=== PATIENT | female | born 1980 | race Caucasian/White ===

== ENCOUNTER → 2017-07-16 | Outpatient (CLI) | payer OTHER ==
[~2017-07-16] MED LIST: AC500T; ACHD5005 PO; ALPR1T PO; AZIT-21 PO; BC PILL PO; CETI10TA17 PO; CLNZ.5T; CLON0.5T60 PO; CYCL10TA9 PO; CYCL5TAB PO; DEPO-PROVERA; DESV100T PO; DULO30CA PO; FENO43CA3 PO; FENO67CA PO; FISH OIL 1,2001 EAC1 PO; FLUO20CA25 PO; FRS325T PO; FRSM20T PO; GUAI1TBM7 PO; HYDR1TAB PO; IBP800T PO; IBUP800T26 PO; KETO-22 PO; LMT25T PO; METH4TAB PO; MOD; ONDAN4ODT PO; ORPH100T PO; OXYC-12 PO; OXYC10TA63 PO; OXYC15TA73 PO; OXYC15TA79 PO; OXYC1TAB17 PO; PARO-49 PO; PNT40TEC PO; PRD20T PO; QTP200T; RPN.25T PO; RSP1T PO; SILV25CR TP; SIMV40TA4 PO; SULF1TAB38; SULF1TAB38 PO; TOPI50TA2 PO; TOPI50TA20; TPR25T PO; TRAM-21 PO; TRAM50TA2 PO; TRAZ150T42 PO; TRM50T PO; VARE1TAB17 PO; ZLP10T PO; ZOLP5TAB7 PO; [UNRECOGNIZED DRUG - OTHER]
--- NOTE | 2017-07-16 18:17 | Diagnostic Imaging Report ---
INDICATION: Digital mammogram bilateral diagnostic with 3-D tomosynthesis. This study was compared to the prior exam of 09/14/12. At this time, the patient does complain of pain and nipple discharge on the right. The current study was also evaluated with a Computer Aided Detection (CAD) system. FINDINGS: In the interval since the prior exam, the patient has undergone a surgical procedure and there are now surgical clips in the retroareolar region of the right breast. There is no other abnormality identified in this area to account for the patient's pain or nipple discharge, however. I would recommend that ultrasound of the right breast be performed for further study. There are scattered fibroglandular densities in both breasts which could obscure a lesion. Overall, there does not appear to have been any significant change when compared to the prior study. There is no primary or secondary sign of malignancy noted. IMPRESSION: There is no evidence for malignancy. There is no abnormality to account for the patient's nipple discharge on the right either. Ultrasound would be recommended for further evaluation. ACR BI-RADS Category 0: Incomplete. (Needs additional imaging evaluation). Result letter will be mailed to the patient. Note: At least 10% of breast cancer is not imaged by mammography. Dictated by: Dictated on workstation # [id number]
--- NOTE | 2017-07-16 19:20 | Diagnostic Imaging Report ---
Ultrasound of the right breast. INDICATION: Breast pain, nipple discharge. FINDINGS: The diagnostic mammogram performed prior to this study failed to show any sign of malignancy or an acute abnormality to account for the patient's nipple discharge on the right. On this exam, there is no discrete solid or cystic mass in the retroareolar region. This area is somewhat difficult to assess due to shadowing related to the surgical clips. The ducts do not seem to be abnormally dilated either. IMPRESSION: 1. There is no evidence of malignancy and there is no abnormality to account for the patient's nipple discharge/pain. 2. If clinical concern regarding inflammatory/infectious process exists, then antibiotic therapy would be recommended. 3. If further imaging is desired, then a ductogram should be considered. The presence of the surgical clips may preclude further evaluation by MRI. ACR BI-RADS Category 1: Negative. Dictated by: Dictated on workstation # [id number]
== END ==
LOC: RAD 13:01
PROVIDERS: ATTEND Internal Medicine Gastroenterology
DX: N64.52 Nipple discharge (principal)
CPT/HCPCS: 77066

== ENCOUNTER 2018-08-21 21:49 | Emergency (ER) | payer SELFPAY ==
[~2018-08-21] VITALS: Ht 170.2 cm; Wt 124.7 kg
--- OUTSIDE RECORDS SUMMARY | 2018-08-21 21:55 | XMS REPORT ---
Author Author [facility] [employer]coll[employer] [facility] Medical Staff Organization [facility] [employer] [facility] Address [address], [place] [id number] Phone [phone] Care Team Providers Care Career Technical Education Instructor Name Role Phone CAM WILLIS MD PP [phone] Summary purpose TRANSITION OF CARE AUTO GENERATION Chief Complaint and Reason for Visit Admit Diagnosis 1 LUMBOSACRAL NEURITIS NOS Problem list No authorized problems tracked for continuity of care are available for this vis it. Encounters No authorized problems tracked for encounter diagnoses are available for this vi sit. Medications No home medications recorded for this patient visit Allergies, adverse reactions, alerts Allergen Category Ingredient Status Reaction Severity Onset Codeine Drug Allergy Codeine Confirmed or Verified Immunizations No immunizations recorded for this patient visit Relevant diagnostic tests and/or laboratory data RESULTS Radiology Results [id number]:00:00 MRI L-SPINE W/O CONT PACs Image DATE OF EXAM: May 29 2014 MRI 0085-MRI L SPINE WO CONTRAST : RADIOLOGY REPORT DATE OF SERVICE: 05/29/14 HISTORY: Low back pain with bilateral radiculopathy MAGNETIC RESONANCE IMAGING LUMBAR SPINE 1045 HOURS Comparison is made with the prior study of 11/27/2011. Imaging of the lumbar spine was performed in the sagittal and axial planes. No contrast was administered. The lumbar vertebrae are normal in height and alignment and show normal uniform marrow signal. The upper sacrum is normal. The distal thoracic spinal cord and conus medullaris are normal. The conus terminates at the L1-L2 level. There is no bony canal stenosis. The paraspinous soft tissues are normal. The disc spaces are normal at the T12-L1, L1-L2, L2-L3, L3-L4, and L4-L5 levels. The bony canal is widely patent at these levels. The facets and foramina and the nerve roots are also normal at these levels. At L5-S1, there is a moderate to large central disc herniation. This is substantially larger than seen on the prior study. There is effacement of the ventral aspect of the subarachnoid space. Definite nerve root effacement is not seen. The facets are normal. There is no spondylolysis or spondylolisthesis. IMPRESSION: Moderate to large central disc herniation at L5-S1. Otherwise normal magnetic resonance imaging lumbar spine. MD KESHAWN Lindo/wv05/29/2014 11:58:00 / 05/29/2014 12:00:58 cc:Dr. Cam Willis This document has been electronically Signed by: On: DATE OF EXAM: May 29 2014 MRI 0085-MRI L SPINE WO CONTRAST : RADIOLOGY REPORT DATE OF SERVICE: 05/29/14 HISTORY: Low back pain with bilateral radiculopathy MAGNETIC RESONANCE IMAGING LUMBAR SPINE 1045 HOURS Comparison is made with the prior study of 11/27/2011. Imaging of the lumbar spine was performed in the sagittal and axial planes. No contrast was administered. The lumbar vertebrae are normal in height and alignment and show normal uniform marrow signal. The upper sacrum is normal. The distal thoracic spinal cord and conus medullaris are normal. The conus terminates at the L1-L2 level. There is no bony canal stenosis. The paraspinous soft tissues are normal. The disc spaces are normal at the T12-L1, L1-L2, L2-L3, L3-L4, and L4-L5 levels. The bony canal is widely patent at these levels. The facets and foramina and the nerve roots are also normal at these levels. At L5-S1, there is a moderate to large central disc herniation. This is substantially larger than seen on the prior study. There is effacement of the ventral aspect of the subarachnoid space. Definite nerve root effacement is not seen. The facets are normal. There is no spondylolysis or spondylolisthesis. IMPRESSION: Moderate to large central disc herniation at L5-S1. Otherwise normal magnetic resonance imaging lumbar spine. MD KESHAWN Lindo/snehal05/29/2014 11:58:00 / 05/29/2014 12:00:58 cc:Dr. Cam Willis This document has been electronically Signed by: LYNDSEY CISSE On: May 29 2014 12:00P Result Amended on 2014-05-29 at 12:00:54. Previous status was ME. History of procedures Procedure Code Code Type Description Date Performed Performing Physician [id number] CPT-4 MRI LUMBAR SPINE W/O DYE 05-29-2014 CAM WILLIS Functional status No functional or cognitive status observations are available for this visit. Vital signs No authorized vital signs are available for this visit. Social history No Social History or smoking status observations were recorded for this visit. ( Unknown if ever smoked.) Treatment Plan No treatment plan text is available for this visit. Hospital discharge instructions No discharge instruction text is available for this visit.
--- OUTSIDE RECORDS SUMMARY | 2018-08-21 21:55 | XMS REPORT ---
Author Author Migration, Doctor Organization [facility] Address Unknown Phone Unavailable Care Team Providers Care [employer] Name Role Phone Migration, Doctor Unavailable Unavailable PROBLEMS Type Condition ICD9-CM Code ESV89-GK Code Onset Dates Condition Status SNOMED Code Problem Encounter for change or removal of surgical wound dressing V58.31 Active 71041876 Problem Lumbago 724.2 Active 987989290 Problem General counseling for prescription of oral contraceptives V25.01 Active 048815015652065 Problem Unspecified dental caries 521.00 Active 19501113 Problem Other disorder of menstruation and other abnormal bleeding from female genital tract 626.8 Active 242241419 Problem Other dysfunctions of sleep stages or arousal from sleep 307.47 Active 606052826 Problem Allergic rhinitis, cause unspecified 477.9 Active 35658036 Problem Combinations of drug dependence excluding opioid type drug, 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 Active 237618801 Problem Anxiety state, unspecified 300.00 Active 961544001 Problem Unspecified psychosis 298.9 Active 36512482 Problem H/O hyperlipidemia Z86.39 Active 020238983 Problem Nondependent amphetamine or related acting sympathomimetic abuse, 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 39331998530373 Problem Low back pain M54.5 Active 699030018 Problem Other, mixed, or unspecified nondependent drug abuse, unspecified 305.90 Active 945221158 Problem Unspecified episodic mood disorder 296.90 Active 968021795 Problem Other and unspecified bipolar disorders 296.89 Active 04657850 Problem Benign neoplasm of uterus, 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 87775415 Problem Mood disorder F39 Active 38797363 ALLERGIES No Information ENCOUNTERS Encounter Location Date Diagnosis [facility] [address] [facility] [id number], [place] [address] Mar, BMI 40.0-44.9, adult Z68.41 and Acute nasopharyngitis J00 [facility] [address] [facility] [id number], [place] [address] Oct, Mood disorder F39 [facility] [address] [id number], [place] [address] Oct, Mood disorder F39 [facility] [address], [place] [address] Sep, Mood disorder F39 [facility] [address] [id number] [id number] Sep, Dental examination Z01.20 and Dental caries K02.9 [facility] [address], [place] [address] Sep, Mood disorder F39 [facility] [address] [place] [address] Sep, [facility] [address] [place] [address] Sep, Mood disorder F39 ; Other constipation K59.09 ; Dyspepsia R10.13 and Low back pain M54.5 [facility] [address], [place] [address] Sep, [facility] [address] [place] [address] Sep, Mood disorder F39 [facility] [address] [id number], [place] [address] July, H/O hyperlipidemia Z86.39 and H/O intravenous drug use in remission Z87.898 [facility] [address] [id number], [place] [address] July, H/O hyperlipidemia Z86.39 and H/O intravenous drug use in remission Z87.898 [facility] [address] [id number], [place] [address] July, Breast discharge N64.52 [facility] [id number], [place] [address] July, Breast discharge N64.52 [facility] [address] [place] [address] Jun, Blood in stool K92.1 ; Breast discharge N64.52 and Rash R21 [facility] [id number] [place] [address] May, Mood disorder F39 [facility] [id number] [place] [address] May, Other constipation K59.09 [facility] [id number] [place] [address] Apr, Mood disorder F39 and Rash R21 [facility] [id number] [place] [address] Apr, Mood disorder F39 and Rash R21 [facility] [id number] [place] [address] Apr, Mood disorder F39 [facility] [id number] [place] [address] Apr, [facility] [id number] [place] [address] Jun, [facility] [id number] [place] [address] Jun, [facility] [id number] [place] [address] Jun, [facility] [id number] [place] [address] May, [facility] [id number] [place] [address] Jan, Cellulitis of right index finger L03.011 ; Ingrown right big toenail L60.0 ; Local infection of the skin and subcutaneous tissue, unspecified L08.9 and Abrasion of right index finger, initial encounter [address], [place] [address] Apr, [facility] [id number] [place] [address] Apr, [facility] [id number] [place] [address] Apr, [facility] [id number] [place] [address] Apr, Anxiety disorder, unspecified F41.9 and Major depression F32.9 [facility] [id number] [place] [address] Mar, [facility] [id number] [place] [address] Nov, [facility] [id number] [place] [address] Nov, Anxiety disorder, unspecified 300.00 [facility] [id number] [place] [address] 15 Nov, 2014 Routine adult health maintenance V70.0 ; Foot pain, right 729.5 ; Otitis media of right ear 382.9 and Numbness and tingling in left hand 782.0 [facility] [address], [place] [address] 14 Nov, 2014 Routine adult health maintenance V70.0 ; Foot pain, right 729.5 ; Otitis media of right ear 382.9 and Numbness and tingling in left hand 782.0 [facility] [address] [place] [address] 09 Aug, 2014 Pain in hand 729.5 ; Bilateral finger numbness 782.0 and Irregular heart rate 427.9 [facility] [address] [place] [address] Jun, [facility] [id number] [place] [address] Jun, [facility] [address] [id number] [place] [address] Apr, [facility] [address] [id number] [place] [address] Apr, 2014 [facility] [address] [id number] [place] [address] Apr, [facility] [address] [id number] [place] [address] Apr, [facility] [address] [id number] [place] [address] Sep, [facility] [address] [id number] [place] [address] May, [facility] [address] [facility] [id number] [place] [address] May, [facility] [address] [id number] [place] [address] May, [facility] [address] [facility] [id number] [place] [address] May, [facility] [address] [facility] [id number] [place] [address] May, [facility] [address] [id number] [place] [address] Apr, [facility] [address] [id number] [place] [address] Mar, [facility] [address] [id number] [place] [address] Feb, [facility] [place] [facility] [address] [id number] [place] [address] Feb, [facility] [address] [facility] [id number] [place] [address] Feb, [facility] [place] [facility] [address] [id number] [place] [address] Feb, [facility] [place] [facility] [address] [id number] [place] [address] Jan, [facility] [place] [facility] [address] [id number] [place] [address] Jan, [facility] [place] [facility] [address] [id number] [place] [address] Jan, [facility] [place] [facility] [address] [id number] [place] [address] Dec, [facility] [place] [facility] [address] [id number] [place] [address] Dec, [facility] [place] [facility] [address] [id number] [place] [address] Dec, [facility] [place] [facility] [address] [id number] [place] [address] Dec, [facility] [place] [facility] [address] [id number] [place] [address] Nov, [facility] [place] [facility] [address] [id number] [place] [address] Nov, [facility] [place] [facility] [address] [facility] [id number] [place] [address] Nov, [facility] [place] [facility] [address] [id number] [place] [address] Oct, [facility] [place] [facility] [address] [id number] [place] [address] Oct, [facility] [place] [facility] [address] [facility] [id number] [place] [address] Oct, [facility] [place] [facility] [address] [facility] [id number], [place] [address] Sep, [facility] [address] [facility] [id number] [id number] Sep, [facility] [address] [id number] [place] [address] Sep, [facility] [place] [facility] [address] [id number] [place] [address] Aug, [facility] [place] [facility] [address] [id number] [place] [address] July, [facility] [place] [facility] [address] [id number] [place] [address] July, [facility] [address] [id number] [place] [address] July, [facility] [place] [facility] [address] [id number] [place] [address] July, [facility] [place] [facility] [address] [id number] [place] [address] July, [facility] [place] [facility] [address] [id number] [place] [address] July, [facility] [place] [facility] [address] [id number] [place] [address] July, [facility] [place] [facility] [address] [id number] [place] [address] Jun, [facility] [place] [facility] [address] [id number] [place] [address] Jun, [facility] [place] [facility] [address] [id number], [place] [address] Jun, [facility] [place] [facility] [address] [id number] [place] [address] Jun, [facility] [place] [facility] [address] [id number] [place] [address] Jun, [facility] [place] [facility] [address] [id number] [place] [address] May, [facility] [place] [facility] [address] [id number], [place] [address] May, [facility] [address], [place] [address] May, [facility] [address], [place] [address] May, [facility] [address], [place] [address] Apr, [facility] [address], [place] [address] Apr, [facility] [address], [place] [address] Apr, [facility] [address], [place] [address] Feb, [facility] [address], [place] [address] Feb, [facility] [address], [place] [address] Dec, [facility] [address], [place] [address] Feb, [facility] [address], [place] [address] Feb, [facility] [address], [place] [address] Jan, [facility] [id number], [place] [address] July, [facility] [address], [place] [address] Jun, [facility] [id number], [place] [address] 10 Aug, 2008 IMMUNIZATIONS No Known Immunizations SOCIAL HISTORY Never Assessed REASON FOR VISIT EMR[place] [place] CARE VITAL SIGNS MEDICATIONS No Known Medications RESULTS No Results PROCEDURES No Known procedures INSTRUCTIONS MEDICATIONS ADMINISTERED No Known Medications MEDICAL (GENERAL) HISTORY Type Description Date Medical History Depression Medical History HPV-genital watrs Medical History MRSA Medical History anxiety Medical History drug abuse-last used 2010 Medical History bipolar disorder Medical History PTSD Medical History insomnia Medical History back problems, bulging discs Surgical History Hysterectomy 2011 Surgical History Tubal Ligation 2006 Surgical History Appendectomy 1994 Surgical History section x 2 2004, 2006 Hospitalization History childbirth
--- OUTSIDE RECORDS SUMMARY | 2018-08-21 21:55 | XMS REPORT ---
Author Author Migration, Doctor Organization [facility] Address Unknown Phone Unavailable Care Team Providers Care Pasteurizer Name Role Phone Migration, Doctor Unavailable Unavailable PROBLEMS Type Condition ICD9-CM Code [id number] Code Onset Dates Condition Status SNOMED Code Problem Encounter for change or removal of surgical wound dressing V58.31 Active 44310571 Problem Lumbago 724.2 Active 911617540 Problem General counseling for prescription of oral contraceptives V25.01 Active 088176495127333 Problem Unspecified dental caries 521.00 Active 15315259 Problem Other disorder of menstruation and other abnormal bleeding from female genital tract 626.8 Active 311526991 Problem Other dysfunctions of sleep stages or arousal from sleep 307.47 Active 579042156 Problem Allergic rhinitis, cause unspecified 477.9 Active 56754531 Problem Combinations of drug dependence excluding opioid type drug, 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 Active 870536581 Problem Anxiety state, unspecified 300.00 Active 972686875 Problem Unspecified psychosis 298.9 Active 66149640 Problem H/O hyperlipidemia Z86.39 Active 267320330 Problem Nondependent amphetamine or related acting sympathomimetic abuse, 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 41381080762148 Problem Low back pain M54.5 Active 661195994 Problem Other, mixed, or unspecified nondependent drug abuse, unspecified 305.90 Active 840374713 Problem Unspecified episodic mood disorder 296.90 Active 243821265 Problem Other and unspecified bipolar disorders 296.89 Active 66628297 Problem Benign neoplasm of uterus, 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 68774066 Problem Mood disorder F39 Active 13023948 ALLERGIES No Information ENCOUNTERS Encounter Location Date Diagnosis [facility] [place] [address] [id number] [address] July, [facility] [address] [id number], [place] [address] Mar, BMI 40.0-44.9, adult Z68.41 and Acute nasopharyngitis J00 [facility] [place] [address] [address] Oct, Mood disorder F39 [facility] [place] [id number] [place] [address] Oct, Mood disorder F39 [facility] [place] [id number] [place] [address] Sep, Mood disorder F39 [facility] [address] [place] [id number] Sep, Dental examination Z01.20 and Dental caries K02.9 [facility] [place] [address] [address] Sep, Mood disorder F39 [facility] [place] [id number] [place] [address] Sep, [facility] [place] [id number] [place] [address] Sep, Mood disorder F39 ; Other constipation K59.09 ; Dyspepsia R10.13 and Low back pain M54.5 [facility] [place] [id number] [place] [address] Sep, [facility] [place] [id number] [place] [address] Sep, Mood disorder F39 [facility] [place] [id number] [place] [address] July, H/O hyperlipidemia Z86.39 and H/O intravenous drug use in remission Z87.898 [facility] [place] [id number] [place] [address] July, H/O hyperlipidemia Z86.39 and H/O intravenous drug use in remission Z87.898 [facility] [place] [id number] [place] [address] July, Breast discharge N64.52 [facility] [id number] [address] July, Breast discharge N64.52 [facility] [place] [id number] [place] [address] Jun, Blood in stool K92.1 ; Breast discharge N64.52 and Rash R21 [facility] [place] [id number] [place] [address] May, Mood disorder F39 [facility] [place] [address] [place] [address] May, Other constipation K59.09 [facility] [place] [id number] [place] [address] Apr, Mood disorder F39 and Rash R21 [facility] [place] [address] [place] [address] Apr, Mood disorder F39 and Rash R21 [facility] [place] [id number] [place] [address] Apr, Mood disorder F39 [facility] [place] [id number] [place] [address] Apr, [facility] [place] [id number] [place] [address] Jun, [facility] [place] [address] [place] [address] Jun, [facility] [place] [address] [place] [address] Jun, [facility] [place] [address] [place] [address] May, [facility] [address] [address] Jan, Cellulitis of right index finger L03.011 ; Ingrown right big toenail L60.0 ; Local infection of the skin and subcutaneous tissue, unspecified L08.9 and Abrasion of right index finger, initial encounter S60.410A [place] [id number] [place] [address] Apr, [facility] [place] [id number] [place] [address] Apr, [facility] [place] [address] [address] Apr, [place] [id number] [place] [address] Apr, Anxiety disorder, unspecified F41.9 and Major depression F32.9 [place] [id number] [place] [address] Mar, [address] [id number] [place] [address] Nov, [address] [id number] [place] [address] Nov, Anxiety disorder, unspecified 300.00 [place] [id number] [place] [address] 15 Nov, 2014 Routine adult health maintenance V70.0 ; Foot pain, right 729.5 ; Otitis media of right ear 382.9 and Numbness and tingling in left hand 782.0 [place] [address] [place] [address] 14 Nov, 2014 Routine adult health maintenance V70.0 ; Foot pain, right 729.5 ; Otitis media of right ear 382.9 and Numbness and tingling in left hand 782.0 [place] [id number] [place] [address] 09 Aug, 2014 Pain in hand 729.5 ; Bilateral finger numbness 782.0 and Irregular heart rate 427.9 [place] [id number] [place] [address] 14 Jun, 2014 [facility] [address] [id number] [place] [address] Jun, [facility] [address] [id number] [place] [address] Apr, [facility] [address] [id number] [place] [address] Apr, [facility] [address] [id number] [place] [address] Apr, [facility] [address] [id number] [place] [address] Apr, [facility] [address] [id number] [place] [address] Sep, [facility] [address] [id number] [place] [address] May, [facility] [address] [id number] [place] [address] May, [facility] [address] [id number] [place] [address] May, [facility] [address] [id number] [place] [address] May, [facility] [address] [id number] [place] [address] May, [facility] [place] [facility] [address] [id number] [place] [address] Apr, [facility] [place] [facility] [address] [id number] [place] [address] Mar, [facility] [place] [facility] [address] [id number] [place] [address] Feb, [facility] [place] [facility] [address] [id number] [place] [address] Feb, [facility] [place] [facility] [address] [id number] [place] [address] 14 Feb, 2012 [facility] [place] [facility] [address] [id number] [place] [address] 14 Feb, 2012 [facility] [place] [facility] [address] [id number] [place] [address] Jan, [facility] [place] [facility] [address] [id number] [place] [address] Jan, [facility] [place] [facility] [address] [id number] [place] [address] Jan, [facility] [place] [facility] [address] [id number] [place] [address] Dec, [facility] [place] [facility] [address] [id number] [place] [address] Dec, [facility] [place] [facility] [address] [id number] [place] [address] Dec, [facility] [place] [facility] [address] [id number] [place] [address] Dec, [facility] [place] [facility] [address] [id number] [place] [address] Nov, [facility] [place] [facility] [address] [id number] [place] [address] 26 Nov, 2011 [facility] [place] [facility] [address] [id number] [place] [address] 05 Nov, 2011 [facility] [place] [facility] [address] [id number] [place] [address] Oct, [facility] [place] [facility] [address] [id number] [place] [address] Oct, [facility] [place] [facility] [address] [id number] [place] [address] Oct, [facility] [place] [facility] [address] [id number] [place] [address] Sep, [facility] [address] [id number] [id number] Sep, [facility] [address] [id number] [place] [address] Sep, [facility] [address] [id number] [place] [address] Aug, [facility] [place] [facility] [address] [id number] [place] [address] July, [facility] [place] [facility] [address] [id number] [place] [address] July, [facility] [place] [facility] [address] [id number] [place] [address] July, [facility] [place] [facility] [address] [id number] [place] [address] July, [facility] [address] [id number] [place] [address] July, [facility] [place] [facility] [address] [id number] [place] [address] July, [facility] [address] [id number], [place] [address] July, [facility] [place] [facility] [address] [id number], [place] [address] Jun, [facility] [place] [facility] [address] [id number], [place] [address] Jun, [facility] [place] [facility] [address] [id number] [place] [address] Jun, [facility] [place] [facility] [address] [id number] [place] [address] Jun, [facility] [place] [facility] [address] [id number], [place] [address] Jun, [facility] [place] [facility] [address] [id number], [place] [address] May, [facility] [address] [id number] [place] [address] May, [facility] [address] [id number] [place] [address] May, [facility] [address] [id number] [place] [address] May, [facility] [address] [id number] [place] [address] 29 Apr, 2011 [facility] [address] [id number] [place] [address] Apr, [facility] [address] [id number] [place] [address] Apr, [facility] [address] [place] [address] Feb, [facility] [address] [id number] [place] [address] Feb, [facility] [id number] [place] [address] Dec, [facility] [id number] [place] [address] Feb, [facility] [place] [id number] [place] [address] Feb, [facility] [place] [address] [id number], [place] [address] Jan, [facility] [address] [id number], [place] [address] July, [facility] [address] [id number], [place] [address] 10 Jun, 2009 [facility] [place] [address] [address] 10 Aug, 2008 IMMUNIZATIONS No Known Immunizations SOCIAL HISTORY Never Assessed REASON FOR VISIT [place] [place]AN OF CARE VITAL SIGNS MEDICATIONS Unknown Medications RESULTS No Results PROCEDURES No Known procedures INSTRUCTIONS MEDICATIONS ADMINISTERED No Known Medications MEDICAL (GENERAL) HISTORY Type Description Date Medical History Depression Medical History HPV-genital watrs Medical History MRSA Medical History anxiety Medical History drug abuse-last used 2010 Medical History bipolar disorder Medical History PTSD Medical History insomnia Medical History back problems, bulging discs Surgical History Hysterectomy 2011 Surgical History Tubal Ligation 2005 Surgical History Appendectomy 1994 Surgical History section x 2 2003, 2005 Hospitalization History childbirth
--- OUTSIDE RECORDS SUMMARY | 2018-08-21 21:56 | XMS REPORT ---
Author Author Migration, Doctor Organization [facility] Address Unknown Phone Unavailable Care Team Providers Care Yoke Presser Name Role Phone Migration, Doctor Unavailable Unavailable PROBLEMS Type Condition ICD9-CM Code BWM85-IT Code Onset Dates Condition Status SNOMED Code Problem Encounter for change or removal of surgical wound dressing V58.31 Active 08954568 Problem Lumbago 724.2 Active 790676259 Problem General counseling for prescription of oral contraceptives V25.01 Active [id number] Problem Unspecified dental caries 521.00 Active 25499036 Problem Other disorder of menstruation and other abnormal bleeding from female genital tract 626.8 Active 188070207 Problem Other dysfunctions of sleep stages or arousal from sleep 307.47 Active 473179396 Problem Allergic rhinitis, cause unspecified 477.9 Active 93401141 Problem Combinations of drug dependence excluding opioid type drug, 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 Active 410203992 Problem Anxiety state, unspecified 300.00 Active 822268126 Problem Unspecified psychosis 298.9 Active 58174331 Problem H/O hyperlipidemia Z86.39 Active 723699397 Problem Nondependent amphetamine or related acting sympathomimetic abuse, 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 [id number], [place] [address] Mar, BMI 40.0-44.9, adult Z68.41 and Acute nasopharyngitis J00 [facility] [address] [facility] [id number], [place] [address] Oct, Mood disorder F39 [facility] [address] [id number], [place] [address] Oct, Mood disorder F39 [facility] [address], [place] [address] Sep, Mood disorder F39 [facility] [address] [id number] [id number] Sep, Dental examination Z01.20 and Dental caries K02.9 [facility] [address], [place] [address] Sep, Mood disorder F39 [facility] [id number] [place] [address] Sep, [facility] [id number] [place] [address] Sep, Mood disorder F39 ; Other constipation K59.09 ; Dyspepsia R10.13 and Low back pain M54.5 [facility] [address], [place] [address] Sep, [facility] [id number] [place] [address] Sep, Mood disorder F39 [facility] [address] [id number], [place] [address] July, H/O hyperlipidemia Z86.39 and H/O intravenous drug use in remission Z87.898 [facility] [address] [id number], [place] [address] July, H/O hyperlipidemia Z86.39 and H/O intravenous drug use in remission Z87.898 [facility] [address] [id number], [place] [address] July, Breast discharge N64.52 [facility] [id number], [place] [address] July, Breast discharge N64.52 [facility] [id number] [place] [address] Jun, Blood in stool K92.1 ; Breast discharge N64.52 and Rash R21 [facility] [id number] [place] [address] May, Mood disorder F39 [facility] [id number] [place] [address] May, Other constipation K59.09 [facility] [id number] [place] [address] Apr, Mood disorder F39 and Rash R21 [facility] [id number] [place] [address] Apr, Mood disorder F39 and Rash R21 [facility] [id number] [place] [address] Apr, Mood disorder F39 [facility] [id number] [place] [address] Apr, [facility] [id number] [place] [address] Jun, [facility] [id number] [place] [address] Jun, [facility] [id number] [place] [address] Jun, [facility] [id number] [place] [address] May, [facility] [id number] [place] [address] Jan, Cellulitis of right index finger L03.011 ; Ingrown right big toenail L60.0 ; Local infection of the skin and subcutaneous tissue, unspecified L08.9 and Abrasion of right index finger, initial encounter [address], [place] [address] Apr, [facility] [id number] [place] [address] Apr, [facility] [id number] [place] [address] Apr, [facility] [id number] [place] [address] Apr, Anxiety disorder, unspecified F41.9 and Major depression F32.9 [facility] [id number] [place] [address] Mar, [facility] [id number] [place] [address] Nov, [facility] [id number] [place] [address] Nov, Anxiety disorder, unspecified 300.00 [facility] [id number] [place] [address] 15 Nov, 2014 Routine adult health maintenance V70.0 ; Foot pain, right 729.5 ; Otitis media of right ear 382.9 and Numbness and tingling in left hand 782.0 [facility] [address], [place] [address] 14 Nov, 2014 Routine adult health maintenance V70.0 ; Foot pain, right 729.5 ; Otitis media of right ear 382.9 and Numbness and tingling in left hand 782.0 [facility] [id number] [place] [address] 09 Aug, 2014 Pain in hand 729.5 ; Bilateral finger numbness 782.0 and Irregular heart rate 427.9 [facility] [id number] [place] [address] Jun, [facility] [id number] [place] [address] Jun, [facility] [address] [id number] [place] [address] Apr, [facility] [address] [id number] [place] [address] Apr, 2014 [facility] [address] [id number] [place] [address] Apr, [facility] [address] [id number] [place] [address] Apr, [facility] [address] [id number] [place] [address] Sep, [facility] [address] [id number] [place] [address] May, [facility] [address] [facility] [id number] [place] [address] May, [facility] [address] [id number] [place] [address] May, [facility] [address] [facility] [id number] [place] [address] May, [facility] [address] [facility] [id number] [place] [address] May, [facility] [address] [id number] [place] [address] Apr, [facility] [address] [id number] [place] [address] Mar, [facility] [address] [id number] [place] [address] Feb, [facility] [place] [facility] [address] [id number] [place] [address] Feb, [facility] [address] [facility] [id number] [place] [address] Feb, [facility] [place] [facility] [address] [id number] [place] [address] Feb, [facility] [place] [facility] [address] [id number] [place] [address] Jan, [facility] [place] [facility] [address] [id number] [place] [address] Jan, [facility] [place] [facility] [address] [id number] [place] [address] Jan, [facility] [place] [facility] [address] [id number] [place] [address] Dec, [facility] [place] [facility] [address] [id number] [place] [address] Dec, [facility] [place] [facility] [address] [id number] [place] [address] Dec, [facility] [place] [facility] [address] [id number] [place] [address] Dec, [facility] [place] [facility] [address] [id number] [place] [address] Nov, [facility] [place] [facility] [address] [id number] [place] [address] Nov, [facility] [place] [facility] [address] [facility] [id number] [place] [address] Nov, [facility] [place] [facility] [address] [id number] [place] [address] Oct, [facility] [place] [facility] [address] [id number] [place] [address] Oct, [facility] [place] [facility] [address] [facility] [id number] [place] [address] Oct, [facility] [place] [facility] [address] [facility] [id number], [place] [address] Sep, [facility] [address] [facility] [id number] [id number] Sep, [facility] [address] [id number] [place] [address] Sep, [facility] [place] [facility] [address] [id number] [place] [address] Aug, [facility] [place] [facility] [address] [id number] [place] [address] July, [facility] [place] [facility] [address] [id number] [place] [address] July, [facility] [address] [id number] [place] [address] July, [facility] [place] [facility] [address] [id number] [place] [address] July, [facility] [place] [facility] [address] [id number] [place] [address] July, [facility] [place] [facility] [address] [id number] [place] [address] July, [facility] [place] [facility] [address] [id number] [place] [address] July, [facility] [place] [facility] [address] [id number] [place] [address] Jun, [facility] [place] [facility] [address] [id number] [place] [address] Jun, [facility] [place] [facility] [address] [id number], [place] [address] Jun, [facility] [place] [facility] [address] [id number] [place] [address] Jun, [facility] [place] [facility] [address] [id number] [place] [address] Jun, [facility] [place] [facility] [address] [id number] [place] [address] May, [facility] [place] [facility] [address] [id number], [place] [address] May, [facility] [id number], [place] [address] May, [facility] [address], [place] [address] May, [facility] [id number], [place] [address] Apr, [facility] [address], [place] [address] Apr, [facility] [address], [place] [address] Apr, [facility] [address], [place] [address] Feb, [facility] [address], [place] [address] Feb, [facility] [address], [place] [address] Dec, [facility] [address], [place] [address] Feb, [facility] [id number], [place] [address] Feb, [facility] [id number], [place] [address] Jan, [facility] [id number], [place] [address] July, [facility] [address], [place] [address] Jun, [facility] [id number], [place] [address] 10 Aug, 2008 IMMUNIZATIONS No Known Immunizations SOCIAL HISTORY Never Assessed REASON FOR VISIT EMR-[facility] PLAN OF CARE VITAL SIGNS MEDICATIONS Medication Instructions Dosage Frequency Start Date End Date Duration Status Bactrim DS 800-160 mg 1 tablet by Oral route 2 times per day for 10 day(s) Sep, Active Oxycodone-Acetaminophen 10-325 mg 1 Tablet by Oral route 2 times per day Apr, Active Topamax 25 mg 1 tablet by Oral route 2 times per day Jun, Active PredniSONE 10 mg 1 Tablet 2 times per day for 5 days Take at 8 am and noon. Apr, Active Flexeril 10 mg 1 tablet by Oral route 3 times per day PRN muscle spasm Apr, Active Lamictal 25 mg 1 tablet by Oral route 1 time per day May, Active Ibuprofen 800 mg take 1 tablet by Oral route 3 times per day with food take with food. Apr, Active Simvastatin 20 mg 1 Tablet by Oral route 1 time per day Apr, Active RESULTS No Results PROCEDURES No Known procedures [...] History Tubal Ligation 2005 Surgical History Appendectomy 1993 Surgical History section x 2 2003, 2005 Hospitalization History childbirth
--- OUTSIDE RECORDS SUMMARY | 2018-08-21 21:56 | XMS REPORT ---
Author Author Migration, Doctor Organization [facility] [facility] Address Unknown Phone Unavailable Care Team Providers Care Wood Milling Machine Operator Name Role Phone Migration, Doctor Unavailable Unavailable PROBLEMS Type Condition ICD9-CM Code KRC10-GX Code Onset Dates Condition Status SNOMED Code Problem Encounter for change or removal of surgical wound dressing V58.31 Active 48036961 Problem Lumbago 724.2 Active 843894718 Problem General counseling for prescription of oral contraceptives V25.01 Active [id number] Problem Unspecified dental caries 521.00 Active 18242040 Problem Other disorder of menstruation and other abnormal bleeding from female genital tract 626.8 Active 716770267 Problem Other dysfunctions of sleep stages or arousal from sleep 307.47 Active 738616592 Problem Allergic rhinitis, cause unspecified 477.9 Active 53622955 Problem Combinations of drug dependence excluding opioid type drug, 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 Active 090756735 Problem Anxiety state, unspecified 300.00 Active 189059084 Problem Unspecified psychosis 298.9 Active 25355522 Problem H/O hyperlipidemia Z86.39 Active 318986603 Problem Nondependent amphetamine or related acting sympathomimetic abuse, 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 18165739903782 Problem Low back pain M54.5 Active 312731684 Problem Other, mixed, or unspecified nondependent drug abuse, unspecified 305.90 Active 626874804 Problem Unspecified episodic mood disorder 296.90 Active 950248657 Problem Other and unspecified bipolar disorders 296.89 Active 01391264 Problem Benign neoplasm of uterus, 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 92434894 Problem Mood disorder F39 Active 35684870 ALLERGIES No Information ENCOUNTERS Encounter Location Date Diagnosis [facility] [address] [facility] [id number] [address] Mar, BMI 40.0-44.9, adult Z68.41 and Acute nasopharyngitis J00 [facility] [place] [address] [facility] [id number] [address] Oct, Mood disorder F39 [facility] [place] [id number] [address] Oct, Mood disorder F39 [facility] [place] [address] [address] Sep, Mood disorder F39 [facility] [facility] [id number] [id number] Sep, Dental examination Z01.20 and Dental caries K02.9 [facility] [place] [address] [address] Sep, Mood disorder F39 [facility] [place] [id number] [place] [address] Sep, [facility] [place] [id number] [place] [address] Sep, Mood disorder F39 ; Other constipation K59.09 ; Dyspepsia R10.13 and Low back pain M54.5 [facility] [place] [address] [address] Sep, [facility] [place] [id number] [place] [address] Sep, Mood disorder F39 [facility] [place] [id number] [address] July, H/O hyperlipidemia Z86.39 and H/O intravenous drug use in remission Z87.898 [facility] [place] [id number] [address] July, H/O hyperlipidemia Z86.39 and H/O intravenous drug use in remission Z87.898 [facility] [place] [id number] [address] July, Breast discharge N64.52 [facility] [id number] [address] July, Breast discharge N64.52 [facility] [place] [id number] [place] [address] Jun, Blood in stool K92.1 ; Breast discharge N64.52 and Rash R21 [facility] [place] [id number] [place] [address] May, Mood disorder F39 [facility] [place] [id number] [place] [address] May, Other constipation K59.09 [facility] [place] [id number] [place] [address] Apr, Mood disorder F39 and Rash R21 [facility] [place] [id number] [place] [address] Apr, Mood disorder F39 and Rash R21 [facility] [place] [id number] [place] [address] Apr, Mood disorder F39 [facility] [place] [id number] [place] [address] Apr, [facility] [place] [id number] [place] [address] Jun, [facility] [place] [id number] [place] [address] Jun, [facility] [place] [id number] [place] [address] Jun, [facility] [place] [id number] [place] [address] May, [facility] [id number] [place] [address] Jan, Cellulitis of right index finger L03.011 ; Ingrown right big toenail L60.0 ; Local infection of the skin and subcutaneous tissue, unspecified L08.9 and Abrasion of right index finger, initial encounter [address] [address] Apr, [facility] [place] [id number] [place] [address] Apr, [facility] [place] [id number] [place] [address] Apr, [facility] [place] [id number] [place] [address] Apr, Anxiety disorder, unspecified F41.9 and Major depression F32.9 [facility] [place] [id number] [place] [address] Mar, [facility] [place] [id number] [place] [address] Nov, [facility] [place] [id number] [place] [address] Nov, Anxiety disorder, unspecified 300.00 [facility] [place] [id number] [place] [address] 15 Nov, 2014 Routine adult health maintenance V70.0 ; Foot pain, right 729.5 ; Otitis media of right ear 382.9 and Numbness and tingling in left hand 782.0 [facility] [place] [address] [address] 14 Nov, 2014 Routine adult health maintenance V70.0 ; Foot pain, right 729.5 ; Otitis media of right ear 382.9 and Numbness and tingling in left hand 782.0 [facility] [place] [id number] [place] [address] 09 Aug, 2014 Pain in hand 729.5 ; Bilateral finger numbness 782.0 and Irregular heart rate 427.9 [facility] [place] [id number] [place] [address] Jun, [facility] [place] [id number] [place] [address] Jun, [facility] [address] [id number] [place] [address] Apr, [facility] [address] [id number] [place] [address] Apr, 2014 [facility] [address] [id number] [place] [address] Apr, [facility] [address] [id number] [place] [address] Apr, [facility] [address] [id number] [place] [address] Sep, [facility] [address] [id number] [place] [address] May, [facility] [address] [facility] [id number] [place] [address] May, [facility] [address] [id number] [place] [address] May, [facility] [address] [facility] [id number] [place] [address] May, [facility] [address] [facility] [id number] [place] [address] May, [facility] [address] [id number] [place] [address] Apr, [facility] [address] [id number] [place] [address] Mar, [facility] [address] [id number] [place] [address] Feb, [facility] [place] [facility] [address] [id number] [place] [address] Feb, [facility] [address] [facility] [id number] [place] [address] Feb, [facility] [place] [facility] [address] [id number] [place] [address] Feb, [facility] [place] [facility] [address] [id number] [place] [address] Jan, [facility] [place] [facility] [address] [id number] [place] [address] Jan, [facility] [place] [facility] [address] [id number] [place] [address] Jan, [facility] [place] [facility] [address] [id number] [place] [address] Dec, [facility] [place] [facility] [address] [id number] [place] [address] Dec, [facility] [place] [facility] [address] [id number] [place] [address] Dec, [facility] [place] [facility] [address] [id number] [place] [address] Dec, [facility] [place] [facility] [address] [id number] [place] [address] Nov, [facility] [place] [facility] [address] [id number] [place] [address] Nov, [facility] [place] [facility] [address] [facility] [id number] [place] [address] Nov, [facility] [place] [facility] [address] [id number] [place] [address] Oct, [facility] [place] [facility] [address] [id number] [place] [address] Oct, [facility] [place] [facility] [address] [facility] [id number] [place] [address] Oct, [facility] [place] [facility] [address] [facility] [id number] [address] Sep, [facility] [place] [address] [facility] [id number] [id number] Sep, [facility] [address] [id number] [place] [address] Sep, [facility] [place] [facility] [address] [id number] [place] [address] Aug, [facility] [place] [facility] [address] [id number] [place] [address] July, [facility] [place] [facility] [address] [id number] [place] [address] July, [facility] [address] [id number] [place] [address] July, [facility] [place] [facility] [address] [id number] [place] [address] July, [facility] [place] [facility] [address] [id number] [place] [address] July, [facility] [place] [facility] [address] [id number] [place] [address] July, [facility] [place] [facility] [address] [id number] [place] [address] July, [facility] [place] [facility] [address] [id number] [place] [address] Jun, [facility] [place] [facility] [address] [id number] [place] [address] Jun, [facility] [place] [facility] [address] [id number] [address] Jun, [facility] [place] [facility] [address] [id number] [place] [address] Jun, [facility] [place] [facility] [address] [id number] [place] [address] Jun, [facility] [place] [facility] [address] [id number] [place] [address] May, [facility] [place] [facility] [address] [id number] [address] May, [facility] [place] [address] [address] May, [facility] [place] [address] [address] May, [facility] [place] [address] [address] Apr, [facility] [place] [address] [address] Apr, [facility] [place] [address] [address] Apr, [facility] [place] [address] [address] Feb, [facility] [place] [address] [address] Feb, [facility] [place] [address] [address] Dec, [facility] [place] [address] [address] Feb, [facility] [place] [address] [address] Feb, [facility] [place] [address] [address] Jan, [facility] [place] [id number] [address] July, [facility] [place] [address] [address] Jun, [facility] [place] [id number] [address] 10 Aug, 2008 IMMUNIZATIONS No Known Immunizations SOCIAL HISTORY Never Assessed REASON FOR VISIT EMR[place] PLAN OF CARE VITAL SIGNS MEDICATIONS No [...]
--- OUTSIDE RECORDS SUMMARY | 2018-08-21 21:56 | XMS REPORT ---
Author Author Migration, Doctor Organization [facility] Address Unknown Phone Unavailable Care Team Providers Care Quill Machine Operator Name Role Phone Migration, Doctor Unavailable Unavailable PROBLEMS Type Condition ICD9-CM Code XGC66-AF Code Onset Dates Condition Status SNOMED Code Problem Encounter for change or removal of surgical wound dressing V58.31 Active 03055015 Problem Lumbago 724.2 Active 527865810 Problem General counseling for prescription of oral contraceptives V25.01 Active 981949000928798 Problem Unspecified dental caries 521.00 Active 99557601 Problem Other disorder of menstruation and other abnormal bleeding from female genital tract 626.8 Active 031240832 Problem Other dysfunctions of sleep stages or arousal from sleep 307.47 Active 003238576 Problem Allergic rhinitis, cause unspecified 477.9 Active 18755699 Problem Combinations of drug dependence excluding opioid type drug, 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 Active 951687591 Problem Anxiety state, unspecified 300.00 Active 634687433 Problem Unspecified psychosis 298.9 Active 88003442 Problem H/O hyperlipidemia Z86.39 Active 134885283 Problem Nondependent amphetamine or related acting sympathomimetic abuse, 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 04168942639308 Problem Low back pain M54.5 Active 925178061 Problem Other, mixed, or unspecified nondependent drug abuse, unspecified 305.90 Active 480465323 Problem Unspecified episodic mood disorder 296.90 Active 060582179 Problem Other and unspecified bipolar disorders 296.89 Active 25030805 Problem Benign neoplasm of uterus, 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 41578384 Problem Mood disorder F39 Active 84941232 ALLERGIES No Information ENCOUNTERS Encounter Location Date Diagnosis [facility] [address] [facility] [id number], [place] [address] Mar, BMI 40.0-44.9, adult Z68.41 and Acute nasopharyngitis J00 [facility] [place] [address] [facility] [id number], [place] [address] Oct, Mood disorder F39 [facility] [place] [address] [id number], [place] [address] Oct, Mood disorder F39 [facility] [place] [address], [place] [address] Sep, Mood disorder F39 [facility] [address] [id number] [id number] Sep, Dental examination Z01.20 and Dental caries K02.9 [facility] [place] [address], [place] [address] Sep, Mood disorder F39 [facility] [place] [address] [place] [address] Sep, [facility] [place] [address] [place] [address] Sep, Mood disorder F39 ; Other constipation K59.09 ; Dyspepsia R10.13 and Low back pain M54.5 [facility], [place] [address], [place] [address] Sep, [facility] [place] [address] [place] [address] Sep, Mood disorder F39 [facility] [place] [address] [id number], [place] [address] July, H/O hyperlipidemia Z86.39 and H/O intravenous drug use in remission Z87.898 [facility] [place] [address] [id number], [place] [address] July, H/O hyperlipidemia Z86.39 and H/O intravenous drug use in remission Z87.898 [facility] [place] [address] [id number], [place] [address] July, Breast discharge N64.52 [facility] [id number] [address] July, Breast discharge N64.52 [facility], [place] [address] [place] [address] Jun, Blood in stool K92.1 ; Breast discharge N64.52 and Rash R21 [facility] [place] [id number] [place] [address] May, Mood disorder F39 [facility] [place] [id number] [place] [address] May, Other constipation K59.09 [facility], [place] [id number] [place] [address] Apr, Mood disorder F39 and Rash R21 [facility] [place] [id number] [place] [address] Apr, Mood disorder F39 and Rash R21 [facility] [place] [id number] [place] [address] Apr, Mood disorder F39 [facility] [place] [id number] [place] [address] Apr, [facility] [place] [id number] [place] [address] Jun, [facility] [place] [id number] [place] [address] Jun, [facility] [place] [id number] [place] [address] Jun, [facility] [place] [id number] [place] [address] May, [facility] [id number] [place] [address] Jan, Cellulitis of right index finger L03.011 ; Ingrown right big toenail L60.0 ; Local infection of the skin and subcutaneous tissue, unspecified L08.9 and Abrasion of right index finger, initial encounter [address], [place] [address] Apr, [facility], [place] [id number] [place] [address] Apr, [facility] [place] [id number] [place] [address] Apr, [facility] [place] [id number] [place] [address] Apr, Anxiety disorder, unspecified F41.9 and Major depression F32.9 [facility] [place] [id number] [place] [address] Mar, [facility] [place] [id number] [place] [address] Nov, [facility] [place] [id number] [place] [address] Nov, Anxiety disorder, unspecified 300.00 [facility] [place] [id number] [place] [address] 15 Nov, 2014 Routine adult health maintenance V70.0 ; Foot pain, right 729.5 ; Otitis media of right ear 382.9 and Numbness and tingling in left hand 782.0 [facility], [place] [address], [place] [address] 14 Nov, 2014 Routine adult health maintenance V70.0 ; Foot pain, right 729.5 ; Otitis media of right ear 382.9 and Numbness and tingling in left hand 782.0 [facility] [place] [address] [place] [address] 09 Aug, 2014 Pain in hand 729.5 ; Bilateral finger numbness 782.0 and Irregular heart rate 427.9 [facility] [place] [address] [place] [address] Jun, [facility] [place] [id number] [place] [address] Jun, [facility] [address] [id number] [place] [address] Apr, [facility] [address] [id number] [place] [address] Apr, 2014 [facility] [address] [id number] [place] [address] Apr, [facility] [address] [id number] [place] [address] Apr, [facility] [address] [id number] [place] [address] Sep, [facility] [address] [id number] [place] [address] May, [facility] [address] [facility] [id number] [place] [address] May, [facility] [address] [id number] [place] [address] May, [facility] [address] [facility] [id number] [place] [address] May, [facility] [address] [facility] [id number] [place] [address] May, [facility] [address] [id number] [place] [address] Apr, [facility] [address] [id number] [place] [address] Mar, [facility] [address] [id number] [place] [address] Feb, [facility] [place] [facility] [address] [id number] [place] [address] Feb, [facility] [address] [facility] [id number] [place] [address] Feb, [facility] [place] [facility] [address] [id number] [place] [address] Feb, [facility] [place] [facility] [address] [id number] [place] [address] Jan, [facility] [place] [facility] [address] [id number] [place] [address] Jan, [facility] [place] [facility] [address] [id number] [place] [address] Jan, [facility] [place] [facility] [address] [id number] [place] [address] Dec, [facility] [place] [facility] [address] [id number] [place] [address] Dec, [facility] [place] [facility] [address] [id number] [place] [address] Dec, [facility] [place] [facility] [address] [id number] [place] [address] Dec, [facility] [place] [facility] [address] [id number] [place] [address] Nov, [facility] [place] [facility] [address] [id number] [place] [address] Nov, [facility] [place] [facility] [address] [facility] [id number] [place] [address] Nov, [facility] [place] [facility] [address] [id number] [place] [address] Oct, [facility] [place] [facility] [address] [id number] [place] [address] Oct, [facility] [place] [facility] [address] [facility] [id number] [place] [address] Oct, [facility] [place] [facility] [address] [facility] [id number], [place] [address] Sep, [facility] [address] [facility] [id number] [id number] Sep, [facility] [address] [id number] [place] [address] Sep, [facility] [place] [facility] [address] [id number] [place] [address] Aug, [facility] [place] [facility] [address] [id number] [place] [address] July, [facility] [place] [facility] [address] [id number] [place] [address] July, [facility] [address] [id number] [place] [address] July, [facility] [place] [facility] [address] [id number] [place] [address] July, [facility] [place] [facility] [address] [id number] [place] [address] July, [facility] [place] [facility] [address] [id number] [place] [address] July, [facility] [place] [facility] [address] [id number] [place] [address] July, [facility] [place] [facility] [address] [id number] [place] [address] Jun, [facility] [place] [facility] [address] [id number] [place] [address] Jun, [facility] [place] [facility] [address] [id number], [place] [address] Jun, [facility] [place] [facility] [address] [id number] [place] [address] Jun, [facility] [place] [facility] [address] [id number] [place] [address] Jun, [facility] [place] [facility] [address] [id number] [place] [address] May, [facility] [place] [facility] [address] [id number], [place] [address] May, [facility] [place] [address], [place] [address] May, [facility] [place] [address], [place] [address] May, [facility] [place] [address], [place] [address] Apr, [facility] [place] [address], [place] [address] Apr, [facility] [place] [address], [place] [address] Apr, [facility] [place] [address], [place] [address] Feb, [facility] [place] [address], [place] [address] Feb, [facility] [place] [address], [place] [address] Dec, [facility] [place] [address], [place] [address] Feb, [facility] [place] [address], [place] [address] Feb, [facility] [place] [address], [place] [address] Jan, [facility] [place] [address] [id number], [place] [address] July, [facility] [place] [address], [place] [address] Jun, [facility] [place] [address] [id number], [place] [address] 10 Aug, 2008 IMMUNIZATIONS No Known Immunizations SOCIAL HISTORY Never Assessed REASON FOR VISIT EMR-[facility] PLAN OF CARE VITAL SIGNS MEDICATIONS [...]
--- OUTSIDE RECORDS SUMMARY | 2018-08-21 21:57 | XMS REPORT ---
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 Active 611785506 Problem Unspecified psychosis 298.9 Active 22138493 Problem Anxiety state, unspecified 300.00 Active 994292805 Problem Low back pain M54.5 Active 247919578 Problem H/O hyperlipidemia Z86.39 Active 520148376 Problem Other and unspecified bipolar disorders 296.89 Active 18411650 Problem Unspecified episodic mood disorder 296.90 Active 979410102 Problem Mood disorder F39 Active 79803433 Problem Benign neoplasm of uterus, 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 75861723 Problem General counseling for prescription of oral contraceptives V25.01 Active 998905976502368 Problem Lumbago 724.2 Active 811817465 Problem Encounter for change or removal of surgical wound dressing V58.31 Active 67123185 Problem Allergic rhinitis, cause unspecified 477.9 Active 26828950 Problem Other dysfunctions of sleep stages or arousal from sleep 307.47 Active 785357148 Problem Other disorder of menstruation and other abnormal bleeding from female genital tract 626.8 Active 644138992 Problem Other, mixed, or unspecified nondependent drug abuse, unspecified 305.90 Active 876116409 Problem Unspecified dental caries 521.00 Active 44026602 Problem Nondependent amphetamine or related acting sympathomimetic abuse, 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 ALLERGIES No Information ENCOUNTERS Encounter Location Date Diagnosis [facility] [address] [facility] [id number] [address] Oct, Mood disorder F39 [facility] [address] [facility] [id number], [place] [address] Oct, Mood disorder F39 [facility] [id number] [address] Sep, Mood disorder F39 [facility] [id number] [id number] Sep, Dental examination Z01.20 and Dental caries K02.9 [facility] [address] [address] Sep, Mood disorder F39 [facility] [address] [address] Sep, [facility] [id number] [place] [address] Sep, Mood disorder F39 ; Other constipation K59.09 ; Dyspepsia R10.13 and Low back pain M54.5 [facility] [address] [address] Sep, [facility] [address] [address] Sep, Mood disorder F39 [facility] [id number] [place] [address] July, H/O hyperlipidemia Z86.39 and H/O intravenous drug use in remission Z87.898 [facility] [id number] [address] July, H/O hyperlipidemia Z86.39 and H/O intravenous drug use in remission Z87.898 [facility] [id number] [address] July, Breast discharge N64.52 [facility] [id number] [address] July, Breast discharge N64.52 [facility] [address] [id number] [address] Jun, Blood in stool K92.1 ; Breast discharge N64.52 and Rash R21 [facility] [id number] [place] [address] May, Mood disorder F39 [facility] [id number] [place] [address] May, Other constipation K59.09 [facility] [address] [address] Apr, Mood disorder F39 and Rash R21 [facility] [id number] [place] [address] Apr, Mood disorder F39 and Rash R21 [facility] [id number] [place] [address] Apr, Mood disorder F39 [facility] [id number] [place] [address] Apr, [facility] [id number] [place] [address] Jun, [facility] [id number] [place] [address] Jun, [facility] [id number] [place] [address] Jun, [facility] [id number] [place] [address] May, [facility] [address] [place] [address] Jan, Cellulitis of right index finger L03.011 ; Ingrown right big toenail L60.0 ; Local infection of the skin and subcutaneous tissue, unspecified L08.9 and Abrasion of right index finger, initial encounter S60.410A [facility] [id number] [place] [address] Apr, [facility] [address] [place] [address] Apr, [facility] [id number] [place] [address] Apr, [facility] [id number] [place] [address] Apr, Anxiety disorder, unspecified F41.9 and Major depression F32.9 [facility] [id number] [place] [address] Mar, [facility] [id number] [place] [address] Nov, [facility] [id number] [place] [address] Nov, Anxiety disorder, unspecified 300.00 [facility] [id number] [place] [address] 15 Nov, 2014 Routine adult health maintenance V70.0 ; Foot pain, right 729.5 ; Otitis media of right ear 382.9 and Numbness and tingling in left hand 782.0 [facility] [id number] [place] [address] Nov, Routine adult health maintenance V70.0 ; Foot pain, right 729.5 ; Otitis media of right ear 382.9 and Numbness and tingling in left hand 782.0 [facility] [id number] [place] [address] Aug, Pain in hand 729.5 ; Bilateral finger numbness 782.0 and Irregular heart rate 427.9 [facility] [address] [place] [address] Jun, [facility] [id number] [place] [address] Jun, [facility] [id number] [place] [address] Apr, [facility] [place] [facility] [address] [id number] [place] [address] Apr, 2014 [facility] [place] [facility] [address] [id number] [place] [address] Apr, [facility] [place] [facility] [address] [id number] [place] [address] Apr, [facility] [place] [facility] [address] [id number] [place] [address] Sep, [facility] [place] [facility] [address] [id number] [place] [address] May, [facility] [place] [facility] [address] [id number] [place] [address] May, [facility] [place] [facility] [address] [id number] [place] [address] May, [facility] [place] [facility] [address] [id number] [place] [address] May, [facility] [place] [facility] [address] [id number] [place] [address] May, [facility] [place] [facility] [address] [id number] [place] [address] Apr, [facility] [place] [facility] [address] [id number] [place] [address] Mar, [facility] [place] [facility] [address] [id number] [place] [address] Feb, [facility] [place] [facility] [address] [id number] [place] [address] Feb, [facility] [place] [facility] [address] [id number] [place] [address] Feb, [facility] [place] [facility] [address] [id number] [place] [address] Feb, [facility] [place] [facility] [address] [id number] [place] [address] Jan, [facility] [address] [id number] [place] [address] Jan, [facility] [place] [facility] [address] [id number] [place] [address] Jan, [facility] [address] [id number] [place] [address] Dec, [facility] [place] [facility] [address] [id number] [place] [address] Dec, [facility] [address] [id number] [place] [address] Dec, [facility] [place] [facility] [address] [id number] [place] [address] Dec, [facility] [address] [id number] [place] [address] Nov, [facility] [address] [id number] [place] [address] Nov, [facility] [address] [id number] [place] [address] Nov, [facility] [address] [id number] [place] [address] Oct, [facility] [place] [facility] [address] [id number], [place] [address] Oct, [facility] [address] [id number], [place] [address] Oct, [facility] [address] [id number] [address] Sep, [facility] [address] [id number] [id number] Sep, [facility] [place] [facility] [address] [id number] [place] [address] Sep, [facility] [place] [facility] [address] [id number] [place] [address] Aug, [facility] [address] [id number] [place] [address] July, [facility] [address] [id number] [place] [address] July, [facility] [address] [id number] [place] [address] July, [facility] [address] [id number] [place] [address] July, [facility] [address] [id number] [place] [address] July, [facility] [address] [id number] [place] [address] July, [facility] [address] [id number] [place] [address] July, [facility] [address] [id number] [place] [address] Jun, [facility] [address] [id number] [place] [address] Jun, [facility] [address] [id number] [place] [address] Jun, [facility] [address] [id number] [place] [address] Jun, [facility] [address] [id number] [place] [address] Jun, [facility] [address] [id number] [place] [address] May, [facility] [address] [id number] [place] [address] May, [facility] [address] [id number] [place] [address] May, [facility] [id number] [address] May, [facility] [address] [address] Apr, [facility] [address] [address] Apr, [facility] [address] [address] Apr, [facility] [address] [address] Feb, [facility] [address] [address] Feb, [facility] [address] [address] Dec, [facility] [address] [address] Feb, [facility] [address] [address] Feb, [facility] [address] [address] Jan, [facility] [address] [address] July, [facility] [id number] [address] Jun, [facility] [id number] [address] Aug, IMMUNIZATIONS No Known Immunizations SOCIAL HISTORY Never Assessed REASON FOR VISIT intermediate rx PLAN OF CARE VITAL SIGNS MEDICATIONS Medication Instructions Dosage Frequency Start Date End Date Duration Status Seroquel 200 MG Orally twice a day 1 tablet 12h Sep, 30 day(s) Active RESULTS No Results PROCEDURES No Known [...] 1994 Surgical History section x 2 2003, 2006
--- OUTSIDE RECORDS SUMMARY | 2018-08-21 21:57 | XMS REPORT ---
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 Active 748212424 Problem Unspecified psychosis 298.9 Active 86430427 Problem Anxiety state, unspecified 300.00 Active 353730305 Problem Low back pain M54.5 Active 671416864 Problem H/O hyperlipidemia Z86.39 Active 477884470 Problem Other and unspecified bipolar disorders 296.89 Active 34292104 Problem Unspecified episodic mood disorder 296.90 Active 456015493 Problem Mood disorder F39 Active 64244077 Problem Benign neoplasm of uterus, 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 63804731 Problem General counseling for prescription of oral contraceptives V25.01 Active 484704713895437 Problem Lumbago 724.2 Active 199217222 Problem Encounter for change or removal of surgical wound dressing V58.31 Active 28597201 Problem Allergic rhinitis, cause unspecified 477.9 Active 55166875 Problem Other dysfunctions of sleep stages or arousal from sleep 307.47 Active 955968998 Problem Other disorder of menstruation and other abnormal bleeding from female genital tract 626.8 Active 097507979 Problem Other, mixed, or unspecified nondependent drug abuse, unspecified 305.90 Active 422081082 Problem Unspecified dental caries 521.00 Active 13691058 Problem Nondependent amphetamine or related acting sympathomimetic abuse, 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 ALLERGIES Substance Reaction Event Type Date Status Codeine-Guaifenesin anaphylaxis Drug Allergy Oct, Active ENCOUNTERS Encounter Location Date Diagnosis [facility], [place] [address] [facility] [id number] [place] [address] Oct, Mood disorder F39 [facility] [place] [address] [address] Oct, Mood disorder F39 [facility] [place] [address] [place] [address] Sep, Mood disorder F39 [facility] [address] [id number] Sep, Dental examination Z01.20 and Dental caries K02.9 [facility] [place] [id number] [place] [address] Sep, Mood disorder F39 [facility] [place] [id number] [place] [address] Sep, [facility] [place] [id number] [place] [address] Sep, Mood disorder F39 ; Other constipation K59.09 ; Dyspepsia R10.13 and Low back pain M54.5 [facility] [place] [address] [place] [address] Sep, [facility] [place] [address] [place] [address] Sep, Mood disorder F39 [facility] [place] [id number] [place] [address] July, H/O hyperlipidemia Z86.39 and H/O intravenous drug use in remission Z87.898 [facility] [place] [address] [place] [address] July, H/O hyperlipidemia Z86.39 and H/O intravenous drug use in remission Z87.898 [facility] [place] [address] [place] [address] July, Breast discharge N64.52 [facility] [id number] [address] July, Breast discharge N64.52 [facility] [place] [address] [place] [address] Jun, Blood in stool K92.1 ; Breast discharge N64.52 and Rash R21 [facility] [place] [id number] [place] [address] May, Mood disorder F39 [facility] [place] [id number] [place] [address] May, Other constipation K59.09 [facility] [place] [id number] [place] [address] Apr, Mood disorder F39 and Rash R21 [facility] [place] [id number] [place] [address] Apr, Mood disorder F39 and Rash R21 [facility] [place] [id number] [place] [address] Apr, Mood disorder F39 [facility] [place] [id number] [place] [address] Apr, [facility] [place] [id number] [place] [address] Jun, [facility] [place] [id number] [place] [address] Jun, [facility] [place] [id number] [place] [address] Jun, [facility] [place] [id number] [place] [address] May, [facility] [address] [place] [address] Jan, Cellulitis of right index finger L03.011 ; Ingrown right big toenail L60.0 ; Local infection of the skin and subcutaneous tissue, unspecified L08.9 and Abrasion of right index finger, initial encounter S60.410A [facility] [place] [id number] [place] [address] Apr, [facility] [place] [address] [address] Apr, [facility] [place] [id number] [place] [address] Apr, [facility] [place] [id number] [place] [address] Apr, Anxiety disorder, unspecified F41.9 and Major depression F32.9 [facility] [place] [id number] [place] [address] Mar, [facility] [place] [id number] [place] [address] Nov, [facility] [place] [id number] [place] [address] Nov, Anxiety disorder, unspecified 300.00 [facility] [place] [id number] [place] [address] 15 Nov, 2014 Routine adult health maintenance V70.0 ; Foot pain, right 729.5 ; Otitis media of right ear 382.9 and Numbness and tingling in left hand 782.0 [facility] [place] [address] [place] [address] 14 Nov, 2014 Routine adult health maintenance V70.0 ; Foot pain, right 729.5 ; Otitis media of right ear 382.9 and Numbness and tingling in left hand 782.0 [facility] [place] [address] [place] [address] Aug, Pain in hand 729.5 ; Bilateral finger numbness 782.0 and Irregular heart rate 427.9 [facility] [place] [address] [place] [address] Jun, [facility] [place] [id number] [place] [address] Jun, [facility] [place] [id number] [place] [address] Apr, 2014 [facility] [address] [id number] [place] [address] Apr, 2014 [facility] [address] [id number] [place] [address] Apr, 2014 [facility] [address] [id number] [place] [address] Apr, 2014 [facility] [address] [id number] [place] [address] 05 Sep, 2012 [facility] [address] [id number] [place] [address] 29 May, 2012 [facility] [address] [id number] [place] [address] May, [facility] [address] [id number] [place] [address] 14 May, 2012 [facility] [address] [id number] [place] [address] 05 May, 2012 [facility] [address] [id number] [place] [address] May, [facility] [address] [id number] [place] [address] Apr, [facility] [address] [id number] [place] [address] Mar, [facility] [address] [id number] [place] [address] Feb, [facility] [place] [facility] [address] [id number] [place] [address] Feb, [facility] [address] [id number] [place] [address] Feb, [facility] [address] [id number] [place] [address] Feb, [facility] [place] [facility] [address] [id number] [place] [address] Jan, [facility] [place] [facility] [address] [id number] [place] [address] Jan, [facility] [place] [facility] [address] [id number] [place] [address] Jan, [facility] [place] [facility] [address] [id number] [place] [address] Dec, [facility] [place] [facility] [address] [id number] [place] [address] Dec, [facility] [place] [facility] [address] [id number] [place] [address] Dec, [facility] [place] [facility] [address] [id number] [place] [address] Dec, [facility] [place] [facility] [address] [id number] [place] [address] Nov, [facility] [place] [facility] [address] [id number] [place] [address] Nov, [facility] [place] [facility] [address] [id number] [address] Nov, [facility] [place] [facility] [address] [id number] [place] [address] Oct, [facility] [place] [facility] [address] [id number] [address] Oct, [facility] [place] [facility] [address] [id number] [place] [address] Oct, [facility] [place] [facility] [address] [id number] [address] Sep, [facility] [address] [id number] [id number] Sep, [facility] [place] [facility] [address] [id number] [address] Sep, [facility] [address] [id number] [place] [address] Aug, [facility] [place] [facility] [address] [id number] [place] [address] July, [facility] [place] [facility] [address] [id number] [place] [address] July, [facility] [place] [facility] [address] [id number] [place] [address] July, [facility] [address] [id number] [place] [address] July, [facility] [address] [id number] [place] [address] July, [facility] [address] [id number] [place] [address] July, [facility] [place] [facility] [address] [id number] [place] [address] July, [facility] [address] [id number] [place] [address] Jun, [facility] [place] [facility] [address] [id number] [place] [address] Jun, [facility] [place] [facility] [address] [id number] [place] [address] Jun, [facility] [place] [facility] [address] [id number] [place] [address] Jun, [facility] [place] [facility] [address] [id number] [place] [address] Jun, [facility] [place] [facility] [address] [id number] [place] [address] May, [facility] [place] [facility] [address] [id number] [place] [address] May, [facility] [place] [facility] [address] [address] May, [facility] [place] [address] [facility] [id number] [place] [address] May, [facility] [place] [address] [address] Apr, [facility] [place] [address] [address] Apr, [facility] [place] [address] [facility] [id number] [place] [address] Apr, [facility] [place] [address] [address] Feb, [facility] [place] [address] [address] Feb, [facility] [place] [address] [address] Dec, [facility] [place] [address] [address] Feb, [facility] [place] [address] [address] Feb, [facility] [place] [id number] [address] Jan, [facility] [place] [id number] [address] July, [facility] [place] [id number] [address] Jun, [facility] [place] [id number] [address] Aug, IMMUNIZATIONS No Known Immunizations SOCIAL HISTORY Never Assessed REASON FOR VISIT [facility] rx PLAN OF CARE VITAL SIGNS MEDICATIONS Medication Instructions Dosage Frequency Start Date End Date Duration Status Seroquel 100 MG Orally twice a day 1 tablet 12Sep, 30 day(s) Active RESULTS No Results PROCEDURES [...]
--- OUTSIDE RECORDS SUMMARY | 2018-08-21 21:57 | XMS REPORT ---
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 Active 292552477 Problem Unspecified psychosis 298.9 Active 53808225 Problem Anxiety state, unspecified 300.00 Active 486531572 Problem Low back pain M54.5 Active 935595376 Problem H/O hyperlipidemia Z86.39 Active 267668216 Problem Other and unspecified bipolar disorders 296.89 Active 32739712 Problem Unspecified episodic mood disorder 296.90 Active 897226411 Problem Mood disorder F39 Active 77781417 Problem Benign neoplasm of uterus, 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 38540316 Problem General counseling for prescription of oral contraceptives V25.01 Active 487127354878793 Problem Lumbago 724.2 Active 789900747 Problem Encounter for change or removal of surgical wound dressing V58.31 Active 79670310 Problem Allergic rhinitis, cause unspecified 477.9 Active 54313904 Problem Other dysfunctions of sleep stages or arousal from sleep 307.47 Active 564578337 Problem Other disorder of menstruation and other abnormal bleeding from female genital tract 626.8 Active 586278480 Problem Other, mixed, or unspecified nondependent drug abuse, unspecified 305.90 Active 295699982 Problem Unspecified dental caries 521.00 Active 90396820 Problem Nondependent amphetamine or related acting sympathomimetic abuse, 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 ALLERGIES Substance Reaction Event Type Date Status Codeine-Guaifenesin anaphylaxis Drug Allergy Sep, Active ENCOUNTERS Encounter Location Date Diagnosis [facility] [address] [facility] [id number] [address] Oct, Mood disorder F39 [facility] [address] [facility] [id number], [place] [address] Oct, Mood disorder F39 [facility] [address] [id number] [address] Sep, Mood disorder F39 [facility] [address] [id number] [id number] Sep, Dental examination Z01.20 and Dental caries K02.9 [facility] [id number] [place] [address] Sep, Mood disorder F39 [facility] [id number] [place] [address] Sep, [facility] [id number] [place] [address] Sep, Mood disorder F39 ; Other constipation K59.09 ; Dyspepsia R10.13 and Low back pain M54.5 [facility] [address], [place] [address] Sep, [facility] [id number] [place] [address] Sep, Mood disorder F39 [facility] [id number] [place] [address] July, H/O hyperlipidemia Z86.39 and H/O intravenous drug use in remission Z87.898 [facility] [address] [id number], [place] [address] July, H/O hyperlipidemia Z86.39 and H/O intravenous drug use in remission Z87.898 [facility] [address] [id number], [place] [address] July, Breast discharge N64.52 [facility] [address] [id number] [address] July, Breast discharge N64.52 [facility] [address] [id number], [place] [address] Jun, Blood in stool K92.1 ; Breast discharge N64.52 and Rash R21 [facility] [id number] [place] [address] May, Mood disorder F39 [facility] [id number] [place] [address] May, Other constipation K59.09 [facility] [address] [address] Apr, Mood disorder F39 and Rash R21 [facility] [id number] [place] [address] Apr, Mood disorder F39 and Rash R21 [facility] [id number] [place] [address] Apr, Mood disorder F39 [facility] [id number] [place] [address] Apr, [facility] [id number] [place] [address] Jun, [facility] [id number] [place] [address] Jun, [facility] [id number] [place] [address] Jun, [facility] [id number] [place] [address] May, [facility] [id number] [place] [address] Jan, Cellulitis of right index finger L03.011 ; Ingrown right big toenail L60.0 ; Local infection of the skin and subcutaneous tissue, unspecified L08.9 and Abrasion of right index finger, initial encounter S60.410A [facility] [id number] [place] [address] Apr, [facility] [address], [place] [address] Apr, [facility] [id number] [place] [address] Apr, [facility] [id number] [place] [address] Apr, Anxiety disorder, unspecified F41.9 and Major depression F32.9 [facility] [id number] [place] [address] Mar, [facility] [id number] [place] [address] Nov, [facility] [id number] [place] [address] Nov, Anxiety disorder, unspecified 300.00 [facility] [id number] [place] [address] 15 Nov, 2014 Routine adult health maintenance V70.0 ; Foot pain, right 729.5 ; Otitis media of right ear 382.9 and Numbness and tingling in left hand 782.0 [facility] [id number] [place] [address] 14 Nov, 2014 Routine adult health maintenance V70.0 ; Foot pain, right 729.5 ; Otitis media of right ear 382.9 and Numbness and tingling in left hand 782.0 [facility] [id number] [place] [address] Aug, Pain in hand 729.5 ; Bilateral finger numbness 782.0 and Irregular heart rate 427.9 [facility] [id number] [place] [address] Jun, [facility] [id number] [place] [address] Jun, [facility] [id number] [place] [address] Apr, 2014 [facility] [address] [id number] [place] [address] Apr, 2014 [facility] [place] [facility] [address] [id number] [place] [address] Apr, 2014 [facility] [address] [id number] [place] [address] Apr, 2014 [facility] [address] [id number] [place] [address] 05 Sep, 2012 [facility] [address] [id number] [place] [address] May, [facility] [address] [id number] [place] [address] May, [facility] [address] [facility] [place] [id number] [place] [address] May, [facility] [place] [facility] [address] [facility] [place] [facility] [id number] [place] [address] May, [facility] [address] [facility] [place] [facility] [id number] [place] [address] May, [facility] [place] [facility] [address] [facility] [place] [facility] [id number] [place] [address] Apr, [facility] [address] [facility] [place] [id number] [place] [address] Mar, [facility] [place] [facility] [address] [id number] [place] [address] Feb, [facility] [place] [facility] [address] [id number] [place] [address] Feb, [facility] [place] [facility] [address] [id number] [place] [address] Feb, [facility] [place] [facility] [address] [facility] [place] [id number] [place] [address] Feb, [facility] [place] [facility] [address] [id number] [place] [address] Jan, [facility] [place] [facility] [address] [id number] [place] [address] Jan, [facility] [place] [facility] [address] [id number] [place] [address] Jan, [facility] [place] [facility] [address] [id number] [place] [address] Dec, [facility] [place] [facility] [address] [id number] [place] [address] Dec, [facility] [place] [facility] [address] [id number] [place] [address] Dec, [facility] [place] [facility] [address] [id number] [place] [address] Dec, [facility] [place] [facility] [address] [id number] [place] [address] Nov, [facility] [place] [facility] [address] [id number] [place] [address] Nov, [facility] [place] [facility] [address] [id number] [place] [address] Nov, [facility] [place] [facility] [address] [id number] [place] [address] Oct, [facility] [place] [facility] [address] [id number] [place] [address] Oct, [facility] [place] [facility] [address] [id number] [place] [address] Oct, [facility] [place] [facility] [address] [id number] [place] [address] Sep, [facility] [address] [id number] [place] [id number] Sep, [facility] [place] [facility] [address] [id number], [place] [address] Sep, [facility] [place] [facility] [address] [id number] [place] [address] Aug, [facility] [place] [facility] [address] [id number] [place] [address] July, [facility] [address] [id number] [place] [address] July, [facility] [place] [facility] [address] [id number] [place] [address] July, [facility] [address] [id number] [place] [address] July, [facility] [address] [id number] [place] [address] July, [facility] [address] [id number] [place] [address] July, [facility] [address] [id number] [place] [address] July, [facility] [address] [id number] [place] [address] Jun, [facility] [place] [facility] [address] [id number] [place] [address] Jun, [facility] [place] [facility] [address] [id number] [place] [address] Jun, [facility] [place] [facility] [address] [id number] [place] [address] Jun, [facility] [place] [facility] [address] [id number] [place] [address] Jun, [facility] [place] [facility] [address] [id number] [place] [address] May, [facility] [place] [facility] [address] [id number] [place] [address] May, [facility] [place] [facility] [address] [id number], [place] [address] May, [facility] [address], [place] [address] May, [facility] [address], [place] [address] Apr, [facility] [address], [place] [address] Apr, [facility] [address], [place] [address] Apr, [facility] [address], [place] [address] Feb, [facility] [address], [place] [address] Feb, [facility] [address], [place] [address] Dec, [facility] [address], [place] [address] Feb, [facility] [address], [place] [address] Feb, [facility] [address], [place] [address] Jan, [facility] [address], [place] [address] July, [facility] [id number], [place] [address] Jun, [facility] [id number], [place] [address] Aug, IMMUNIZATIONS No Known Immunizations SOCIAL HISTORY Never Assessed REASON FOR VISIT laura PLAN OF CARE Activity Details Follow Up prn Reason:will call when ready for more appointments VITAL SIGNS Height 66 in 2017-09-29 Blood pressure systolic 139 mmHg 2017-09-29 Blood pressure diastolic 89 mmHg 2017-09-29 MEDICATIONS Medication Instructions Dosage Frequency Start Date End Date Duration Status Omeprazole 20 MG Orally Once a day 1 capsule 24h Sep, 30 day(s) Active Lexapro 10 MG Orally Once a day 1 tablet 24h Apr, 30 day(s) Not-Taking Mirtazapine 30 MG Orally Once a day 1 tablet at bedtime 24h Active Colace 100 MG Orally Once a day 1 capsule as needed 24h Sep, 30 day(s) Active Bisacodyl 5 mg Orally Once a day 2 tablets 24h Apr, 30 day(s) Not-Taking PredniSONE 20 mg 1 tablet three times a day x 1 week, then one tablet twice daily for 1 week then one tablet once daily x 1 week then stop Jun, Active Hydrocortisone 1 % Externally Twice a day as needed 1 application to affected area Apr, Not-Taking Seroquel 300 MG Orally 2 times a day 1 tablet 12h Jun, Not-Taking Omeprazole 20 MG Orally Once a day 1 tablet 24h Jun, 30 day(s) Not-Taking Neurontin 300 MG Orally Three times a day 1 capsule 8h Jun, Not-Taking Gabapentin 100 MG Orally Three times a day prn hand pain as directed Aug, 30 days Not-Taking Effexor XR 150 MG Orally Once a day 1 capsule with food 24h Active Colace 100 MG Orally Once a day 1 capsule as needed 24h 06 Apr, 2017 Not-Taking Fish Oil Burp-Less 1000 MG Orally Once a day 2 capsule 24h 23 Nov, 2014 Not-Taking Ibuprofen 800 mg take 1 tablet by Oral route 3 times per day with food take with food. Apr, Not-Taking Paxil 40 MG Orally Once a day 1 tablet in the morning 24h Apr, 30 day(s) Not-Taking Ibuprofen 200 MG Orally Three times a day 1 tablet with food or milk as needed 8h Sep, Active Hydrocortisone 1 % Externally Twice a day 1 application to affected area 12h Apr, 30 day(s) Not-Taking RESULTS No Results PROCEDURES Procedure Date Ordered Result Body Site LTD ORAL EVALUATION - PROBLEM FOCUS September 29, 2017 INTRAORL-PERIAPICAL 1 FILM 22457 September 29, 2017 EXTRAC ERUPTED TOOTH/EXPOSED ROOT September 29, 2017 EXTRAC ERUPTED TOOTH/EXPOSED ROOT September 29, 2017 EXTRAC ERUPTED TOOTH/EXPOSED ROOT September 29, 2017 INSTRUCTIONS MEDICATIONS ADMINISTERED No Known Medications MEDICAL (GENERAL) HISTORY Type Description Date Medical History Depression Medical History HPV-genital watrs Medical History MRSA Medical History anxiety Medical History drug abuse-last used 2010 Medical History bipolar disorder Medical History PTSD Medical History insomnia Medical History back problems, bulging discs Surgical History Hysterectomy 2012 Surgical History Tubal Ligation 2006 Surgical History Appendectomy 1994 Surgical History section x 2 2003, 2006
--- OUTSIDE RECORDS SUMMARY | 2018-08-21 21:58 | XMS REPORT ---
Author Author ROSA PINEDA Organization [facility] Address [address] [place] [address] Care Team Providers Care Lang Interpreter Name Role Phone ROSA PINEDA Unavailable PROBLEMS Type Condition ICD9-CM Code IRO08-BQ Code Onset Dates Condition Status SNOMED Code Problem Combinations of drug dependence excluding opioid type drug, 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 Active 318626935 Problem Unspecified psychosis 298.9 Active 79198774 Problem Anxiety state, unspecified 300.00 Active 821962146 Problem Low back pain M54.5 Active 249659027 Problem H/O hyperlipidemia Z86.39 Active 519903167 Problem Other and unspecified bipolar disorders 296.89 Active 52049643 Problem Unspecified episodic mood disorder 296.90 Active 938271760 Problem Mood disorder F39 Active 74310001 Problem Benign neoplasm of uterus, 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 45125713 Problem General counseling for prescription of oral contraceptives V25.01 Active [id number] Problem Lumbago 724.2 Active 504221385 Problem Encounter for change or removal of surgical wound dressing V58.31 Active 78603198 Problem Allergic rhinitis, cause unspecified 477.9 Active 05649429 Problem Other dysfunctions of sleep stages or arousal from sleep 307.47 Active 785174293 Problem Other disorder of menstruation and other abnormal bleeding from female genital tract 626.8 Active 657069122 Problem Other, mixed, or unspecified nondependent drug abuse, unspecified 305.90 Active 378546726 Problem Unspecified dental caries 521.00 Active 58824736 Problem Nondependent amphetamine or related acting sympathomimetic abuse, 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 ALLERGIES No Information ENCOUNTERS Encounter Location Date Diagnosis [facility] [address] [facility] [id number] [address] Oct, Mood disorder F39 [facility] [address] [facility] [id number], [place] [address] Oct, Mood disorder F39 [facility] [address] [id number], [place] [address] Sep, Mood disorder F39 [facility] [address] [id number] [id number] Sep, Dental examination Z01.20 and Dental caries K02.9 [facility] [address], [place] [address] Sep, Mood disorder F39 [facility] [address], [place] [address] Sep, [facility] [id number] [place] [address] Sep, Mood disorder F39 ; Other constipation K59.09 ; Dyspepsia R10.13 and Low back pain M54.5 [facility] [address], [place] [address] Sep, [facility] [address], [place] [address] Sep, Mood disorder F39 [facility] [id number] [place] [address] July, H/O hyperlipidemia Z86.39 and H/O intravenous drug use in remission Z87.898 [facility] [address] [id number], [place] [address] July, H/O hyperlipidemia Z86.39 and H/O intravenous drug use in remission Z87.898 [facility] [address] [id number] [address] July, Breast discharge N64.52 [facility] [id number] [address] July, Breast discharge N64.52 [facility] [address] [id number] [address] Jun, Blood in stool K92.1 ; Breast discharge N64.52 and Rash R21 [facility] [id number] [place] [address] May, Mood disorder F39 [facility] [id number] [place] [address] May, Other constipation K59.09 [facility] [address] [address] Apr, Mood disorder F39 and Rash R21 [facility] [id number] [place] [address] Apr, Mood disorder F39 and Rash R21 [facility] [id number] [place] [address] Apr, Mood disorder F39 [facility] [id number] [place] [address] Apr, [facility] [id number] [place] [address] Jun, [facility] [id number] [place] [address] Jun, [facility] [id number] [place] [address] Jun, [facility] [id number] [place] [address] May, [facility] [id number] [place] [address] Jan, Cellulitis of right index finger L03.011 ; Ingrown right big toenail L60.0 ; Local infection of the skin and subcutaneous tissue, unspecified L08.9 and Abrasion of right index finger, initial encounter S60.410A [facility] [id number] [place] [address] Apr, [facility] [address] [place] [address] Apr, [facility] [id number] [place] [address] Apr, [facility] [id number] [place] [address] Apr, Anxiety disorder, unspecified F41.9 and Major depression F32.9 [facility] [id number] [place] [address] Mar, [facility] [id number] [place] [address] Nov, [facility] [id number] [place] [address] Nov, Anxiety disorder, unspecified 300.00 [facility] [id number] [place] [address] 15 Nov, 2014 Routine adult health maintenance V70.0 ; Foot pain, right 729.5 ; Otitis media of right ear 382.9 and Numbness and tingling in left hand 782.0 [facility] [id number] [place] [address] Nov, Routine adult health maintenance V70.0 ; Foot pain, right 729.5 ; Otitis media of right ear 382.9 and Numbness and tingling in left hand 782.0 [facility] [id number] [place] [address] Aug, Pain in hand 729.5 ; Bilateral finger numbness 782.0 and Irregular heart rate 427.9 [facility] [id number] [place] [address] Jun, [facility] [id number] [place] [address] Jun, [facility] [id number] [place] [address] Apr, [facility] [place] [facility] [address] [id number] [place] [address] Apr, 2014 [facility] [place] [facility] [address] [id number] [place] [address] Apr, [facility] [place] [facility] [address] [id number] [place] [address] Apr, [facility] [place] [facility] [address] [id number] [place] [address] Sep, [facility] [place] [facility] [address] [id number] [place] [address] May, [facility] [place] [facility] [address] [id number] [place] [address] May, [facility] [place] [facility] [address] [id number] [place] [address] May, [facility] [place] [facility] [address] [id number] [place] [address] May, [facility] [place] [facility] [address] [id number] [place] [address] May, [facility] [place] [facility] [address] [id number] [place] [address] Apr, [facility] [place] [facility] [address] [id number] [place] [address] Mar, [facility] [place] [facility] [address] [id number] [place] [address] Feb, [facility] [place] [facility] [address] [id number] [place] [address] Feb, [facility] [place] [facility] [address] [id number] [place] [address] Feb, [facility] [place] [facility] [address] [id number] [place] [address] Feb, [facility] [place] [facility] [address] [id number] [place] [address] Jan, [facility] [address] [id number] [place] [address] Jan, [facility] [place] [facility] [address] [id number] [place] [address] Jan, [facility] [address] [id number] [place] [address] Dec, [facility] [place] [facility] [address] [id number] [place] [address] Dec, [facility] [address] [id number] [place] [address] Dec, [facility] [place] [facility] [address] [id number] [place] [address] Dec, [facility] [address] [id number] [place] [address] Nov, [facility] [address] [id number] [place] [address] Nov, [facility] [address] [id number] [place] [address] Nov, [facility] [address] [id number] [place] [address] Oct, [facility] [place] [facility] [address] [id number], [place] [address] Oct, [facility] [address] [id number], [place] [address] Oct, [facility] [address] [id number], [place] [address] Sep, [facility] [address] [id number] [id number] Sep, [facility] [place] [facility] [address] [id number] [place] [address] Sep, [facility] [place] [facility] [address] [id number] [place] [address] Aug, [facility] [address] [id number] [place] [address] July, [facility] [address] [id number] [place] [address] July, [facility] [address] [id number] [place] [address] July, [facility] [address] [id number] [place] [address] July, [facility] [address] [id number] [place] [address] July, [facility] [address] [id number] [place] [address] July, [facility] [address] [id number] [place] [address] July, [facility] [address] [id number] [place] [address] Jun, [facility] [address] [id number] [place] [address] Jun, [facility] [address] [id number] [place] [address] Jun, [facility] [address] [id number] [place] [address] Jun, [facility] [address] [id number] [place] [address] Jun, [facility] [address] [id number] [place] [address] May, [facility] [address] [id number] [place] [address] May, [facility] [address] [id number] [place] [address] May, [facility] [address] [id number] [address] May, [facility] [address] [facility] [id number], [place] [address] Apr, [facility] [address] [facility] [id number], [place] [address] Apr, [facility] [address] [facility] [id number], [place] [address] Apr, [facility] [address] [facility] [id number], [place] [address] Feb, [facility] [address], [place] [address] Feb, [facility] [address], [place] [address] Dec, [facility] [address], [place] [address] Feb, [facility] [address], [place] [address] Feb, [facility] [address], [place] [address] Jan, [facility] [address] [id number] [address] July, [facility] [address] [id number] [address] Jun, [facility] [address] [id number], [place] [address] Aug, IMMUNIZATIONS No Known Immunizations SOCIAL HISTORY Never Assessed REASON FOR VISIT fdc rx PLAN OF CARE VITAL SIGNS MEDICATIONS Medication Instructions Dosage Frequency Start Date End Date Duration Status Mirtazapine 30 MG Orally Once a day 1 tablet at bedtime 24h Active RESULTS No Results PROCEDURES No Known [...]
--- OUTSIDE RECORDS SUMMARY | 2018-08-21 21:58 | XMS REPORT ---
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 Active 189575624 Problem Unspecified psychosis 298.9 Active 39474330 Problem Anxiety state, unspecified 300.00 Active 149735040 Problem Low back pain M54.5 Active 497998734 Problem H/O hyperlipidemia Z86.39 Active 843757272 Problem Other and unspecified bipolar disorders 296.89 Active 45735487 Problem Unspecified episodic mood disorder 296.90 Active 698193061 Problem Mood disorder F39 Active 52178193 Problem Benign neoplasm of uterus, 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 98028952 Problem General counseling for prescription of oral contraceptives V25.01 Active 799992301753049 Problem Lumbago 724.2 Active 136125330 Problem Encounter for change or removal of surgical wound dressing V58.31 Active 31966426 Problem Allergic rhinitis, cause unspecified 477.9 Active 98994233 Problem Other dysfunctions of sleep stages or arousal from sleep 307.47 Active 663734104 Problem Other disorder of menstruation and other abnormal bleeding from female genital tract 626.8 Active 242189389 Problem Other, mixed, or unspecified nondependent drug abuse, unspecified 305.90 Active 480131593 Problem Unspecified dental caries 521.00 Active 39193982 Problem Nondependent amphetamine or related acting sympathomimetic abuse, 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 ALLERGIES Substance Reaction Event Type Date Status Codeine-Guaifenesin anaphylaxis Drug Allergy Sep, Active ENCOUNTERS Encounter Location Date Diagnosis [facility] [address] [facility]NOTE [facility] [id number] [place] [address] Oct, Mood disorder F39 [facility] [address] [address] Oct, Mood disorder F39 [facility] [address] [place] [address] Sep, Mood disorder F39 [facility] [address] [id number] Sep, Dental examination Z01.20 and Dental caries K02.9 [facility] [id number] [place] [address] Sep, Mood disorder F39 [facility] [id number] [place] [address] Sep, [facility] [id number] [place] [address] Sep, Mood disorder F39 ; Other constipation K59.09 ; Dyspepsia R10.13 and Low back pain M54.5 [facility] [address] [place] [address] Sep, [facility] [address] [place] [address] Sep, Mood disorder F39 [facility] [id number] [place] [address] July, H/O hyperlipidemia Z86.39 and H/O intravenous drug use in remission Z87.898 [facility] [address] [place] [address] July, H/O hyperlipidemia Z86.39 and H/O intravenous drug use in remission Z87.898 [facility] [address] [place] [address] July, Breast discharge N64.52 [facility] [id number] [address] July, Breast discharge N64.52 [facility] [address] [place] [address] Jun, Blood in stool K92.1 ; Breast discharge N64.52 and Rash R21 [facility] [id number] [place] [address] May, Mood disorder F39 [facility] [id number] [place] [address] May, Other constipation K59.09 [facility] [id number] [place] [address] Apr, Mood disorder F39 and Rash R21 [facility] [id number] [place] [address] Apr, Mood disorder F39 and Rash R21 [facility] [id number] [place] [address] Apr, Mood disorder F39 [facility] [id number] [place] [address] Apr, [facility] [id number] [place] [address] Jun, [facility] [id number] [place] [address] Jun, [facility] [id number] [place] [address] Jun, [facility] [id number] [place] [address] May, [facility] [address] [place] [address] Jan, Cellulitis of right index finger L03.011 ; Ingrown right big toenail L60.0 ; Local infection of the skin and subcutaneous tissue, unspecified L08.9 and Abrasion of right index finger, initial encounter S60.410A [facility] [id number] [place] [address] Apr, [facility] [address] [address] Apr, [facility] [id number] [place] [address] Apr, [facility] [id number] [place] [address] Apr, Anxiety disorder, unspecified F41.9 and Major depression F32.9 [facility] [id number] [place] [address] Mar, [facility] [id number] [place] [address] Nov, [facility] [id number] [place] [address] Nov, Anxiety disorder, unspecified 300.00 [facility] [id number] [place] [address] 15 Nov, 2014 Routine adult health maintenance V70.0 ; Foot pain, right 729.5 ; Otitis media of right ear 382.9 and Numbness and tingling in left hand 782.0 [facility] [address] [place] [address] 14 Nov, 2014 Routine adult health maintenance V70.0 ; Foot pain, right 729.5 ; Otitis media of right ear 382.9 and Numbness and tingling in left hand 782.0 [facility] [address] [place] [address] Aug, Pain in hand 729.5 ; Bilateral finger numbness 782.0 and Irregular heart rate 427.9 [facility] [address] [place] [address] Jun, [facility] [id number] [place] [address] Jun, [facility] [id number] [place] [address] Apr, 2014 [facility] [address] [id number] [place] [address] Apr, 2014 [facility] [address] [id number] [place] [address] Apr, 2014 [facility] [address] [id number] [place] [address] Apr, 2014 [facility] [address] [id number] [place] [address] 05 Sep, 2012 [facility] [address] [id number] [place] [address] 29 May, 2012 [facility] [address] [id number] [place] [address] May, [facility] [address] [id number] [place] [address] 14 May, 2012 [facility] [address] [id number] [place] [address] 05 May, 2012 [facility] [address] [id number] [place] [address] May, [facility] [address] [id number] [place] [address] Apr, [facility] [address] [id number] [place] [address] Mar, [facility] [address] [id number] [place] [address] Feb, [facility] [place] [facility] [address] [id number] [place] [address] Feb, [facility] [address] [id number] [place] [address] Feb, [facility] [address] [id number] [place] [address] Feb, [facility] [place] [facility] [address] [id number] [place] [address] Jan, [facility] [place] [facility] [address] [id number] [place] [address] Jan, [facility] [place] [facility] [address] [id number] [place] [address] Jan, [facility] [place] [facility] [address] [id number] [place] [address] Dec, [facility] [place] [facility] [address] [id number] [place] [address] Dec, [facility] [place] [facility] [address] [id number] [place] [address] Dec, [facility] [place] [facility] [address] [id number] [place] [address] Dec, [facility] [place] [facility] [address] [id number] [place] [address] Nov, [facility] [place] [facility] [address] [id number] [place] [address] Nov, [facility] [place] [facility] [address] [id number] [address] Nov, [facility] [place] [facility] [address] [id number] [place] [address] Oct, [facility] [place] [facility] [address] [id number] [address] Oct, [facility] [place] [facility] [address] [id number] [place] [address] Oct, [facility] [place] [facility] [address] [id number] [address] Sep, [facility] [address] [id number] [id number] Sep, [facility] [place] [facility] [address] [id number] [address] Sep, [facility] [address] [id number] [place] [address] Aug, [facility] [place] [facility] [address] [id number] [place] [address] July, [facility] [place] [facility] [address] [id number] [place] [address] July, [facility] [place] [facility] [address] [id number] [place] [address] July, [facility] [address] [id number] [place] [address] July, [facility] [address] [id number] [place] [address] July, [facility] [address] [id number] [place] [address] July, [facility] [place] [facility] [address] [id number] [place] [address] July, [facility] [address] [id number] [place] [address] Jun, [facility] [place] [facility] [address] [id number] [place] [address] Jun, [facility] [place] [facility] [address] [id number] [place] [address] Jun, [facility] [place] [facility] [address] [id number] [place] [address] Jun, [facility] [place] [facility] [address] [id number] [place] [address] Jun, [facility] [place] [facility] [address] [id number] [place] [address] May, [facility] [place] [facility] [address] [id number] [place] [address] May, [facility] [place] [facility] [address] [address] May, [facility] [address] [facility] [id number] [address] May, [facility] [address] [address] Apr, [facility] [address] [address] Apr, [facility] [address] [facility] [id number] [address] Apr, [facility] [address] [address] Feb, [facility] [address] [address] Feb, [facility] [address] [address] Dec, [facility] [address] [address] Feb, [facility] [address] [address] Feb, [facility] [id number] [address] Jan, [facility] [id number] [address] July, [facility] [id number] [address] Jun, [facility] [id number] [address] Aug, IMMUNIZATIONS No Known Immunizations SOCIAL HISTORY Never Assessed REASON FOR VISIT residential rx PLAN OF CARE VITAL SIGNS MEDICATIONS Medication Instructions Dosage Frequency Start Date End Date Duration Status Seroquel 50 mg Orally twice a day 1 tablet 12Sep, [...]
--- OUTSIDE RECORDS SUMMARY | 2018-08-21 21:58 | XMS REPORT ---
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 Active 342153657 Problem Unspecified psychosis 298.9 Active 33989311 Problem Anxiety state, unspecified 300.00 Active 007412390 Problem Low back pain M54.5 Active 621188199 Problem H/O hyperlipidemia Z86.39 Active 861278320 Problem Other and unspecified bipolar disorders 296.89 Active 95707087 Problem Unspecified episodic mood disorder 296.90 Active 058987131 Problem Mood disorder F39 Active 48742456 Problem Benign neoplasm of uterus, 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 82608877 Problem General counseling for prescription of oral contraceptives V25.01 Active 296847267480337 Problem Lumbago 724.2 Active 828263739 Problem Encounter for change or removal of surgical wound dressing V58.31 Active 55799425 Problem Allergic rhinitis, cause unspecified 477.9 Active 46886425 Problem Other dysfunctions of sleep stages or arousal from sleep 307.47 Active 637553639 Problem Other disorder of menstruation and other abnormal bleeding from female genital tract 626.8 Active 741759037 Problem Other, mixed, or unspecified nondependent drug abuse, unspecified 305.90 Active 708141671 Problem Unspecified dental caries 521.00 Active 91309409 Problem Nondependent amphetamine or related acting sympathomimetic abuse, 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 ALLERGIES No Information ENCOUNTERS Encounter Location Date Diagnosis [facility] [address] [facility] [id number] [address] Oct, Mood disorder F39 [facility] [address] [facility] [id number], [place] [address] Oct, Mood disorder F39 [facility] [address] [id number] [address] Sep, Mood disorder F39 [facility] [address] [id number] [id number] Sep, Dental examination Z01.20 and Dental caries K02.9 [facility] [address], [place] [address] Sep, Mood disorder F39 [facility] [address], [place] [address] Sep, [facility] [id number] [place] [address] Sep, Mood disorder F39 ; Other constipation K59.09 ; Dyspepsia R10.13 and Low back pain M54.5 [facility] [address], [place] [address] Sep, [facility] [address], [place] [address] Sep, Mood disorder F39 [facility] [id number] [place] [address] July, H/O hyperlipidemia Z86.39 and H/O intravenous drug use in remission Z87.898 [facility] [address] [id number] [address] July, H/O hyperlipidemia Z86.39 and H/O intravenous drug use in remission Z87.898 [facility] [address] [id number], [place] [address] July, Breast discharge N64.52 [facility] [id number] [address] July, Breast discharge N64.52 [facility] [address] [id number] [address] Jun, Blood in stool K92.1 ; Breast discharge N64.52 and Rash R21 [facility] [id number] [place] [address] May, Mood disorder F39 [facility] [id number] [place] [address] May, Other constipation K59.09 [facility] [address] [address] Apr, Mood disorder F39 and Rash R21 [facility] [id number] [place] [address] Apr, Mood disorder F39 and Rash R21 [facility] [id number] [place] [address] Apr, Mood disorder F39 [facility] [id number] [place] [address] Apr, [facility] [id number] [place] [address] Jun, [facility] [id number] [place] [address] Jun, [facility] [id number] [place] [address] Jun, [facility] [id number] [place] [address] May, [facility] [address] [place] [address] Jan, Cellulitis of right index finger L03.011 ; Ingrown right big toenail L60.0 ; Local infection of the skin and subcutaneous tissue, unspecified L08.9 and Abrasion of right index finger, initial encounter S60.410A [facility] [id number] [place] [address] Apr, [facility] [address] [place] [address] Apr, [facility] [id number] [place] [address] Apr, [facility] [id number] [place] [address] Apr, Anxiety disorder, unspecified F41.9 and Major depression F32.9 [facility] [id number] [place] [address] Mar, [facility] [id number] [place] [address] Nov, [facility] [id number] [place] [address] Nov, Anxiety disorder, unspecified 300.00 [facility] [id number] [place] [address] 15 Nov, 2014 Routine adult health maintenance V70.0 ; Foot pain, right 729.5 ; Otitis media of right ear 382.9 and Numbness and tingling in left hand 782.0 [facility] [id number] [place] [address] Nov, Routine adult health maintenance V70.0 ; Foot pain, right 729.5 ; Otitis media of right ear 382.9 and Numbness and tingling in left hand 782.0 [facility] [id number] [place] [address] Aug, Pain in hand 729.5 ; Bilateral finger numbness 782.0 and Irregular heart rate 427.9 [facility] [id number] [place] [address] Jun, [facility] [id number] [place] [address] Jun, [facility] [id number] [place] [address] Apr, [facility] [place] [facility] [address] [id number] [place] [address] Apr, 2014 [facility] [place] [facility] [address] [id number] [place] [address] Apr, [facility] [place] [facility] [address] [id number] [place] [address] Apr, [facility] [place] [facility] [address] [id number] [place] [address] Sep, [facility] [place] [facility] [address] [id number] [place] [address] May, [facility] [place] [facility] [address] [id number] [place] [address] May, [facility] [place] [facility] [address] [id number] [place] [address] May, [facility] [place] [facility] [address] [id number] [place] [address] May, [facility] [place] [facility] [address] [id number] [place] [address] May, [facility] [place] [facility] [address] [id number] [place] [address] Apr, [facility] [place] [facility] [address] [id number] [place] [address] Mar, [facility] [place] [facility] [address] [id number] [place] [address] Feb, [facility] [place] [facility] [address] [id number] [place] [address] Feb, [facility] [place] [facility] [address] [id number] [place] [address] Feb, [facility] [place] [facility] [address] [id number] [place] [address] Feb, [facility] [place] [facility] [address] [id number] [place] [address] Jan, [facility] [address] [id number] [place] [address] Jan, [facility] [place] [facility] [address] [id number] [place] [address] Jan, [facility] [address] [id number] [place] [address] Dec, [facility] [place] [facility] [address] [id number] [place] [address] Dec, [facility] [address] [id number] [place] [address] Dec, [facility] [place] [facility] [address] [id number] [place] [address] Dec, [facility] [address] [id number] [place] [address] Nov, [facility] [address] [id number] [place] [address] Nov, [facility] [address] [id number] [place] [address] Nov, [facility] [address] [id number] [place] [address] Oct, [facility] [place] [facility] [address] [id number], [place] [address] Oct, [facility] [address] [id number], [place] [address] Oct, [facility] [address] [id number], [place] [address] Sep, [facility] [address] [id number] [id number] Sep, [facility] [place] [facility] [address] [id number] [place] [address] Sep, [facility] [place] [facility] [address] [id number] [place] [address] Aug, [facility] [address] [id number] [place] [address] July, [facility] [address] [id number] [place] [address] July, [facility] [address] [id number] [place] [address] July, [facility] [address] [id number] [place] [address] July, [facility] [address] [id number] [place] [address] July, [facility] [address] [id number] [place] [address] July, [facility] [address] [id number] [place] [address] July, [facility] [address] [id number] [place] [address] Jun, [facility] [address] [id number] [place] [address] Jun, [facility] [address] [id number] [place] [address] Jun, [facility] [address] [id number] [place] [address] Jun, [facility] [address] [id number] [place] [address] Jun, [facility] [address] [id number] [place] [address] May, [facility] [address] [id number] [place] [address] May, [facility] [address] [id number] [place] [address] May, [facility] [address] [id number], [place] [address] May, [facility] [address], [place] [address] Apr, [facility] [address], [place] [address] Apr, [facility] [address], [place] [address] Apr, [facility] [address], [place] [address] Feb, [facility] [address], [place] [address] Feb, [facility] [address], [place] [address] Dec, [facility] [address], [place] [address] Feb, [facility] [address], [place] [address] Feb, [facility] [address], [place] [address] Jan, [facility] [id number], [place] [address] July, [facility] [id number], [place] [address] Jun, [facility] [address] [id number], [place] [address] Aug, IMMUNIZATIONS No Known Immunizations SOCIAL HISTORY Never Assessed REASON FOR VISIT [facility] rx PLAN OF CARE VITAL SIGNS MEDICATIONS Unknown [...]
--- OUTSIDE RECORDS SUMMARY | 2018-08-21 21:59 | XMS REPORT ---
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 Active 367160904 Problem Unspecified psychosis 298.9 Active 53545465 Problem Anxiety state, unspecified 300.00 Active 505241656 Problem Low back pain M54.5 Active 494389618 Problem H/O hyperlipidemia Z86.39 Active 998949804 Problem Other and unspecified bipolar disorders 296.89 Active 70063452 Problem Unspecified episodic mood disorder 296.90 Active 931082842 Problem Mood disorder F39 Active 82342512 Problem Benign neoplasm of uterus, 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 00740121 Problem General counseling for prescription of oral contraceptives V25.01 Active 057336072655929 Problem Lumbago 724.2 Active 406087590 Problem Encounter for change or removal of surgical wound dressing V58.31 Active 74247621 Problem Allergic rhinitis, cause unspecified 477.9 Active 76192629 Problem Other dysfunctions of sleep stages or arousal from sleep 307.47 Active 454254391 Problem Other disorder of menstruation and other abnormal bleeding from female genital tract 626.8 Active 519777953 Problem Other, mixed, or unspecified nondependent drug abuse, unspecified 305.90 Active 463679363 Problem Unspecified dental caries 521.00 Active 71451634 Problem Nondependent amphetamine or related acting sympathomimetic abuse, 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 ALLERGIES Substance Reaction Event Type Date Status Codeine-Guaifenesin anaphylaxis Drug Allergy Sep, Active ENCOUNTERS Encounter Location Date Diagnosis [facility] [address] [facility] [id number] [address] Oct, Mood disorder F39 [facility] [address], [place] [address] Oct, Mood disorder F39 [facility] [id number] [place] [address] Sep, Mood disorder F39 [facility] [address] [id number] Sep, Dental examination Z01.20 and Dental caries K02.9 [facility] [id number] [place] [address] Sep, Mood disorder F39 [facility] [id number] [place] [address] Sep, [facility] [id number] [place] [address] Sep, Mood disorder F39 ; Other constipation K59.09 ; Dyspepsia R10.13 and Low back pain M54.5 [facility] [id number] [place] [address] Sep, [facility] [id number] [place] [address] Sep, Mood disorder F39 [facility] [id number] [place] [address] July, H/O hyperlipidemia Z86.39 and H/O intravenous drug use in remission Z87.898 [facility] [address] [place] [address] July, H/O hyperlipidemia Z86.39 and H/O intravenous drug use in remission Z87.898 [facility] [address] [place] [address] July, Breast discharge N64.52 [facility] [id number] [address] July, Breast discharge N64.52 [facility] [address] [place] [address] Jun, Blood in stool K92.1 ; Breast discharge N64.52 and Rash R21 [facility] [id number] [place] [address] May, Mood disorder F39 [facility] [id number] [place] [address] May, Other constipation K59.09 [facility] [id number] [place] [address] Apr, Mood disorder F39 and Rash R21 [facility] [id number] [place] [address] Apr, Mood disorder F39 and Rash R21 [facility] [id number] [place] [address] Apr, Mood disorder F39 [facility] [id number] [place] [address] Apr, [facility] [id number] [place] [address] Jun, [facility] [id number] [place] [address] Jun, [facility] [id number] [place] [address] Jun, [facility] [id number] [place] [address] May, [facility] [address] [place] [address] Jan, Cellulitis of right index finger L03.011 ; Ingrown right big toenail L60.0 ; Local infection of the skin and subcutaneous tissue, unspecified L08.9 and Abrasion of right index finger, initial encounter S60.410A [facility] [id number] [place] [address] Apr, [facility] [address], [place] [address] Apr, [facility] [id number] [place] [address] Apr, [facility] [id number] [place] [address] Apr, Anxiety disorder, unspecified F41.9 and Major depression F32.9 [facility] [id number] [place] [address] Mar, [facility] [id number] [place] [address] Nov, [facility] [id number] [place] [address] Nov, Anxiety disorder, unspecified 300.00 [facility] [id number] [place] [address] 15 Nov, 2014 Routine adult health maintenance V70.0 ; Foot pain, right 729.5 ; Otitis media of right ear 382.9 and Numbness and tingling in left hand 782.0 [facility] [address] [place] [address] 14 Nov, 2014 Routine adult health maintenance V70.0 ; Foot pain, right 729.5 ; Otitis media of right ear 382.9 and Numbness and tingling in left hand 782.0 [facility] [address] [place] [address] Aug, Pain in hand 729.5 ; Bilateral finger numbness 782.0 and Irregular heart rate 427.9 [facility] [address] [place] [address] Jun, [facility] [id number] [place] [address] Jun, [facility] [id number] [place] [address] Apr, 2014 [facility] [address] [id number] [place] [address] Apr, 2014 [facility] [address] [id number] [place] [address] Apr, 2014 [facility] [address] [id number] [place] [address] Apr, 2014 [facility] [address] [id number] [place] [address] 05 Sep, 2012 [facility] [address] [id number] [place] [address] 29 May, 2012 [facility] [address] [id number] [place] [address] May, [facility] [address] [id number] [place] [address] 14 May, 2012 [facility] [address] [id number] [place] [address] 05 May, 2012 [facility] [address] [id number] [place] [address] May, [facility] [address] [id number] [place] [address] Apr, [facility] [address] [id number] [place] [address] Mar, [facility] [address] [id number] [place] [address] Feb, [facility] [place] [facility] [address] [id number] [place] [address] Feb, [facility] [address] [id number] [place] [address] Feb, [facility] [address] [id number] [place] [address] Feb, [facility] [place] [facility] [address] [id number] [place] [address] Jan, [facility] [place] [facility] [address] [id number] [place] [address] Jan, [facility] [place] [facility] [address] [id number] [place] [address] Jan, [facility] [place] [facility] [address] [id number] [place] [address] Dec, [facility] [place] [facility] [address] [id number] [place] [address] Dec, [facility] [place] [facility] [address] [id number] [place] [address] Dec, [facility] [place] [facility] [address] [id number] [place] [address] Dec, [facility] [place] [facility] [address] [id number] [place] [address] Nov, [facility] [place] [facility] [address] [id number] [place] [address] Nov, [facility] [place] [facility] [address] [id number], [place] [address] Nov, [facility] [place] [facility] [address] [id number] [place] [address] Oct, [facility] [place] [facility] [address] [id number] [address] Oct, [facility] [place] [facility] [address] [id number] [place] [address] Oct, [facility] [place] [facility] [address] [id number], [place] [address] Sep, [facility] [address] [id number] [id number] Sep, [facility] [place] [facility] [address] [id number], [place] [address] Sep, [facility] [address] [id number] [place] [address] Aug, [facility] [place] [facility] [address] [id number] [place] [address] July, [facility] [place] [facility] [address] [id number] [place] [address] July, [facility] [place] [facility] [address] [id number] [place] [address] July, [facility] [address] [id number] [place] [address] July, [facility] [address] [id number] [place] [address] July, [facility] [address] [id number] [place] [address] July, [facility] [place] [facility] [address] [id number] [place] [address] July, [facility] [address] [id number] [place] [address] Jun, [facility] [place] [facility] [address] [id number] [place] [address] Jun, [facility] [place] [facility] [address] [id number] [place] [address] Jun, [facility] [place] [facility] [address] [id number] [place] [address] Jun, [facility] [place] [facility] [address] [id number] [place] [address] Jun, [facility] [place] [facility] [address] [id number] [place] [address] May, [facility] [place] [facility] [address] [id number] [place] [address] May, [facility] [place] [facility] [address], [place] [address] May, [facility] [id number], [place] [address] May, [facility] [address], [place] [address] Apr, [facility] [address], [place] [address] Apr, [facility] [address], [place] [address] Apr, [facility] [address], [place] [address] Feb, [facility] [address], [place] [address] Feb, [facility] [address], [place] [address] Dec, [facility] [address], [place] [address] Feb, [facility] [address], [place] [address] Feb, [facility] [id number], [place] [address] Jan, [facility] [id number], [place] [address] July, [facility] [id number], [place] [address] Jun, [facility] [id number], [place] [address] Aug, IMMUNIZATIONS No Known Immunizations SOCIAL HISTORY Never Assessed REASON FOR VISIT nursing home rx PLAN OF CARE VITAL SIGNS MEDICATIONS Medication Instructions Dosage Frequency Start Date End Date Duration Status Effexor XR 150 MG Orally Once a day 1 capsule with food 24h Active Omeprazole 20 MG Orally Once a day 1 capsule 24h Sep, 30 day(s) Active Colace 100 MG Orally Once a day 1 capsule as needed 24h Sep, 30 day(s) Active Ibuprofen 200 MG Orally Three times a day 1 tablet with food or milk as needed 8h Sep, Active RESULTS No Results PROCEDURES No Known [...]
--- OUTSIDE RECORDS SUMMARY | 2018-08-21 21:59 | XMS REPORT ---
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 Active 725707540 Problem Unspecified psychosis 298.9 Active 86688359 Problem Anxiety state, unspecified 300.00 Active 698816715 Problem Low back pain M54.5 Active 651358254 Problem H/O hyperlipidemia Z86.39 Active 920589654 Problem Other and unspecified bipolar disorders 296.89 Active 59819349 Problem Unspecified episodic mood disorder 296.90 Active 318776830 Problem Mood disorder F39 Active 82535432 Problem Benign neoplasm of uterus, 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 67349403 Problem General counseling for prescription of oral contraceptives V25.01 Active 199926014059314 Problem Lumbago 724.2 Active 471845824 Problem Encounter for change or removal of surgical wound dressing V58.31 Active 68799255 Problem Allergic rhinitis, cause unspecified 477.9 Active 78636604 Problem Other dysfunctions of sleep stages or arousal from sleep 307.47 Active 440487043 Problem Other disorder of menstruation and other abnormal bleeding from female genital tract 626.8 Active 741799222 Problem Other, mixed, or unspecified nondependent drug abuse, unspecified 305.90 Active 824374804 Problem Unspecified dental caries 521.00 Active 13811754 Problem Nondependent amphetamine or related acting sympathomimetic abuse, 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 ALLERGIES No Information ENCOUNTERS Encounter Location Date Diagnosis [facility] [place] [address] [facility] [id number] [address] Oct, Mood disorder F39 [facility] [place] [address] [facility] [id number] [address] Oct, Mood disorder F39 [facility] [place] [address] [id number], [place] [address] Sep, Mood disorder F39 [facility] [place] [facility] [address] [id number] [id number] Sep, Dental examination Z01.20 and Dental caries K02.9 [facility] [place] [address], [place] [address] Sep, Mood disorder F39 [facility] [place] [address], [place] [address] Sep, [facility] [place] [id number] [place] [address] Sep, Mood disorder F39 ; Other constipation K59.09 ; Dyspepsia R10.13 and Low back pain M54.5 [facility] [place] [address], [place] [address] Sep, [facility] [place] [address], [place] [address] Sep, Mood disorder F39 [facility] [place] [address] [place] [address] July, H/O hyperlipidemia Z86.39 and H/O intravenous drug use in remission Z87.898 [facility] [place] [address] [id number] [address] July, H/O hyperlipidemia Z86.39 and H/O intravenous drug use in remission Z87.898 [facility] [place] [address] [id number], [place] [address] July, Breast discharge N64.52 [facility] [id number] [address] July, Breast discharge N64.52 [facility] [place] [address] [id number], [place] [address] Jun, Blood in stool K92.1 ; Breast discharge N64.52 and Rash R21 [facility] [place] [id number] [place] [address] May, Mood disorder F39 [facility] [place] [id number] [place] [address] May, Other constipation K59.09 [facility] [place] [address] [address] Apr, Mood disorder F39 and Rash R21 [facility] [place] [id number] [place] [address] Apr, Mood disorder F39 and Rash R21 [facility] [place] [id number] [place] [address] Apr, Mood disorder F39 [facility] [place] [id number] [place] [address] Apr, [facility] [place] [id number] [place] [address] Jun, [facility] [place] [id number] [place] [address] Jun, [facility] [place] [id number] [place] [address] Jun, [facility] [place] [id number] [place] [address] May, [facility] [address] [place] [address] Jan, Cellulitis of right index finger L03.011 ; Ingrown right big toenail L60.0 ; Local infection of the skin and subcutaneous tissue, unspecified L08.9 and Abrasion of right index finger, initial encounter S60.410A [facility] [place] [id number] [place] [address] Apr, [facility] [place] [address] [place] [address] Apr, [facility] [place] [id number] [place] [address] Apr, [facility] [place] [id number] [place] [address] Apr, Anxiety disorder, unspecified F41.9 and Major depression F32.9 [facility] [place] [id number] [place] [address] Mar, [facility] [place] [id number] [place] [address] Nov, [facility] [place] [id number] [place] [address] Nov, Anxiety disorder, unspecified 300.00 [facility] [place] [id number] [place] [address] 15 Nov, 2014 Routine adult health maintenance V70.0 ; Foot pain, right 729.5 ; Otitis media of right ear 382.9 and Numbness and tingling in left hand 782.0 [facility] [place] [id number] [place] [address] Nov, Routine adult health maintenance V70.0 ; Foot pain, right 729.5 ; Otitis media of right ear 382.9 and Numbness and tingling in left hand 782.0 [facility] [place] [id number] [place] [address] Aug, Pain in hand 729.5 ; Bilateral finger numbness 782.0 and Irregular heart rate 427.9 [facility] [place] [address] [place] [address] Jun, [facility] [place] [id number] [place] [address] Jun, [facility] [place] [id number] [place] [address] Apr, [facility] [place] [facility] [address] [id number] [place] [address] Apr, 2014 [facility] [place] [facility] [address] [id number] [place] [address] Apr, [facility] [place] [facility] [address] [id number] [place] [address] Apr, [facility] [place] [facility] [address] [id number] [place] [address] Sep, [facility] [place] [facility] [address] [id number] [place] [address] May, [facility] [place] [facility] [address] [id number] [place] [address] May, [facility] [place] [facility] [address] [id number] [place] [address] May, [facility] [place] [facility] [address] [id number] [place] [address] May, [facility] [place] [facility] [address] [id number] [place] [address] May, [facility] [place] [facility] [address] [id number] [place] [address] Apr, [facility] [place] [facility] [address] [id number] [place] [address] Mar, [facility] [place] [facility] [address] [id number] [place] [address] Feb, [facility] [place] [facility] [address] [id number] [place] [address] Feb, [facility] [place] [facility] [address] [id number] [place] [address] Feb, [facility] [place] [facility] [address] [id number] [place] [address] Feb, [facility] [place] [facility] [address] [id number] [place] [address] Jan, [facility] [address] [id number] [place] [address] Jan, [facility] [place] [facility] [address] [id number] [place] [address] Jan, [facility] [address] [id number] [place] [address] Dec, [facility] [place] [facility] [address] [id number] [place] [address] Dec, [facility] [address] [id number] [place] [address] Dec, [facility] [place] [facility] [address] [id number] [place] [address] Dec, [facility] [address] [id number] [place] [address] Nov, [facility] [address] [id number] [place] [address] Nov, [facility] [address] [id number] [place] [address] Nov, [facility] [address] [id number] [place] [address] Oct, [facility] [place] [facility] [address] [id number], [place] [address] Oct, [facility] [address] [id number], [place] [address] Oct, [facility] [address] [id number], [place] [address] Sep, [facility] [address] [id number] [place] [id number] Sep, [facility] [place] [facility] [address] [id number] [place] [address] Sep, [facility] [place] [facility] [address] [id number] [place] [address] Aug, [facility] [address] [id number] [place] [address] July, [facility] [address] [id number] [place] [address] July, [facility] [address] [id number] [place] [address] July, [facility] [address] [id number] [place] [address] July, [facility] [address] [id number] [place] [address] July, [facility] [address] [id number] [place] [address] July, [facility] [address] [id number] [place] [address] July, [facility] [place] [facility] [address] [id number] [place] [address] Jun, [facility] [address] [id number] [place] [address] Jun, [facility] [place] [facility] [address] [id number] [place] [address] Jun, [facility] [address] [id number] [place] [address] Jun, [facility] [address] [id number] [place] [address] Jun, [facility] [address] [id number] [place] [address] May, [facility] [address] [id number] [place] [address] May, [facility] [address] [id number] [place] [address] May, [facility] [place] [address] [id number], [place] [address] May, [facility] [place] [address], [place] [address] Apr, [facility] [place] [address], [place] [address] Apr, [facility] [place] [address], [place] [address] Apr, [facility] [place] [address], [place] [address] Feb, [facility] [place] [address], [place] [address] Feb, [facility] [place] [address], [place] [address] Dec, [facility] [place] [address], [place] [address] Feb, [facility] [place] [address], [place] [address] Feb, [facility] [place] [address], [place] [address] Jan, [facility] [place] [address] [id number], [place] [address] July, [facility] [place] [id number], [place] [address] Jun, [facility] [place] [id number], [place] [address] Aug, IMMUNIZATIONS No Known Immunizations SOCIAL HISTORY Never Assessed REASON FOR VISIT long-term call PLAN OF CARE VITAL SIGNS MEDICATIONS Unknown [...]
--- OUTSIDE RECORDS SUMMARY | 2018-08-21 21:59 | XMS REPORT ---
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 Active 342876259 Problem Unspecified psychosis 298.9 Active 01321947 Problem Anxiety state, unspecified 300.00 Active 806484188 Problem Low back pain M54.5 Active 177493940 Problem H/O hyperlipidemia Z86.39 Active 347018971 Problem Other and unspecified bipolar disorders 296.89 Active 28927584 Problem Unspecified episodic mood disorder 296.90 Active 611561087 Problem Mood disorder F39 Active 08393369 Problem Benign neoplasm of uterus, 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 06570485 Problem General counseling for prescription of oral contraceptives V25.01 Active 630547144964929 Problem Lumbago 724.2 Active 902835088 Problem Encounter for change or removal of surgical wound dressing V58.31 Active 99096343 Problem Allergic rhinitis, cause unspecified 477.9 Active 87877729 Problem Other dysfunctions of sleep stages or arousal from sleep 307.47 Active 353315362 Problem Other disorder of menstruation and other abnormal bleeding from female genital tract 626.8 Active 123729139 Problem Other, mixed, or unspecified nondependent drug abuse, unspecified 305.90 Active 540972787 Problem Unspecified dental caries 521.00 Active 90847915 Problem Nondependent amphetamine or related acting sympathomimetic abuse, 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 ALLERGIES Substance Reaction Event Type Date Status Codeine-Guaifenesin anaphylaxis Drug Allergy Sep, Active ENCOUNTERS Encounter Location Date Diagnosis [facility] [address] [facility] [id number] [place] [address] Oct, Mood disorder F39 [facility] [address], [place] [address] Oct, Mood disorder F39 [facility] [address] [place] [address] Sep, Mood disorder F39 [facility] [address] [id number] Sep, Dental examination Z01.20 and Dental caries K02.9 [facility] [id number] [place] [address] Sep, Mood disorder F39 [facility] [id number] [place] [address] Sep, [facility] [id number] [place] [address] Sep, Mood disorder F39 ; Other constipation K59.09 ; Dyspepsia R10.13 and Low back pain M54.5 [facility] [address] [place] [address] Sep, [facility] [address] [place] [address] Sep, Mood disorder F39 [facility] [id number] [place] [address] July, H/O hyperlipidemia Z86.39 and H/O intravenous drug use in remission Z87.898 [facility] [address] [place] [address] July, H/O hyperlipidemia Z86.39 and H/O intravenous drug use in remission Z87.898 [facility] [address] [place] [address] July, Breast discharge N64.52 [facility] [id number] [address] July, Breast discharge N64.52 [facility] [address] [place] [address] Jun, Blood in stool K92.1 ; Breast discharge N64.52 and Rash R21 [facility] [id number] [place] [address] May, Mood disorder F39 [facility] [id number] [place] [address] May, Other constipation K59.09 [facility] [id number] [place] [address] Apr, Mood disorder F39 and Rash R21 [facility] [id number] [place] [address] Apr, Mood disorder F39 and Rash R21 [facility] [id number] [place] [address] Apr, Mood disorder F39 [facility] [id number] [place] [address] Apr, [facility] [id number] [place] [address] Jun, [facility] [id number] [place] [address] Jun, [facility] [id number] [place] [address] Jun, [facility] [id number] [place] [address] May, [facility] [address] [place] [address] Jan, Cellulitis of right index finger L03.011 ; Ingrown right big toenail L60.0 ; Local infection of the skin and subcutaneous tissue, unspecified L08.9 and Abrasion of right index finger, initial encounter S60.410A [facility] [id number] [place] [address] Apr, [facility] [address], [place] [address] Apr, [facility] [id number] [place] [address] Apr, [facility] [id number] [place] [address] Apr, Anxiety disorder, unspecified F41.9 and Major depression F32.9 [facility] [id number] [place] [address] Mar, [facility] [id number] [place] [address] Nov, [facility] [id number] [place] [address] Nov, Anxiety disorder, unspecified 300.00 [facility] [id number] [place] [address] 15 Nov, 2014 Routine adult health maintenance V70.0 ; Foot pain, right 729.5 ; Otitis media of right ear 382.9 and Numbness and tingling in left hand 782.0 [facility] [address] [place] [address] 14 Nov, 2014 Routine adult health maintenance V70.0 ; Foot pain, right 729.5 ; Otitis media of right ear 382.9 and Numbness and tingling in left hand 782.0 [facility] [address] [place] [address] Aug, Pain in hand 729.5 ; Bilateral finger numbness 782.0 and Irregular heart rate 427.9 [facility] [address] [place] [address] Jun, [facility] [id number] [place] [address] Jun, [facility] [id number] [address] Apr, 2014 [facility] [address] [id number] [place] [address] Apr, 2014 [facility] [address] [id number] [place] [address] Apr, 2014 [facility] [address] [id number] [place] [address] Apr, 2014 [facility] [address] [id number] [place] [address] 05 Sep, 2012 [facility] [address] [id number] [place] [address] 29 May, 2012 [facility] [address] [id number] [place] [address] May, [facility] [address] [id number] [place] [address] 14 May, 2012 [facility] [address] [id number] [place] [address] 05 May, 2012 [facility] [address] [id number] [place] [address] May, [facility] [address] [id number] [place] [address] Apr, [facility] [address] [id number] [place] [address] Mar, [facility] [address] [id number] [place] [address] Feb, [facility] [place] [facility] [address] [id number] [place] [address] Feb, [facility] [address] [id number] [place] [address] Feb, [facility] [address] [id number] [place] [address] Feb, [facility] [place] [facility] [address] [id number] [place] [address] Jan, [facility] [place] [facility] [address] [id number] [place] [address] Jan, [facility] [place] [facility] [address] [id number] [place] [address] Jan, [facility] [place] [facility] [address] [id number] [place] [address] Dec, [facility] [place] [facility] [address] [id number] [place] [address] Dec, [facility] [place] [facility] [address] [id number] [place] [address] Dec, [facility] [place] [facility] [address] [id number] [place] [address] Dec, [facility] [place] [facility] [address] [id number] [place] [address] Nov, [facility] [place] [facility] [address] [id number] [place] [address] Nov, [facility] [place] [facility] [address] [id number], [place] [address] Nov, [facility] [place] [facility] [address] [id number] [place] [address] Oct, [facility] [place] [facility] [address] [id number], [place] [address] Oct, [facility] [place] [facility] [address] [id number] [place] [address] Oct, [facility] [place] [facility] [address] [id number], [place] [address] Sep, [facility] [address] [id number] [id number] Sep, [facility] [place] [facility] [address] [id number], [place] [address] Sep, [facility] [address] [id number] [place] [address] Aug, [facility] [place] [facility] [address] [id number] [place] [address] July, [facility] [place] [facility] [address] [id number] [place] [address] July, [facility] [place] [facility] [address] [id number] [place] [address] July, [facility] [address] [id number] [place] [address] July, [facility] [address] [id number] [place] [address] July, [facility] [address] [id number] [place] [address] July, [facility] [place] [facility] [address] [id number] [place] [address] July, [facility] [address] [id number] [place] [address] Jun, [facility] [place] [facility] [address] [id number] [place] [address] Jun, [facility] [place] [facility] [address] [id number] [place] [address] Jun, [facility] [place] [facility] [address] [id number] [place] [address] Jun, [facility] [place] [facility] [address] [id number] [place] [address] Jun, [facility] [place] [facility] [address] [id number] [place] [address] May, [facility] [place] [facility] [address] [id number] [place] [address] May, [facility] [place] [facility] [address], [place] [address] May, [facility] [address], [place] [address] May, [facility] [address], [place] [address] Apr, [facility] [address], [place] [address] Apr, [facility] [address], [place] [address] Apr, [facility] [address], [place] [address] Feb, [facility] [address], [place] [address] Feb, [facility] [address], [place] [address] Dec, [facility] [address], [place] [address] Feb, [facility] [address], [place] [address] Feb, [facility] [id number], [place] [address] Jan, [facility] [id number], [place] [address] July, [facility] [id number], [place] [address] Jun, [facility] [id number], [place] [address] Aug, IMMUNIZATIONS No Known Immunizations SOCIAL HISTORY Never Assessed REASON FOR VISIT care home rx PLAN OF CARE VITAL SIGNS MEDICATIONS Medication Instructions Dosage Frequency Start Date End Date Duration Status Effexor XR 75 MG Orally Once a day 1 capsule with food 24h Active Mirtazapine 15 MG Orally Once a day 1 tablet [...]
--- OUTSIDE RECORDS SUMMARY | 2018-08-21 22:00 | XMS REPORT ---
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 Active 815078463 Problem Unspecified psychosis 298.9 Active 12459040 Problem Anxiety state, unspecified 300.00 Active 049715917 Problem Low back pain M54.5 Active 672646688 Problem H/O hyperlipidemia Z86.39 Active 610070076 Problem Other and unspecified bipolar disorders 296.89 Active 59978185 Problem Unspecified episodic mood disorder 296.90 Active 218042252 Problem Mood disorder F39 Active 07767129 Problem Benign neoplasm of uterus, 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 27132946 Problem General counseling for prescription of oral contraceptives V25.01 Active 554827501733904 Problem Lumbago 724.2 Active 267762813 Problem Encounter for change or removal of surgical wound dressing V58.31 Active 72594475 Problem Allergic rhinitis, cause unspecified 477.9 Active 20896866 Problem Other dysfunctions of sleep stages or arousal from sleep 307.47 Active 281744490 Problem Other disorder of menstruation and other abnormal bleeding from female genital tract 626.8 Active 451565062 Problem Other, mixed, or unspecified nondependent drug abuse, unspecified 305.90 Active 853453768 Problem Unspecified dental caries 521.00 Active 31507581 Problem Nondependent amphetamine or related acting sympathomimetic abuse, 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 ALLERGIES No Information ENCOUNTERS Encounter Location Date Diagnosis [facility] [address] [facility] [id number] [place] [address] Oct, Mood disorder F39 [facility] [address], [place] [address] Sep, Mood disorder F39 [facility] [id number] [id number] Sep, Dental examination Z01.20 and Dental caries K02.9 [facility] [address], [place] [address] Sep, Mood disorder F39 [facility] [id number] [place] [address] Sep, [facility] [address] [place] [address] Sep, Mood disorder F39 ; Other constipation K59.09 ; Dyspepsia R10.13 and Low back pain M54.5 [facility] [address], [place] [address] Sep, [facility] [address] [place] [address] Sep, Mood disorder F39 [facility] [address] [place] [address] July, H/O hyperlipidemia Z86.39 and H/O intravenous drug use in remission Z87.898 [facility] [id number], [place] [address] July, H/O hyperlipidemia Z86.39 and H/O intravenous drug use in remission Z87.898 [facility] [id number], [place] [address] July, Breast discharge N64.52 [facility] [id number] [place] [address] July, Breast discharge N64.52 [facility] [address], [place] [address] Jun, Blood in stool K92.1 ; Breast discharge N64.52 and Rash R21 [facility] [id number] [place] [address] May, Mood disorder F39 [facility] [id number] [place] [address] May, Other constipation K59.09 [facility] [id number] [place] [address] Apr, Mood disorder F39 and Rash R21 [facility] [id number] [place] [address] Apr, Mood disorder F39 and Rash R21 [facility] [address] [address] Apr, Mood disorder F39 [facility] [id number] [place] [address] Apr, [facility] [id number] [place] [address] Jun, [facility] [id number] [place] [address] Jun, [facility] [id number] [place] [address] Jun, [facility] [id number] [place] [address] May, [facility] [address] [place] [address] Jan, Cellulitis of right index finger L03.011 ; Ingrown right big toenail L60.0 ; Local infection of the skin and subcutaneous tissue, unspecified L08.9 and Abrasion of right index finger, initial encounter S60.410A [facility] [id number] [place] [address] Apr, [facility] [id number] [place] [address] Apr, [facility] [address], [place] [address] Apr, [facility] [id number] [place] [address] Apr, Anxiety disorder, unspecified F41.9 and Major depression F32.9 [facility] [address] [place] [address] Mar, [facility] [id number] [place] [address] Nov, [facility] [id number] [place] [address] Nov, Anxiety disorder, unspecified 300.00 [facility] [id number] [place] [address] 15 Nov, 2014 Routine adult health maintenance V70.0 ; Foot pain, right 729.5 ; Otitis media of right ear 382.9 and Numbness and tingling in left hand 782.0 [facility] [address] [place] [address] 14 Nov, 2014 Routine adult health maintenance V70.0 ; Foot pain, right 729.5 ; Otitis media of right ear 382.9 and Numbness and tingling in left hand 782.0 [facility] [address] [place] [address] Aug, Pain in hand 729.5 ; Bilateral finger numbness 782.0 and Irregular heart rate 427.9 [facility] [address], [place] [address] Jun, [facility] [id number] [place] [address] Jun, [facility] [address] [place] [address] Apr, [facility] [id number] [place] [address] 19 Apr, 2014 [facility] [address] [id number] [place] [address] Apr, 2014 [facility] [place] [facility] [address] [id number] [place] [address] Apr, 2014 [facility] [address] [facility] [id number] [place] [address] 05 Sep, 2012 [facility] [place] [facility] [address] [id number] [place] [address] 29 May, 2012 [facility] [place] [facility] [address] [id number] [place] [address] May, [facility] [place] [facility] [address] [id number] [place] [address] May, [facility] [address] [id number] [place] [address] May, [facility] [place] [facility] [address] [facility] [id number] [place] [address] May, [facility] [place] [facility] [address] [id number] [place] [address] Apr, [facility] [address] [facility] [id number] [place] [address] Mar, [facility] [place] [facility] [address] [id number] [place] [address] Feb, [facility] [place] [facility] [address] [id number] [place] [address] Feb, [facility] [place] [facility] [address] [id number] [place] [address] Feb, [facility] [place] [facility] [address] [id number] [place] [address] Feb, [facility] [place] [facility] [address] [facility] [id number] [place] [address] Jan, [facility] [place] [facility] [address] [id number] [place] [address] Jan, [facility] [place] [facility] [address] [id number] [place] [address] Jan, [facility] [place] [facility] [address] [id number] [place] [address] Dec, [facility] [place] [facility] [address] [id number] [place] [address] Dec, [facility] [place] [facility] [address] [id number] [place] [address] Dec, [facility] [place] [facility] [address] [id number] [place] [address] Dec, [facility] [place] [facility] [address] [id number] [place] [address] Nov, [facility] [place] [facility] [address] [id number] [place] [address] Nov, [facility] [place] [facility] [address] [id number] [place] [address] Nov, [facility] [place] [facility] [address] [id number] [place] [address] Oct, [facility] [place] [facility] [address] [id number] [place] [address] Oct, [facility] [place] [facility] [address] [id number] [place] [address] Oct, [facility] [place] [facility] [address] [id number] [place] [address] Sep, [facility] [address] [id number] [place] [id number] Sep, [facility] [place] [facility] [address] [id number] [place] [address] Sep, [facility] [place] [facility] [address] [id number] [place] [address] Aug, [facility] [address] [id number] [place] [address] July, [facility] [place] [facility] [address] [id number] [place] [address] July, [facility] [place] [facility] [address] [id number] [place] [address] July, [facility] [place] [facility] [address] [id number] [place] [address] July, [facility] [place] [facility] [address] [id number] [place] [address] July, [facility] [place] [facility] [address] [id number] [place] [address] July, [facility] [place] [facility] [address] [id number] [place] [address] July, [facility] [place] [facility] [address] [id number] [place] [address] Jun, [facility] [place] [facility] [address] [id number] [place] [address] Jun, [facility] [place] [facility] [address] [id number] [place] [address] Jun, [facility] [place] [facility] [address] [id number] [place] [address] Jun, [facility] [place] [facility] [address] [id number], [place] [address] Jun, [facility] [place] [facility] [address] [id number] [place] [address] May, [facility] [place] [facility] [address] [id number] [place] [address] May, [facility] [place] [facility] [address] [id number] [place] [address] May, [facility] [place] [facility] [id number], [place] [address] May, [facility] [address], [place] [address] Apr, [facility] [address], [place] [address] Apr, [facility] [address], [place] [address] Apr, [facility] [address], [place] [address] Feb, [facility] [address] [place] [address] Feb, [facility] [address], [place] [address] Dec, [facility] [address] [place] [address] Feb, [facility] [address], [place] [address] Feb, [facility] [address] [place] [address] Jan, [facility] [address], [place] [address] July, [facility] [address], [place] [address] Jun, [facility] [address], [place] [address] 10 Aug, 2008 IMMUNIZATIONS No Known Immunizations SOCIAL HISTORY Never Assessed REASON FOR VISIT Lab (walk-in) PLAN OF CARE VITAL SIGNS MEDICATIONS Unknown Medications RESULTS No Results PROCEDURES Procedure Date Ordered Result Body Site LIPID PANEL July 16, 2017 ASSAY THYROID STIM HORMONE July 16, 2017 No Charge July 16, 2017 ASSAY OF FREE THYROXINE July 16, 2017 INSTRUCTIONS MEDICATIONS ADMINISTERED No Known Medications [...]
--- OUTSIDE RECORDS SUMMARY | 2018-08-21 22:00 | XMS REPORT ---
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 Active 660607917 Problem Unspecified psychosis 298.9 Active 08848216 Problem Anxiety state, unspecified 300.00 Active 889773845 Problem Low back pain M54.5 Active 997755060 Problem H/O hyperlipidemia Z86.39 Active 004561513 Problem Other and unspecified bipolar disorders 296.89 Active 97821027 Problem Unspecified episodic mood disorder 296.90 Active 680626168 Problem Mood disorder F39 Active 45206640 Problem Benign neoplasm of uterus, 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 98050010 Problem General counseling for prescription of oral contraceptives V25.01 Active 300842527732237 Problem Lumbago 724.2 Active 067931802 Problem Encounter for change or removal of surgical wound dressing V58.31 Active 95534838 Problem Allergic rhinitis, cause unspecified 477.9 Active 48378236 Problem Other dysfunctions of sleep stages or arousal from sleep 307.47 Active 980689134 Problem Other disorder of menstruation and other abnormal bleeding from female genital tract 626.8 Active 234193007 Problem Other, mixed, or unspecified nondependent drug abuse, unspecified 305.90 Active 841868440 Problem Unspecified dental caries 521.00 Active 73523673 Problem Nondependent amphetamine or related acting sympathomimetic abuse, 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 ALLERGIES Substance Reaction Event Type Date Status Codeine-Guaifenesin anaphylaxis Drug Allergy July, Active ENCOUNTERS Encounter Location Date Diagnosis [facility] [address] [facility] [id number] [address] Oct, Mood disorder F39 [facility] [address] [id number] [address] Sep, Mood disorder F39 [facility] [address] [id number] [id number] Sep, Dental examination Z01.20 and Dental caries K02.9 [facility] [id number] [place] [address] Sep, Mood disorder F39 [facility] [address], [place] [address] Sep, [facility] [id number] [place] [address] Sep, Mood disorder F39 ; Other constipation K59.09 ; Dyspepsia R10.13 and Low back pain M54.5 [facility] [id number] [place] [address] Sep, [facility] [address], [place] [address] Sep, Mood disorder F39 [facility] [id number] [place] [address] July, H/O hyperlipidemia Z86.39 and H/O intravenous drug use in remission Z87.898 [facility] [address] [id number], [place] [address] July, H/O hyperlipidemia Z86.39 and H/O intravenous drug use in remission Z87.898 [facility] [address] [id number] [address] July, Breast discharge N64.52 [facility] [id number] [address] July, Breast discharge N64.52 [facility] [address] [id number], [place] [address] 26 Apr, 2018 Blood in stool K92.1 ; Breast discharge N64.52 and Rash R21 [facility] [id number] [place] [address] May, Mood disorder F39 [facility] [id number] [place] [address] May, Other constipation K59.09 [facility] [id number] [place] [address] Apr, Mood disorder F39 and Rash R21 [facility] [id number] [place] [address] Apr, Mood disorder F39 and Rash R21 [facility] [id number] [place] [address] Apr, Mood disorder F39 [facility] [id number] [place] [address] Apr, [facility] [id number] [place] [address] Jun, [facility] [id number] [place] [address] Jun, [facility] [id number] [place] [address] Jun, [facility] [id number] [place] [address] May, [facility] [id number] [place] [address] Jan, Cellulitis of right index finger L03.011 ; Ingrown right big toenail L60.0 ; Local infection of the skin and subcutaneous tissue, unspecified L08.9 and Abrasion of right index finger, initial encounter S60.410A [facility] [id number] [place] [address] Apr, [facility] [address] [place] [address] Apr, [facility] [id number] [place] [address] Apr, [facility] [id number] [place] [address] Apr, Anxiety disorder, unspecified F41.9 and Major depression F32.9 [facility] [id number] [place] [address] Mar, [facility] [id number] [place] [address] Nov, [facility] [id number] [place] [address] Nov, Anxiety disorder, unspecified 300.00 [facility] [id number] [place] [address] Nov, Routine adult health maintenance V70.0 ; Foot pain, right 729.5 ; Otitis media of right ear 382.9 and Numbness and tingling in left hand 782.0 [facility] [id number] [place] [address] 14 Nov, 2014 Routine adult health maintenance V70.0 ; Foot pain, right 729.5 ; Otitis media of right ear 382.9 and Numbness and tingling in left hand 782.0 [facility] [id number] [place] [address] Aug, Pain in hand 729.5 ; Bilateral finger numbness 782.0 and Irregular heart rate 427.9 [facility] [id number] [place] [address] Jun, [facility] [id number] [place] [address] Jun, [facility] [id number] [place] [address] Apr, [facility] [address] [id number] [place] [address] Apr, 2014 [facility] [place] [facility] [address] [id number] [place] [address] Apr, 2014 [facility] [place] [facility] [address] [id number] [place] [address] Apr, 2014 [facility] [place] [facility] [address] [id number] [place] [address] Sep, [facility] [place] [facility] [address] [id number] [place] [address] May, [facility] [place] [facility] [address] [id number] [place] [address] May, [facility] [place] [facility] [address] [id number] [place] [address] May, [facility] [place] [facility] [address] [id number] [place] [address] May, [facility] [place] [facility] [address] [id number] [place] [address] May, [facility] [place] [facility] [address] [id number] [place] [address] Apr, [facility] [place] [facility] [address] [id number] [place] [address] Mar, [facility] [place] [facility] [address] [id number], [place] [address] Feb, [facility] [place] [facility] [address] [id number] [place] [address] Feb, [facility] [place] [facility] [address] [id number] [place] [address] Feb, [facility] [place] [facility] [address] [id number] [place] [address] Feb, [facility] [place] [facility] [address] [id number] [place] [address] Jan, [facility] [place] [facility] [address] [id number] [place] [address] Jan, [facility] [place] [facility] [address] [id number] [place] [address] Jan, [facility] [place] [facility] [address] [id number] [place] [address] Dec, [facility] [place] [facility] [address] [id number] [place] [address] Dec, [facility] [place] [facility] [address] [id number] [place] [address] Dec, [facility] [place] [facility] [address] [id number] [place] [address] Dec, [facility] [place] [facility] [address] [id number] [place] [address] Nov, [facility] [place] [facility] [address] [id number] [place] [address] Nov, [facility] [place] [facility] [address] [id number] [place] [address] Nov, [facility] [place] [facility] [address] [id number] [place] [address] Oct, [facility] [place] [facility] [address] [id number] [place] [address] Oct, [facility] [place] [facility] [address] [id number] [place] [address] Oct, [facility] [place] [facility] [address] [id number] [place] [address] Sep, [facility] [address] [id number] [id number] Sep, [facility] [place] [facility] [address] [id number] [place] [address] Sep, [facility] [place] [facility] [address] [id number] [place] [address] Aug, [facility] [address] [id number] [place] [address] July, [facility] [address] [id number] [place] [address] July, [facility] [address] [id number] [place] [address] July, [facility] [address] [id number] [place] [address] July, [facility] [address] [id number] [place] [address] July, [facility] [address] [id number] [place] [address] July, [facility] [address] [id number] [place] [address] July, [facility] [address] [id number] [place] [address] Jun, [facility] [address] [id number] [place] [address] Jun, [facility] [address] [id number] [place] [address] Jun, [facility] [place] [facility] [address] [id number] [place] [address] Jun, [facility] [address] [id number] [place] [address] Jun, [facility] [place] [facility] [address] [id number] [place] [address] May, [facility] [place] [facility] [address] [id number] [place] [address] May, [facility] [place] [facility] [address] [id number] [place] [address] May, [facility] [address] [address] May, [facility] [address], [place] [address] Apr, [facility] [address], [place] [address] Apr, [facility] [address] [id number] [address] Apr, [facility] [address], [place] [address] Feb, [facility] [address], [place] [address] Feb, [facility] [address], [place] [address] Dec, [facility] [address], [place] [address] Feb, [facility] [address], [place] [address] Feb, [facility] [address], [place] [address] Jan, [facility] [address], [place] [address] July, [facility] [address], [place] [address] Jun, [facility] [address] [id number] [address] Aug, IMMUNIZATIONS No Known Immunizations SOCIAL HISTORY Never Assessed REASON FOR VISIT wanting lab work- [facility], states she has had high chol and trig, family hx d thao PLAN OF CARE Activity Details Follow Up 1 Week Reason:establish care VITAL SIGNS Height 66 in 2017-07-15 Weight 228.5 lbs 2017-07-15 Temperature 98 degrees Fahrenheit 2017-07-15 Heart Rate 98 bpm 2017-07-15 Respiratory Rate 20 2017-07-15 BMI 36.88 kg/m2 2017-07-15 Blood pressure systolic 118 mmHg 2017-07-15 Blood pressure diastolic 74 mmHg 2017-07-15 MEDICATIONS Medication Instructions Dosage Frequency Start Date End Date Duration Status Lexapro 10 MG Orally Once a day 1 tablet 24h Apr, 30 day(s) Not-Taking Bisacodyl 5 mg Orally Once a day 2 tablets 24h Apr, 30 day(s) Not-Taking Mirtazapine 15 MG Orally Once a day 1 tablet at bedtime 24h Active Effexor XR 75 MG Orally Once a day 1 capsule with food 24h Active Omeprazole 20 MG Orally Once a day 1 tablet 24h Jun, 30 day(s) Not-Taking PredniSONE 20 mg Orally Once a day 3 TIMES A DAY WITH meals for week 1 then 2 times a day for 1 week and then 1 daily for 1 week and then stop 24h Jun, July, 28 days Active Paxil 40 MG Orally Once a day 1 tablet in the morning 24h Apr, 30 day(s) Not-Taking Seroquel 300 MG Orally 2 times a day 1 tablet 12h Jun, Not-Taking Gabapentin 100 MG Orally Three times a day prn hand pain as directed Aug, 30 days Not-Taking Hydrocortisone 1 % Externally Twice a day 1 application to affected area 12h Apr, 30 day(s) Not-Taking Neurontin 300 MG Orally Three times a day 1 capsule 8h Jun, Not-Taking MiraLax - Orally Once a day 1 packet mixed with 8 ounces of fluid 24h Jun, July, 30 day(s) Active Preparation H 0.25-14-74.9 % Rectal 4 times a day PRN as directed Jun, July, 30 days Not-Taking Fish Oil Burp-Less 1000 MG Orally Once a day 2 capsule 24h Nov, Not-Taking Ibuprofen 800 mg take 1 tablet by Oral route 3 times per day with food take with food. Apr, Not-Taking Hydrocortisone 1 % Externally Twice a day as needed 1 application to affected area Apr, Not-Taking PredniSONE 20 mg 1 tablet three times a day x 1 week, then one tablet twice daily for 1 week then one tablet once daily x 1 week then stop Jun, Active Colace 100 MG Orally Once a day 1 capsule as needed 24h Apr, Not-Taking RESULTS No Results PROCEDURES No Known procedures [...]
--- OUTSIDE RECORDS SUMMARY | 2018-08-21 22:00 | XMS REPORT ---
Author Author LAURENT Mcmillan 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 Active 803841175 Problem Unspecified psychosis 298.9 Active 84105822 Problem Anxiety state, unspecified 300.00 Active 545018586 Problem Low back pain M54.5 Active 205591669 Problem H/O hyperlipidemia Z86.39 Active 856286011 Problem Other and unspecified bipolar disorders 296.89 Active 06583761 Problem Unspecified episodic mood disorder 296.90 Active 456542867 Problem Mood disorder F39 Active 97054402 Problem Benign neoplasm of uterus, 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 84058976 Problem General counseling for prescription of oral contraceptives V25.01 Active 222496014876239 Problem Lumbago 724.2 Active 972758536 Problem Encounter for change or removal of surgical wound dressing V58.31 Active 15503533 Problem Allergic rhinitis, cause unspecified 477.9 Active 04913162 Problem Other dysfunctions of sleep stages or arousal from sleep 307.47 Active 640855057 Problem Other disorder of menstruation and other abnormal bleeding from female genital tract 626.8 Active 261019899 Problem Other, mixed, or unspecified nondependent drug abuse, unspecified 305.90 Active 511167939 Problem Unspecified dental caries 521.00 Active 31418138 Problem Nondependent amphetamine or related acting sympathomimetic abuse, 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 ALLERGIES No Information ENCOUNTERS Encounter Location Date Diagnosis [facility] [address] [facility] [id number] [place] [address] Oct, Mood disorder F39 [facility] [address] [address] Sep, Mood disorder F39 [facility] [id number] [id number] Sep, Dental examination Z01.20 and Dental caries K02.9 [facility] [address] [address] Sep, Mood disorder F39 [facility] [id number] [place] [address] Sep, [facility] [id number] [place] [address] Sep, Mood disorder F39 ; Other constipation K59.09 ; Dyspepsia R10.13 and Low back pain M54.5 [facility] [address] [address] Sep, [facility] [id number] [place] [address] Sep, Mood disorder F39 [facility] [id number] [place] [address] July, H/O hyperlipidemia Z86.39 and H/O intravenous drug use in remission Z87.898 [facility] [id number] [address] July, H/O hyperlipidemia Z86.39 and H/O intravenous drug use in remission Z87.898 [facility] [id number] [address] July, Breast discharge N64.52 [facility] [id number] [place] [address] July, Breast discharge N64.52 [facility] [address] [address] Jun, Blood in stool K92.1 ; Breast discharge N64.52 and Rash R21 [facility] [id number] [place] [address] May, Mood disorder F39 [facility] [id number] [place] [address] May, Other constipation K59.09 [facility] [id number] [place] [address] Apr, Mood disorder F39 and Rash R21 [facility] [id number] [place] [address] Apr, Mood disorder F39 and Rash R21 [facility] [address] [address] Apr, Mood disorder F39 [facility] [id number] [place] [address] Apr, [facility] [id number] [place] [address] Jun, [facility] [id number] [place] [address] Jun, [facility] [id number] [place] [address] Jun, [facility] [id number] [place] [address] May, [facility] [id number] [place] [address] Jan, Cellulitis of right index finger L03.011 ; Ingrown right big toenail L60.0 ; Local infection of the skin and subcutaneous tissue, unspecified L08.9 and Abrasion of right index finger, initial encounter S60.410A [facility] [id number] [place] [address] Apr, [facility] [id number] [place] [address] Apr, [facility] [address] [address] Apr, [facility] [id number] [place] [address] Apr, Anxiety disorder, unspecified F41.9 and Major depression F32.9 [facility] [id number] [place] [address] Mar, [facility] [id number] [place] [address] Nov, [facility] [id number] [place] [address] Nov, Anxiety disorder, unspecified 300.00 [facility] [id number] [place] [address] 15 Nov, 2014 Routine adult health maintenance V70.0 ; Foot pain, right 729.5 ; Otitis media of right ear 382.9 and Numbness and tingling in left hand 782.0 [facility] [id number] [place] [address] 14 Nov, 2014 Routine adult health maintenance V70.0 ; Foot pain, right 729.5 ; Otitis media of right ear 382.9 and Numbness and tingling in left hand 782.0 [facility] [id number] [place] [address] Aug, Pain in hand 729.5 ; Bilateral finger numbness 782.0 and Irregular heart rate 427.9 [facility] [address] [address] Jun, [facility] [id number] [place] [address] Jun, [facility] [id number] [place] [address] Apr, [facility] [id number] [place] [address] 19 Apr, 2014 [facility] [address] [id number] [place] [address] Apr, 2014 [facility] [place] [facility] [address] [id number] [place] [address] Apr, 2014 [facility] [address] [facility] [id number] [place] [address] 05 Sep, 2012 [facility] [place] [facility] [address] [id number] [place] [address] 29 May, 2012 [facility] [place] [facility] [address] [id number] [place] [address] May, [facility] [place] [facility] [address] [id number] [place] [address] May, [facility] [address] [id number] [place] [address] May, [facility] [place] [facility] [address] [facility] [id number] [place] [address] May, [facility] [place] [facility] [address] [id number] [place] [address] Apr, [facility] [address] [facility] [id number] [place] [address] Mar, [facility] [place] [facility] [address] [id number] [place] [address] Feb, [facility] [place] [facility] [address] [id number] [place] [address] Feb, [facility] [place] [facility] [address] [id number] [place] [address] Feb, [facility] [place] [facility] [address] [id number] [place] [address] Feb, [facility] [place] [facility] [address] [facility] [id number] [place] [address] Jan, [facility] [place] [facility] [address] [id number] [place] [address] Jan, [facility] [place] [facility] [address] [id number] [place] [address] Jan, [facility] [place] [facility] [address] [id number] [place] [address] Dec, [facility] [place] [facility] [address] [id number] [place] [address] Dec, [facility] [place] [facility] [address] [id number] [place] [address] Dec, [facility] [place] [facility] [address] [id number] [place] [address] Dec, [facility] [place] [facility] [address] [id number] [place] [address] Nov, [facility] [place] [facility] [address] [id number] [place] [address] Nov, [facility] [place] [facility] [address] [id number] [place] [address] Nov, [facility] [place] [facility] [address] [id number] [place] [address] Oct, [facility] [place] [facility] [address] [id number] [place] [address] Oct, [facility] [place] [facility] [address] [id number] [place] [address] Oct, [facility] [place] [facility] [address] [id number] [place] [address] Sep, [facility] [address] [id number] [place] [id number] Sep, [facility] [place] [facility] [address] [id number] [place] [address] Sep, [facility] [place] [facility] [address] [id number] [place] [address] Aug, [facility] [address] [id number] [place] [address] July, [facility] [place] [facility] [address] [id number] [place] [address] July, [facility] [place] [facility] [address] [id number] [place] [address] July, [facility] [place] [facility] [address] [id number] [place] [address] July, [facility] [place] [facility] [address] [id number] [place] [address] July, [facility] [place] [facility] [address] [id number] [place] [address] July, [facility] [place] [facility] [address] [id number] [place] [address] July, [facility] [place] [facility] [address] [id number] [place] [address] Jun, [facility] [place] [facility] [address] [id number] [place] [address] Jun, [facility] [place] [facility] [address] [id number] [place] [address] Jun, [facility] [place] [facility] [address] [id number] [place] [address] Jun, [facility] [place] [facility] [address] [id number] [address] Jun, [facility] [place] [facility] [address] [id number] [place] [address] May, [facility] [place] [facility] [address] [id number] [place] [address] May, [facility] [place] [facility] [address] [id number] [place] [address] May, [facility] [place] [facility] [id number] [address] May, [facility] [address] [address] Apr, [facility] [address] [address] Apr, [facility] [address] [address] Apr, [facility] [address] [address] Feb, [facility] [id number] [place] [address] Feb, [facility] [address] [address] Dec, [facility] [address] [address] Feb, [facility] [address] [address] Feb, [facility] [address] [address] Jan, [facility] [address] [address] July, [facility] [address] [address] Jun, [facility] [id number] [address] 10 Aug, 2008 IMMUNIZATIONS No Known Immunizations SOCIAL HISTORY Never Assessed REASON FOR VISIT mammogram ordered PLAN OF CARE VITAL SIGNS MEDICATIONS Unknown [...] History Tubal Ligation 2006 Surgical History Appendectomy 1993 Surgical History section x 2 2004, 2006
--- OUTSIDE RECORDS SUMMARY | 2018-08-21 22:00 | XMS REPORT ---
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 Active 489042313 Problem Unspecified psychosis 298.9 Active 34863750 Problem Anxiety state, unspecified 300.00 Active 100716035 Problem Low back pain M54.5 Active 701592213 Problem H/O hyperlipidemia Z86.39 Active 104859952 Problem Other and unspecified bipolar disorders 296.89 Active 10747737 Problem Unspecified episodic mood disorder 296.90 Active 642089787 Problem Mood disorder F39 Active 47862026 Problem Benign neoplasm of uterus, 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 31240256 Problem General counseling for prescription of oral contraceptives V25.01 Active 829408092035314 Problem Lumbago 724.2 Active 974734867 Problem Encounter for change or removal of surgical wound dressing V58.31 Active 13644384 Problem Allergic rhinitis, cause unspecified 477.9 Active 66419267 Problem Other dysfunctions of sleep stages or arousal from sleep 307.47 Active 891784055 Problem Other disorder of menstruation and other abnormal bleeding from female genital tract 626.8 Active 506792110 Problem Other, mixed, or unspecified nondependent drug abuse, unspecified 305.90 Active 073920820 Problem Unspecified dental caries 521.00 Active 85618614 Problem Nondependent amphetamine or related acting sympathomimetic abuse, 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 ALLERGIES No Information ENCOUNTERS Encounter Location Date Diagnosis [facility] [address] [facility] [id number] [place] [address] Oct, Mood disorder F39 [facility] [address], [place] [address] Sep, Mood disorder F39 [facility] [id number] [id number] Sep, Dental examination Z01.20 and Dental caries K02.9 [facility] [address], [place] [address] Sep, Mood disorder F39 [facility] [id number] [place] [address] Sep, [facility] [id number] [place] [address] Sep, Mood disorder F39 ; Other constipation K59.09 ; Dyspepsia R10.13 and Low back pain M54.5 [facility] [address], [place] [address] Sep, [facility] [id number] [place] [address] Sep, Mood disorder F39 [facility] [id number] [place] [address] July, H/O hyperlipidemia Z86.39 and H/O intravenous drug use in remission Z87.898 [facility] [id number], [place] [address] July, H/O hyperlipidemia Z86.39 and H/O intravenous drug use in remission Z87.898 [facility] [address] [id number], [place] [address] July, Breast discharge N64.52 [facility] [id number] [place] [address] July, Breast discharge N64.52 [facility] [address], [place] [address] Jun, Blood in stool K92.1 ; Breast discharge N64.52 and Rash R21 [facility] [id number] [place] [address] May, Mood disorder F39 [facility] [id number] [place] [address] May, Other constipation K59.09 [facility] [id number] [place] [address] Apr, Mood disorder F39 and Rash R21 [facility] [id number] [place] [address] Apr, Mood disorder F39 and Rash R21 [facility] [address] [address] Apr, Mood disorder F39 [facility] [id number] [place] [address] Apr, [facility] [id number] [place] [address] Jun, [facility] [id number] [place] [address] Jun, [facility] [id number] [place] [address] Jun, [facility] [id number] [place] [address] May, [facility] [id number] [place] [address] Jan, Cellulitis of right index finger L03.011 ; Ingrown right big toenail L60.0 ; Local infection of the skin and subcutaneous tissue, unspecified L08.9 and Abrasion of right index finger, initial encounter S60.410A [facility] [id number] [place] [address] Apr, [facility] [id number] [place] [address] Apr, [facility] [address], [place] [address] Apr, [facility] [id number] [place] [address] Apr, Anxiety disorder, unspecified F41.9 and Major depression F32.9 [facility] [id number] [place] [address] Mar, [facility] [id number] [place] [address] Nov, [facility] [id number] [place] [address] Nov, Anxiety disorder, unspecified 300.00 [facility] [id number] [place] [address] 15 Nov, 2014 Routine adult health maintenance V70.0 ; Foot pain, right 729.5 ; Otitis media of right ear 382.9 and Numbness and tingling in left hand 782.0 [facility] [id number] [place] [address] 14 Nov, 2014 Routine adult health maintenance V70.0 ; Foot pain, right 729.5 ; Otitis media of right ear 382.9 and Numbness and tingling in left hand 782.0 [facility] [id number] [place] [address] Aug, Pain in hand 729.5 ; Bilateral finger numbness 782.0 and Irregular heart rate 427.9 [facility] [address], [place] [address] Jun, [facility] [id number] [place] [address] Jun, [facility] [id number] [place] [address] Apr, [facility] [id number] [place] [address] 19 Apr, 2014 [facility] [address] [id number] [place] [address] Apr, 2014 [facility] [place] [facility] [address] [id number] [place] [address] Apr, 2014 [facility] [address] [facility] [id number] [place] [address] 05 Sep, 2012 [facility] [place] [facility] [address] [id number] [place] [address] 29 May, 2012 [facility] [place] [facility] [address] [id number] [place] [address] May, [facility] [place] [facility] [address] [id number] [place] [address] May, [facility] [address] [id number] [place] [address] May, [facility] [place] [facility] [address] [facility] [id number] [place] [address] May, [facility] [place] [facility] [address] [id number] [place] [address] Apr, [facility] [address] [facility] [id number] [place] [address] Mar, [facility] [place] [facility] [address] [id number] [place] [address] Feb, [facility] [place] [facility] [address] [id number] [place] [address] Feb, [facility] [place] [facility] [address] [id number] [place] [address] Feb, [facility] [place] [facility] [address] [id number] [place] [address] Feb, [facility] [place] [facility] [address] [facility] [id number] [place] [address] Jan, [facility] [place] [facility] [address] [id number] [place] [address] Jan, [facility] [place] [facility] [address] [id number] [place] [address] Jan, [facility] [place] [facility] [address] [id number] [place] [address] Dec, [facility] [place] [facility] [address] [id number] [place] [address] Dec, [facility] [place] [facility] [address] [id number] [place] [address] Dec, [facility] [place] [facility] [address] [id number] [place] [address] Dec, [facility] [place] [facility] [address] [id number] [place] [address] Nov, [facility] [place] [facility] [address] [id number] [place] [address] Nov, [facility] [place] [facility] [address] [id number] [place] [address] Nov, [facility] [place] [facility] [address] [id number] [place] [address] Oct, [facility] [place] [facility] [address] [id number] [place] [address] Oct, [facility] [place] [facility] [address] [id number] [place] [address] Oct, [facility] [place] [facility] [address] [id number] [place] [address] Sep, [facility] [address] [id number] [place] [id number] Sep, [facility] [place] [facility] [address] [id number] [place] [address] Sep, [facility] [place] [facility] [address] [id number] [place] [address] Aug, [facility] [address] [id number] [place] [address] July, [facility] [place] [facility] [address] [id number] [place] [address] July, [facility] [place] [facility] [address] [id number] [place] [address] July, [facility] [place] [facility] [address] [id number] [place] [address] July, [facility] [place] [facility] [address] [id number] [place] [address] July, [facility] [place] [facility] [address] [id number] [place] [address] July, [facility] [place] [facility] [address] [id number] [place] [address] July, [facility] [place] [facility] [address] [id number] [place] [address] Jun, [facility] [place] [facility] [address] [id number] [place] [address] Jun, [facility] [place] [facility] [address] [id number] [place] [address] Jun, [facility] [place] [facility] [address] [id number] [place] [address] Jun, [facility] [place] [facility] [address] [id number] [address] Jun, [facility] [place] [facility] [address] [id number] [place] [address] May, [facility] [place] [facility] [address] [id number] [place] [address] May, [facility] [place] [facility] [address] [id number] [place] [address] May, [facility] [place] [facility] [id number], [place] [address] May, [facility] [address], [place] [address] Apr, [facility] [address], [place] [address] Apr, [facility] [address], [place] [address] Apr, [facility] [address], [place] [address] Feb, [facility] [id number] [place] [address] Feb, [facility] [address], [place] [address] Dec, [facility] [address], [place] [address] Feb, [facility] [address], [place] [address] Feb, [facility] [address], [place] [address] Jan, [facility] [address], [place] [address] July, [facility] [address], [place] [address] Jun, [facility] [id number], [place] [address] Aug, IMMUNIZATIONS No Known Immunizations SOCIAL HISTORY Never Assessed REASON FOR VISIT PLAN OF CARE VITAL SIGNS MEDICATIONS Unknown Medications RESULTS Name Result Date Reference Range Mammogram Dx, Bilateral 2017-07-16 PROCEDURES No Known procedures INSTRUCTIONS MEDICATIONS ADMINISTERED [...]
--- OUTSIDE RECORDS SUMMARY | 2018-08-21 22:01 | XMS REPORT ---
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 Active 209607091 Problem Unspecified psychosis 298.9 Active 39435184 Problem Anxiety state, unspecified 300.00 Active 285213377 Problem Low back pain M54.5 Active 679257934 Problem H/O hyperlipidemia Z86.39 Active 260377671 Problem Other and unspecified bipolar disorders 296.89 Active 33664112 Problem Unspecified episodic mood disorder 296.90 Active 179433759 Problem Mood disorder F39 Active 33566277 Problem Benign neoplasm of uterus, 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 49066153 Problem General counseling for prescription of oral contraceptives V25.01 Active [id number] Problem Lumbago 724.2 Active 741549448 Problem Encounter for change or removal of surgical wound dressing V58.31 Active 75705533 Problem Allergic rhinitis, cause unspecified 477.9 Active 78727568 Problem Other dysfunctions of sleep stages or arousal from sleep 307.47 Active 255353891 Problem Other disorder of menstruation and other abnormal bleeding from female genital tract 626.8 Active 878028016 Problem Other, mixed, or unspecified nondependent drug abuse, unspecified 305.90 Active 964039675 Problem Unspecified dental caries 521.00 Active 42534603 Problem Nondependent amphetamine or related acting sympathomimetic abuse, 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 ALLERGIES Substance Reaction Event Type Date Status Codeine-Guaifenesin anaphylaxis Drug Allergy Jun, Active ENCOUNTERS Encounter Location Date Diagnosis [facility] [address] [facility] [id number] [address] Sep, Mood disorder F39 [facility] [address] [id number] [id number] Sep, Dental examination Z01.20 and Dental caries K02.9 [facility] [address], [place] [address] Sep, Mood disorder F39 [facility] [address] [place] [address] Sep, [facility] [id number] [place] [address] Sep, Mood disorder F39 ; Other constipation K59.09 ; Dyspepsia R10.13 and Low back pain M54.5 [facility] [address], [place] [address] Sep, [facility] [address] [place] [address] Sep, Mood disorder F39 [facility] [address] [place] [address] July, H/O hyperlipidemia Z86.39 and H/O intravenous drug use in remission Z87.898 [facility] [address], [place] [address] July, H/O hyperlipidemia Z86.39 and H/O intravenous drug use in remission Z87.898 [facility] [address], [place] [address] July, Breast discharge N64.52 [facility] [id number] [place] [address] July, Breast discharge N64.52 [facility] [id number] [place] [address] Jun, Blood in stool K92.1 ; Breast discharge N64.52 and Rash R21 [facility] [address] [place] [address] May, Mood disorder F39 [facility] [address] [place] [address] May, Other constipation K59.09 [facility] [id number] [place] [address] Apr, Mood disorder F39 and Rash R21 [facility] [address] [address] Apr, Mood disorder F39 and Rash R21 [facility] [id number] [place] [address] Apr, Mood disorder F39 [facility] [id number] [place] [address] Apr, [facility] [id number] [place] [address] Jun, [facility] [id number] [place] [address] Jun, [facility] [id number] [place] [address] Jun, [facility] [id number] [place] [address] May, [facility] [address] [place] [address] Jan, Cellulitis of right index finger L03.011 ; Ingrown right big toenail L60.0 ; Local infection of the skin and subcutaneous tissue, unspecified L08.9 and Abrasion of right index finger, initial encounter S60.410A [facility] [id number] [place] [address] Apr, [facility] [id number] [place] [address] Apr, [facility] [address] [id number], [place] [address] Apr, [facility] [id number] [place] [address] Apr, Anxiety disorder, unspecified F41.9 and Major depression F32.9 [facility] [id number] [place] [address] Mar, [facility] [id number] [place] [address] Nov, [facility] [id number] [place] [address] Nov, Anxiety disorder, unspecified 300.00 [facility] [id number] [place] [address] 15 Nov, 2014 Routine adult health maintenance V70.0 ; Foot pain, right 729.5 ; Otitis media of right ear 382.9 and Numbness and tingling in left hand 782.0 [facility] [id number] [place] [address] 14 Nov, 2014 Routine adult health maintenance V70.0 ; Foot pain, right 729.5 ; Otitis media of right ear 382.9 and Numbness and tingling in left hand 782.0 [facility] [id number] [place] [address] 09 Aug, 2014 Pain in hand 729.5 ; Bilateral finger numbness 782.0 and Irregular heart rate 427.9 [facility] [address] [place] [address] Jun, [facility] [id number] [place] [address] Jun, [facility] [id number] [place] [address] Apr, [facility] [id number] [place] [address] Apr, [facility] [address] [id number] [place] [address] Apr, [facility] [place] [facility] [address] [id number] [place] [address] Apr, [facility] [place] [facility] [address] [id number] [place] [address] Sep, [facility] [place] [facility] [address] [id number] [place] [address] May, [facility] [place] [facility] [address] [id number] [place] [address] May, [facility] [place] [facility] [address] [id number] [place] [address] May, [facility] [address] [id number] [place] [address] May, [facility] [place] [facility] [address] [id number] [place] [address] May, [facility] [place] [facility] [address] [id number] [place] [address] Apr, [facility] [place] [facility] [address] [id number] [place] [address] Mar, [facility] [place] [facility] [address] [id number] [place] [address] Feb, [facility] [place] [facility] [address] [id number] [place] [address] Feb, [facility] [place] [facility] [address] [id number] [place] [address] Feb, [facility] [place] [facility] [address] [id number] [place] [address] Feb, [facility] [place] [facility] [address] [id number] [place] [address] Jan, [facility] [place] [facility] [address] [id number], [place] [address] Jan, [facility] [place] [facility] [address] [id number] [place] [address] Jan, [facility] [place] [facility] [address] [id number] [place] [address] Dec, [facility] [place] [facility] [address] [id number] [place] [address] Dec, [facility] [place] [facility] [address] [id number] [place] [address] Dec, [facility] [place] [facility] [address] [id number] [place] [address] Dec, [facility] [place] [facility] [address] [id number] [place] [address] Nov, [facility] [place] [facility] [address] [id number] [place] [address] Nov, [facility] [place] [facility] [address] [id number] [place] [address] Nov, [facility] [place] [facility] [address] [facility] [id number] [place] [address] Oct, [facility] [place] [facility] [address] [facility] [id number], [place] [address] Oct, [facility] [place] [facility] [address] [id number], [place] [address] Oct, [facility] [place] [facility] [address] [facility] [id number], [place] [address] Sep, [facility] [address] [address] [facility] [id number] [id number] Sep, [facility] [place] [facility] [address] [facility] [id number], [place] [address] Sep, [facility] [place] [facility] [address] [facility] [id number], [place] [address] Aug, [facility] [place] [facility] [address] [facility] [id number] [place] [address] July, [facility] [address] [id number] [place] [address] July, [facility] [address] [id number] [place] [address] July, [facility] [address] [id number] [place] [address] July, [facility] [address] [id number] [place] [address] July, [facility] [address] [id number] [place] [address] July, [facility] [address] [id number] [place] [address] July, [facility] [address] [id number] [place] [address] Jun, [facility] [address] [id number] [place] [address] Jun, [facility] [address] [id number] [place] [address] Jun, [facility] [address] [id number] [place] [address] Jun, [facility] [address] [id number] [place] [address] Jun, [facility] [address] [id number] [place] [address] May, [facility] [address] [id number] [place] [address] May, [facility] [address] [id number] [place] [address] May, [facility] [address] [id number] [place] [address] May, [facility] [address] [facility] [id number], [place] [address] Apr, [facility] [address] [facility] [id number], [place] [address] Apr, [facility] [address] [facility] [id number], [place] [address] Apr, [facility] [address] [facility] [id number], [place] [address] Feb, [facility] [address] [facility] [id number], [place] [address] Feb, [facility] [address] [facility] [id number], [place] [address] Dec, [facility] [address], [place] [address] Feb, [facility] [address] [id number], [place] [address] Feb, [facility] [address] [facility] [id number], [place] [address] Jan, [facility] [address] [id number], [place] [address] July, [facility] [address] [id number], [place] [address] Jun, [facility] [address] [id number], [place] [address] Aug, IMMUNIZATIONS No Known Immunizations SOCIAL HISTORY Never Assessed REASON FOR VISIT blood in stool/breast discharge- PT reports that she passed a hard stool mass ab out a week ago that caused some strain. PT has had spotting along with pain with bowel movements since the strain, notes bowels have been soft/runny. -Simon RAINES , PT has pain in her right breast along with discharge. PT reports she had myles rgery on her right breast in () removing her milk ducts. PT has not had a mammogram since 0064-5381., PT has a red rash on her neck and chest that is p ainful and itchy. PT reports she went fishing about a week ago and the rash star ha shortly after her trip. PLAN OF CARE Activity Details Follow Up prn Reason: VITAL SIGNS Height 66 in 2017-07-02 Weight 220.3 lbs 2017-07-02 Temperature 98.4 degrees Fahrenheit 2017-07-02 Heart Rate 100 bpm 2017-07-02 Respiratory Rate 20 2017-07-02 BMI 35.55 kg/m2 2017-07-02 Blood pressure systolic 135 mmHg 2017-07-02 Blood pressure diastolic 90 mmHg 2017-07-02 MEDICATIONS Medication Instructions Dosage Frequency Start Date End Date Duration Status Preparation H 0.25-14-74.9 % Rectal 4 times a day PRN as directed Jun, July, 30 days Active Fish Oil Burp-Less 1000 MG Orally Once a day 2 capsule 24h 23 Nov, 2014 Not-Taking Seroquel 300 MG Orally 2 times a day 1 tablet 12h Jun, Not-Taking PredniSONE 20 mg Orally Once a day 3 TIMES A DAY WITH meals for week 1 then 2 times a day for 1 week and then 1 daily for 1 week and then stop 24h Jun, July, 28 days Active Gabapentin 100 MG Orally Three times a day prn hand pain as directed Aug, 30 days Not-Taking Hydrocortisone 1 % Externally Twice a day 1 application to affected area 12h Apr, 30 day(s) Not-Taking Omeprazole 20 MG Orally Once a day 1 tablet 24h Jun, 30 day(s) Not-Taking PredniSONE 20 mg 1 tablet three times a day x 1 week, then one tablet twice daily for 1 week then one tablet once daily x 1 week then stop Jun, Active Ibuprofen 800 mg take 1 tablet by Oral route 3 times per day with food take with food. Apr, Not-Taking Lexapro 10 MG Orally Once a day 1 tablet 24h Apr, 30 day(s) Not-Taking Bisacodyl 5 mg Orally Once a day 2 tablets 24h Apr, 30 day(s) Not-Taking Colace 100 MG Orally Once a day 1 capsule as needed 24h Apr, Not-Taking MiraLax - Orally Once a day 1 packet mixed with 8 ounces of fluid 24h Jun, July, 30 day(s) Active Paxil 40 MG Orally Once a day 1 tablet in the morning 24h Apr, 30 day(s) Not-Taking Hydrocortisone 1 % Externally Twice a day as needed 1 application to affected area Apr, Not-Taking Neurontin 300 MG Orally Three times a day 1 capsule 8h Jun, Not-Taking RESULTS No Results PROCEDURES No Known [...]
--- OUTSIDE RECORDS SUMMARY | 2018-08-21 22:01 | XMS REPORT ---
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 Active 621984291 Problem Unspecified psychosis 298.9 Active 76564400 Problem Anxiety state, unspecified 300.00 Active 279395783 Problem Low back pain M54.5 Active 064293352 Problem H/O hyperlipidemia Z86.39 Active 422249291 Problem Other and unspecified bipolar disorders 296.89 Active 63257206 Problem Unspecified episodic mood disorder 296.90 Active 514671383 Problem Mood disorder F39 Active 67894202 Problem Benign neoplasm of uterus, 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 03498932 Problem General counseling for prescription of oral contraceptives V25.01 Active 767762008838216 Problem Lumbago 724.2 Active 669679613 Problem Encounter for change or removal of surgical wound dressing V58.31 Active 13337156 Problem Allergic rhinitis, cause unspecified 477.9 Active 15240605 Problem Other dysfunctions of sleep stages or arousal from sleep 307.47 Active 630080980 Problem Other disorder of menstruation and other abnormal bleeding from female genital tract 626.8 Active 780394700 Problem Other, mixed, or unspecified nondependent drug abuse, unspecified 305.90 Active 884648303 Problem Unspecified dental caries 521.00 Active 18793606 Problem Nondependent amphetamine or related acting sympathomimetic abuse, 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 ALLERGIES Substance Reaction Event Type Date Status Codeine-Guaifenesin anaphylaxis Drug Allergy May, Active ENCOUNTERS Encounter Location Date Diagnosis [facility] [address] [facility] [id number] [id number] Sep, [facility] [id number] [place] [address] Sep, [facility] [address] [address] Sep, Mood disorder F39 ; Other constipation K59.09 ; Dyspepsia R10.13 and Low back pain M54.5 [facility] [address] [address] Sep, [facility] [id number] [place] [address] Sep, Mood disorder F39 [facility] [id number] [place] [address] July, H/O hyperlipidemia Z86.39 and H/O intravenous drug use in remission Z87.898 [facility] [address], [place] [address] July, H/O hyperlipidemia Z86.39 and H/O intravenous drug use in remission Z87.898 [facility] [address], [place] [address] July, Breast discharge N64.52 [facility] [id number] [place] [address] July, Breast discharge N64.52 [facility] [address], [place] [address] Jun, Blood in stool K92.1 ; Breast discharge N64.52 and Rash R21 [facility] [address], [place] [address] May, Mood disorder F39 [facility] [address], [place] [address] May, Other constipation K59.09 [facility] [address], [place] [address] Apr, Mood disorder F39 and Rash R21 [facility] [id number] [place] [address] Apr, Mood disorder F39 and Rash R21 [facility] [id number] [place] [address] Apr, Mood disorder F39 [facility] [id number] [place] [address] Apr, [facility] [id number] [place] [address] Jun, [facility] [id number] [place] [address] Jun, [facility] [id number] [place] [address] Jun, [facility] [id number] [place] [address] May, [facility] [id number] [place] [address] Jan, Cellulitis of right index finger L03.011 ; Ingrown right big toenail L60.0 ; Local infection of the skin and subcutaneous tissue, unspecified L08.9 and Abrasion of right index finger, initial encounter S60.410A [facility] [id number] [place] [address] Apr, [facility] [id number] [place] [address] Apr, [facility] [id number] [place] [address] Apr, [facility] [id number] [place] [address] Apr, Anxiety disorder, unspecified F41.9 and Major depression F32.9 [facility] [id number] [place] [address] Mar, [facility] [address] [address] 23 Nov, 2014 [facility] [id number] [place] [address] 23 Nov, 2014 Anxiety disorder, unspecified 300.00 [facility] [address], [place] [address] 15 Nov, 2014 Routine adult health maintenance V70.0 ; Foot pain, right 729.5 ; Otitis media of right ear 382.9 and Numbness and tingling in left hand 782.0 [facility] [id number] [place] [address] 14 Nov, 2014 Routine adult health maintenance V70.0 ; Foot pain, right 729.5 ; Otitis media of right ear 382.9 and Numbness and tingling in left hand 782.0 [facility] [id number] [place] [address] 09 Aug, 2014 Pain in hand 729.5 ; Bilateral finger numbness 782.0 and Irregular heart rate 427.9 [facility] [id number] [place] [address] Jun, [facility] [id number] [place] [address] Jun, [facility] [id number] [place] [address] Apr, [facility] [id number] [place] [address] Apr, [facility] [id number] [place] [address] Apr, [facility] [id number] [place] [address] Apr, [facility] [id number] [place] [address] Sep, [facility] [address] [facility] [id number] [place] [address] 29 May, 2012 [facility] [place] [facility] [address] [id number] [place] [address] 20 May, 2012 [facility] [place] [facility] [address] [id number] [place] [address] 14 May, 2012 [facility] [place] [facility] [address] [id number] [place] [address] 05 May, 2012 [facility] [place] [facility] [address] [id number] [place] [address] May, [facility] [place] [facility] [address] [id number] [place] [address] Apr, [facility] [place] [facility] [address] [id number] [place] [address] 16 Mar, 2012 [facility] [place] [facility] [address] [id number] [place] [address] Feb, [facility] [place] [facility] [address] [id number] [place] [address] 28 Feb, 2012 [facility] [place] [facility] [address] [id number] [place] [address] Feb, [facility] [place] [facility] [address] [facility] [id number] [place] [address] 14 Feb, 2012 [facility] [place] [facility] [address] [id number] [place] [address] Jan, [facility] [place] [facility] [address] [id number] [place] [address] Jan, [facility] [place] [facility] [address] [id number] [place] [address] Jan, [facility] [place] [facility] [address] [id number] [place] [address] Dec, [facility] [place] [facility] [address] [id number] [place] [address] Dec, [facility] [address] [id number] [place] [address] Dec, [facility] [place] [facility] [address] [id number] [place] [address] Dec, [facility] [address] [id number] [place] [address] Nov, [facility] [place] [facility] [address] [id number] [place] [address] Nov, [facility] [address] [id number] [place] [address] Nov, [facility] [place] [facility] [address] [id number] [place] [address] Oct, [facility] [address] [id number] [place] [address] Oct, [facility] [place] [facility] [address] [id number] [place] [address] Oct, [facility] [address] [id number] [place] [address] Sep, [facility] [address] [id number] [id number] Sep, [facility] [address] [id number], [place] [address] Sep, [facility] [place] [facility] [address] [id number], [place] [address] Aug, [facility] [place] [facility] [address] [id number], [place] [address] July, [facility] [place] [facility] [address] [id number] [place] [address] July, [facility] [place] [facility] [address] [id number], [place] [address] July, [facility] [address] [id number], [place] [address] July, [facility] [address] [id number] [place] [address] July, [facility] [address] [id number] [place] [address] July, [facility] [address] [facility] [id number] [place] [address] July, [facility] [address] [id number] [place] [address] Jun, [facility] [address] [id number] [place] [address] Jun, [facility] [address] [id number] [place] [address] Jun, [facility] [address] [facility] [id number] [place] [address] Jun, [facility] [address] [facility] [id number] [place] [address] Jun, [facility] [address] [id number] [place] [address] May, [facility] [place] [facility] [address] [facility] [id number] [place] [address] May, [facility] [address] [id number] [place] [address] May, [facility] [place] [facility] [address] [facility] [id number] [place] [address] May, [facility] [place] [facility] [address] [id number] [place] [address] Apr, [facility] [place] [facility] [address] [id number] [place] [address] Apr, [facility] [place] [facility] [address] [facility] [id number] [place] [address] Apr, [facility] [place] [facility] [id number] [address] Feb, [facility] [id number], [place] [address] Feb, [facility] [address], [place] [address] Dec, [facility] [id number], [place] [address] Feb, [facility] [address], [place] [address] Feb, [facility] [address], [place] [address] Jan, [facility] [address], [place] [address] July, [facility] [address], [place] [address] Jun, [facility] [id number], [place] [address] Aug, IMMUNIZATIONS No Known Immunizations SOCIAL HISTORY Never Assessed REASON FOR VISIT fdc rx PLAN OF CARE VITAL SIGNS MEDICATIONS Medication Instructions Dosage Frequency Start Date End Date Duration Status Seroquel 300 MG Orally 2 times a day 1 tablet 12h Jun, Active RESULTS No Results PROCEDURES No Known [...]
--- OUTSIDE RECORDS SUMMARY | 2018-08-21 22:01 | XMS REPORT ---
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 Problem Anxiety state, unspecified 300.00 Active 313248043 Problem Combinations of drug dependence excluding opioid type drug, 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 Active 548812031 Problem H/O hyperlipidemia Z86.39 Active 489750845 Problem Mood disorder F39 Active 75241227 Problem Unspecified episodic mood disorder 296.90 Active 790671774 Problem Unspecified psychosis 298.9 Active 30974428 Problem Benign neoplasm of uterus, 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 09738756 Problem Other and unspecified bipolar disorders 296.89 Active 63629621 Problem Encounter for change or removal of surgical wound dressing V58.31 Active 54674701 Problem General counseling for prescription of oral contraceptives V25.01 Active 889550364566902 Problem Unspecified dental caries 521.00 Active 28796471 Problem Allergic rhinitis, cause unspecified 477.9 Active 30922456 Problem Lumbago 724.2 Active 958444599 Problem Other dysfunctions of sleep stages or arousal from sleep 307.47 Active 017128992 Problem Other disorder of menstruation and other abnormal bleeding from female genital tract 626.8 Active 202318115 Problem Other, mixed, or unspecified nondependent drug abuse, unspecified 305.90 Active 864541542 ALLERGIES Substance Reaction Event Type Date Status Codeine-Guaifenesin anaphylaxis Drug Allergy May, Active ENCOUNTERS Encounter Location Date Diagnosis [facility] [address] [facility] [id number] [address] Sep, Mood disorder F39 [facility] [address] [id number] [address] July, H/O hyperlipidemia Z86.39 and H/O intravenous drug use in remission Z87.898 [facility] [id number] [place] [address] July, H/O hyperlipidemia Z86.39 and H/O intravenous drug use in remission Z87.898 [facility] [id number] [place] [address] July, Breast discharge N64.52 [facility] [address] [place] [id number] [place] [address] July, Breast discharge N64.52 [facility] [id number] [place] [address] Jun, Blood in stool K92.1 ; Breast discharge N64.52 and Rash R21 [facility] [id number] [place] [address] May, Mood disorder F39 [facility] [id number] [place] [address] May, Other constipation K59.09 [facility] [id number] [place] [address] Apr, Mood disorder F39 and Rash R21 [facility] [id number] [place] [address] Apr, Mood disorder F39 and Rash R21 [facility] [id number] [place] [address] Apr, Mood disorder F39 [facility] [id number] [place] [address] Apr, [facility] [id number] [place] [address] Jun, [facility] [id number] [place] [address] Jun, [facility] [id number] [place] [address] Jun, [facility] [id number] [place] [address] May, [facility] [id number] [place] [address] Jan, Cellulitis of right index finger L03.011 ; Ingrown right big toenail L60.0 ; Local infection of the skin and subcutaneous tissue, unspecified L08.9 and Abrasion of right index finger, initial encounter S60.[address] [place] [id number] [place] [address] Apr, [facility] [id number] [place] [address] Apr, [facility] [id number] [place] [address] Apr, [facility] [id number] [place] [address] Apr, Anxiety disorder, unspecified F41.9 and Major depression F32.9 [facility] [id number] [place] [address] Mar, [facility] [id number] [place] [address] Nov, [facility] [id number] [place] [address] Nov, Anxiety disorder, unspecified 300.00 [facility] [id number] [place] [address] Nov, Routine adult health maintenance V70.0 ; Foot pain, right 729.5 ; Otitis media of right ear 382.9 and Numbness and tingling in left hand 782.0 [facility] [id number] [address] Nov, Routine adult health maintenance V70.0 ; Foot pain, right 729.5 ; Otitis media of right ear 382.9 and Numbness and tingling in left hand 782.0 [facility] [address] [address] Aug, Pain in hand 729.5 ; Bilateral finger numbness 782.0 and Irregular heart rate 427.9 [facility] [id number] [place] [address] Jun, [facility] [id number] [place] [address] Jun, [facility] [id number] [place] [address] Apr, [facility] [id number] [place] [address] Apr, [facility] [id number] [place] [address] Apr, [facility] [id number] [place] [address] Apr, [facility] [id number] [address] Sep, [facility] [address] [address] May, [facility] [id number] [place] [address] May, [facility] [id number] [place] [address] May, [facility] [id number] [place] [address] May, [facility] [address] [address] May, [facility] [address] [facility] [id number] [place] [address] Apr, [facility] [place] [facility] [address] [id number] [place] [address] Mar, [facility] [place] [facility] [address] [id number] [place] [address] Feb, [facility] [place] [facility] [address] [id number] [place] [address] Feb, [facility] [place] [facility] [address] [id number] [place] [address] Feb, [facility] [place] [facility] [address] [id number] [place] [address] Feb, [facility] [place] [facility] [address] [id number] [place] [address] Jan, [facility] [place] [facility] [address] [id number] [place] [address] Jan, [facility] [place] [facility] [address] [id number] [place] [address] Jan, [facility] [place] [facility] [address] [id number] [place] [address] 31 Dec, 2011 [facility] [place] [facility] [address] [id number] [place] [address] 31 Dec, 2011 [facility] [place] [facility] [address] [id number] [place] [address] Dec, [facility] [place] [facility] [address] [id number] [place] [address] Dec, [facility] [place] [facility] [address] [id number] [place] [address] 27 Nov, 2011 [facility] [place] [facility] [address] [id number] [place] [address] 26 Nov, 2011 [facility] [place] [facility] [address] [id number] [place] [address] Nov, [facility] [place] [facility] [address] [id number] [place] [address] Oct, [facility] [place] [facility] [address] [id number] [place] [address] Oct, [facility] [place] [facility] [address] [id number] [place] [address] Oct, [facility] [address] [id number] [place] [address] Sep, [facility] [address] [id number] [place] [id number] Sep, [facility] [address] [id number] [place] [address] Sep, [facility] [place] [facility] [address] [id number] [place] [address] Aug, [facility] [place] [facility] [address] [id number] [place] [address] July, [facility] [place] [facility] [address] [id number] [place] [address] July, [facility] [place] [facility] [address] [id number] [place] [address] July, [facility] [place] [facility] [address] [id number] [place] [address] July, [facility] [place] [facility] [address] [id number] [place] [address] July, [facility] [place] [facility] [address] [id number] [place] [address] July, [facility] [place] [facility] [address] [id number] [place] [address] July, [facility] [place] [facility] [address] [id number] [place] [address] Jun, [facility] [place] [facility] [address] [id number] [place] [address] Jun, [facility] [address] [id number] [place] [address] Jun, [facility] [place] [facility] [address] [id number] [place] [address] Jun, [facility] [address] [facility] [id number] [place] [address] Jun, [facility] [place] [facility] [address] [id number] [place] [address] May, [facility] [address] [id number] [place] [address] May, [facility] [address] [facility] [id number] [place] [address] May, [facility] [address] [place] [address] May, [facility] [place] [facility] [address] [facility] [id number] [place] [address] Apr, [facility] [address] [facility] [id number] [place] [address] Apr, [facility] [address] [facility] [id number] [place] [address] Apr, [facility] [address] [facility] [id number] [place] [address] Feb, [facility] [place] [facility] [address] [id number] [place] [address] 05 Feb, 2011 [facility] [place] [facility] [address] [facility] [id number] [place] [address] Dec, [facility] [place] [facility] [address] [facility] [id number] [place] [address] 29 Feb, 2010 [facility] [place] [facility] [address] [facility] [id number] [place] [address] Feb, [facility] [place] [facility] [address] [facility] [id number] [place] [address] 08 Jan, 2010 [facility] [address] [facility] [id number] [address] 14 Jul, 2009 [facility] [address] [facility] [id number], [place] [address] 10 Jun, 2009 [facility] [address] [facility] [id number], [place] [address] 10 Aug, 2008 IMMUNIZATIONS No Known Immunizations SOCIAL HISTORY Never Assessed REASON FOR VISIT intermediate rx PLAN OF CARE VITAL SIGNS MEDICATIONS Medication Instructions Dosage Frequency Start Date End Date Duration Status Colace 100 MG Orally Once a day 1 capsule as needed 24h Apr, Active RESULTS No Results PROCEDURES No [...]
--- OUTSIDE RECORDS SUMMARY | 2018-08-21 22:02 | XMS REPORT ---
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 Problem Other disorder of menstruation and other abnormal bleeding from female genital tract 626.8 Active Problem General counseling for prescription of oral contraceptives V25.01 Active Problem Nondependent amphetamine or related acting sympathomimetic abuse, 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 Problem Unspecified dental caries 521.00 Active Problem Combinations of drug dependence excluding opioid type drug, 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 Active Problem Lumbago 724.2 Active Problem Encounter for change or removal of surgical wound dressing V58.31 Active Problem Anxiety state, unspecified 300.00 Active Problem Unspecified psychosis 298.9 Active Problem Unspecified episodic mood disorder 296.90 Active Problem Other dysfunctions of sleep stages or arousal from sleep 307.47 Active Problem Allergic rhinitis, cause unspecified 477.9 Active Medications No Known Medications Results No Known Results Summary Purpose [employer] Submission
--- OUTSIDE RECORDS SUMMARY | 2018-08-21 22:02 | XMS REPORT ---
Author MAYCOL Kennedy [facility] [employer] Address Unknown Phone Unavailable Care Team Providers Care Back Pad Inspector Name Role Phone MAYCOL WHITE CP Unavailable Allergies, Adverse Reactions, Alerts Substance Reaction Event Type Codeine-Guaifenesin anaphylaxis Drug Allergy Problems Problem Type Condition ICD-9 Code Onset Dates Condition Status Problem Other, [...] removal of surgical wound dressing V58.31 Active Assessment Otitis media of right ear 382.9 Active Assessment Foot pain, right 729.5 Active Assessment Numbness and tingling in left hand 782.0 Active Problem Anxiety state, unspecified 300.00 Active Problem Unspecified psychosis 298.9 Active Assessment Routine adult health maintenance V70.0 Active Problem Unspecified episodic mood disorder 296.90 Active Problem Other dysfunctions of sleep stages or arousal from sleep 307.47 Active Problem Allergic rhinitis, cause unspecified 477.9 Active Medications Medication Code System Code Instructions Start Date End Date Status Dosage Amoxicillin [facility] [address]-06 500 MG Orally 3 times a day Nov 20, 2014 Nov 30, 2014 2 tablet Tessalon Perles [facility] [address]-83 100 MG Orally Three times a day as needed Nov 20, 2014 Dec 04, 2014 1 capsule as needed Procedures Procedure Coding System Code Date Office Visit, Est Pt., Level 4 CPT-4 19206 Nov 20, 2014 X-RAY EXAM OF FOOT CPT-4 34060 Nov 20, 2014 Vital Signs Date/Time: Nov 20, 2014 Temperature 97.9 F Weight 238.0 lbs Height 66 in BMI 38.41 Index Blood Pressure Diastolic 90 mmHg Blood Pressure Systolic 132 mmHg Cardiac Monitoring Heart Rate 88 bpm Results No Known Results Summary Purpose [employer] Submission
--- OUTSIDE RECORDS SUMMARY | 2018-08-21 22:02 | XMS REPORT ---
Author Author MAYCOL WHITE [facility] [employer] Address Unknown Phone Unavailable Care Team Providers Care Domestic Laundry Worker Name Role Phone MAYCOL WHITE CP Unavailable Allergies No Known Allergies Problems Problem Type Condition ICD-9 Code Onset [...] unspecified 477.9 Active Medications No Known Medications Procedures Procedure Coding System Code Date COMPLETE CBC W/AUTO DIFF WBC CPT-4 71120 Nov 21, 2014 ASSAY THYROID STIM HORMONE CPT-4 48884 Nov 21, 2014 ASSAY OF BLOOD/URIC ACID CPT-4 71291 Nov 21, 2014 LIPID PANEL CPT-4 49105 Nov 21, 2014 COMPREHEN METABOLIC PANEL CPT-4 55367 Nov 21, 2014 VENIPUNCT, ROUTINE* CPT-4 90783 Nov 21, 2014 Results No Known Results Summary Purpose [employer] Submission
--- OUTSIDE RECORDS SUMMARY | 2018-08-21 22:02 | XMS REPORT ---
Author Author RAHEEM EDMONDSON Organization [employer] Address Unknown Phone Unavailable Care Team Providers Care National Expansion Recruiter Name Role Phone RAHEEM EDMONDSON CP Unavailable [...]
--- OUTSIDE RECORDS SUMMARY | 2018-08-21 22:02 | XMS REPORT ---
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00 Active 41791151 Problem Allergic rhinitis, cause unspecified 477.9 Active 60035489 Problem Lumbago 724.2 Active 122542398 Problem Other dysfunctions of sleep stages or arousal from sleep 307.47 Active 205805329 Problem Other disorder of menstruation and other abnormal bleeding from female genital tract 626.8 Active 742972931 Problem Other, mixed, or unspecified nondependent drug abuse, unspecified 305.90 Active 460665093 ALLERGIES Substance Reaction Event Type Date Status Codeine-Guaifenesin anaphylaxis Drug Allergy Apr, Active ENCOUNTERS Encounter Location Date Diagnosis [facility] [address] [facility] [id number] [place] [address] July, H/O hyperlipidemia Z86.39 and H/O intravenous drug use in remission Z87.898 [facility] [address], [place] [address] July, H/O hyperlipidemia Z86.39 and H/O intravenous drug use in remission Z87.898 [facility] [address], [place] [address] July, Breast discharge N64.52 [facility] [address] [place] [id number] [place] [address] July, Breast discharge N64.52 [facility] [id number] [place] [address] Jun, Blood in stool K92.1 ; Breast discharge N64.52 and Rash R21 [facility] [id number] [place] [address] May, Mood disorder F39 [facility] [id number] [place] [address] May, Other constipation K59.09 [facility] [id number] [place] [address] Apr, Mood disorder F39 and Rash R21 [facility] [id number] [place] [address] Apr, Mood disorder F39 and Rash R21 [facility] [id number] [place] [address] Apr, Mood disorder F39 [facility] [id number] [place] [address] Apr, [facility] [id number] [place] [address] Jun, [facility] [id number] [place] [address] Jun, [facility] [id number] [place] [address] Jun, [facility] [address], [place] [address] May, [facility] WALK [facility] [id number] [place] [address] Jan, Cellulitis of right index finger L03.011 ; Ingrown right big toenail L60.0 ; Local infection of the skin and subcutaneous tissue, unspecified L08.9 and Abrasion of right index finger, initial encounter S60.410A [facility] [id number] [place] [address] Apr, [facility] [id number] [place] [address] Apr, [facility] [id number] [place] [address] Apr, [facility] [id number] [place] [address] Apr, Anxiety disorder, unspecified F41.9 and Major depression F32.9 [facility] [address] [place] [address] Mar, [facility] [id number] [place] [address] Nov, [facility] [id number] [place] [address] Nov, Anxiety disorder, unspecified 300.00 [facility] [id number] [place] [address] 15 Nov, 2014 Routine adult health maintenance V70.0 ; Foot pain, right 729.5 ; Otitis media of right ear 382.9 and Numbness and tingling in left hand 782.0 [facility] [address] [place] [address] 14 Nov, 2014 Routine adult health maintenance V70.0 ; Foot pain, right 729.5 ; Otitis media of right ear 382.9 and Numbness and tingling in left hand 782.0 [facility] [address], [place] [address] Aug, Pain in hand 729.5 ; Bilateral finger numbness 782.0 and Irregular heart rate 427.9 [facility] [address], [place] [address] Jun, [facility] [id number] [place] [address] Jun, [facility] [address], [place] [address] Apr, [facility] [id number] [place] [address] Apr, [facility] [id number] [address] Apr, [facility] [id number], [place] [address] Apr, [facility] [address], [place] [address] Sep, [facility] [address], [place] [address] May, [facility] [address], [place] [address] May, [facility] [address], [place] [address] May, [facility] [address], [place] [address] May, [facility] [address], [place] [address] May, [facility] [address], [place] [address] Apr, [facility] [address] [place] [address] 16 Mar, 2012 [facility] [address] [id number] [place] [address] Feb, [facility] [place] [facility] [address] [id number] [place] [address] Feb, [facility] [address] [id number] [place] [address] Feb, [facility] [place] [facility] [address] [id number] [place] [address] Feb, [facility] [address] [id number] [place] [address], [place] [address] Jan, [facility] [place] [facility] [address] [id number] [place] [address] Jan, [facility] [place] [facility] [address] [id number] [place] [address] Jan, [facility] [address] [id number] [place] [address] Dec, [facility] [place] [facility] [address] [id number] [place] [address] Dec, [facility] [address] [id number] [place] [address] Dec, [facility] [place] [facility] [address] [id number] [place] [address] Dec, [facility] [place] [facility] [address] [id number] [place] [address] 27 Nov, 2011 [facility] [place] [facility] [address] [id number] [place] [address] 26 Nov, 2011 [facility] [place] [facility] [address] [id number] [place] [address] 05 Nov, 2011 [facility] [place] [facility] [address] [id number] [place] [address] Oct, [facility] [address] [id number] [place] [address] Oct, [facility] [place] [facility] [address] [id number] [place] [address] Oct, [facility] [address] [id number] [place] [address] Sep, [facility] [address] [id number] [place] [address] Sep, [facility] [address] [id number] [place] [address] Sep, [facility] [place] [facility] [address] [id number] [place] [address] Aug, [facility] [address] [id number] [place] [address] July, [facility] [place] [facility] [address] [id number] [place] [address] July, [facility] [address] [id number] [place] [address] July, [facility] [place] [facility] [address] [id number] [place] [address] July, [facility] [place] [facility] [address] [id number] [place] [address] July, [facility] [place] [facility] [address] [id number] [place] [address] July, [facility] [place] [facility] [address] [id number] [place] [address] July, [facility] [place] [facility] [address] [id number] [place] [address] Jun, [facility] [place] [facility] [address] [id number] [place] [address] Jun, [facility] [place] [facility] [address] [id number] [place] [address] Jun, [facility] [address] [id number] [place] [address] Jun, [facility] [place] [facility] [address] [id number] [place] [address] Jun, [facility] [place] [facility] [address] [id number] [place] [address] May, [facility] [place] [facility] [address] [id number] [place] [address] May, [facility] [place] [facility] [address] [id number] [place] [address] May, [facility] [place] [facility] [address] [id number] [place] [address] May, [facility] [address] [id number] [place] [address] Apr, [facility] [place] [facility] [address] [id number] [place] [address] Apr, [facility] [address] [id number] [place] [address] Apr, [facility] [place] [facility] [address] [id number] [place] [address] Feb, [facility] [place] [facility] [address] [id number] [place] [address] 05 Feb, 2011 [facility] [place] [facility] [address] [id number] [place] [address] Dec, [facility] [place] [facility] [address] [id number] [place] [address] 29 Feb, 2010 [facility] [place] [facility] [address] [id number] [place] [address] Feb, [facility] [place] [facility] [address] [id number] [place] [address] Jan, [facility] [place] [facility] [address] [facility] [id number] [place] [address] 14 Jul, 2009 [facility] [address] [facility] [id number] [place] [address] 10 Jun, 2009 [facility] [address] [facility] [id number] [place] [address] 10 Aug, 2008 IMMUNIZATIONS No Known Immunizations SOCIAL HISTORY Never Assessed REASON FOR VISIT fdc rx PLAN OF CARE VITAL SIGNS MEDICATIONS Medication Instructions Dosage Frequency Start Date End Date Duration Status Hydrocortisone 1 % Externally Twice a day 1 application to affected area 12h 20 Apr, 2017 30 day(s) Active Neurontin 300 MG Orally Three times a day 1 capsule 8h Jun, Active RESULTS No Results PROCEDURES No [...]
--- OUTSIDE RECORDS SUMMARY | 2018-08-21 22:02 | XMS REPORT ---
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 Problem Anxiety state, unspecified 300.00 Active 202067100 Problem Combinations of drug dependence excluding opioid type drug, 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 Active 015598142 Problem H/O hyperlipidemia Z86.39 Active 204683377 Problem Mood disorder F39 Active 70528278 Problem Unspecified episodic mood disorder 296.90 Active 673037750 Problem Unspecified psychosis 298.9 Active 54129942 Problem Benign neoplasm of uterus, 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 52411875 Problem Other and unspecified bipolar disorders 296.89 Active 77216110 Problem Encounter for change or removal of surgical wound dressing V58.31 Active 44672654 Problem General counseling for prescription of oral contraceptives V25.01 Active 986049278358277 Problem Unspecified dental caries 521.00 Active 97713461 Problem Allergic rhinitis, cause unspecified 477.9 Active 63320408 Problem Lumbago 724.2 Active 130844426 Problem Other dysfunctions of sleep stages or arousal from sleep 307.47 Active 785428273 Problem Other disorder of menstruation and other abnormal bleeding from female genital tract 626.8 Active 085641388 Problem Other, mixed, or unspecified nondependent drug abuse, unspecified 305.90 Active 945719109 ALLERGIES Substance Reaction Event Type Date Status Codeine-Guaifenesin anaphylaxis Drug Allergy Apr, Active ENCOUNTERS Encounter Location Date Diagnosis [facility] [address] [facility] [id number] [place] [address] July, H/O hyperlipidemia Z86.39 and H/O intravenous drug use in remission Z87.898 [facility] [address], [place] [address] July, H/O hyperlipidemia Z86.39 and H/O intravenous drug use in remission Z87.898 [facility] [address], [place] [address] July, Breast discharge N64.52 [facility] [address] [place], [place] [id number] [place] [address] July, Breast discharge N64.52 [facility] [id number] [place] [address] Jun, Blood in stool K92.1 ; Breast discharge N64.52 and Rash R21 [facility] [id number] [place] [address] May, Mood disorder F39 [facility] [id number] [place] [address] May, Other constipation K59.09 [facility] [id number] [place] [address] Apr, Mood disorder F39 and Rash R21 [facility] [id number] [place] [address] Apr, Mood disorder F39 and Rash R21 [facility] [id number] [place] [address] Apr, Mood disorder F39 [facility] [id number] [place] [address] Apr, [facility] [id number] [place] [address] Jun, [facility] [id number] [place] [address] Jun, [facility] [id number] [place] [address] Jun, [facility] [address], [place] [address] May, [facility] WALK IN [facility] [id number] [place] [address] Jan, Cellulitis of right index finger L03.011 ; Ingrown right big toenail L60.0 ; Local infection of the skin and subcutaneous tissue, unspecified L08.9 and Abrasion of right index finger, initial encounter S60.410A [facility] [id number] [place] [address] Apr, [facility] [id number] [place] [address] Apr, [facility] [id number] [place] [address] Apr, [facility] [id number] [place] [address] Apr, Anxiety disorder, unspecified F41.9 and Major depression F32.9 [facility] [address] [place] [address] Mar, [facility] [address] [place] [address] Nov, [facility] [address] [place] [address] Nov, Anxiety disorder, unspecified 300.00 [facility] [id number] [place] [address] 15 Nov, 2014 Routine adult health maintenance V70.0 ; Foot pain, right 729.5 ; Otitis media of right ear 382.9 and Numbness and tingling in left hand 782.0 [facility] [address] [place] [address] 14 Nov, 2014 Routine adult health maintenance V70.0 ; Foot pain, right 729.5 ; Otitis media of right ear 382.9 and Numbness and tingling in left hand 782.0 [facility] [address], [place] [address] Aug, Pain in hand 729.5 ; Bilateral finger numbness 782.0 and Irregular heart rate 427.9 [facility] [address], [place] [address] Jun, [facility] [id number] [place] [address] Jun, [facility] [address], [place] [address] Apr, [facility] [id number] [place] [address] Apr, [facility] [id number], [place] [address] Apr, [facility] [id number], [place] [address] Apr, [facility] [address], [place] [address] Sep, [facility] [address], [place] [address] May, [facility] [address], [place] [address] May, [facility] [address], [place] [address] May, [facility] [address], [place] [address] May, [facility] [address], [place] [address] May, [facility] [address], [place] [address] Apr, [facility] [id number] [place] [address] 16 Mar, 2012 [facility] [address] [id number] [place] [address] Feb, [facility] [place] [facility] [address] [id number] [place] [address] Feb, [facility] [address] [id number] [place] [address] Feb, [facility] [place] [facility] [address] [id number] [place] [address] Feb, [facility] [id number] [place] [address], [place] [address] Jan, [facility] [place] [facility] [address] [id number] [place] [address] Jan, [facility] [place] [facility] [address] [id number] [place] [address] Jan, [facility] [address] [id number] [place] [address] Dec, [facility] [place] [facility] [address] [id number] [place] [address] Dec, [facility] [address] [id number] [place] [address] Dec, [facility] [place] [facility] [address] [id number] [place] [address] Dec, [facility] [place] [facility] [address] [id number] [place] [address] 27 Nov, 2011 [facility] [place] [facility] [address] [id number] [place] [address] 26 Nov, 2011 [facility] [place] [facility] [address] [id number] [place] [address] 05 Nov, 2011 [facility] [place] [facility] [address] [id number] [place] [address] Oct, [facility] [address] [id number] [place] [address] Oct, [facility] [place] [facility] [address] [id number] [place] [address] Oct, [facility] [address] [id number] [place] [address] Sep, [facility] [address] [id number] [place] [id number] Sep, [facility] [address] [id number] [place] [address] Sep, [facility] [place] [facility] [address] [id number] [place] [address] Aug, [facility] [address] [id number] [place] [address] July, [facility] [place] [facility] [address] [id number] [place] [address] July, [facility] [address] [id number] [place] [address] July, [facility] [place] [facility] [address] [id number] [place] [address] July, [facility] [place] [facility] [address] [id number] [place] [address] July, [facility] [place] [facility] [address] [id number] [place] [address] July, [facility] [place] [facility] [address] [id number] [place] [address] July, [facility] [place] [facility] [address] [id number] [place] [address] Jun, [facility] [place] [facility] [address] [id number] [place] [address] Jun, [facility] [place] [facility] [address] [id number] [place] [address] Jun, [facility] [address] [id number] [place] [address] Jun, [facility] [place] [facility] [address] [id number] [place] [address] Jun, [facility] [place] [facility] [address] [id number] [place] [address] May, [facility] [place] [facility] [address] [id number] [place] [address] May, [facility] [place] [facility] [address] [id number] [place] [address] May, [facility] [place] [facility] [address] [id number] [place] [address] May, [facility] [address] [id number] [place] [address] Apr, [facility] [place] [facility] [address] [id number] [place] [address] Apr, [facility] [address] [id number] [place] [address] Apr, [facility] [place] [facility] [address] [id number] [place] [address] Feb, [facility] [place] [facility] [address] [id number] [place] [address] 05 Feb, 2011 [facility] [place] [facility] [address] [id number] [place] [address] Dec, [facility] [place] [facility] [address] [id number] [place] [address] 29 Feb, 2010 [facility] [place] [facility] [address] [id number] [place] [address] Feb, [facility] [place] [facility] [address] [id number] [place] [address] Jan, [facility] [place] [facility] [address] [facility] [id number] [place] [address] 14 Jul, 2009 [facility] [address] [facility] [id number] [place] [address] 10 Jun, 2009 [facility] [address] [facility] [id number] [place] [address] 10 Aug, 2008 IMMUNIZATIONS No Known Immunizations SOCIAL HISTORY Never Assessed REASON FOR VISIT correction rx PLAN OF CARE VITAL SIGNS MEDICATIONS Medication Instructions Dosage Frequency Start Date End Date Duration Status Hydrocortisone 1 % Externally Twice a day as needed 1 application to affected area Apr, Active Paxil 40 MG Orally Once a day 1 tablet in the morning 24h Apr, 30 day(s) Active RESULTS No Results PROCEDURES [...]
--- OUTSIDE RECORDS SUMMARY | 2018-08-21 22:02 | XMS REPORT ---
Author Author RAHEEM EDMONDSON Organization [employer] Address Unknown Phone Unavailable Care Team Providers Care Slater Apprentice Name Role Phone RAHEEM EDMONDSON CP Unavailable [...] Instructions Start Date End Date Status Dosage Ambien [facility] [address]-13 5 MG Orally Once a day Nov 29, 2014 1 tablet at bedtime Xanax [facility] [address]-62 1 MG Orally Twice a day Nov 29, 2014 1 tablet Results No Known Results Summary Purpose [employer] Submission
--- OUTSIDE RECORDS SUMMARY | 2018-08-21 22:02 | XMS REPORT ---
Author Author RAHEEM EDMONDSON [facility] eClinicalWorks Address Unknown Phone Unavailable Care Team Providers Care Anesthesiology Physician Assistant Name Role Phone RAHEEM EDMONDSON CP Unavailable Allergies, Adverse Reactions, Alerts Substance [...] Active Problem Unspecified psychosis 298.9 Active Assessment Anxiety disorder, unspecified 300.00 Active Problem Unspecified episodic mood disorder 296.90 Active Problem Other dysfunctions of sleep stages or arousal from sleep 307.47 Active Problem Allergic rhinitis, cause unspecified 477.9 Active Medications Medication Code System Code Instructions Start Date End Date Status Dosage Tessalon Perles [facility] [address]-90 100 MG Orally Three times a day as needed Nov 20, 2014 Dec 04, 2014 1 capsule as needed Amoxicillin [facility] [address]-74 500 MG Orally 3 times a day Nov 20, 2014 Nov 30, 2014 2 tablet Paxil [facility] [address]-41 20 MG Orally Once a day Nov 29, 2014 1 tablet in the morning Xanax [facility] [address]-25 1 MG Orally Twice a day Nov 29, 2014 1 tablet Ambien [facility] [address]-85 5 MG Orally Once a day Nov 29, 2014 1 tablet at bedtime Ibuprofen [facility] [address]-35 800 mg Apr 21, 2014 take 1 tablet by Oral route 3 times per day with food take with food. Procedures Procedure Coding System Code Date Office Visit, Est Pt., Level 3 CPT-4 18552 Nov 29, 2014 Vital Signs Date/Time: Nov 29, 2014 Temperature 98.0 F Weight 238.0 lbs Height 66 in BMI 38.41 Index Blood Pressure Diastolic 82 mmHg Blood Pressure Systolic 124 mmHg Cardiac Monitoring Heart Rate 84 bpm Results No Known Results Summary Purpose eClinicalWorks Submission
--- OUTSIDE RECORDS SUMMARY | 2018-08-21 22:03 | XMS REPORT | Continuity Of Care Document ---
Author Author [facility] Organization [facility] Address [address] [place] [address] Phone Care Team Providers Care Delivery Associate Name Role Phone BEL MARIE MD AT Results Lab Results Visit/Account #[id number] (January 10, 2017 5:44pm - January 10, 2017 7:05pm) Test Result Date/Time POC TROPONIN I POC TROPONIN I(0.00-0.08) 0.00 Result Comments: WARNING The POC Troponin I results and the Tropoin I results CANNOT be compared. The iSTAT POC and the [facility] Assay use different methodologies. Please note the given reference ranges. January 10, 2017 6:03pm COMPLETE BLOOD COUNT WITH DIFF WHITE BLOOD COUNT(4.0-11.0 10E3/UL) 12.8 10E3/UL January 10, 2017 5:59pm RED BLOOD COUNT(4.00-5.20 10E6/UL) 4.60 10E6/UL January 10, 2017 5:59pm HEMOGLOBIN(12.0-16.0 G/DL) 14.4 G/DL January 10, 2017 5:59pm HEMATOCRIT(36.0-46.0 %) 43.1 % January 10, 2017 5:59pm MEAN CORPUSCULAR VOLUME(82.0-100.0 FL) 93.7 FL January 10, 2017 5:59pm MEAN CORPUSCULAR HEMOGLOBIN(26.0-34.0 PG) 31.3 PG January 10, 2017 5:59pm MEAN CORPUSCULAR HGB CONC(31.5-36.5 G/DL) 33.4 G/DL January 10, 2017 5:59pm RED CELL DISTRIBUTION WIDTH(11.5-14.5 %) 14.2 % January 10, 2017 5:59pm 777-3: PLATELET COUNT(150-450 10E3/UL) 327 10E3/UL January 10, 2017 5:59pm MEAN PLATELET VOLUME(8.2-12.4 FL) 10.3 FL January 10, 2017 5:59pm NEUTROPHILS % (AUTO)(40-70 %) 51 % January 10, 2017 5:59pm LYMPHOCYTES % (AUTO)(15-45 %) 38 % January 10, 2017 5:59pm MONOCYTES % (AUTO)(2-10 %) 6 % January 10, 2017 5:59pm EOSINOPHILS % (AUTO)(0-6 %) 4 % January 10, 2017 5:59pm BASOPHILS % (AUTO)(0-1 %) 1 % January 10, 2017 5:59pm IMMATURE GRANS % (AUTO)(0-0 %) 1 % January 10, 2017 5:59pm NUCLEATED RBCS (AUTO)(0-0 %) 0 % January 10, 2017 5:59pm NEUTROPHILS # (AUTO)(2.5-7.5 10E3/UL) 6.6 10E3/UL January 10, 2017 5:59pm LYMPHOCYTES # (AUTO)(1.0-4.0 10E3/UL) 4.9 10E3/UL January 10, 2017 5:59pm MONOCYTES # (AUTO)(0.2-0.8 10E3/UL) 0.8 10E3/UL January 10, 2017 5:59pm EOSINOPHILS # (AUTO)(0.0-0.4 10E3/UL) 0.5 10E3/UL January 10, 2017 5:59pm BASOPHILS # (AUTO)(0.0-0.2 10E3/UL) 0.1 10E3/UL January 10, 2017 5:59pm IMMATURE GRANS # (AUTO)(0.0-0.0 10E3/UL) 0.1 10E3/UL January 10, 2017 5:59pm DIFF TYPE AUTOMATED January 10, 2017 5:59pm PROTHROMBIN TIME WITH INR PROTHROMBIN TIME(12.1-14.0 SEC) 12.6 SEC January 10, 2017 5:59pm 18924-9: INR 1.0 January 10, 2017 5:59pm PARTIAL THROMBOPLASTIN TIME PARTIAL THROMBOPLASTIN TIME(22.2-37.4 SEC) 29.9 SEC January 10, 2017 5:59pm COMPLETE METABOLIC PROFILE GLUCOSE(70-110 MG/DL) 112 MG/DL January 10, 2017 5:59pm BLOOD UREA NITROGEN(6-20 MG/DL) 13 MG/DL January 10, 2017 5:59pm CREATININE(0.50-1.20 MG/DL) 0.61 MG/DL January 10, 2017 5:59pm EST GLOMERULAR FILTRATION RATE(Greater than or equal to 60) Greater than or equal to 60 Result Comments: If the patient is of -[place] descent/extraction multiply the eGFR value by 1.212 to obtain the actual eGFR. >=60 mg/dL Normal 30-59 mg/dL Moderate Kidney Disease 15-29 mg/dL Severe Kidney Disease <15 mg/dL Kidney Failure January 10, 2017 5:59pm BUN CREATININE RATIO(10.0-20.0 RATIO) 21.0 RATIO January 10, 2017 5:59pm SODIUM(135-145 MMOL/L) 143 MMOL/L January 10, 2017 5:59pm POTASSIUM(3.6-5.0 MMOL/L) 3.9 MMOL/L January 10, 2017 5:59pm CHLORIDE(101-111 MMOL/L) 105 MMOL/L January 10, 2017 5:59pm CO2(21-31 MMOL/L) 26 MMOL/L January 10, 2017 5:59pm ANION GAP(8-18) 16 January 10, 2017 5:59pm OSMO CALCULATED(270.0-290.0) 285.8 January 10, 2017 5:59pm CALCIUM(8.5-10.5 MG/DL) 9.7 MG/DL January 10, 2017 5:59pm BILIRUBIN,TOTAL(0.1-1.2 MG/DL) 0.4 MG/DL January 10, 2017 5:59pm ALKALINE PHOSPHATASE(42-121 IU/L) 64 IU/L January 10, 2017 5:59pm ASPARTATE AMINO TRANSFERASE(10-42 IU/L) 27 IU/L January 10, 2017 5:59pm ALANINE AMINOTRANSFERASE(10-60 IU/L) 22 IU/L January 10, 2017 5:59pm TOTAL PROTEIN(6.4-8.2 G/DL) 7.3 G/DL January 10, 2017 5:59pm ALBUMIN(3.5-5.5 G/DL) 4.4 G/DL January 10, 2017 5:59pm GLOBULIN(2.4-3.6) 2.9 January 10, 2017 5:59pm ALBUMIN/GLOBULIN RATIO(0.9-1.8 RATIO) 1.5 RATIO January 10, 2017 5:59pm Allergies and Adverse Reactions Allergies and Adverse Reactions Patient Unit Number: [id number] No allergies recorded. Problem List Problem List Visit/Account #[id number] (January 10, 2017 5:44pm - January 10, 2017 7:05pm) Active Problems: Code/Condition Comments Documented Start Date Documented Resolved Date Code(s) R07.89 OTHER CHEST PAIN January 10, 2017 J20.8 ACUTE BRONCHITIS DUE TO OTHER SPECIFIED ORGANISMS January 10, 2017 Plan of Care Plan Of Care Visit/Account #[id number] (January 10, 2017 5:44pm - January 10, 2017 7:05pm) Patient Instructions Stop smoking. Take [id number] Mucinex or guaifenesin 600 mg 4 times a day, take with plenty of water. Next take vvun-rjl-[id number] Tylenol and/or ibuprofen as needed for musculoskeletal pain. Followup with medical office asst at [facility] if not better in the next 24-48 hours. Return to the ER anytime if symptoms worsen or other concerns. Vital Signs Vital Signs No Vital Signs Data. Functional Status Functional and Cognitive Status No Functional Status Data Medications Inpatient/Ordered Medications - Medications administered during hospital visit Visit/Account #[id number] (January 10, 2017 5:44pm - January 10, 2017 7:05pm) Medication Route Sig/Schedule Precondition/Indication Comments/Instructions Codes NITROQUICK(NITROGLYCERIN) 0.4 MG/TAB TAB Dose: 1 TAB SUBLINGUAL NOW Label Comments: *DOSE 1* Do NOT give until approved by physician. Give every 3-5 minutes if needed for ongoing symptons. Max of 3 doses. Do NOT give unless: Heart rate 50-100 beats per minute SBP is greater than 90 mmHg and/or no lower than 20 mmHg below baseline Do NOT give if: inferior LA or RV infarction recent phosphodesterase inhibito use (e.g. Viagra, Levitra, Revatio) within last 24 hours or Cialis within last 48 hours. NITROQUICK (NITROGLYCERIN) NDC: 79742889877 TYLENOL(ACETAMINOPHEN) 500 MG TAB Dose: 1000 MG ORAL NOW Label Comments: DO NOT EXCEED 4000 MG PER 24 HR TYLENOL (ACETAMINOPHEN) NDC: 31741255554 History Of Encounters Encounters Visit/Account #[id number] (January 10, 2017 5:44pm - January 10, 2017 7:05pm) Account Status Physican Of Record Reason For Visit Visit Diagnosis Start Date/Time Stop Date/Time ER BEL MARIE MD L SHOULDER PAIN R07.89: OTHER CHEST PAIN ICD10 Jan 10, 2017 5:44pm Jan 10, 2017 7:05pm History of Procedures Procedure List No procedures recorded. Discharge Instructions Discharge Instructions Visit/Account #[id number] (January 10, 2017 5:44pm - January 10, 2017 7:05pm) DISCHARGE INSTRUCTIONS Physician Documentation Social History Social History No Social History Data. Immunizations Immunizations Patient Unit Number: [id number] Immunizations No immunizations recorded.
--- OUTSIDE RECORDS SUMMARY | 2018-08-21 22:04 | XMS REPORT | Clinical Summary ---
Author Author Admin, CAROLINE Organization [facility] Address Unknown Phone Unavailable Allergies, Adverse Reactions, Alerts Allergy Name Reaction Description Start Date Severity Status Provider SOPHIA PINTO Critical Active Darin Willis MD Conditions or Problems Problem Name Problem Code Onset Date Status Entry Date Provider Comment Standard Description Annotate ANXIETY DISORDER 300.00 Active Darin Willis MD Anxiety state, unspecified DEPRESSION 311 Active Darin Willis MD Depressive disorder, not elsewhere classified BACK PAIN, LUMBAR 724.2 Resolved Leigh Garcia MD PhD Lumbago BACK PAIN, LUMBAR, WITH RADICULOPATHY 724.4 Active Darin Willis MD Thoracic or lumbosacral neuritis or radiculitis, unspecified Risk of SORE THROAT Resolved Leigh Garcia MD PhD Acute pharyngitis PELVIC PAIN 789.09 Active Leigh Garcia MD PhD Abdominal pain, other specified site; multiple sites BIPOLAR AFFECTIVE DISORDER, MANIC, MODERATE 296.42 Active Ginger Hicks Bipolar I disorder, most recent episode (or current) manic, moderate PATELLOFEMORAL SYNDROME 717.7 Active Jesus Adams MD Chondromalacia of patella TOBACCO ABUSE 305.1 Active Darin Willis MD Tobacco use disorder OBESITY 278.00 Active Darin Willis MD Obesity, unspecified HYPERLIPIDEMIA 272.4 Active Kat Sparks [facility] Other and unspecified hyperlipidemia KNEE PAIN, LEFT, ACUTE 719.46 Active Darin Willis MD Pain in joint involving lower leg PERIPHERAL EDEMA 782.3 Active Darin Willis MD Edema LOW BACK PAIN SYNDROME 724.2 Active Darin Willis MD Lumbago Insomnia 780.52 Active Darin Willis MD Insomnia, unspecified Galactorrhea, 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.6 Active Darin Willis MD Galactorrhea not associated with childbirth BACK PAIN, LUMBAR ICD-724.2 Inactive Leigh Garcia MD PhD SORE THROAT ICD-462 Inactive Leigh Garcia MD PhD Medication List Medication Instructions Start Date Stop Date Generic Name NDC Status Provider Patient Instruction PHENTERMINE HCL 37.5 MG CAPS 1 tab by mouth daily 30 minutes before breakfast PHENTERMINE HCL 22815702613 Active Darin Willis MD Active TOPAMAX 100 MG TABS take 1 tab po qday TOPIRAMATE 21644385599 Active Darin Willis MD Active PROMETHAZINE HCL 12.5 MG TABS take 1 tab po q 6 hours prn nausea PROMETHAZINE HCL 72810230762 No Longer Active Darin Willis MD Active DIETHYLPROPION HCL CR 75 MG [id number] 1 qAM, 30 minutes before or 2 hours after breakfast, for weight loss DIETHYLPROPION HCL 57409127869 No Longer Active Darin Willis MD Active RISPERDAL 1 MG TABS take 1 tab in am and 1/2 tab at bedtime RISPERIDONE 16809818371 No Longer Active Darin Willis MD Active AMITRIPTYLINE HCL 50 MG TAB 1 TAB PO Q HS AMITRIPTYLINE HCL 96910476579 Active Darin Willis MD Active CHANTIX 1 MG TABS 1 twice a day for sc=moking cessation VARENICLINE TARTRATE 77105438458 No Longer Active Darin Willis MD Active KLONOPIN 0.5 MG TABS 1 TAB PO TID PRN CLONAZEPAM 88854930117 Active Darin Willis MD Active PAXIL 20 MG TABS 1 TAB PO DAILY PAROXETINE HCL 32931021045 Active Darin Willis MD Active ALPRAZOLAM 1 MG TABS 1 tablet twice daily as needed ALPRAZOLAM 27625367812 No Longer Active Darin Willis MD Active PRISTIQ 100 MG [id number] 1 TAB PO DAILY DESVENLAFAXINE SUCCINATE 62759472273 No Longer Active Darin Willis MD Active OXYCONTIN 20 MG T12A take 1 tab po BID for chronic pain. OXYCODONE HCL 70259189447 Active Darin Willis MD Active PERCOCET 10-325 MG TABS 1 tablet TID prn back pain OXYCODONE-ACETAMINOPHEN 21322145613 Active Darin Willis MD Active AMBIEN 10 MG TABS 1/2 - 1 TAB PO Q HS PRN ZOLPIDEM TARTRATE 97778207419 No Longer Active Darin Willis MD Active OXYCONTIN 10 MG [id number] take 1 tab po BID for back pain OXYCODONE HCL No Longer Active Darin Willis MD Active OXYCONTIN 15 MG T12A take 1 tab po BID for chronic pain OXYCODONE HCL 92406231760 Active Darin Willis MD Active CHANTIX STARTING MONTH SANG 0.5 MG X 11 & 1 MG X 42 TABS 0.5mg daily for 3 days, then 0.5mg BID for 4 days, then 1mg BID VARENICLINE TARTRATE 17013770277 No Longer Active Darin Willis MD Active FENOFIBRATE MICRONIZED 43 MG CAPS 1 CAP PO DAILY FENOFIBRATE MICRONIZED 83274003313 No Longer Active Anjana Oh Active FENOFIBRATE MICRONIZED 67 MG CAPS 1 TAB PO DAILY FENOFIBRATE MICRONIZED 45151551290 Active Darin Willis MD Active NICOTINE 14 MG/24HR PT24 1 patch daily - on in AM, off at HS - for smoking cessation NICOTINE 65590013948 No Longer Active Darin Willis MD Active KLONOPIN 1 MG TABS Take 1 tablet 3x daily CLONAZEPAM 51893465167 No Longer Active Darin Willis MD Active CHANTIX STARTING MONTH SANG 0.5 MG X 11 & 1 MG X 42 TABS VARENICLINE TARTRATE 90864771444 No Longer Active Darin Willis MD Active TOPAMAX 50 MG TABS take 1 tab po qday TOPIRAMATE 11248985533 Active Darin Willis MD Active LASIX 20 MG TAB 1 tablet by mouth daily prn for swelling FUROSEMIDE 01026698259 Active Darin Willis MD Active MULTIVITAMINS TABS 1 pill by mouth daily MULTIPLE VITAMIN 73037197905 No Longer Active Darin Willis MD Active CHANTIX 1 MG TABS 1 twice a day VARENICLINE TARTRATE 88250848674 No Longer Active Darin Willis MD Active DOXEPIN HCL 50 MG CAPS 1 CAP PO Q HS DOXEPIN HCL 77576701968 No Longer Active Darin Willis MD Active CYMBALTA 60 MG CPEP Take 1 capsule 1 x daily DULOXETINE HCL 23990069041 No Longer Active Darin Willis MD Active BUSPIRONE HCL 10 MG TABS 1 TAB PO TID BUSPIRONE HCL 98469547222 Active Darin Willis MD Active CYMBALTA 30 MG CPEP 1 cap by mouth daily with 60mg DULOXETINE HCL 61696318779 No Longer Active Darin Willis MD Active PERCOCET 10-325 MG TABS take 1 tab po qday in addition to the prior percocet script for a total dose of 3 pills a day. OXYCODONE-ACETAMINOPHEN 99020201171 No Longer Active Darin Willis MD Active PHENTERMINE HCL 37.5 MG CAPS 1 tab by mouth daily 30 minutes before breakfast PHENTERMINE HCL 87509607007 No Longer Active Darin Willis MD Active FISH OIL 1000 MG CPDR 1 po tid OMEGA-3 FATTY ACIDS 25199803004 Active Darin Willis MD Active MOBIC 15 MG TABS 1 tablet by mouth daily MELOXICAM 85061551777 No Longer Active Darin Willis MD Active DICLOFENAC SODIUM 50 MG TBEC 1 po TID PRN Knee pain DICLOFENAC SODIUM 11496251154 No Longer Active Darin Willis MD Active SIMVASTATIN 40 MG TABS 1 TAB PO Q HS SIMVASTATIN 58340387974 Active Darin Willis MD Active SIMVASTATIN 20 MG TABS 1 tab daily at bedtime SIMVASTATIN 79739225674 No Longer Active Anjana Oh Active OXYCODONE-ACETAMINOPHEN 7.5-325 MG TABS take 1 tab po BID prn back pain OXYCODONE-ACETAMINOPHEN 45800176999 No Longer Active Darin Willis MD Active SEROQUEL 300 MG TABS 1 TAB PO Q HS QUETIAPINE FUMARATE 57548895400 No Longer Active Darin Willis MD Active CHANTIX STARTING MONTH SANG 0.5 MG X 11 & 1 MG X 42 TABS 0.5mg daily for 3 days, then 0.5mg BID for 4 days, then 1mg BID VARENICLINE TARTRATE 73157734896 No Longer Active Darin Willis MD Active HYDROCODONE-ACETAMINOPHEN 7.5-500 MG TABS take 1 tab po q 6 hours prn pain. Start taking medication sparingly. HYDROCODONE-ACETAMINOPHEN 02585798894 No Longer Active Darin Willis MD Active WELLBUTRIN XL 300 MG [id number] 1 po qd BUPROPION HCL 10000240157 No Longer Active Darin Willis MD Active TOPAMAX 100 MG TABS 1 tab po daily TOPIRAMATE 61134601013 No Longer Active Jesus Adams MD Active PROZAC 20 MG CAPS 1 PO DAILY FLUOXETINE HCL 35750026102 No Longer Active Jesus Adams MD Active PROZAC 40 MG CAPS 1 cap by mouth qd FLUOXETINE HCL 70415077869 No Longer Active Darin Willis MD Active FLAGYL 500 MG TAB 1 tablet by mouth two times daily METRONIDAZOLE 25005142199 No Longer Active Leigh Garcia MD PhD Active SEROQUEL 100 MG TABS 1 tab po hs QUETIAPINE FUMARATE 50051539145 No Longer Active Leigh Garcia MD PhD Active HYDROCODONE-ACETAMINOPHEN 5-325 MG TABS 1-2 po q 6hr PRN Pain HYDROCODONE-ACETAMINOPHEN 17720574231 No Longer Active Leigh Garcia MD PhD Active HYDROCODONE-ACETAMINOPHEN 7.5-325 MG TABS 1-2 tab po four times a day as needed for pain HYDROCODONE-ACETAMINOPHEN 79132711008 No Longer Active Leigh Garcia MD PhD Active ZYRTEC ALLERGY 10 MG CAPS 1 po qday for allergies CETIRIZINE HCL 21245663553 Active Darin Willis MD Active PREDNISONE 20 MG TAB 2 tabs daily for 3 days, 1 tab daily for 3 days, 1/2 tab daily for 2 days PREDNISONE 59490925834 No Longer Active Darin Willis MD Active HYDROCODONE-ACETAMINOPHEN 7.5-325 MG TABS 1-2 tab po four times a day as needed for pain HYDROCODONE-ACETAMINOPHEN 7.5-325 MG TABS 151090 HYDROCODONE-ACETAMINOPHEN Inactive HYDROCODONE-ACETAMINOPHEN 5-325 MG TABS 1-2 po q 6hr PRN Pain HYDROCODONE- ACETAMINOPHEN 5-325 MG TABS 183636 HYDROCODONE-ACETAMINOPHEN Inactive SEROQUEL 100 MG TABS 1 tab po hs SEROQUEL 100 MG TABS 926928 QUETIAPINE FUMARATE Inactive PROZAC 40 MG CAPS 1 cap by mouth qd PROZAC 40 MG CAPS 961600 FLUOXETINE HCL Inactive PROZAC 20 MG CAPS 1 PO DAILY PROZAC 20 MG CAPS 550089 FLUOXETINE HCL Inactive TOPAMAX 100 MG TABS 1 tab po daily TOPAMAX 100 MG TABS 331253 TOPIRAMATE Inactive WELLBUTRIN XL 300 MG [id number] 1 po qd WELLBUTRIN XL 300 MG [id number] BUPROPION HCL Inactive HYDROCODONE-ACETAMINOPHEN 7.5-500 MG TABS take 1 tab po q 6 hours prn pain. Start taking medication sparingly. HYDROCODONE-ACETAMINOPHEN 7.5-500 MG TABS HYDROCODONE-ACETAMINOPHEN Inactive CHANTIX STARTING MONTH SANG 0.5 MG X 11 & 1 MG X 42 TABS 0.5mg daily for 3 days, then 0.5mg BID for 4 days, then 1mg BID CHANTIX STARTING MONTH SANG 0.5 MG X 11 & 1 MG X 42 TABS VARENICLINE TARTRATE Inactive SEROQUEL 300 MG TABS 1 TAB PO Q HS SEROQUEL 300 MG TABS 232743 QUETIAPINE FUMARATE Inactive OXYCODONE-ACETAMINOPHEN 7.5-325 MG TABS take 1 tab po BID prn back pain OXYCODONE-ACETAMINOPHEN 7.5-325 MG TABS 9690213 OXYCODONE-ACETAMINOPHEN Inactive SIMVASTATIN 20 MG TABS 1 tab daily at bedtime SIMVASTATIN 20 MG TABS 490195 SIMVASTATIN Inactive DICLOFENAC SODIUM 50 MG TBEC 1 po TID PRN Knee pain DICLOFENAC SODIUM 50 MG TBEC 964820 DICLOFENAC SODIUM Inactive MOBIC 15 MG TABS 1 tablet by mouth daily MOBIC 15 MG TABS 667076 MELOXICAM Inactive PHENTERMINE HCL 37.5 MG CAPS 1 tab by mouth daily 30 minutes before breakfast PHENTERMINE HCL 37.5 MG CAPS 166022 PHENTERMINE HCL Inactive CYMBALTA 30 MG CPEP 1 cap by mouth daily with 60mg CYMBALTA 30 MG CPEP 445325 DULOXETINE HCL Inactive CYMBALTA 60 MG CPEP Take 1 capsule 1 x daily CYMBALTA 60 MG CPEP 578180 DULOXETINE HCL Inactive DOXEPIN HCL 50 MG CAPS 1 CAP PO Q HS DOXEPIN HCL 50 MG CAPS 6468855 DOXEPIN HCL Inactive CHANTIX 1 MG TABS 1 twice a day CHANTIX 1 MG TABS VARENICLINE TARTRATE Inactive MULTIVITAMINS TABS 1 pill by mouth daily MULTIVITAMINS TABS MULTIPLE VITAMIN Inactive CHANTIX STARTING MONTH SANG 0.5 MG X 11 & 1 MG X 42 TABS CHANTIX STARTING MONTH SANG 0.5 MG X 11 & 1 MG X 42 TABS VARENICLINE TARTRATE Inactive KLONOPIN 1 MG TABS Take 1 tablet 3x daily KLONOPIN 1 MG TABS 324364 CLONAZEPAM Inactive FENOFIBRATE MICRONIZED 43 MG CAPS 1 CAP PO DAILY FENOFIBRATE MICRONIZED 43 MG CAPS 627899 FENOFIBRATE MICRONIZED Inactive CHANTIX STARTING MONTH SANG 0.5 MG X 11 & 1 MG X 42 TABS 0.5mg daily for 3 days, then 0.5mg BID for 4 days, then 1mg BID CHANTIX STARTING MONTH SANG 0.5 MG X 11 & 1 MG X 42 TABS VARENICLINE TARTRATE Inactive OXYCONTIN 10 MG [id number] take 1 tab po BID for back pain OXYCONTIN 10 MG [id number] OXYCODONE HCL Inactive AMBIEN 10 MG TABS 1/2 - 1 TAB PO Q HS PRN AMBIEN 10 MG TABS 384151 ZOLPIDEM TARTRATE Inactive PRISTIQ 100 MG [id number] 1 TAB PO DAILY PRISTIQ 100 MG [id number] DESVENLAFAXINE SUCCINATE Inactive ALPRAZOLAM 1 MG TABS 1 tablet twice daily as needed ALPRAZOLAM 1 MG TABS 490239 ALPRAZOLAM Inactive CHANTIX 1 MG TABS 1 twice a day for sc=moking cessation CHANTIX 1 MG TABS VARENICLINE TARTRATE Inactive RISPERDAL 1 MG TABS take 1 tab in am and 1/2 tab at bedtime RISPERDAL 1 MG TABS 251775 RISPERIDONE Inactive DIETHYLPROPION HCL CR 75 MG [id number] 1 qAM, 30 minutes before or 2 hours after breakfast, for weight loss DIETHYLPROPION HCL CR 75 MG [id number] DIETHYLPROPION HCL Inactive PROMETHAZINE HCL 12.5 MG TABS take 1 tab po q 6 hours prn nausea PROMETHAZINE HCL 12.5 MG TABS 877550 PROMETHAZINE HCL Inactive PREDNISONE 20 MG TAB 2 tabs daily for 3 days, 1 tab daily for 3 days, 1/2 tab daily for 2 days PREDNISONE 20 MG TAB 659069 PREDNISONE Inactive FLAGYL 500 MG TAB 1 tablet by mouth two times daily FLAGYL 500 MG TAB 191161 METRONIDAZOLE Inactive PERCOCET 10-325 MG TABS take 1 tab po qday in addition to the prior percocet script for a total dose of 3 pills a day. PERCOCET 10-325 MG TABS 1905275 OXYCODONE-ACETAMINOPHEN Inactive NICOTINE 14 MG/24HR PT24 1 patch daily - on in AM, off at HS - for smoking cessation NICOTINE 14 MG/24HR PT24 206382 NICOTINE Inactive Immunizations Vaccine Administration Date Value Standard Description Seasonal influenza vaccine, injectable, containing preservative, for > 3 years old (Afluria, FluLaval, Fluzone, Fluvirin, Fluarix, Agriflu(>=18 yo)) Fluzone (>3 yrs.) [[id number]] Influenza, seasonal, injectable Vital Signs Date Name Value Unit Range Description blood pressure, diastolic - 8462-4 85 mm[Hg] BP alvarenga blood pressure, systolic - 8480-6 127 mm[Hg] BP sys blood pressure, diastolic - 8462-4 81 mm[Hg] BP alvarenga blood pressure, systolic - 8480-6 119 mm[Hg] BP sys pulse rate E&M - 8867-4 76 /min Heart rate temperature E&M 99.0 [degF] Body temperature weight E&M - 3141-9 256 [lb_av] Weight Measured blood pressure, diastolic - 8462-4 86 mm[Hg] BP alvarenga blood pressure, systolic - 8480-6 120 mm[Hg] BP sys pulse rate E&M - 8867-4 92 /min Heart rate temperature E&M 97.6 [degF] Body temperature weight E&M - 3141-9 259 [lb_av] Weight Measured blood pressure, diastolic - 8462-4 88 mm[Hg] BP alvarenga blood pressure, systolic - 8480-6 134 mm[Hg] BP sys pulse rate E&M - 8867-4 89 /min Heart rate temperature E&M 98.9 [degF] Body temperature weight E&M - 3141-9 235 [lb_av] Weight Measured weight E&M - 3141-9 236 [lb_av] Weight Measured blood pressure, diastolic - 8462-4 85 mm[Hg] BP alvarenga blood pressure, systolic - 8480-6 134 mm[Hg] BP sys height E&M - 8302-2 68 [in_us] Bdy height pulse rate E&M - 8867-4 70 /min Heart rate temperature E&M 99.4 [degF] Body temperature weight E&M - 3141-9 238 [lb_av] Weight Measured blood pressure, diastolic - 8462-4 80 mm[Hg] BP alvarenga blood pressure, systolic - 8480-6 117 mm[Hg] BP sys weight E&M - 3141-9 242 [lb_av] Weight Measured blood pressure, diastolic - 8462-4 85 mm[Hg] BP alvarenga blood pressure, systolic - 8480-6 124 mm[Hg] BP sys height E&M - 8302-2 68 [in_us] Bdy height pulse rate E&M - 8867-4 91 /min Heart rate temperature E&M 97.6 [degF] Body temperature weight E&M - 3141-9 243 [lb_av] Weight Measured blood pressure, diastolic - 8462-4 90 mm[Hg] BP alvarenga blood pressure, systolic - 8480-6 131 mm[Hg] BP sys height E&M - 8302-2 68 [in_us] Bdy height pulse rate E&M - 8867-4 114 /min Heart rate temperature E&M 98.2 [degF] Body temperature weight E&M - 3141-9 248 [lb_av] Weight Measured Diagnostic Results Date Name Value Unit Range Description Lab Report: Comp. Metabolic Panel, Lipid Panel - Chemistry sodium, serum 142 mmol/L 217-679 2448/03/04 potassium, serum 4.6 mmol/L 3.5-5.2 chloride, serum 105 mmol/L 98-107 carbon dioxide, venous blood 27.5 mmol/L 21.0-32.0 blood glucose 99 mg/dL 65-110 urea nitrogen, blood 9 mg/dL 7-18 creatinine, serum 1.10 mg/dL 0.60-1.30 alanine aminotransferase (SGPT), serum 28 U/L 12-78 aspartate aminotransferase (SGOT), serum 22 U/L 15-37 alkaline phosphatase, serum 128 U/L 50-136 calcium, serum 9.0 mg/dL 8.5-10.1 bilirubin, serum, total 0.50 mg/dL 0.00-1.00 cholesterol, serum 155 mg/dL 864-378 8658/03/04 triglyceride, serum, fasting 177 mg/dL 30-200 HDL cholesterol, serum 26 mg/dL 32-96 LDL cholesterol, serum 94 mg/dL 0-130 Lab Report: ESTROGEN, TOTAL, SERUM - Chemistry estrogen, serum, total 58 pg/mL Lab Report: PROLACTIN, FSH AND LH/7137/Adult - Chemistry follicle stimulating hormone, serum 5.3 m[iU]/mL luteinizing hormone, serum 2.1 m[iU]/mL Lab Report: Thyroid Stimulating Hormone (L), Free Thyroxine (L), Lipid P ... - Chemistry TSH 2.70 m[iU]/mL 0.36-3.74 thyroxine, serum, free 0.85 ng/dL 0.76-1.46 cholesterol, serum 180 mg/dL 511-216 3443/09/22 triglyceride, serum, fasting 192 mg/dL 30-200 HDL cholesterol, serum 36 mg/dL 32-96 LDL cholesterol, serum 106 mg/dL 0-130 Office Visit: CHECK UP/ MED REF - Chemistry triglyceride, target level 150 mg/dL cholesterol, target level 200 mg/dL LDL target level 130 mg/dL HDL cholesterol, serum, target level 40 mg/dL Office Visit: FOLLOW UP - Chemistry triglyceride, target level 150 mg/dL HDL cholesterol, serum, target level 40 mg/dL LDL target level 130 mg/dL cholesterol, target level 200 mg/dL Office Visit: WEIGHT MANAGEMENT, MED REF - Chemistry cholesterol, target level 200 mg/dL LDL target level 130 mg/dL HDL cholesterol, serum, target level 40 mg/dL triglyceride, target level 150 mg/dL Encounters Code Encounter Date Provider Facility CPT-18307 Level 4 Est. Patient 19:57:49 BLOCK BREAKER Darin Willis MD [facility] CPT-57871 Level 4 Est. Patient 22:18:18 CDT Darin Willis MD [facility] [place]-[id number] Level 4 Est. Patient 08:49:16 CDT Darin Willis MD [facility] [place]-[id number] Level 4 Est. Patient 13:11:49 CDT Darin Willis MD [facility] [place]-71646 Level 4 Est. Patient 15:10:08 CDT Darin Willis MD [facility] CPT-17763 Level 4 Est. Patient 15:16:28 CDT Darin Willis MD [facility] [place]-49240 Level 3 Est. Patient 13:37:16 BLOCK BREAKER Darin Willis MD [facility] [place]-05786 Level 3 Est. Patient 12:16:32 BLOCK BREAKER Darin Willis MD [facility] CPT-95575 Level 4 Est. Patient 13:19:57 BLOCK BREAKER Darin Willis MD [facility] CPT-25184 Level 4 Est. Patient 11:56:49 BLOCK BREAKER Darin Willis MD [facility] [place]-65467 Level 4 Est. Patient 13:16:44 CDT Darin Willis MD [facility] [place]-48823 Level 4 Est. Patient 14:41:11 CDT Darin Willis MD [facility] CPT-18131 Level 3 Est. Patient 17:53:28 CDT Darin Willis MD [facility] CPT-18936 Level 3 Est. Patient 10:15:54 CDT Darin Willis MD [facility] CPT-39403 Level 4 Est. Patient 20:46:40 BLOCK BREAKER Darin Willis MD [facility] CPT-66753 Level 4 Est. Patient 21:17:49 BLOCK BREAKER Darin Willis MD [facility] CPT-53424 Level 3 Est. Patient 10:46:40 BLOCK BREAKER Jesus Adams MD [facility] CPT-95136 Level 3 Est. Patient 18:04:06 BLOCK BREAKER Darin Willis MD [facility] CPT-10978 Level 3 Est. Patient 11:36:33 BLOCK BREAKER Darin Willis MD [facility] CPT-43989 Level 3 Est. Patient 13:16:12 CDT Leigh Garcia MD PhD [facility] CPT-02895 Level 3 Est. Patient 11:35:02 CDT Darin Willis MD [facility] CPT-82126 Level 3 Est. Patient 11:41:50 CDT Darin Willis MD [facility] CPT-87416 Level 3 Est. Patient 16:36:45 CDT Darin Willis MD [facility] CPT-39714 Level 2 New Patient 18:30:11 CDT Darin Willis MD [facility] Procedures Code Procedure Name Date Entry Date Standard Description CPT-87152 Venipuncture Draw Fee 10:33:53 BLOCK BREAKER CPT-20723 Knee 3V 10:22:12 BLOCK BREAKER CPT-80258 Venipuncture Draw Fee 11:29:50 BLOCK BREAKER CPT-70602 Administration single or combination vaccine inc oral 15:53:22 CDT CPT-43890 Influenza split virus > age 3 15:53:22 CDT CPT-51316 Abx/Therapy Injection 18:30:11 CDT CPT-J1885 Toradol 60 mg (Ketorolac) 12:21:26 CDT CPT-13462 LS spine comp w obliq 11:37:16 CDT
--- OUTSIDE RECORDS SUMMARY | 2018-08-21 22:05 | XMS REPORT | Clinical Summary ---
Author Author Admin, CAROLINE Organization [facility] Address Unknown Phone Unavailable Allergies, Adverse Reactions, [...] Obesity, unspecified HYPERLIPIDEMIA 272.4 Active Kat Sparks [facility] Other and unspecified hyperlipidemia KNEE PAIN, LEFT, [...] daily 30 minutes before breakfast PHENTERMINE HCL 37789106080 Active Darin Willis MD Active TOPAMAX 100 MG TABS take 1 tab po qday TOPIRAMATE 63422826217 Active Darin Willis MD Active PROMETHAZINE HCL 12.5 MG TABS take 1 tab po q 6 hours prn nausea PROMETHAZINE HCL 75421579629 No Longer Active Darin Willis MD Active DIETHYLPROPION HCL CR 75 MG [id number] 1 qAM, 30 minutes before or 2 hours after breakfast, for weight loss DIETHYLPROPION HCL 07414546540 No Longer Active Darin Willis MD Active RISPERDAL 1 MG TABS take 1 tab in am and 1/2 tab at bedtime RISPERIDONE 85307633216 No Longer Active Darin Willis MD Active AMITRIPTYLINE HCL 50 MG TAB 1 TAB PO Q HS AMITRIPTYLINE HCL 49278196303 Active Darin Willis MD Active CHANTIX 1 MG TABS 1 twice a day for sc=moking cessation VARENICLINE TARTRATE 19147821103 No Longer Active Darin Willis MD Active KLONOPIN 0.5 MG TABS 1 TAB PO TID PRN CLONAZEPAM 49695336762 Active Darin Willis MD Active PAXIL 20 MG TABS 1 TAB PO DAILY PAROXETINE HCL 67950314740 Active Darin Willis MD Active ALPRAZOLAM 1 MG TABS 1 tablet twice daily as needed ALPRAZOLAM 96467576502 No Longer Active Darin Willis MD Active PRISTIQ 100 MG [id number] 1 TAB PO DAILY DESVENLAFAXINE SUCCINATE 83734595107 No Longer Active Darin Willis MD Active OXYCONTIN 20 MG T12A take 1 tab po BID for chronic pain. OXYCODONE HCL 49578391203 Active Darin Willis MD Active PERCOCET 10-325 MG TABS 1 tablet TID prn back pain OXYCODONE-ACETAMINOPHEN 10727529739 Active Darin Willis MD Active AMBIEN 10 MG TABS 1/2 - 1 TAB PO Q HS PRN ZOLPIDEM TARTRATE 96868411094 No Longer Active Darin Willis MD Active OXYCONTIN 10 MG [id number] take 1 tab po BID for back pain OXYCODONE HCL No Longer Active Darin Willis MD Active OXYCONTIN 15 MG T12A take 1 tab po BID for chronic pain OXYCODONE HCL 31634763445 Active Darin Willis MD Active CHANTIX STARTING MONTH SANG 0.5 MG X 11 & 1 MG X 42 TABS 0.5mg daily for 3 days, then 0.5mg BID for 4 days, then 1mg BID VARENICLINE TARTRATE 68371883953 No Longer Active Darin Willis MD Active FENOFIBRATE MICRONIZED 43 MG CAPS 1 CAP PO DAILY FENOFIBRATE MICRONIZED 47807915217 No Longer Active Anjana Oh Active FENOFIBRATE MICRONIZED 67 MG CAPS 1 TAB PO DAILY FENOFIBRATE MICRONIZED 79232955789 Active Darin Willis MD Active NICOTINE 14 MG/24HR PT24 1 patch daily - on in AM, off at HS - for smoking cessation NICOTINE 74435599442 No Longer Active Darin Willis MD Active KLONOPIN 1 MG TABS Take 1 tablet 3x daily CLONAZEPAM 69071448343 No Longer Active Darin Willis MD Active CHANTIX STARTING MONTH SANG 0.5 MG X 11 & 1 MG X 42 TABS VARENICLINE TARTRATE 64333876187 No Longer Active Darin Willis MD Active TOPAMAX 50 MG TABS take 1 tab po qday TOPIRAMATE 89458086608 Active Darin Willis MD Active LASIX 20 MG TAB 1 tablet by mouth daily prn for swelling FUROSEMIDE 32543930846 Active Darin Willis MD Active MULTIVITAMINS TABS 1 pill by mouth daily MULTIPLE VITAMIN 71786923988 No Longer Active Darin Willis MD Active CHANTIX 1 MG TABS 1 twice a day VARENICLINE TARTRATE 59665053163 No Longer Active Darin Willis MD Active DOXEPIN HCL 50 MG CAPS 1 CAP PO Q HS DOXEPIN HCL 66454512792 No Longer Active Darin Willis MD Active CYMBALTA 60 MG CPEP Take 1 capsule 1 x daily DULOXETINE HCL 81262742480 No Longer Active Darin Willis MD Active BUSPIRONE HCL 10 MG TABS 1 TAB PO TID BUSPIRONE HCL 18207162229 Active Darin Willis MD Active CYMBALTA 30 MG CPEP 1 cap by mouth daily with 60mg DULOXETINE HCL 64632813004 No Longer Active Darin Willis MD Active PERCOCET 10-325 MG TABS take 1 tab po qday in addition to the prior percocet script for a total dose of 3 pills a day. OXYCODONE-ACETAMINOPHEN 81480721014 No Longer Active Darin Willis MD Active PHENTERMINE HCL 37.5 MG CAPS 1 tab by mouth daily 30 minutes before breakfast PHENTERMINE HCL 76407407773 No Longer Active Darin Willis MD Active FISH OIL 1000 MG CPDR 1 po tid OMEGA-3 FATTY ACIDS 16889760405 Active Darin Willis MD Active MOBIC 15 MG TABS 1 tablet by mouth daily MELOXICAM 20081629669 No Longer Active Darin Willis MD Active DICLOFENAC SODIUM 50 MG TBEC 1 po TID PRN Knee pain DICLOFENAC SODIUM 51717953585 No Longer Active Darin Willis MD Active SIMVASTATIN 40 MG TABS 1 TAB PO Q HS SIMVASTATIN 28998100849 Active Darin Willis MD Active SIMVASTATIN 20 MG TABS 1 tab daily at bedtime SIMVASTATIN 24602971757 No Longer Active Anjana Oh Active OXYCODONE-ACETAMINOPHEN 7.5-325 MG TABS take 1 tab po BID prn back pain OXYCODONE-ACETAMINOPHEN 39056069603 No Longer Active Darin Willis MD Active SEROQUEL 300 MG TABS 1 TAB PO Q HS QUETIAPINE FUMARATE 20587633058 No Longer Active Darin Willis MD Active CHANTIX STARTING MONTH SANG 0.5 MG X 11 & 1 MG X 42 TABS 0.5mg daily for 3 days, then 0.5mg BID for 4 days, then 1mg BID VARENICLINE TARTRATE 18558831243 No Longer Active Darin Willis MD Active HYDROCODONE-ACETAMINOPHEN 7.5-500 MG TABS take 1 tab po q 6 hours prn pain. Start taking medication sparingly. HYDROCODONE-ACETAMINOPHEN 45336986502 No Longer Active Darin Willis MD Active WELLBUTRIN XL 300 MG [id number] 1 po qd BUPROPION HCL 79055609136 No Longer Active Darin Willis MD Active TOPAMAX 100 MG TABS 1 tab po daily TOPIRAMATE 61135748352 No Longer Active Jesus Adams MD Active PROZAC 20 MG CAPS 1 PO DAILY FLUOXETINE HCL 19046928463 No Longer Active Jesus Adams MD Active PROZAC 40 MG CAPS 1 cap by mouth qd FLUOXETINE HCL 24759631113 No Longer Active Darin Willis MD Active FLAGYL 500 MG TAB 1 tablet by mouth two times daily METRONIDAZOLE 02606145919 No Longer Active Leigh Garcia MD PhD Active SEROQUEL 100 MG TABS 1 tab po hs QUETIAPINE FUMARATE 53396531236 No Longer Active Leigh Garcia MD PhD Active HYDROCODONE-ACETAMINOPHEN 5-325 MG TABS 1-2 po q 6hr PRN Pain HYDROCODONE-ACETAMINOPHEN 48637825486 No Longer Active Leigh Garcia MD PhD Active HYDROCODONE-ACETAMINOPHEN 7.5-325 MG TABS 1-2 tab po four times a day as needed for pain HYDROCODONE-ACETAMINOPHEN 83303872200 No Longer Active Leigh Garcia MD PhD Active ZYRTEC ALLERGY 10 MG CAPS 1 po qday for allergies CETIRIZINE HCL 38083653652 Active Darin Willis MD Active PREDNISONE 20 MG TAB 2 tabs daily for 3 days, 1 tab daily for 3 days, 1/2 tab daily for 2 days PREDNISONE 22919514205 No Longer Active Darin Willis MD Active HYDROCODONE-ACETAMINOPHEN 7.5-325 MG TABS 1-2 tab po four times a day as needed for pain HYDROCODONE-ACETAMINOPHEN 7.5-325 MG TABS 248027 HYDROCODONE-ACETAMINOPHEN Inactive HYDROCODONE-ACETAMINOPHEN 5-325 MG TABS 1-2 po q 6hr PRN Pain HYDROCODONE- ACETAMINOPHEN 5-325 MG TABS 187113 HYDROCODONE-ACETAMINOPHEN Inactive SEROQUEL 100 MG TABS 1 tab po hs SEROQUEL 100 MG TABS 281343 QUETIAPINE FUMARATE Inactive PROZAC 40 MG CAPS 1 cap by mouth qd PROZAC 40 MG CAPS 692088 FLUOXETINE HCL Inactive PROZAC 20 MG CAPS 1 PO DAILY PROZAC 20 MG CAPS 154739 FLUOXETINE HCL Inactive TOPAMAX 100 MG TABS 1 tab po daily TOPAMAX 100 MG TABS 973617 TOPIRAMATE Inactive WELLBUTRIN XL 300 MG [id number] 1 po qd WELLBUTRIN XL 300 MG [id number] BUPROPION HCL Inactive HYDROCODONE-ACETAMINOPHEN 7.5-500 MG TABS [...] PO Q HS SEROQUEL 300 MG TABS 373433 QUETIAPINE FUMARATE Inactive OXYCODONE-ACETAMINOPHEN 7.5-325 MG TABS take 1 tab po BID prn back pain OXYCODONE-ACETAMINOPHEN 7.5-325 MG TABS 5930679 OXYCODONE-ACETAMINOPHEN Inactive SIMVASTATIN 20 MG TABS 1 tab daily at bedtime SIMVASTATIN 20 MG TABS 463964 SIMVASTATIN Inactive DICLOFENAC SODIUM 50 MG TBEC 1 po TID PRN Knee pain DICLOFENAC SODIUM 50 MG TBEC 746691 DICLOFENAC SODIUM Inactive MOBIC 15 MG TABS 1 tablet by mouth daily MOBIC 15 MG TABS 011812 MELOXICAM Inactive PHENTERMINE HCL 37.5 MG CAPS 1 tab by mouth daily 30 minutes before breakfast PHENTERMINE HCL 37.5 MG CAPS 402504 PHENTERMINE HCL Inactive CYMBALTA 30 MG CPEP 1 cap by mouth daily with 60mg CYMBALTA 30 MG CPEP 363303 DULOXETINE HCL Inactive CYMBALTA 60 MG CPEP Take 1 capsule 1 x daily CYMBALTA 60 MG CPEP 958983 DULOXETINE HCL Inactive DOXEPIN HCL 50 MG CAPS 1 CAP PO Q HS DOXEPIN HCL 50 MG CAPS 7481789 DOXEPIN HCL Inactive CHANTIX 1 MG TABS [...] tablet 3x daily KLONOPIN 1 MG TABS 887983 CLONAZEPAM Inactive FENOFIBRATE MICRONIZED 43 MG CAPS 1 CAP PO DAILY FENOFIBRATE MICRONIZED 43 MG CAPS 268032 FENOFIBRATE MICRONIZED Inactive CHANTIX STARTING MONTH SANG 0.5 MG X 11 & 1 MG X 42 TABS 0.5mg daily for 3 days, then 0.5mg BID for 4 days, then 1mg BID CHANTIX STARTING MONTH SANG 0.5 MG X 11 & 1 MG X 42 TABS VARENICLINE TARTRATE Inactive OXYCONTIN 10 MG [id number] take 1 tab po BID for back pain OXYCONTIN 10 MG [id number] OXYCODONE HCL Inactive AMBIEN 10 MG TABS 1/2 - 1 TAB PO Q HS PRN AMBIEN 10 MG TABS 891989 ZOLPIDEM TARTRATE Inactive PRISTIQ 100 MG [id number] 1 TAB PO DAILY PRISTIQ 100 MG [id number] DESVENLAFAXINE SUCCINATE Inactive ALPRAZOLAM 1 MG TABS 1 tablet twice daily as needed ALPRAZOLAM 1 MG TABS 808888 ALPRAZOLAM Inactive CHANTIX 1 MG TABS 1 twice a day for sc=moking cessation CHANTIX 1 MG TABS VARENICLINE TARTRATE Inactive RISPERDAL 1 MG TABS take 1 tab in am and 1/2 tab at bedtime RISPERDAL 1 MG TABS 899771 RISPERIDONE Inactive DIETHYLPROPION HCL CR 75 MG [id number] 1 qAM, 30 minutes before or 2 hours after breakfast, for weight loss DIETHYLPROPION HCL CR 75 MG [id number] DIETHYLPROPION HCL Inactive PROMETHAZINE HCL 12.5 MG TABS take 1 tab po q 6 hours prn nausea PROMETHAZINE HCL 12.5 MG TABS 627486 PROMETHAZINE HCL Inactive PREDNISONE 20 MG TAB 2 tabs daily for 3 days, 1 tab daily for 3 days, 1/2 tab daily for 2 days PREDNISONE 20 MG TAB 200986 PREDNISONE Inactive FLAGYL 500 MG TAB 1 tablet by mouth two times daily FLAGYL 500 MG TAB 913799 METRONIDAZOLE Inactive PERCOCET 10-325 MG TABS take 1 tab po qday in addition to the prior percocet script for a total dose of 3 pills a day. PERCOCET 10-325 MG TABS 4507697 OXYCODONE-ACETAMINOPHEN Inactive NICOTINE 14 MG/24HR PT24 1 patch daily - on in AM, off at HS - for smoking cessation NICOTINE 14 MG/24HR PT24 882757 NICOTINE Inactive Immunizations Vaccine Administration Date Value Standard Description Seasonal influenza vaccine, injectable, containing preservative, for > 3 years old (Afluria, FluLaval, Fluzone, Fluvirin, Fluarix, Agriflu(>=18 yo)) Fluzone (>3 yrs.) [[id number]] Influenza, seasonal, injectable Vital Signs Date Name Value Unit Range Description blood pressure, diastolic - 8462-4 81 mm[Hg] [...] Panel - Chemistry sodium, serum 142 mmol/L 956-546 6565/03/04 potassium, serum 4.6 mmol/L 3.5-5.2 chloride, serum [...] 0.50 mg/dL 0.00-1.00 cholesterol, serum 155 mg/dL 800-016 6169/03/04 triglyceride, serum, fasting 177 mg/dL 30-200 HDL [...] 0.85 ng/dL 0.76-1.46 cholesterol, serum 180 mg/dL 740-254 7529/09/22 triglyceride, serum, fasting 192 mg/dL 30-200 HDL cholesterol, serum 36 mg/dL 32-96 LDL cholesterol, serum 106 mg/dL 0-130 Office Visit: CHECK UP/ MED REF - Chemistry cholesterol, target level 200 mg/dL LDL target level 130 mg/dL HDL cholesterol, serum, target level 40 mg/dL triglyceride, target level 150 mg/dL Office Visit: FOLLOW UP - Chemistry cholesterol, target level 200 mg/dL LDL target level 130 mg/dL HDL cholesterol, serum, target level 40 mg/dL triglyceride, target level 150 mg/dL Office Visit: WEIGHT MANAGEMENT, MED REF - Chemistry cholesterol, target level 200 mg/dL LDL target level 130 mg/dL HDL cholesterol, serum, target level 40 mg/dL triglyceride, target level 150 mg/dL Encounters Code Encounter Date Provider Facility CPT-27586 Level 4 Est. Patient 19:57:49 CRITICAL CARE PHYSICIAN ASSISTANT Darin Willis MD [facility] CPT-35358 Level 4 Est. Patient 22:18:18 CDT Darin Willis MD [facility] CPT-27208 Level 4 Est. Patient 08:49:16 CDT Darin Willis MD [facility] CPT-67257 Level 4 Est. Patient 13:11:49 CDT Darin Willis MD [facility] CPT-05975 Level 4 Est. Patient 15:10:08 CDT Darin Willis MD [facility] CPT-24966 Level 4 Est. Patient 15:16:28 CDT Darin Willis MD [facility] CPT-58128 Level 3 Est. Patient 13:37:16 CRITICAL CARE PHYSICIAN ASSISTANT Darin Willis MD [facility] CPT-98971 Level 3 Est. Patient 12:16:32 CRITICAL CARE PHYSICIAN ASSISTANT Darin Willis MD [facility] CPT-01108 Level 4 Est. Patient 13:19:57 CRITICAL CARE PHYSICIAN ASSISTANT Darin Willis MD [facility] CPT-30970 Level 4 Est. Patient 11:56:49 CRITICAL CARE PHYSICIAN ASSISTANT Darin Willis MD [facility] CPT-70429 Level 4 Est. Patient 13:16:44 CDT Darin Willis MD [facility] CPT-18190 Level 4 Est. Patient 14:41:11 CDT Darin Willis MD [facility] CPT-96394 Level 3 Est. Patient 17:53:28 CDT Darin Willis MD [facility] CPT-08439 Level 3 Est. Patient 10:15:54 CDT Darni Willis MD [facility] CPT-45704 Level 4 Est. Patient 20:46:40 CRITICAL CARE PHYSICIAN ASSISTANT Darin Willis MD [facility] CPT-23541 Level 4 Est. Patient 21:17:49 CRITICAL CARE PHYSICIAN ASSISTANT Darin Willis MD [facility] CPT-24235 Level 3 Est. Patient 10:46:40 CRITICAL CARE PHYSICIAN ASSISTANT Jesus Adams MD [facility] CPT-46936 Level 3 Est. Patient 18:04:06 CRITICAL CARE PHYSICIAN ASSISTANT Darin Willis MD [facility] CPT-55898 Level 3 Est. Patient 11:36:33 CRITICAL CARE PHYSICIAN ASSISTANT Darin Willis MD [facility] CPT-81622 Level 3 Est. Patient 13:16:12 CDT Leigh Garcia MD PhD [facility] CPT-00750 Level 3 Est. Patient 11:35:02 CDT Darin Willis MD [facility] CPT-85188 Level 3 Est. Patient 11:41:50 CDT Darin Willis MD [facility] CPT-78669 Level 3 Est. Patient 16:36:45 CDT Darin Willis MD [facility] CPT-46405 Level 2 New Patient 18:30:11 CDT Darin Willis MD [facility] Procedures Code Procedure Name Date Entry Date Standard Description CPT-28584 Venipuncture Draw Fee 10:33:53 CRITICAL CARE PHYSICIAN ASSISTANT CPT-21276 Knee 3V 10:22:12 CRITICAL CARE PHYSICIAN ASSISTANT CPT-13795 Venipuncture Draw Fee 11:29:50 CRITICAL CARE PHYSICIAN ASSISTANT CPT-02669 Administration single or combination vaccine inc oral 15:53:22 CDT CPT-66043 Influenza split virus > age 3 15:53:22 CDT CPT-24830 Abx/Therapy Injection 18:30:11 CDT CPT-J1885 Toradol 60 mg (Ketorolac) 12:21:26 CDT CPT-85567 LS spine comp w obliq 11:37:16 CDT
--- OUTSIDE RECORDS SUMMARY | 2018-08-21 22:06 | XMS REPORT | Clinical Summary ---
Author Author Admin, CAROLINE Organization [facility] Address Unknown Phone Unavailable Allergies, Adverse [...] HYPERLIPIDEMIA 272.4 Active Kat Sparks [facility] Other and unspecified hyperlipidemia KNEE PAIN, LEFT, ACUTE 719.46 Active Darin Willis MD Pain in joint involving lower leg PERIPHERAL EDEMA 782.3 Active Darin Willis MD Edema LOW BACK PAIN SYNDROME 724.2 Active Darin Willis MD Lumbago Insomnia 780.52 Active Darin Willis MD Insomnia, unspecified BACK PAIN, LUMBAR ICD-724.2 Inactive Leigh Garcia MD PhD SORE THROAT ICD-462 Inactive Leigh Garcia MD PhD Medication List Medication Instructions Start Date Stop Date Generic Name NDC Status Provider Patient Instruction OXYCONTIN 20 MG T12A take 1 tab po BID for chronic pain. OXYCODONE HCL 17937444913 Active Darin Willis MD Active PERCOCET 10-325 MG TABS 1 tablet TID prn back pain OXYCODONE-ACETAMINOPHEN 83756558903 Active Darin Willis MD Active RISPERDAL 1 MG TABS take 1 tab in am and 1/2 tab at bedtime RISPERIDONE 85504970776 Active Darin Willis MD Active AMBIEN 10 MG TABS 1/2 - 1 TAB PO Q HS PRN ZOLPIDEM TARTRATE 13208914005 No Longer Active Darin Willis MD Active OXYCONTIN 10 MG [id number] take 1 tab po BID for back pain OXYCODONE HCL No Longer Active Darin Willis MD Active OXYCONTIN 15 MG T12A take 1 tab po BID for chronic pain OXYCODONE HCL 08962480713 Active Darin Willis MD Active CHANTIX STARTING MONTH SANG 0.5 MG X 11 & 1 MG X 42 TABS 0.5mg daily for 3 days, then 0.5mg BID for 4 days, then 1mg BID VARENICLINE TARTRATE 35927185393 No Longer Active Darin Willis MD Active CHANTIX 1 MG TABS 1 twice a day for sc=moking cessation VARENICLINE TARTRATE 53778663308 Active Syed Small DO Active FENOFIBRATE MICRONIZED 43 MG CAPS 1 CAP PO DAILY FENOFIBRATE MICRONIZED 62123147112 No Longer Active Anjana Oh Active FENOFIBRATE MICRONIZED 67 MG CAPS 1 TAB PO DAILY FENOFIBRATE MICRONIZED 91049209378 Active Darin Willis MD Active NICOTINE 14 MG/24HR PT24 1 patch daily - on in AM, off at HS - for smoking cessation NICOTINE 83166034694 No Longer Active Darin Willis MD Active ALPRAZOLAM 1 MG TABS 1 tablet twice daily as needed ALPRAZOLAM 30864442632 Active Darin Willis MD Active KLONOPIN 1 MG TABS Take 1 tablet 3x daily CLONAZEPAM 03189441583 No Longer Active Darin Willis MD Active CHANTIX STARTING MONTH SANG 0.5 MG X 11 & 1 MG X 42 TABS VARENICLINE TARTRATE 04608128590 No Longer Active Darin Willis MD Active TOPAMAX 50 MG TABS take 1 tab po qday TOPIRAMATE 91684010187 Active Darin Willis MD Active LASIX 20 MG TAB 1 tablet by mouth daily prn for swelling FUROSEMIDE 62815387205 Active Syed Small DO Active MULTIVITAMINS TABS 1 pill by mouth daily MULTIPLE VITAMIN 17766572583 No Longer Active Darin Willis MD Active CHANTIX 1 MG TABS 1 twice a day VARENICLINE TARTRATE 14948039101 No Longer Active Darin Willis MD Active DOXEPIN HCL 50 MG CAPS 1 CAP PO Q HS DOXEPIN HCL 42727335226 No Longer Active Darin Willis MD Active CYMBALTA 60 MG CPEP Take 1 capsule 1 x daily DULOXETINE HCL 00145266301 No Longer Active Darin Willis MD Active BUSPIRONE HCL 10 MG TABS 1 TAB PO TID BUSPIRONE HCL 16610378078 Active Darin Willis MD Active PRISTIQ 100 MG [id number] 1 TAB PO DAILY DESVENLAFAXINE SUCCINATE 49771828012 Active Darin Willis MD Active CYMBALTA 30 MG CPEP 1 cap by mouth daily with 60mg DULOXETINE HCL 18913481010 No Longer Active Darin Willis MD Active PERCOCET 10-325 MG TABS take 1 tab po qday in addition to the prior percocet script for a total dose of 3 pills a day. OXYCODONE-ACETAMINOPHEN 08052653665 No Longer Active Darin Willis MD Active PHENTERMINE HCL 37.5 MG CAPS 1 tab by mouth daily 30 minutes before breakfast PHENTERMINE HCL 43721086175 No Longer Active Darin Willis MD Active DIETHYLPROPION HCL CR 75 MG [id number] 1 qAM, 30 minutes before or 2 hours after breakfast, for weight loss DIETHYLPROPION HCL 07257852281 Active Darin Willis MD Active FISH OIL 1000 MG CPDR 1 po tid OMEGA-3 FATTY ACIDS 43353649193 Active Darin Willis MD Active MOBIC 15 MG TABS 1 tablet by mouth daily MELOXICAM 83457015845 No Longer Active Darin Willis MD Active DICLOFENAC SODIUM 50 MG TBEC 1 po TID PRN Knee pain DICLOFENAC SODIUM 64340285217 No Longer Active Darin Willis MD Active SIMVASTATIN 40 MG TABS 1 TAB PO Q HS SIMVASTATIN 51251726977 Active Darin Willis MD Active SIMVASTATIN 20 MG TABS 1 tab daily at bedtime SIMVASTATIN 04143456966 No Longer Active Anjana Oh Active OXYCODONE-ACETAMINOPHEN 7.5-325 MG TABS take 1 tab po BID prn back pain OXYCODONE-ACETAMINOPHEN 74449210337 No Longer Active Darin Willis MD Active SEROQUEL 300 MG TABS 1 TAB PO Q HS QUETIAPINE FUMARATE 47446848135 No Longer Active Darin Willis MD Active CHANTIX STARTING MONTH SANG 0.5 MG X 11 & 1 MG X 42 TABS 0.5mg daily for 3 days, then 0.5mg BID for 4 days, then 1mg BID VARENICLINE TARTRATE 09680267687 No Longer Active Darin Willis MD Active HYDROCODONE-ACETAMINOPHEN 7.5-500 MG TABS take 1 tab po q 6 hours prn pain. Start taking medication sparingly. HYDROCODONE-ACETAMINOPHEN 68815228532 No Longer Active Darin Willis MD Active WELLBUTRIN XL 300 MG [id number] 1 po qd BUPROPION HCL 10319046557 No Longer Active Darin Willis MD Active TOPAMAX 100 MG TABS 1 tab po daily TOPIRAMATE 17185751347 No Longer Active Jesus Adams MD Active PROZAC 20 MG CAPS 1 PO DAILY FLUOXETINE HCL 46760909879 No Longer Active eJsus Adams MD Active PROZAC 40 MG CAPS 1 cap by mouth qd FLUOXETINE HCL 67290319932 No Longer Active Darin Willis MD Active FLAGYL 500 MG TAB 1 tablet by mouth two times daily METRONIDAZOLE 70430274744 No Longer Active Leigh Garcia MD PhD Active SEROQUEL 100 MG TABS 1 tab po hs QUETIAPINE FUMARATE 65203258413 No Longer Active Leigh Garcia MD PhD Active HYDROCODONE-ACETAMINOPHEN 5-325 MG TABS 1-2 po q 6hr PRN Pain HYDROCODONE-ACETAMINOPHEN 32558995881 No Longer Active Leigh Garcia MD PhD Active HYDROCODONE-ACETAMINOPHEN 7.5-325 MG TABS 1-2 tab po four times a day as needed for pain HYDROCODONE-ACETAMINOPHEN 45226928181 No Longer Active Leigh Garcia MD PhD Active PROMETHAZINE HCL 12.5 MG TABS take 1 tab po q 6 hours prn nausea PROMETHAZINE HCL 79179871708 Active Darin Willis MD Active ZYRTEC ALLERGY 10 MG CAPS 1 po qday for allergies CETIRIZINE HCL 96758712067 Active Darin Willis MD Active PREDNISONE 20 MG TAB 2 tabs daily for 3 days, 1 tab daily for 3 days, 1/2 tab daily for 2 days PREDNISONE 15755245705 No Longer Active Darin Willis MD Active HYDROCODONE-ACETAMINOPHEN 7.5-325 MG TABS 1-2 tab po four times a day as needed for pain HYDROCODONE-ACETAMINOPHEN 7.5-325 MG TABS 154832 HYDROCODONE-ACETAMINOPHEN Inactive HYDROCODONE-ACETAMINOPHEN 5-325 MG TABS 1-2 po q 6hr PRN Pain HYDROCODONE- ACETAMINOPHEN 5-325 MG TABS 660472 HYDROCODONE-ACETAMINOPHEN Inactive SEROQUEL 100 MG TABS 1 tab po hs SEROQUEL 100 MG TABS 617656 QUETIAPINE FUMARATE Inactive PROZAC 40 MG CAPS 1 cap by mouth qd PROZAC 40 MG CAPS 096970 FLUOXETINE HCL Inactive PROZAC 20 MG CAPS 1 PO DAILY PROZAC 20 MG CAPS 429488 FLUOXETINE HCL Inactive TOPAMAX 100 MG TABS 1 tab po daily TOPAMAX 100 MG TABS 779223 TOPIRAMATE Inactive WELLBUTRIN XL 300 MG [id number] 1 po qd WELLBUTRIN XL 300 MG [id number] BUPROPION HCL Inactive HYDROCODONE-ACETAMINOPHEN 7.5-500 MG TABS [...] PO Q HS SEROQUEL 300 MG TABS 352623 QUETIAPINE FUMARATE Inactive OXYCODONE-ACETAMINOPHEN 7.5-325 MG TABS take 1 tab po BID prn back pain OXYCODONE-ACETAMINOPHEN 7.5-325 MG TABS 2094738 OXYCODONE-ACETAMINOPHEN Inactive SIMVASTATIN 20 MG TABS 1 tab daily at bedtime SIMVASTATIN 20 MG TABS 658836 SIMVASTATIN Inactive DICLOFENAC SODIUM 50 MG TBEC 1 po TID PRN Knee pain DICLOFENAC SODIUM 50 MG TBEC 916831 DICLOFENAC SODIUM Inactive MOBIC 15 MG TABS 1 tablet by mouth daily MOBIC 15 MG TABS 258665 MELOXICAM Inactive PHENTERMINE HCL 37.5 MG CAPS 1 tab by mouth daily 30 minutes before breakfast PHENTERMINE HCL 37.5 MG CAPS 766570 PHENTERMINE HCL Inactive CYMBALTA 30 MG CPEP 1 cap by mouth daily with 60mg CYMBALTA 30 MG CPEP 418581 DULOXETINE HCL Inactive CYMBALTA 60 MG CPEP Take 1 capsule 1 x daily CYMBALTA 60 MG CPEP 775520 DULOXETINE HCL Inactive DOXEPIN HCL 50 MG CAPS 1 CAP PO Q HS DOXEPIN HCL 50 MG CAPS 6894264 DOXEPIN HCL Inactive CHANTIX 1 MG TABS [...] tablet 3x daily KLONOPIN 1 MG TABS 535575 CLONAZEPAM Inactive FENOFIBRATE MICRONIZED 43 MG CAPS 1 CAP PO DAILY FENOFIBRATE MICRONIZED 43 MG CAPS 591165 FENOFIBRATE MICRONIZED Inactive CHANTIX STARTING MONTH SANG 0.5 MG X 11 & 1 MG X 42 TABS 0.5mg daily for 3 days, then 0.5mg BID for 4 days, then 1mg BID CHANTIX STARTING MONTH SANG 0.5 MG X 11 & 1 MG X 42 TABS VARENICLINE TARTRATE Inactive OXYCONTIN 10 MG [id number] take 1 tab po BID for back pain OXYCONTIN 10 MG [id number] OXYCODONE HCL Inactive AMBIEN 10 MG TABS 1/2 - 1 TAB PO Q HS PRN AMBIEN 10 MG TABS 414810 ZOLPIDEM TARTRATE Inactive PREDNISONE 20 MG TAB 2 tabs daily for 3 days, 1 tab daily for 3 days, 1/2 tab daily for 2 days PREDNISONE 20 MG TAB 306982 PREDNISONE Inactive FLAGYL 500 MG TAB 1 tablet by mouth two times daily FLAGYL 500 MG TAB 666025 METRONIDAZOLE Inactive PERCOCET 10-325 MG TABS take 1 tab po qday in addition to the prior percocet script for a total dose of 3 pills a day. PERCOCET 10-325 MG TABS 4481068 OXYCODONE-ACETAMINOPHEN Inactive NICOTINE 14 MG/24HR PT24 1 patch daily - on in AM, off at HS - for smoking cessation NICOTINE 14 MG/24HR PT24 643756 NICOTINE Inactive Immunizations Vaccine Administration Date Value Standard Description Seasonal influenza vaccine, injectable, containing preservative, for > 3 years old (Afluria, FluLaval, Fluzone, Fluvirin, Fluarix, Agriflu(>=18 yo)) Fluzone (>3 yrs.) [FOF459] Influenza, seasonal, injectable Vital Signs Date Name Value Unit Range Description blood pressure, diastolic - 8462-4 88 mm[Hg] [...] E&M - 3141-9 248 [lb_av] Weight Measured blood pressure, diastolic - 8462-4 85 mm[Hg] BP alvarenga blood pressure, systolic - 8480-6 131 mm[Hg] BP sys height E&M - 8302-2 68 [in_us] Bdy height pulse rate E&M - 8867-4 89 /min Heart rate temperature E&M 98.8 [degF] Body temperature weight E&M - 3141-9 255 [lb_av] Weight Measured blood pressure, diastolic - 8462-4 88 mm[Hg] BP alvarenga blood pressure, systolic - 8480-6 142 mm[Hg] BP sys height E&M - 8302-2 68 [in_us] Bdy height pulse rate E&M - 8867-4 101 /min Heart rate temperature E&M 97.7 [degF] Body temperature weight E&M - 3141-9 256.50 [lb_av] Weight Measured blood pressure, diastolic - 8462-4 95 mm[Hg] BP alvarenga blood pressure, systolic - 8480-6 148 mm[Hg] BP sys height E&M - 8302-2 68 [in_us] Bdy height pulse rate E&M - 8867-4 106 /min Heart rate temperature E&M 98.2 [degF] Body temperature weight E&M - 3141-9 267 [lb_av] Weight Measured blood pressure, diastolic - 8462-4 89 mm[Hg] BP alvarenga blood pressure, systolic - 8480-6 127 mm[Hg] BP sys height E&M - 8302-2 68 [in_us] Bdy height pulse rate E&M - 8867-4 87 /min Heart rate temperature E&M 98.0 [degF] Body temperature weight E&M - 3141-9 267 [lb_av] Weight Measured blood pressure, diastolic - 8462-4 87 mm[Hg] BP alvarenga blood pressure, systolic - 8480-6 125 mm[Hg] BP sys weight E&M - 3141-9 269 [lb_av] Weight Measured blood pressure, diastolic - 8462-4 87 mm[Hg] BP alvarenga blood pressure, systolic - 8480-6 125 mm[Hg] BP sys Diagnostic Results Date Name Value Unit Range Description Lab Report: Comp. Metabolic Panel, Lipid Panel - Chemistry sodium, serum 137 mmol/L 330-385 1625/12/03 potassium, serum 3.8 mmol/L 3.5-5.2 chloride, serum 102 mmol/L 98-107 carbon dioxide, venous blood 26.8 mmol/L 21.0-32.0 blood glucose 84 mg/dL 65-110 urea nitrogen, blood 8 mg/dL 7-18 creatinine, serum 0.90 mg/dL 0.60-1.30 alanine aminotransferase (SGPT), serum 29 U/L 12-78 aspartate aminotransferase (SGOT), serum 19 U/L 15-37 alkaline phosphatase, serum 124 U/L 50-136 calcium, serum 8.6 mg/dL 8.5-10.1 bilirubin, serum, total 0.30 mg/dL 0.00-1.00 sodium, serum 142 mmol/L 632-412 9312/03/04 potassium, serum 4.6 mmol/L 3.5-5.2 chloride, serum [...] 0.50 mg/dL 0.00-1.00 cholesterol, serum 155 mg/dL 424-754 0961/03/04 triglyceride, serum, fasting 177 mg/dL 30-200 HDL cholesterol, serum 26 mg/dL 32-96 LDL cholesterol, serum 94 mg/dL 0-130 cholesterol, serum 140 mg/dL 295-858 0779/12/03 triglyceride, serum, fasting 212 mg/dL 30-200 HDL cholesterol, serum 27 mg/dL 32-96 LDL cholesterol, serum 71 mg/dL 0-130 Lab Report: Lipid Panel, Comp. Metabolic Panel, CBC, Thyroid Stimulating ... - Chemistry thyroid stimulating hormone, serum 1950 u[iU]/mL Units converted. See lab report for original value. sodium, serum 138 mmol/L 704-920 0471/09/10 LDL cholesterol, serum 54 mg/dL 0-130 HDL cholesterol, serum 26 mg/dL 32-96 triglyceride, serum, fasting 209 mg/dL 30-200 cholesterol, serum 122 mg/dL 154-362 0496/09/10 potassium, serum 4.8 mmol/L 3.5-5.2 chloride, serum 103 mmol/L 98-107 carbon dioxide, venous blood 29.8 mmol/L 21.0-32.0 blood glucose 82 mg/dL 65-110 urea nitrogen, blood 7 mg/dL 7-18 creatinine, serum 1.10 mg/dL 0.60-1.30 alanine aminotransferase (SGPT), serum 35 U/L 12-78 aspartate aminotransferase (SGOT), serum 31 U/L 15-37 alkaline phosphatase, serum 97 U/L 50-136 calcium, serum 8.5 mg/dL 8.5-10.1 bilirubin, serum, total 0.55 mg/dL 0.00-1.00 Lab Report: Lipid Panel, Comp. Metabolic Panel, CBC, Thyroid Stimulating ... - Hematology leukocyte count, blood 9.0 10^3/MM^3 10*3/mm3 4.6-10.2 erythrocyte (RBC) count 4.43 10^6/MM^3 10*6/mm3 4.04-5.48 hemoglobin, blood 13.8 g/dL 12.0-16.0 hematocrit, blood 41.4 % 36.0-46.0 mean corpuscular volume, RBC 94 fL 80-97 mean corpuscular hemoglobin, RBC 31.1 pg 27.0-31.2 mean corpuscular hemoglobin concentration, RBC 33.2 G/DL % 31.8-35.4 red blood cell distribution width 13.1 % 11.6-14.8 platelet count 274 10^3/MM^3 10*3/mm3 142-424 Office Visit: FOLLOW UP - Chemistry cholesterol, target level 200 mg/dL LDL target level 130 mg/dL HDL cholesterol, serum, target level 40 mg/dL triglyceride, target level 150 mg/dL Encounters Code Encounter Date Provider Facility CPT-13889 Level 4 Est. Patient 08:49:16 CDT Darin iWllis MD [facility] CPT-77853 Level 4 Est. Patient 13:11:49 CDT Darin Willis MD [facility] CPT-49187 Level 4 Est. Patient 15:10:08 CDT Darin Willis MD [facility]-42378 Level 4 Est. Patient 15:16:28 CDT Darin Willis MD [facility]-35308 Level 3 Est. 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-67731 Level 3 Est. Patient 12:16:32 THERMAL CUTTING MACHINE OPERATOR Darin Willis MD [facility]-45203 Level 4 Est. Patient 13:19:57 THERMAL CUTTING MACHINE OPERATOR Darin Willis MD [facility]-93269 Level 4 Est. Patient 11:56:49 THERMAL CUTTING MACHINE OPERATOR Darin Willis MD [facility]-05334 Level 4 Est. Patient 13:16:44 CDT Darin Willis MD [facility] CPT-12443 Level 4 Est. Patient 14:41:11 CDT Darin Willis MD [facility]-24381 Level 3 Est. Patient 17:53:28 CDT Darin Willis MD [facility]-85545 Level 3 Est. Patient 10:15:54 CDT Darin Willis MD [facility]-84178 Level 4 Est. Patient 20:46:40 THERMAL CUTTING MACHINE OPERATOR Darin Willis MD [facility]-27415 Level 4 Est. Patient 21:17:49 THERMAL CUTTING MACHINE OPERATOR Darin Willis MD [facility]-73849 Level 3 Est. Patient 10:46:40 THERMAL CUTTING MACHINE OPERATOR Jesus Adams MD [facility]-22781 Level 3 Est. Patient 18:04:06 THERMAL CUTTING MACHINE OPERATOR Darin Willis MD [facility] CPT-80271 Level 3 Est. Patient 11:36:33 THERMAL CUTTING MACHINE OPERATOR Darin Willis MD [facility] CPT-02000 Level 3 Est. Patient 13:16:12 CDT Leigh Garcia MD PhD [facility] CPT-21428 Level 3 Est. Patient 11:35:02 CDT Darin Willis MD [facility] CPT-38363 Level 3 Est. Patient 11:41:50 CDT Darin Willis MD [facility] CPT-37208 Level 3 Est. Patient 16:36:45 CDT Darin Willis MD [facility] CPT-40765 Level 2 New Patient 18:30:11 CDT Darin Willis MD [facility] Procedures Code Procedure Name Date Entry Date Standard Description CPT-88806 Venipuncture Draw Fee 10:33:53 THERMAL CUTTING MACHINE OPERATOR CPT-68941 Knee 3V 10:22:12 THERMAL CUTTING MACHINE OPERATOR CPT-89753 Venipuncture Draw Fee 11:29:50 THERMAL CUTTING MACHINE OPERATOR CPT-76880 Administration single or combination vaccine inc oral 15:53:22 CDT CPT-69701 Influenza split virus > age 3 15:53:22 CDT CPT-76983 Abx/Therapy Injection 18:30:11 CDT CPT-J1885 Toradol 60 mg (Ketorolac) 12:21:26 CDT CPT-68459 LS spine comp w obliq 11:37:16 CDT
--- OUTSIDE RECORDS SUMMARY | 2018-08-21 22:06 | XMS REPORT ---
Author Author [facility] [employer] [facility] Medical Staff Organization [facility] Address [address], [place] [id number] Phone [phone] Care Team Providers Care Paint Spray Tender Name Role Phone CAM WILLIS MD PP [phone] Summary purpose TRANSITION OF CARE AUTO GENERATION Chief Complaint and Reason for Visit No authorized Reason for Visit (Admitting Diagnosis) is available for this visit . Problem list No authorized problems tracked for [...] tests and/or laboratory data RESULTS Radiology Results [id number]:00 MRI L-SPINE W/O CONT PACs Image DATE [...] magnetic resonance imaging lumbar spine. MD KESHAWN Lindo/ny05/29/2014 11:58:00 05/29/2014 12:00:58 cc:Dr. Cam Willis This document [...] magnetic resonance imaging lumbar spine. MD KESHAWN Lindo/ny03 11:58:00 / 05/29/2014 12:00:58 cc:Dr. Cam Willis This document has been electronically Signed by: LYNDSEY CISSE On: May 29 2014 12:00P Result Amended on 2014-05-29 at 12:00:54. Previous status was OR. History of procedures No procedures recorded for this patient visit. Functional status No functional or cognitive status [...]
--- OUTSIDE RECORDS SUMMARY | 2018-08-21 22:07 | XMS REPORT | Clinical Summary ---
Author Author Admin, CAROLINE Organization [facility] Address Unknown Phone Unavailable Allergies, Adverse Reactions, [...] HYPERLIPIDEMIA 272.4 Active Kat Sparks [facility] Other and unspecified hyperlipidemia KNEE PAIN, LEFT, [...] Generic Name NDC Status Provider Patient Instruction CHANTIX 1 MG TABS 1 twice a day for smoking cessation VARENICLINE TARTRATE 69914347546 Active Darin Willis MD Active PHENTERMINE HCL 37.5 MG CAPS 1 tab by mouth daily 30 minutes before breakfast PHENTERMINE HCL 62574158701 Active Darin Willis MD Active TOPAMAX 100 MG TABS take 1 tab po qday TOPIRAMATE 87730509925 Active Darin Willis MD Active PROMETHAZINE HCL 12.5 MG TABS take 1 tab po q 6 hours prn nausea PROMETHAZINE HCL 78086470554 No Longer Active Darin Willis MD Active DIETHYLPROPION HCL CR 75 MG [id number] 1 qAM, 30 minutes before or 2 hours after breakfast, for weight loss DIETHYLPROPION HCL 94046990108 No Longer Active Darin Willis MD Active RISPERDAL 1 MG TABS take 1 tab in am and 1/2 tab at bedtime RISPERIDONE 22234799706 No Longer Active Darin Willis MD Active AMITRIPTYLINE HCL 50 MG TAB 1 TAB PO Q HS AMITRIPTYLINE HCL 46370354492 Active Darin Willis MD Active CHANTIX 1 MG TABS 1 twice a day for sc=moking cessation VARENICLINE TARTRATE 91531291642 No Longer Active Darin Willis MD Active KLONOPIN 0.5 MG TABS 1 TAB PO TID PRN CLONAZEPAM 92552141355 Active Darin Willis MD Active PAXIL 20 MG TABS 1 TAB PO DAILY PAROXETINE HCL 41418126157 Active Darin Willis MD Active ALPRAZOLAM 1 MG TABS 1 tablet twice daily as needed ALPRAZOLAM 78762410976 No Longer Active Darin Willis MD Active PRISTIQ 100 MG [id number] 1 TAB PO DAILY DESVENLAFAXINE SUCCINATE 77565093438 No Longer Active Darin Willis MD Active OXYCONTIN 20 MG T12A take 1 tab po BID for chronic pain. OXYCODONE HCL 60829680108 Active Darin Willis MD Active PERCOCET 10-325 MG TABS 1 tablet TID prn back pain OXYCODONE-ACETAMINOPHEN 72644923075 Active Darin Willis MD Active AMBIEN 10 MG TABS 1/2 - 1 TAB PO Q HS PRN ZOLPIDEM TARTRATE 98378564366 No Longer Active Darin Willis MD Active OXYCONTIN 10 MG [id number] take 1 tab po BID for back pain OXYCODONE HCL No Longer Active Darin Willis MD Active OXYCONTIN 15 MG T12A take 1 tab po BID for chronic pain OXYCODONE HCL 65286429100 Active Darin Willis MD Active CHANTIX STARTING MONTH SANG 0.5 MG X 11 & 1 MG X 42 TABS 0.5mg daily for 3 days, then 0.5mg BID for 4 days, then 1mg BID VARENICLINE TARTRATE 87574233537 No Longer Active Darin Willis MD Active FENOFIBRATE MICRONIZED 43 MG CAPS 1 CAP PO DAILY FENOFIBRATE MICRONIZED 75336719317 No Longer Active Anjana Adriano Active FENOFIBRATE MICRONIZED 67 MG CAPS 1 TAB PO DAILY FENOFIBRATE MICRONIZED 43559076654 Active Darin Willis MD Active NICOTINE 14 MG/24HR PT24 1 patch daily - on in AM, off at HS - for smoking cessation NICOTINE 72969613258 No Longer Active Darin Willis MD Active KLONOPIN 1 MG TABS Take 1 tablet 3x daily CLONAZEPAM 35055451508 No Longer Active Darin Willis MD Active CHANTIX STARTING MONTH SANG 0.5 MG X 11 & 1 MG X 42 TABS VARENICLINE TARTRATE 33998257198 No Longer Active Darin Willis MD Active TOPAMAX 50 MG TABS take 1 tab po qday TOPIRAMATE 96267429134 Active Darin Willis MD Active LASIX 20 MG TAB 1 tablet by mouth daily prn for swelling FUROSEMIDE 76166085602 Active Darin Willis MD Active MULTIVITAMINS TABS 1 pill by mouth daily MULTIPLE VITAMIN 82854613749 No Longer Active Darin Willis MD Active CHANTIX 1 MG TABS 1 twice a day VARENICLINE TARTRATE 05759775273 No Longer Active Darin Willis MD Active DOXEPIN HCL 50 MG CAPS 1 CAP PO Q HS DOXEPIN HCL 08537067324 No Longer Active Darin Willis MD Active CYMBALTA 60 MG CPEP Take 1 capsule 1 x daily DULOXETINE HCL 44886925403 No Longer Active Darin Willis MD Active BUSPIRONE HCL 10 MG TABS 1 TAB PO TID BUSPIRONE HCL 91684733412 Active Darin Willis MD Active CYMBALTA 30 MG CPEP 1 cap by mouth daily with 60mg DULOXETINE HCL 02680793793 No Longer Active Darin Willis MD Active PERCOCET 10-325 MG TABS take 1 tab po qday in addition to the prior percocet script for a total dose of 3 pills a day. OXYCODONE-ACETAMINOPHEN 97684621791 No Longer Active Darin Willis MD Active PHENTERMINE HCL 37.5 MG CAPS 1 tab by mouth daily 30 minutes before breakfast PHENTERMINE HCL 91673169988 No Longer Active Darin Willis MD Active FISH OIL 1000 MG CPDR 1 po tid OMEGA-3 FATTY ACIDS 74122667024 Active Darin Willis MD Active MOBIC 15 MG TABS 1 tablet by mouth daily MELOXICAM 65156410035 No Longer Active Darin Willis MD Active DICLOFENAC SODIUM 50 MG TBEC 1 po TID PRN Knee pain DICLOFENAC SODIUM 67693123530 No Longer Active Darin Willis MD Active SIMVASTATIN 40 MG TABS 1 TAB PO Q HS SIMVASTATIN 64150998332 Active Darin Willis MD Active SIMVASTATIN 20 MG TABS 1 tab daily at bedtime SIMVASTATIN 35128172967 No Longer Active Anjana Oh Active OXYCODONE-ACETAMINOPHEN 7.5-325 MG TABS take 1 tab po BID prn back pain OXYCODONE-ACETAMINOPHEN 52347025683 No Longer Active Darin Willis MD Active SEROQUEL 300 MG TABS 1 TAB PO Q HS QUETIAPINE FUMARATE 63022486155 No Longer Active Darin Willis MD Active CHANTIX STARTING MONTH SANG 0.5 MG X 11 & 1 MG X 42 TABS 0.5mg daily for 3 days, then 0.5mg BID for 4 days, then 1mg BID VARENICLINE TARTRATE 48293526689 No Longer Active Darin Willis MD Active HYDROCODONE-ACETAMINOPHEN 7.5-500 MG TABS take 1 tab po q 6 hours prn pain. Start taking medication sparingly. HYDROCODONE-ACETAMINOPHEN 69667810737 No Longer Active Darin Willis MD Active WELLBUTRIN XL 300 MG [id number] 1 po qd BUPROPION HCL 15120176038 No Longer Active Darin Willis MD Active TOPAMAX 100 MG TABS 1 tab po daily TOPIRAMATE 68456519762 No Longer Active Jesus Adams MD Active PROZAC 20 MG CAPS 1 PO DAILY FLUOXETINE HCL 80194273435 No Longer Active Jesus Adams MD Active PROZAC 40 MG CAPS 1 cap by mouth qd FLUOXETINE HCL 00650693385 No Longer Active Darin Willis MD Active FLAGYL 500 MG TAB 1 tablet by mouth two times daily METRONIDAZOLE 74091245390 No Longer Active Leigh Garcia MD PhD Active SEROQUEL 100 MG TABS 1 tab po hs QUETIAPINE FUMARATE 34960316250 No Longer Active Leigh Garcia MD PhD Active HYDROCODONE-ACETAMINOPHEN 5-325 MG TABS 1-2 po q 6hr PRN Pain HYDROCODONE-ACETAMINOPHEN 86681446737 No Longer Active Leigh Garcia MD PhD Active HYDROCODONE-ACETAMINOPHEN 7.5-325 MG TABS 1-2 tab po four times a day as needed for pain HYDROCODONE-ACETAMINOPHEN 50437988520 No Longer Active Leigh Garcia MD PhD Active ZYRTEC ALLERGY 10 MG CAPS 1 po qday for allergies CETIRIZINE HCL 17516582956 Active Darin Willis MD Active PREDNISONE 20 MG TAB 2 tabs daily for 3 days, 1 tab daily for 3 days, 1/2 tab daily for 2 days PREDNISONE 06608239200 No Longer Active Darin Willis MD Active HYDROCODONE-ACETAMINOPHEN 7.5-325 MG TABS 1-2 tab po four times a day as needed for pain HYDROCODONE-ACETAMINOPHEN 7.5-325 MG TABS 401453 HYDROCODONE-ACETAMINOPHEN Inactive HYDROCODONE-ACETAMINOPHEN 5-325 MG TABS 1-2 po q 6hr PRN Pain HYDROCODONE- ACETAMINOPHEN 5-325 MG TABS 696364 HYDROCODONE-ACETAMINOPHEN Inactive SEROQUEL 100 MG TABS 1 tab po hs SEROQUEL 100 MG TABS 875204 QUETIAPINE FUMARATE Inactive PROZAC 40 MG CAPS 1 cap by mouth qd PROZAC 40 MG CAPS 971254 FLUOXETINE HCL Inactive PROZAC 20 MG CAPS 1 PO DAILY PROZAC 20 MG CAPS 825077 FLUOXETINE HCL Inactive TOPAMAX 100 MG TABS 1 tab po daily TOPAMAX 100 MG TABS 566167 TOPIRAMATE Inactive WELLBUTRIN XL 300 MG [id number] 1 po qd WELLBUTRIN XL 300 MG [id number] BUPROPION HCL Inactive HYDROCODONE-ACETAMINOPHEN 7.5-500 MG TABS [...] PO Q HS SEROQUEL 300 MG TABS 224646 QUETIAPINE FUMARATE Inactive OXYCODONE-ACETAMINOPHEN 7.5-325 MG TABS take 1 tab po BID prn back pain OXYCODONE-ACETAMINOPHEN 7.5-325 MG TABS 5137362 OXYCODONE-ACETAMINOPHEN Inactive SIMVASTATIN 20 MG TABS 1 tab daily at bedtime SIMVASTATIN 20 MG TABS 430630 SIMVASTATIN Inactive DICLOFENAC SODIUM 50 MG TBEC 1 po TID PRN Knee pain DICLOFENAC SODIUM 50 MG TBEC 638384 DICLOFENAC SODIUM Inactive MOBIC 15 MG TABS 1 tablet by mouth daily MOBIC 15 MG TABS 968249 MELOXICAM Inactive PHENTERMINE HCL 37.5 MG CAPS 1 tab by mouth daily 30 minutes before breakfast PHENTERMINE HCL 37.5 MG CAPS 709067 PHENTERMINE HCL Inactive CYMBALTA 30 MG CPEP 1 cap by mouth daily with 60mg CYMBALTA 30 MG CPEP 268836 DULOXETINE HCL Inactive CYMBALTA 60 MG CPEP Take 1 capsule 1 x daily CYMBALTA 60 MG CPEP 062071 DULOXETINE HCL Inactive DOXEPIN HCL 50 MG CAPS 1 CAP PO Q HS DOXEPIN HCL 50 MG CAPS 1187348 DOXEPIN HCL Inactive CHANTIX 1 MG TABS [...] tablet 3x daily KLONOPIN 1 MG TABS 513177 CLONAZEPAM Inactive FENOFIBRATE MICRONIZED 43 MG CAPS 1 CAP PO DAILY FENOFIBRATE MICRONIZED 43 MG CAPS 552486 FENOFIBRATE MICRONIZED Inactive CHANTIX STARTING MONTH SANG 0.5 MG X 11 & 1 MG X 42 TABS 0.5mg daily for 3 days, then 0.5mg BID for 4 days, then 1mg BID CHANTIX STARTING MONTH SANG 0.5 MG X 11 & 1 MG X 42 TABS VARENICLINE TARTRATE Inactive OXYCONTIN 10 MG [id number] take 1 tab po BID for back pain OXYCONTIN 10 MG [id number] OXYCODONE HCL Inactive AMBIEN 10 MG TABS 1/2 - 1 TAB PO Q HS PRN AMBIEN 10 MG TABS 261860 ZOLPIDEM TARTRATE Inactive PRISTIQ 100 MG [id number] 1 TAB PO DAILY PRISTIQ 100 MG [id number] DESVENLAFAXINE SUCCINATE Inactive ALPRAZOLAM 1 MG TABS 1 tablet twice daily as needed ALPRAZOLAM 1 MG TABS 469483 ALPRAZOLAM Inactive CHANTIX 1 MG TABS 1 twice a day for sc=moking cessation CHANTIX 1 MG TABS VARENICLINE TARTRATE Inactive RISPERDAL 1 MG TABS take 1 tab in am and 1/2 tab at bedtime RISPERDAL 1 MG TABS 829181 RISPERIDONE Inactive DIETHYLPROPION HCL CR 75 MG [id number] 1 qAM, 30 minutes before or 2 hours after breakfast, for weight loss DIETHYLPROPION HCL CR 75 MG [id number] DIETHYLPROPION HCL Inactive PROMETHAZINE HCL 12.5 MG TABS take 1 tab po q 6 hours prn nausea PROMETHAZINE HCL 12.5 MG TABS 927559 PROMETHAZINE HCL Inactive PREDNISONE 20 MG TAB 2 tabs daily for 3 days, 1 tab daily for 3 days, 1/2 tab daily for 2 days PREDNISONE 20 MG TAB 605377 PREDNISONE Inactive FLAGYL 500 MG TAB 1 tablet by mouth two times daily FLAGYL 500 MG TAB 651840 METRONIDAZOLE Inactive PERCOCET 10-325 MG TABS take 1 tab po qday in addition to the prior percocet script for a total dose of 3 pills a day. PERCOCET 10-325 MG TABS 7542633 OXYCODONE-ACETAMINOPHEN Inactive NICOTINE 14 MG/24HR PT24 1 patch daily - on in AM, off at HS - for smoking cessation NICOTINE 14 MG/24HR PT24 353446 NICOTINE Inactive Immunizations Vaccine Administration Date Value Standard Description Seasonal influenza vaccine, injectable, containing preservative, for > 3 years old (Afluria, FluLaval, Fluzone, Fluvirin, Fluarix, Agriflu(>=18 yo)) Fluzone (>3 yrs.) [DXX742] Influenza, seasonal, injectable Vital Signs Date Name Value Unit Range Description blood pressure, diastolic - 8462-4 85 mm[Hg] BP alvarenga blood pressure, systolic - 8480-6 128 mm[Hg] BP sys pulse rate E&M - 8867-4 92 /min Heart rate temperature E&M 98.7 [degF] Body temperature weight E&M - 3141-9 232 [lb_av] Weight Measured blood pressure, diastolic - [...] E&M - 3141-9 242 [lb_av] Weight Measured Diagnostic Results Date Name Value Unit Range Description Lab Report: ESTROGEN, TOTAL, SERUM - Chemistry estrogen, serum, total 58 pg/mL Lab Report: PROLACTIN, FSH AND LH/7137/Adult - Chemistry follicle stimulating hormone, serum 5.3 m[iU]/mL luteinizing hormone, serum 2.1 m[iU]/mL Lab Report: Thyroid Stimulating Hormone (L), Free Thyroxine (L), Lipid P ... - Chemistry TSH 2.70 m[iU]/mL 0.36-3.74 thyroxine, serum, free 0.85 ng/dL 0.76-1.46 cholesterol, serum 180 mg/dL 403-744 7594/09/22 triglyceride, serum, fasting 192 mg/dL 30-200 HDL [...] mg/dL Encounters Code Encounter Date Provider Facility CPT-76477 Level 4 Est. Patient 18:06:24 ENVIRONMENTAL DESIGNER Darin Willis MD [facility] CPT-13115 Level 4 Est. Patient 19:57:49 ENVIRONMENTAL DESIGNER Darin Willis MD [facility] CPT-37788 Level 4 Est. Patient 22:18:18 CDT Darin Willis MD [facility] CPT-61799 Level 4 Est. Patient 08:49:16 CDT Darin Willis MD [facility] CPT-09637 Level 4 Est. Patient 13:11:49 CDT Darin Willis MD [facility] CPT-50577 Level 4 Est. Patient 15:10:08 CDT Darin Willis MD [facility] CPT-39067 Level 4 Est. Patient 15:16:28 CDT Darin Willis MD [facility] CPT-51499 Level 3 Est. Patient 13:37:16 ENVIRONMENTAL DESIGNER Darin Willis MD [facility] CPT-56416 Level 3 Est. Patient 12:16:32 ENVIRONMENTAL DESIGNER Darin Willis MD [facility] CPT-77751 Level 4 Est. Patient 13:19:57 ENVIRONMENTAL DESIGNER Darin Willis MD [facility] CPT-53977 Level 4 Est. Patient 11:56:49 ENVIRONMENTAL DESIGNER Drain Willis MD [facility]-10654 Level 4 Est. Patient 13:16:44 CDT Darin Willis MD [facility]-24452 Level 4 Est. Patient 14:41:11 CDT Darin Willis MD [facility]-84843 Level 3 Est. Patient 17:53:28 CDT Darin Willis MD [facility]-50969 Level 3 Est. Patient 10:15:54 CDT Darin Willis MD [facility]-11277 Level 4 Est. Patient 20:46:40 ENVIRONMENTAL DESIGNER Darin Willis MD [facility] CPT-67481 Level 4 Est. Patient 21:17:49 ENVIRONMENTAL DESIGNER Darin Willis MD [facility] CPT-95279 Level 3 Est. Patient 10:46:40 ENVIRONMENTAL DESIGNER Jesus Adams MD [facility]-81930 Level 3 Est. Patient 18:04:06 ENVIRONMENTAL DESIGNER Darin Willis MD [facility] CPT-20484 Level 3 Est. Patient 11:36:33 ENVIRONMENTAL DESIGNER Darin Willis MD [facility]-67944 Level 3 Est. Patient 13:16:12 CDT Leigh Garcia MD PhD [facility]-26747 Level 3 Est. Patient 11:35:02 CDT Darin Willis MD [facility]-44341 Level 3 Est. Patient 11:41:50 CDT Darin Willis MD [facility]-64123 Level 3 Est. Patient 16:36:45 CDT Darin Willis MD [facility] CPT-07888 Level 2 New Patient 18:30:11 CDT Darin Willis MD [facility] Procedures Code Procedure Name Date Entry Date Standard Description CPT-63569 Venipuncture Draw Fee 10:33:53 ENVIRONMENTAL DESIGNER CPT-41092 Knee 3V 10:22:12 ENVIRONMENTAL DESIGNER CPT-04348 Venipuncture Draw Fee 11:29:50 ENVIRONMENTAL DESIGNER CPT-70690 Administration single or combination vaccine inc oral 15:53:22 CDT CPT-70307 Influenza split virus > age 3 15:53:22 CDT CPT-39676 Abx/Therapy Injection 18:30:11 CDT CPT-J1885 Toradol 60 mg (Ketorolac) 12:21:26 CDT CPT-78565 LS spine comp w obliq 11:37:16 CDT
--- OUTSIDE RECORDS SUMMARY | 2018-08-21 22:12 | XMS REPORT | Clinical Summary ---
Author Author Admin, CAROLINE Organization [facility] Address Unknown Phone Unavailable Allergies, Adverse [...] of patella TOBACCO ABUSE 305.1 Active Darin Wlilis MD Tobacco use disorder OBESITY 278.00 Active Darin Willis MD Obesity, unspecified HYPERLIPIDEMIA 272.4 Active Kat Sparks [facility] Other and unspecified hyperlipidemia KNEE PAIN, LEFT, [...] a day for sc=moking cessation VARENICLINE TARTRATE 10294429020 No Longer Active Darin Willis MD Active KLONOPIN 0.5 MG TABS 1 TAB PO TID PRN CLONAZEPAM 96261618245 Active Darin Willis MD Active PAXIL 20 MG TABS 1 TAB PO DAILY PAROXETINE HCL 21364234357 Active Darin Willis MD Active ALPRAZOLAM 1 MG TABS 1 tablet twice daily as needed ALPRAZOLAM 94155004099 No Longer Active Darin Willis MD Active PRISTIQ 100 MG [id number] 1 TAB PO DAILY DESVENLAFAXINE SUCCINATE 52129903169 No Longer Active Darin Willis MD Active OXYCONTIN 20 MG T12A take 1 tab po BID for chronic pain. OXYCODONE HCL 78017614523 Active Darin Willis MD Active PERCOCET 10-325 MG TABS 1 tablet TID prn back pain OXYCODONE-ACETAMINOPHEN 87393728929 Active Darin Willis MD Active RISPERDAL 1 MG TABS take 1 tab in am and 1/2 tab at bedtime RISPERIDONE 66707016516 Active Darin Willis MD Active AMBIEN 10 MG TABS 1/2 - 1 TAB PO Q HS PRN ZOLPIDEM TARTRATE 93743445067 No Longer Active Darin Willis MD Active OXYCONTIN 10 MG [id number] take 1 tab po BID for back pain OXYCODONE HCL No Longer Active Darin Willis MD Active OXYCONTIN 15 MG T12A take 1 tab po BID for chronic pain OXYCODONE HCL 94907174355 Active Darin Willis MD Active CHANTIX STARTING MONTH SANG 0.5 MG X 11 & 1 MG X 42 TABS 0.5mg daily for 3 days, then 0.5mg BID for 4 days, then 1mg BID VARENICLINE TARTRATE 74020920183 No Longer Active Darin Willis MD Active FENOFIBRATE MICRONIZED 43 MG CAPS 1 CAP PO DAILY FENOFIBRATE MICRONIZED 27021461313 No Longer Active Anjana Oh Active FENOFIBRATE MICRONIZED 67 MG CAPS 1 TAB PO DAILY FENOFIBRATE MICRONIZED 78660644398 Active Darin Willis MD Active NICOTINE 14 MG/24HR PT24 1 patch daily - on in AM, off at HS - for smoking cessation NICOTINE 90377139380 No Longer Active Darin Willis MD Active KLONOPIN 1 MG TABS Take 1 tablet 3x daily CLONAZEPAM 60324825640 No Longer Active Darin Willis MD Active CHANTIX STARTING MONTH SANG 0.5 MG X 11 & 1 MG X 42 TABS VARENICLINE TARTRATE 80318928912 No Longer Active Darin Willis MD Active TOPAMAX 50 MG TABS take 1 tab po qday TOPIRAMATE 17708865588 Active Darin Willis MD Active LASIX 20 MG TAB 1 tablet by mouth daily prn for swelling FUROSEMIDE 90664267270 Active Darin Willis MD Active MULTIVITAMINS TABS 1 pill by mouth daily MULTIPLE VITAMIN 20547476027 No Longer Active Darin Willis MD Active CHANTIX 1 MG TABS 1 twice a day VARENICLINE TARTRATE 75260609907 No Longer Active Darin Willis MD Active DOXEPIN HCL 50 MG CAPS 1 CAP PO Q HS DOXEPIN HCL 54051522558 No Longer Active Darin Willis MD Active CYMBALTA 60 MG CPEP Take 1 capsule 1 x daily DULOXETINE HCL 84752977880 No Longer Active Darin Willis MD Active BUSPIRONE HCL 10 MG TABS 1 TAB PO TID BUSPIRONE HCL 32442915232 Active Darin Willis MD Active CYMBALTA 30 MG CPEP 1 cap by mouth daily with 60mg DULOXETINE HCL 94329828108 No Longer Active Darin Willis MD Active PERCOCET 10-325 MG TABS take 1 tab po qday in addition to the prior percocet script for a total dose of 3 pills a day. OXYCODONE-ACETAMINOPHEN 84837979183 No Longer Active Darin Willis MD Active PHENTERMINE HCL 37.5 MG CAPS 1 tab by mouth daily 30 minutes before breakfast PHENTERMINE HCL 88563014256 No Longer Active Darin Willis MD Active DIETHYLPROPION HCL CR 75 MG [id number] 1 qAM, 30 minutes before or 2 hours after breakfast, for weight loss DIETHYLPROPION HCL 42623660887 Active Darin Willis MD Active FISH OIL 1000 MG CPDR 1 po tid OMEGA-3 FATTY ACIDS 68782814181 Active Darin Willis MD Active MOBIC 15 MG TABS 1 tablet by mouth daily MELOXICAM 69752772916 No Longer Active Darin Willis MD Active DICLOFENAC SODIUM 50 MG TBEC 1 po TID PRN Knee pain DICLOFENAC SODIUM 89979911715 No Longer Active Darin Willis MD Active SIMVASTATIN 40 MG TABS 1 TAB PO Q HS SIMVASTATIN 69185766681 Active Darin Willis MD Active SIMVASTATIN 20 MG TABS 1 tab daily at bedtime SIMVASTATIN 75947236995 No Longer Active Anjana Oh Active OXYCODONE-ACETAMINOPHEN 7.5-325 MG TABS take 1 tab po BID prn back pain OXYCODONE-ACETAMINOPHEN 49316494099 No Longer Active Darin Willis MD Active SEROQUEL 300 MG TABS 1 TAB PO Q HS QUETIAPINE FUMARATE 09403922574 No Longer Active Darin Willis MD Active CHANTIX STARTING MONTH SANG 0.5 MG X 11 & 1 MG X 42 TABS 0.5mg daily for 3 days, then 0.5mg BID for 4 days, then 1mg BID VARENICLINE TARTRATE 09725019460 No Longer Active Darin Willis MD Active HYDROCODONE-ACETAMINOPHEN 7.5-500 MG TABS take 1 tab po q 6 hours prn pain. Start taking medication sparingly. HYDROCODONE-ACETAMINOPHEN 73041772696 No Longer Active Darin Willis MD Active WELLBUTRIN XL 300 MG [id number] 1 po qd BUPROPION HCL 34512625049 No Longer Active Darin Willis MD Active TOPAMAX 100 MG TABS 1 tab po daily TOPIRAMATE 23404581226 No Longer Active Jesus Adams MD Active PROZAC 20 MG CAPS 1 PO DAILY FLUOXETINE HCL 99063465059 No Longer Active Jesus Adams MD Active PROZAC 40 MG CAPS 1 cap by mouth qd FLUOXETINE HCL 13158786614 No Longer Active Darin Willis MD Active FLAGYL 500 MG TAB 1 tablet by mouth two times daily METRONIDAZOLE 15712048732 No Longer Active Leigh Garcia MD PhD Active SEROQUEL 100 MG TABS 1 tab po hs QUETIAPINE FUMARATE 79360744893 No Longer Active Leigh Garcia MD PhD Active HYDROCODONE-ACETAMINOPHEN 5-325 MG TABS 1-2 po q 6hr PRN Pain HYDROCODONE-ACETAMINOPHEN 39837610590 No Longer Active Leigh Garcia MD PhD Active HYDROCODONE-ACETAMINOPHEN 7.5-325 MG TABS 1-2 tab po four times a day as needed for pain HYDROCODONE-ACETAMINOPHEN 53335421039 No Longer Active Leigh Garcia MD PhD Active PROMETHAZINE HCL 12.5 MG TABS take 1 tab po q 6 hours prn nausea PROMETHAZINE HCL 86465282965 Active Darin Willis MD Active ZYRTEC ALLERGY 10 MG CAPS 1 po qday for allergies CETIRIZINE HCL 09261977275 Active Darin Willis MD Active PREDNISONE 20 MG TAB 2 tabs daily for 3 days, 1 tab daily for 3 days, 1/2 tab daily for 2 days PREDNISONE 14314305794 No Longer Active Darin Willis MD Active HYDROCODONE-ACETAMINOPHEN 7.5-325 MG TABS 1-2 tab po four times a day as needed for pain HYDROCODONE-ACETAMINOPHEN 7.5-325 MG TABS 476531 HYDROCODONE-ACETAMINOPHEN Inactive HYDROCODONE-ACETAMINOPHEN 5-325 MG TABS 1-2 po q 6hr PRN Pain HYDROCODONE- ACETAMINOPHEN 5-325 MG TABS 280684 HYDROCODONE-ACETAMINOPHEN Inactive SEROQUEL 100 MG TABS 1 tab po hs SEROQUEL 100 MG TABS 921497 QUETIAPINE FUMARATE Inactive PROZAC 40 MG CAPS 1 cap by mouth qd PROZAC 40 MG CAPS 840110 FLUOXETINE HCL Inactive PROZAC 20 MG CAPS 1 PO DAILY PROZAC 20 MG CAPS 593637 FLUOXETINE HCL Inactive TOPAMAX 100 MG TABS 1 tab po daily TOPAMAX 100 MG TABS 500722 TOPIRAMATE Inactive WELLBUTRIN XL 300 MG [id number] 1 po qd WELLBUTRIN XL 300 MG [id number] BUPROPION HCL Inactive HYDROCODONE-ACETAMINOPHEN 7.5-500 MG TABS [...] PO Q HS SEROQUEL 300 MG TABS 212303 QUETIAPINE FUMARATE Inactive OXYCODONE-ACETAMINOPHEN 7.5-325 MG TABS take 1 tab po BID prn back pain OXYCODONE-ACETAMINOPHEN 7.5-325 MG TABS 5841750 OXYCODONE-ACETAMINOPHEN Inactive SIMVASTATIN 20 MG TABS 1 tab daily at bedtime SIMVASTATIN 20 MG TABS 932052 SIMVASTATIN Inactive DICLOFENAC SODIUM 50 MG TBEC 1 po TID PRN Knee pain DICLOFENAC SODIUM 50 MG TBEC 750438 DICLOFENAC SODIUM Inactive MOBIC 15 MG TABS 1 tablet by mouth daily MOBIC 15 MG TABS 743545 MELOXICAM Inactive PHENTERMINE HCL 37.5 MG CAPS 1 tab by mouth daily 30 minutes before breakfast PHENTERMINE HCL 37.5 MG CAPS 186544 PHENTERMINE HCL Inactive CYMBALTA 30 MG CPEP 1 cap by mouth daily with 60mg CYMBALTA 30 MG CPEP 527338 DULOXETINE HCL Inactive CYMBALTA 60 MG CPEP Take 1 capsule 1 x daily CYMBALTA 60 MG CPEP 764987 DULOXETINE HCL Inactive DOXEPIN HCL 50 MG CAPS 1 CAP PO Q HS DOXEPIN HCL 50 MG CAPS 6709560 DOXEPIN HCL Inactive CHANTIX 1 MG TABS [...] tablet 3x daily KLONOPIN 1 MG TABS 451015 CLONAZEPAM Inactive FENOFIBRATE MICRONIZED 43 MG CAPS 1 CAP PO DAILY FENOFIBRATE MICRONIZED 43 MG CAPS 048908 FENOFIBRATE MICRONIZED Inactive CHANTIX STARTING MONTH SANG 0.5 MG X 11 & 1 MG X 42 TABS 0.5mg daily for 3 days, then 0.5mg BID for 4 days, then 1mg BID CHANTIX STARTING MONTH SANG 0.5 MG X 11 & 1 MG X 42 TABS VARENICLINE TARTRATE Inactive OXYCONTIN 10 MG [id number] take 1 tab po BID for back pain OXYCONTIN 10 MG [id number] OXYCODONE HCL Inactive AMBIEN 10 MG TABS 1/2 - 1 TAB PO Q HS PRN AMBIEN 10 MG TABS 389794 ZOLPIDEM TARTRATE Inactive PRISTIQ 100 MG [id number] 1 TAB PO DAILY PRISTIQ 100 MG [id number] DESVENLAFAXINE SUCCINATE Inactive ALPRAZOLAM 1 MG TABS 1 tablet twice daily as needed ALPRAZOLAM 1 MG TABS 715595 ALPRAZOLAM Inactive CHANTIX 1 MG TABS 1 twice a day for sc=moking cessation CHANTIX 1 MG TABS VARENICLINE TARTRATE Inactive PREDNISONE 20 MG TAB 2 tabs daily for 3 days, 1 tab daily for 3 days, 1/2 tab daily for 2 days PREDNISONE 20 MG TAB 608471 PREDNISONE Inactive FLAGYL 500 MG TAB 1 tablet by mouth two times daily FLAGYL 500 MG TAB 774293 METRONIDAZOLE Inactive PERCOCET 10-325 MG TABS take 1 tab po qday in addition to the prior percocet script for a total dose of 3 pills a day. PERCOCET 10-325 MG TABS 3618890 OXYCODONE-ACETAMINOPHEN Inactive NICOTINE 14 MG/24HR PT24 1 patch daily - on in AM, off at HS - for smoking cessation NICOTINE 14 MG/24HR PT24 185319 NICOTINE Inactive Immunizations Vaccine Administration Date Value Standard Description Seasonal influenza vaccine, injectable, containing preservative, for > 3 years old (Afluria, FluLaval, Fluzone, Fluvirin, Fluarix, Agriflu(>=18 yo)) Fluzone (>3 yrs.) [[id number]] Influenza, seasonal, injectable Vital Signs Date Name [...] E&M - 3141-9 267 [lb_av] Weight Measured Diagnostic Results Date Name Value Unit Range Description Lab Report: Comp. Metabolic Panel, Lipid Panel - Chemistry sodium, serum 137 mmol/L 400-297 6718/12/03 potassium, serum 3.8 mmol/L 3.5-5.2 chloride, serum [...] 8.5-10.1 bilirubin, serum, total 0.30 mg/dL 0.00-1.00 cholesterol, serum 140 mg/dL 019-337 9061/12/03 triglyceride, serum, fasting 212 mg/dL 30-200 HDL cholesterol, serum 27 mg/dL 32-96 LDL cholesterol, serum 71 mg/dL 0-130 sodium, serum 142 mmol/L 023-230 9872/03/04 potassium, serum 4.6 mmol/L 3.5-5.2 chloride, serum [...] 0.50 mg/dL 0.00-1.00 cholesterol, serum 155 mg/dL 247-192 8324/03/04 triglyceride, serum, fasting 177 mg/dL 30-200 HDL cholesterol, serum 26 mg/dL 32-96 LDL cholesterol, serum 94 mg/dL 0-130 Lab Report: PROLACTIN, FSH AND LH/7137/Adult - Chemistry follicle stimulating hormone, serum 5.3 m[iU]/mL luteinizing hormone, serum 2.1 m[iU]/mL Lab Report: Thyroid Stimulating Hormone (L), Free Thyroxine (L), Lipid P ... - Chemistry TSH 2.70 m[iU]/mL 0.36-3.74 thyroxine, serum, free 0.85 ng/dL 0.76-1.46 cholesterol, serum 180 mg/dL 986-853 9336/09/22 triglyceride, serum, fasting 192 mg/dL 30-200 HDL cholesterol, serum 36 mg/dL 32-96 LDL cholesterol, serum 106 mg/dL 0-130 Office Visit: FOLLOW UP - Chemistry cholesterol, target level 200 mg/dL LDL target level 130 mg/dL HDL cholesterol, serum, target level 40 mg/dL triglyceride, target level 150 mg/dL Encounters Code Encounter Date Provider Facility CPT-93283 Level 4 Est. Patient 08:49:16 CDT Darin Willis MD [facility] CPT-22628 Level 4 Est. Patient 13:11:49 CDT Darin Willis MD [facility] CPT-19078 Level 4 Est. Patient 15:10:08 CDT Darin Willis MD [facility] CPT-79724 Level 4 Est. Patient 15:16:28 CDT Darin Willis MD [facility] CPT-24718 Level 3 Est. Patient 13:37:16 NEUROSURGERY SPINE PHYSICIAN Darin Willis MD [facility] CPT-84799 Level 3 Est. Patient 12:16:32 NEUROSURGERY SPINE PHYSICIAN Darin Willis MD [facility] CPT-77543 Level 4 Est. Patient 13:19:57 NEUROSURGERY SPINE PHYSICIAN Darin Willis MD [facility] CPT-41441 Level 4 Est. Patient 11:56:49 NEUROSURGERY SPINE PHYSICIAN Darin Willis MD [facility] CPT-26301 Level 4 Est. Patient 13:16:44 CDT Darin Willis MD [facility] CPT-72663 Level 4 Est. Patient 14:41:11 CDT Darin Willis MD [facility] CPT-09289 Level 3 Est. Patient 17:53:28 CDT Darin Willis MD [facility] CPT-57011 Level 3 Est. Patient 10:15:54 CDT Darin Willis MD [facility] CPT-69823 Level 4 Est. Patient 20:46:40 NEUROSURGERY SPINE PHYSICIAN Darin Willis MD [facility] CPT-96609 Level 4 Est. Patient 21:17:49 NEUROSURGERY SPINE PHYSICIAN Darin Willis MD [facility] CPT-85266 Level 3 Est. Patient 10:46:40 NEUROSURGERY SPINE PHYSICIAN Jesus Adams MD [facility] CPT-56251 Level 3 Est. Patient 18:04:06 NEUROSURGERY SPINE PHYSICIAN Darin Willis MD [facility] CPT-03024 Level 3 Est. Patient 11:36:33 NEUROSURGERY SPINE PHYSICIAN Darin Willis MD [facility] CPT-42884 Level 3 Est. Patient 13:16:12 CDT Leigh Garcia MD PhD [facility] CPT-03731 Level 3 Est. Patient 11:35:02 CDT Darin Willis MD [facility] CPT-72208 Level 3 Est. Patient 11:41:50 CDT Darin Willis MD [facility] CPT-30082 Level 3 Est. Patient 16:36:45 CDT Darin Willis MD [facility] CPT-26662 Level 2 New Patient 18:30:11 CDT Darin Willis MD [facility] Procedures Code Procedure Name Date Entry Date Standard Description CPT-03685 Venipuncture Draw Fee 10:33:53 NEUROSURGERY SPINE PHYSICIAN CPT-02801 Knee 3V 10:22:12 NEUROSURGERY SPINE PHYSICIAN CPT-68345 Venipuncture Draw Fee 11:29:50 NEUROSURGERY SPINE PHYSICIAN CPT-17331 Administration single or combination vaccine inc oral 15:53:22 CDT CPT-49719 Influenza split virus > age 3 15:53:22 CDT CPT-46347 Abx/Therapy Injection 18:30:11 CDT CPT-J1885 Toradol 60 mg (Ketorolac) 12:21:26 CDT CPT-97125 LS spine comp w obliq 11:37:16 CDT
--- OUTSIDE RECORDS SUMMARY | 2018-08-21 22:13 | XMS REPORT | Clinical Summary ---
Author Author Admin, CAROLINE Organization [facility] Address Unknown Phone Unavailable Allergies, Adverse [...] Obesity, unspecified HYPERLIPIDEMIA 272.4 Active Kat Sparks [facility] Other and unspecified hyperlipidemia KNEE PAIN, [...] po BID for chronic pain. OXYCODONE HCL 24091092473 Active Darin Willis MD Active PERCOCET 10-325 MG TABS 1 tablet TID prn back pain OXYCODONE-ACETAMINOPHEN 71474814456 Active Darin Willis MD Active RISPERDAL 1 MG TABS take 1 tab in am and 1/2 tab at bedtime RISPERIDONE 36853246468 Active Darin Willis MD Active AMBIEN 10 MG TABS 1/2 - 1 TAB PO Q HS PRN ZOLPIDEM TARTRATE 43233385046 No Longer Active Darin Willis MD Active OXYCONTIN 10 MG [id number] take 1 tab po BID for back pain OXYCODONE HCL No Longer Active Darin Willis MD Active OXYCONTIN 15 MG T12A take 1 tab po BID for chronic pain OXYCODONE HCL 12859106141 Active Darin Willis MD Active CHANTIX STARTING MONTH SANG 0.5 MG X 11 & 1 MG X 42 TABS 0.5mg daily for 3 days, then 0.5mg BID for 4 days, then 1mg BID VARENICLINE TARTRATE 47951020956 No Longer Active Darin Willis MD Active CHANTIX 1 MG TABS 1 twice a day for sc=moking cessation VARENICLINE TARTRATE 93747911494 Active Syed mSall DO Active FENOFIBRATE MICRONIZED 43 MG CAPS 1 CAP PO DAILY FENOFIBRATE MICRONIZED 36764812923 No Longer Active Anjana Oh Active FENOFIBRATE MICRONIZED 67 MG CAPS 1 TAB PO DAILY FENOFIBRATE MICRONIZED 64994520510 Active Darin Willis MD Active NICOTINE 14 MG/24HR PT24 1 patch daily - on in AM, off at HS - for smoking cessation NICOTINE 20288794538 No Longer Active Darin Willis MD Active ALPRAZOLAM 1 MG TABS 1 tablet twice daily as needed ALPRAZOLAM 34339119494 Active Darin Willis MD Active KLONOPIN 1 MG TABS Take 1 tablet 3x daily CLONAZEPAM 24096961557 No Longer Active Darin Willis MD Active CHANTIX STARTING MONTH SANG 0.5 MG X 11 & 1 MG X 42 TABS VARENICLINE TARTRATE 22482597834 No Longer Active Darin Willis MD Active TOPAMAX 50 MG TABS take 1 tab po qday TOPIRAMATE 49972852632 Active Darin Willis MD Active LASIX 20 MG TAB 1 tablet by mouth daily prn for swelling FUROSEMIDE 92308536090 Active Darin Willis MD Active MULTIVITAMINS TABS 1 pill by mouth daily MULTIPLE VITAMIN 08607145082 No Longer Active Darin Willis MD Active CHANTIX 1 MG TABS 1 twice a day VARENICLINE TARTRATE 78727541333 No Longer Active Darin Willis MD Active DOXEPIN HCL 50 MG CAPS 1 CAP PO Q HS DOXEPIN HCL 76292286299 No Longer Active Darin Willis MD Active CYMBALTA 60 MG CPEP Take 1 capsule 1 x daily DULOXETINE HCL 27942181577 No Longer Active Darin Willis MD Active BUSPIRONE HCL 10 MG TABS 1 TAB PO TID BUSPIRONE HCL 79083245921 Active Darin Willis MD Active PRISTIQ 100 MG [id number] 1 TAB PO DAILY DESVENLAFAXINE SUCCINATE 50943190376 Active Darin Willis MD Active CYMBALTA 30 MG CPEP 1 cap by mouth daily with 60mg DULOXETINE HCL 38420809933 No Longer Active Darin Willis MD Active PERCOCET 10-325 MG TABS take 1 tab po qday in addition to the prior percocet script for a total dose of 3 pills a day. OXYCODONE-ACETAMINOPHEN 16513679464 No Longer Active Darin Willis MD Active PHENTERMINE HCL 37.5 MG CAPS 1 tab by mouth daily 30 minutes before breakfast PHENTERMINE HCL 05934372432 No Longer Active Darin Willis MD Active DIETHYLPROPION HCL CR 75 MG [id number] 1 qAM, 30 minutes before or 2 hours after breakfast, for weight loss DIETHYLPROPION HCL 15280827628 Active Darin Willis MD Active FISH OIL 1000 MG CPDR 1 po tid OMEGA-3 FATTY ACIDS 35885572468 Active Darin Willis MD Active MOBIC 15 MG TABS 1 tablet by mouth daily MELOXICAM 80795359733 No Longer Active Darin Willis MD Active DICLOFENAC SODIUM 50 MG TBEC 1 po TID PRN Knee pain DICLOFENAC SODIUM 39703601905 No Longer Active Darin Willis MD Active SIMVASTATIN 40 MG TABS 1 TAB PO Q HS SIMVASTATIN 11391890794 Active Darin Willis MD Active SIMVASTATIN 20 MG TABS 1 tab daily at bedtime SIMVASTATIN 71613016326 No Longer Active Anjana Oh Active OXYCODONE-ACETAMINOPHEN 7.5-325 MG TABS take 1 tab po BID prn back pain OXYCODONE-ACETAMINOPHEN 49812745184 No Longer Active Darin Willis MD Active SEROQUEL 300 MG TABS 1 TAB PO Q HS QUETIAPINE FUMARATE 94398563582 No Longer Active Darin Willis MD Active CHANTIX STARTING MONTH SANG 0.5 MG X 11 & 1 MG X 42 TABS 0.5mg daily for 3 days, then 0.5mg BID for 4 days, then 1mg BID VARENICLINE TARTRATE 86831115007 No Longer Active Darin Willis MD Active HYDROCODONE-ACETAMINOPHEN 7.5-500 MG TABS take 1 tab po q 6 hours prn pain. Start taking medication sparingly. HYDROCODONE-ACETAMINOPHEN 24585189339 No Longer Active Darin Willis MD Active WELLBUTRIN XL 300 MG [id number] 1 po qd BUPROPION HCL 17741679732 No Longer Active Darin Willis MD Active TOPAMAX 100 MG TABS 1 tab po daily TOPIRAMATE 47247322274 No Longer Active Jesus Adams MD Active PROZAC 20 MG CAPS 1 PO DAILY FLUOXETINE HCL 87424146600 No Longer Active Jesus Adams MD Active PROZAC 40 MG CAPS 1 cap by mouth qd FLUOXETINE HCL 39129259938 No Longer Active Darin Willis MD Active FLAGYL 500 MG TAB 1 tablet by mouth two times daily METRONIDAZOLE 62741931861 No Longer Active Leigh Garcia MD PhD Active SEROQUEL 100 MG TABS 1 tab po hs QUETIAPINE FUMARATE 25699356951 No Longer Active Leigh Garcia MD PhD Active HYDROCODONE-ACETAMINOPHEN 5-325 MG TABS 1-2 po q 6hr PRN Pain HYDROCODONE-ACETAMINOPHEN 44335016330 No Longer Active Leigh Garcia MD PhD Active HYDROCODONE-ACETAMINOPHEN 7.5-325 MG TABS 1-2 tab po four times a day as needed for pain HYDROCODONE-ACETAMINOPHEN 96938782505 No Longer Active Leigh Garcia MD PhD Active PROMETHAZINE HCL 12.5 MG TABS take 1 tab po q 6 hours prn nausea PROMETHAZINE HCL 04312346389 Active Darin Willis MD Active ZYRTEC ALLERGY 10 MG CAPS 1 po qday for allergies CETIRIZINE HCL 35200231539 Active Darin Willis MD Active PREDNISONE 20 MG TAB 2 tabs daily for 3 days, 1 tab daily for 3 days, 1/2 tab daily for 2 days PREDNISONE 23833098226 No Longer Active Darin Willis MD Active HYDROCODONE-ACETAMINOPHEN 7.5-325 MG TABS 1-2 tab po four times a day as needed for pain HYDROCODONE-ACETAMINOPHEN 7.5-325 MG TABS 603256 HYDROCODONE-ACETAMINOPHEN Inactive HYDROCODONE-ACETAMINOPHEN 5-325 MG TABS 1-2 po q 6hr PRN Pain HYDROCODONE- ACETAMINOPHEN 5-325 MG TABS 933994 HYDROCODONE-ACETAMINOPHEN Inactive SEROQUEL 100 MG TABS 1 tab po hs SEROQUEL 100 MG TABS 900082 QUETIAPINE FUMARATE Inactive PROZAC 40 MG CAPS 1 cap by mouth qd PROZAC 40 MG CAPS 355984 FLUOXETINE HCL Inactive PROZAC 20 MG CAPS 1 PO DAILY PROZAC 20 MG CAPS 613668 FLUOXETINE HCL Inactive TOPAMAX 100 MG TABS 1 tab po daily TOPAMAX 100 MG TABS 892305 TOPIRAMATE Inactive WELLBUTRIN XL 300 MG [id number] 1 po qd WELLBUTRIN XL 300 MG [id number] BUPROPION HCL Inactive HYDROCODONE-ACETAMINOPHEN 7.5-500 MG TABS [...] PO Q HS SEROQUEL 300 MG TABS 683594 QUETIAPINE FUMARATE Inactive OXYCODONE-ACETAMINOPHEN 7.5-325 MG TABS take 1 tab po BID prn back pain OXYCODONE-ACETAMINOPHEN 7.5-325 MG TABS 4991922 OXYCODONE-ACETAMINOPHEN Inactive SIMVASTATIN 20 MG TABS 1 tab daily at bedtime SIMVASTATIN 20 MG TABS 975171 SIMVASTATIN Inactive DICLOFENAC SODIUM 50 MG TBEC 1 po TID PRN Knee pain DICLOFENAC SODIUM 50 MG TBEC 107299 DICLOFENAC SODIUM Inactive MOBIC 15 MG TABS 1 tablet by mouth daily MOBIC 15 MG TABS 325182 MELOXICAM Inactive PHENTERMINE HCL 37.5 MG CAPS 1 tab by mouth daily 30 minutes before breakfast PHENTERMINE HCL 37.5 MG CAPS 151238 PHENTERMINE HCL Inactive CYMBALTA 30 MG CPEP 1 cap by mouth daily with 60mg CYMBALTA 30 MG CPEP 136545 DULOXETINE HCL Inactive CYMBALTA 60 MG CPEP Take 1 capsule 1 x daily CYMBALTA 60 MG CPEP 183618 DULOXETINE HCL Inactive DOXEPIN HCL 50 MG CAPS 1 CAP PO Q HS DOXEPIN HCL 50 MG CAPS 4528145 DOXEPIN HCL Inactive CHANTIX 1 MG TABS [...] tablet 3x daily KLONOPIN 1 MG TABS 118367 CLONAZEPAM Inactive FENOFIBRATE MICRONIZED 43 MG CAPS 1 CAP PO DAILY FENOFIBRATE MICRONIZED 43 MG CAPS 061846 FENOFIBRATE MICRONIZED Inactive CHANTIX STARTING MONTH SANG 0.5 MG X 11 & 1 MG X 42 TABS 0.5mg daily for 3 days, then 0.5mg BID for 4 days, then 1mg BID CHANTIX STARTING MONTH SANG 0.5 MG X 11 & 1 MG X 42 TABS VARENICLINE TARTRATE Inactive OXYCONTIN 10 MG [id number] take 1 tab po BID for back pain OXYCONTIN 10 MG [id number] OXYCODONE HCL Inactive AMBIEN 10 MG TABS 1/2 - 1 TAB PO Q HS PRN AMBIEN 10 MG TABS 100288 ZOLPIDEM TARTRATE Inactive PREDNISONE 20 MG TAB 2 tabs daily for 3 days, 1 tab daily for 3 days, 1/2 tab daily for 2 days PREDNISONE 20 MG TAB 928026 PREDNISONE Inactive FLAGYL 500 MG TAB 1 tablet by mouth two times daily FLAGYL 500 MG TAB 782976 METRONIDAZOLE Inactive PERCOCET 10-325 MG TABS take 1 tab po qday in addition to the prior percocet script for a total dose of 3 pills a day. PERCOCET 10-325 MG TABS 4257346 OXYCODONE-ACETAMINOPHEN Inactive NICOTINE 14 MG/24HR PT24 1 patch daily - on in AM, off at HS - for smoking cessation NICOTINE 14 MG/24HR PT24 932415 NICOTINE Inactive Immunizations Vaccine Administration Date Value Standard Description Seasonal influenza vaccine, injectable, containing preservative, for > 3 years old (Afluria, FluLaval, Fluzone, Fluvirin, Fluarix, Agriflu(>=18 yo)) Fluzone (>3 yrs.) [OFR678] Influenza, seasonal, injectable Vital Signs Date Name [...] Panel - Chemistry sodium, serum 137 mmol/L 257-846 6589/12/03 potassium, serum 3.8 mmol/L 3.5-5.2 chloride, serum [...] 0.30 mg/dL 0.00-1.00 cholesterol, serum 140 mg/dL 273-273 2758/12/03 triglyceride, serum, fasting 212 mg/dL 30-200 HDL cholesterol, serum 27 mg/dL 32-96 LDL cholesterol, serum 71 mg/dL 0-130 sodium, serum 142 mmol/L 332-772 2067/03/04 potassium, serum 4.6 mmol/L 3.5-5.2 chloride, serum [...] 0.50 mg/dL 0.00-1.00 cholesterol, serum 155 mg/dL 943-634 0822/03/04 triglyceride, serum, fasting 177 mg/dL 30-200 HDL cholesterol, serum 26 mg/dL 32-96 LDL cholesterol, serum 94 mg/dL 0-130 Lab Report: Lipid Panel, Comp. Metabolic Panel, CBC, Thyroid Stimulating ... - Chemistry thyroid stimulating hormone, serum 1950 u[iU]/mL Units converted. See lab report for original value. cholesterol, serum 122 mg/dL 646-423 2398/09/10 triglyceride, serum, fasting 209 mg/dL 30-200 HDL cholesterol, serum 26 mg/dL 32-96 LDL cholesterol, serum 54 mg/dL 0-130 sodium, serum 138 mmol/L 692-445 2754/09/10 potassium, serum 4.8 mmol/L 3.5-5.2 chloride, serum [...] mg/dL Encounters Code Encounter Date Provider Facility CPT-52657 Level 4 Est. Patient 08:49:16 CDT Darin Willis MD [facility] CPT-47586 Level 4 Est. Patient 13:11:49 CDT Darin Willis MD [facility] CPT-06252 Level 4 Est. Patient 15:10:08 CDT Darin Willis MD [facility] CPT-73026 Level 4 Est. Patient 15:16:28 CDT Darin Willis MD [facility] CPT-79719 Level 3 Est. 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 Patient 12:16:32 SLICING MACHINE TENDER Darin Willis MD [facility]-33834 Level 4 Est. Patient 13:19:57 SLICING MACHINE TENDER Darin Willis MD [facility]-30676 Level 4 Est. Patient 11:56:49 SLICING MACHINE TENDER Darin Willis MD [facility]-38065 Level 4 Est. Patient 13:16:44 CDT Darin Willis MD [facility]-59628 Level 4 Est. Patient 14:41:11 CDT Darin Willis MD [facility]-71234 Level 3 Est. Patient 17:53:28 CDT Darin Willis MD [facility]-96826 Level 3 Est. Patient 10:15:54 CDT Darin Willis MD [facility]-40846 Level 4 Est. Patient 20:46:40 SLICING MACHINE TENDER Darin Willis MD [facility]-93244 Level 4 Est. Patient 21:17:49 SLICING MACHINE TENDER Darin Willis MD [facility]-19259 Level 3 Est. Patient 10:46:40 SLICING MACHINE TENDER Jesus Adams MD [facility]-13171 Level 3 Est. Patient 18:04:06 SLICING MACHINE TENDER Darin Willis MD [facility]-60012 Level 3 Est. Patient 11:36:33 SLICING MACHINE TENDER Darin Willis MD [facility]-18784 Level 3 Est. Patient 13:16:12 CDT Leigh Garcia MD PhD [facility]-14996 Level 3 Est. Patient 11:35:02 CDT Darin Willis MD [facility] CPT-86925 Level 3 Est. Patient 11:41:50 CDT Darin Willis MD [facility] CPT-12481 Level 3 Est. Patient 16:36:45 CDT Darin Willis MD [facility] CPT-02779 Level 2 New Patient 18:30:11 CDT Darin Willis MD [facility] Procedures Code Procedure Name Date Entry Date Standard Description CPT-79569 Venipuncture Draw Fee 10:33:53 SLICING MACHINE TENDER CPT-34130 Knee 3V 10:22:12 SLICING MACHINE TENDER CPT-61766 Venipuncture Draw Fee 11:29:50 SLICING MACHINE TENDER CPT-93693 Administration single or combination vaccine inc oral 15:53:22 CDT CPT-08476 Influenza split virus > age 3 15:53:22 CDT CPT-27518 Abx/Therapy Injection 18:30:11 CDT CPT-J1885 Toradol 60 mg (Ketorolac) 12:21:26 CDT CPT-52985 LS spine comp w obliq 11:37:16 CDT
--- NOTE | 2018-08-21 22:14 | ED Lower Extremity ---
General Chief Complaint: Laceration Stated Complaint: LACERATION ON RT KNEE Nursing Triage Note: PT HAD A GLASS JAR CUT HER RIGHT KNEE JUST PRIOR TO ARRIVAL. PT UNSURE OF LAST TDAP. LACERATION IS UNAPPROXIMATED WITH BLEEDING CONTROLLED. Nursing Sepsis Screen: No Definite Risk Source: patient Exam Limitations: no limitations History of Present Illness Date Seen by Provider: Aug 21, 2018 Time Seen by Provider: 22:12 Initial Comments To ER with reports that a glass jar fell out of the cabinet and lacerated the anterior right knee just over the patella just prior to arrival. Last tetanus shot she thinks was about 8 years ago. Onset: just prior to arrival Severity: mild Pain/Injury Location: right knee Method of Injury: unknown Allergies and Home Medications Allergies Coded Allergies: Codeine (Verified Allergy, Severe, LIQUID CODEINE = THROAT SWELLED SHUT, 03/06/06) Home Medications Alprazolam 1 Mg Tablet, 0.5-1 TAB PO QID PRN for ANXIETY, (Reported) Cyclobenzaprine HCl 5 Mg Tablet, 5 MG PO Q8H PRN for SPASMS Prescribed by: HARMAN BOSTON on 03/29/15 183 Ibuprofen 800 Mg Tab, 800 MG PO Q8HR PRN Prescribed by: YAQUELIN SWENSON on 01/03/13 0945 Paroxetine HCl 20 Mg Tablet, 20 MG PO DAILY, (Reported) Prednisone 20 Mg Tab, 40 MG PO DAILY Prescribed by: HARMAN BOSTON on 03/29/15 1826 Tramadol HCl 50 Mg Tablet, 50 MG PO Q4H PRN for PAIN Prescribed by: HARMAN BOSTON on 03/29/15 183 Zolpidem Tartrate 5 Mg Tablet, 5 MG PO HS PRN for INSOMNIA, (Reported) Patient Home Medication List Home Medication List Reviewed: Yes Review of Systems Constitutional: see HPI EENTM: see HPI Respiratory: no symptoms reported Cardiovascular: no symptoms reported Genitourinary: no symptoms reported Musculoskeletal: no symptoms reported Skin: see HPI Psychiatric/Neurological: No Symptoms Reported Past Owbzacb-Kjqzbn-Blvkei Hx Patient Social History Alcohol Use: Denies Use Recreational Drug Use: Yes (NONE FOR 10 MONTHS) Smoking Status: Current Everyday Smoker Recent Foreign Travel: No Contact w/Someone Who Travel: No Recent Infectious Disease Expo: No Recent Hopitalizations: Yes (CHILDBIRTH/ABSCESS RIGHT AXILLA/SURGERY) Physical Abuse: No Sexual Abuse: No Mistreated: No Fear: No Immunizations Up To Date Tetanus Booster (TDap): Unknown Past Medical History Surgeries: Yes ( X2, WOUND CLOSURE, RIGHT BREAST BX ) Hysterectomy Respiratory: No Cardiac: No Neurological: No Reproductive Disorders: No 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 oz. 124.570441sg; BMI Method:Stated General Appearance: WD/WN, no apparent distress HEENT: PERRL/EOMI, normal ENT inspection Legs: bilateral leg non-tender, bilateral leg normal inspection, bilateral leg normal range of motion Knees: right knee other (right knee has a 2cm laceration over the anterior surface of this clean linear without foreign body identified To the subcutaneous tissue but not down to the bone.) Ankles: bilateral ankle non-tender, bilateral ankle normal inspection, bilateral ankle normal range of motion Feet: bilateral foot non-tender, bilateral foot normal inspection, bilateral foot normal range of motion Neurologic/Psychiatric: alert, normal mood/affect, oriented x 3 Skin: normal color, warm/dry Procedures/Interventions Wound Location: Lower Extremities Wound Length (cm): 2 Wound's Depth, Shape: linear, sub Q Wound Explored: clean Anesthesia: Lidocaine w/ Epi Volume Anesthetic (ccs): 3 Suture: Prolene Suture Size: 4-0 Number of Sutures: 3 Layer Closure?: 1 Number Deep Layer Sutures: 0 Progress/Results/Core Measures Results/Orders My Orders Orders - LORNA ALCARAZ APRN Dipht,Jair(Acell),Tet Adult ([employer] (08/21/18 22:15) Vital Signs/I&O 08/21/18 22:03 Temp 98.4 Pulse 62 Resp 18 B/P (MAP) 144/73 (96) Blood Pressure Mean: 96 Departure Impression Primary Impression: Knee laceration Qualified Codes: S81.011A - Laceration without foreign body, right knee, initial encounter Disposition: 01 HOME, SELF-CARE Condition: Stable Departure-Patient Inst. Decision time for Depature: 22:13 Referrals: [facility] (PCP/Family) Primary Care Physician Patient Instructions: Laceration Repair With Stitches (DC) Add. Discharge Instructions: 1. Return to ER for any concerns such as redness or swelling or fever which may indicate infection 2. You can shower leading water run over the starting tomorrow but do not soak this in water such as a hot tub bathtub swimming pool until the stitches have been removed. Return to the emergency room to have the stitches removed in 10-12 days. LORNA ALCARAZ APRN Aug 21, 2018 22:14
[2018-08-21] MEDS ORDERED: TETANUS,DIPTH,PERTUSS P/F (BOOSTRIX) 0.5 ML VIAL IM ONE (22:15)
--- OUTSIDE RECORDS SUMMARY | 2018-08-21 22:17 | XMS REPORT | Clinical Summary ---
Author Author Admin, CAROLINE Organization [facility] Address Unknown Phone Unavailable Allergies, Adverse Reactions, [...] Obesity, unspecified HYPERLIPIDEMIA 272.4 Active Kat Sparks [facility] Other and unspecified hyperlipidemia KNEE [...] a day for sc=moking cessation VARENICLINE TARTRATE [id number] No Longer Active Darin Willis MD Active KLONOPIN 0.5 MG TABS 1 TAB PO TID PRN CLONAZEPAM 73539279432 Active Darin iWllis MD Active PAXIL 20 MG TABS 1 TAB PO DAILY PAROXETINE HCL 82939409133 Active Darin Willis MD Active ALPRAZOLAM 1 MG TABS 1 tablet twice daily as needed ALPRAZOLAM 05777555007 No Longer Active Darin Willis MD Active PRISTIQ 100 MG [id number] 1 TAB PO DAILY DESVENLAFAXINE SUCCINATE 96168325025 No Longer Active Darin Willis MD Active OXYCONTIN 20 MG T12A take 1 tab po BID for chronic pain. OXYCODONE HCL 85439360735 Active Darin Willis MD Active PERCOCET 10-325 MG TABS 1 tablet TID prn back pain OXYCODONE-ACETAMINOPHEN 72333633845 Active Darin Willis MD Active RISPERDAL 1 MG TABS take 1 tab in am and 1/2 tab at bedtime RISPERIDONE 54710476574 Active Darin Willis MD Active AMBIEN 10 MG TABS 1/2 - 1 TAB PO Q HS PRN ZOLPIDEM TARTRATE 75058851589 No Longer Active Darin Willis MD Active OXYCONTIN 10 MG [id number] take 1 tab po BID for back pain OXYCODONE HCL No Longer Active Darin Willis MD Active OXYCONTIN 15 MG T12A take 1 tab po BID for chronic pain OXYCODONE HCL 09327457923 Active Darin Willis MD Active CHANTIX STARTING MONTH SANG 0.5 MG X 11 & 1 MG X 42 TABS 0.5mg daily for 3 days, then 0.5mg BID for 4 days, then 1mg BID VARENICLINE TARTRATE 91027805825 No Longer Active Darin Willis MD Active FENOFIBRATE MICRONIZED 43 MG CAPS 1 CAP PO DAILY FENOFIBRATE MICRONIZED 55713544390 No Longer Active Anjana hO Active FENOFIBRATE MICRONIZED 67 MG CAPS 1 TAB PO DAILY FENOFIBRATE MICRONIZED 02817832375 Active Darin Willis MD Active NICOTINE 14 MG/24HR PT24 1 patch daily - on in AM, off at HS - for smoking cessation NICOTINE 35970737225 No Longer Active Darin Willis MD Active KLONOPIN 1 MG TABS Take 1 tablet 3x daily CLONAZEPAM 31238153216 No Longer Active Darin Willis MD Active CHANTIX STARTING MONTH SANG 0.5 MG X 11 & 1 MG X 42 TABS VARENICLINE TARTRATE 45663006909 No Longer Active Darin Willis MD Active TOPAMAX 50 MG TABS take 1 tab po qday TOPIRAMATE 35743940220 Active Darin Willis MD Active LASIX 20 MG TAB 1 tablet by mouth daily prn for swelling FUROSEMIDE 68222432922 Active Darin Willis MD Active MULTIVITAMINS TABS 1 pill by mouth daily MULTIPLE VITAMIN 88263126951 No Longer Active Darin Willis MD Active CHANTIX 1 MG TABS 1 twice a day VARENICLINE TARTRATE 96101033071 No Longer Active Darin Willis MD Active DOXEPIN HCL 50 MG CAPS 1 CAP PO Q HS DOXEPIN HCL 91875509853 No Longer Active Darin Willis MD Active CYMBALTA 60 MG CPEP Take 1 capsule 1 x daily DULOXETINE HCL 26727690730 No Longer Active Darin Willis MD Active BUSPIRONE HCL 10 MG TABS 1 TAB PO TID BUSPIRONE HCL 90960587610 Active Darin Willis MD Active CYMBALTA 30 MG CPEP 1 cap by mouth daily with 60mg DULOXETINE HCL 70994489025 No Longer Active Darin Willis MD Active PERCOCET 10-325 MG TABS take 1 tab po qday in addition to the prior percocet script for a total dose of 3 pills a day. OXYCODONE-ACETAMINOPHEN 77383364887 No Longer Active Darin Willis MD Active PHENTERMINE HCL 37.5 MG CAPS 1 tab by mouth daily 30 minutes before breakfast PHENTERMINE HCL 20594730540 No Longer Active Darin Willis MD Active DIETHYLPROPION HCL CR 75 MG [id number] 1 qAM, 30 minutes before or 2 hours after breakfast, for weight loss DIETHYLPROPION HCL 53776575287 Active Darin Willis MD Active FISH OIL 1000 MG CPDR 1 po tid OMEGA-3 FATTY ACIDS 43236263760 Active Darin Willis MD Active MOBIC 15 MG TABS 1 tablet by mouth daily MELOXICAM 92495666757 No Longer Active Darin Willis MD Active DICLOFENAC SODIUM 50 MG TBEC 1 po TID PRN Knee pain DICLOFENAC SODIUM 12021604441 No Longer Active Darin Willis MD Active SIMVASTATIN 40 MG TABS 1 TAB PO Q HS SIMVASTATIN 58671346886 Active Darin Willis MD Active SIMVASTATIN 20 MG TABS 1 tab daily at bedtime SIMVASTATIN 51982966179 No Longer Active Anjana Oh Active OXYCODONE-ACETAMINOPHEN 7.5-325 MG TABS take 1 tab po BID prn back pain OXYCODONE-ACETAMINOPHEN 11772884720 No Longer Active Darin Willis MD Active SEROQUEL 300 MG TABS 1 TAB PO Q HS QUETIAPINE FUMARATE 98639859290 No Longer Active Darin Willis MD Active CHANTIX STARTING MONTH SANG 0.5 MG X 11 & 1 MG X 42 TABS 0.5mg daily for 3 days, then 0.5mg BID for 4 days, then 1mg BID VARENICLINE TARTRATE 76967561811 No Longer Active Darin Willis MD Active HYDROCODONE-ACETAMINOPHEN 7.5-500 MG TABS take 1 tab po q 6 hours prn pain. Start taking medication sparingly. HYDROCODONE-ACETAMINOPHEN 36403893482 No Longer Active Darin Willis MD Active WELLBUTRIN XL 300 MG [id number] 1 po qd BUPROPION HCL 86642704787 No Longer Active Darin Willis MD Active TOPAMAX 100 MG TABS 1 tab po daily TOPIRAMATE 40434437618 No Longer Active Jesus Adams MD Active PROZAC 20 MG CAPS 1 PO DAILY FLUOXETINE HCL 04697198127 No Longer Active Jesus Adams MD Active PROZAC 40 MG CAPS 1 cap by mouth qd FLUOXETINE HCL 28948529622 No Longer Active Darin Willis MD Active FLAGYL 500 MG TAB 1 tablet by mouth two times daily METRONIDAZOLE 40221324601 No Longer Active Leigh Garcia MD PhD Active SEROQUEL 100 MG TABS 1 tab po hs QUETIAPINE FUMARATE 67784365934 No Longer Active Leigh Garcia MD PhD Active HYDROCODONE-ACETAMINOPHEN 5-325 MG TABS 1-2 po q 6hr PRN Pain HYDROCODONE-ACETAMINOPHEN 50739097464 No Longer Active Leigh Garcia MD PhD Active HYDROCODONE-ACETAMINOPHEN 7.5-325 MG TABS 1-2 tab po four times a day as needed for pain HYDROCODONE-ACETAMINOPHEN 86852543678 No Longer Active Leigh Garcia MD PhD Active PROMETHAZINE HCL 12.5 MG TABS take 1 tab po q 6 hours prn nausea PROMETHAZINE HCL 59647523304 Active Darin Willis MD Active ZYRTEC ALLERGY 10 MG CAPS 1 po qday for allergies CETIRIZINE HCL 52509621774 Active Darin Willis MD Active PREDNISONE 20 MG TAB 2 tabs daily for 3 days, 1 tab daily for 3 days, 1/2 tab daily for 2 days PREDNISONE 83364732334 No Longer Active Darin Willis MD Active HYDROCODONE-ACETAMINOPHEN 7.5-325 MG TABS 1-2 tab po four times a day as needed for pain HYDROCODONE-ACETAMINOPHEN 7.5-325 MG TABS 519039 HYDROCODONE-ACETAMINOPHEN Inactive HYDROCODONE-ACETAMINOPHEN 5-325 MG TABS 1-2 po q 6hr PRN Pain HYDROCODONE- ACETAMINOPHEN 5-325 MG TABS 519026 HYDROCODONE-ACETAMINOPHEN Inactive SEROQUEL 100 MG TABS 1 tab po hs SEROQUEL 100 MG TABS 480096 QUETIAPINE FUMARATE Inactive PROZAC 40 MG CAPS 1 cap by mouth qd PROZAC 40 MG CAPS 302718 FLUOXETINE HCL Inactive PROZAC 20 MG CAPS 1 PO DAILY PROZAC 20 MG CAPS 042464 FLUOXETINE HCL Inactive TOPAMAX 100 MG TABS 1 tab po daily TOPAMAX 100 MG TABS 789547 TOPIRAMATE Inactive WELLBUTRIN XL 300 MG [id number] 1 po qd WELLBUTRIN XL 300 MG [id number] BUPROPION HCL Inactive HYDROCODONE-ACETAMINOPHEN 7.5-500 MG TABS [...] PO Q HS SEROQUEL 300 MG TABS 207956 QUETIAPINE FUMARATE Inactive OXYCODONE-ACETAMINOPHEN 7.5-325 MG TABS take 1 tab po BID prn back pain OXYCODONE-ACETAMINOPHEN 7.5-325 MG TABS 6537175 OXYCODONE-ACETAMINOPHEN Inactive SIMVASTATIN 20 MG TABS 1 tab daily at bedtime SIMVASTATIN 20 MG TABS 063464 SIMVASTATIN Inactive DICLOFENAC SODIUM 50 MG TBEC 1 po TID PRN Knee pain DICLOFENAC SODIUM 50 MG TBEC 943167 DICLOFENAC SODIUM Inactive MOBIC 15 MG TABS 1 tablet by mouth daily MOBIC 15 MG TABS 901815 MELOXICAM Inactive PHENTERMINE HCL 37.5 MG CAPS 1 tab by mouth daily 30 minutes before breakfast PHENTERMINE HCL 37.5 MG CAPS 934556 PHENTERMINE HCL Inactive CYMBALTA 30 MG CPEP 1 cap by mouth daily with 60mg CYMBALTA 30 MG CPEP 703825 DULOXETINE HCL Inactive CYMBALTA 60 MG CPEP Take 1 capsule 1 x daily CYMBALTA 60 MG CPEP 679497 DULOXETINE HCL Inactive DOXEPIN HCL 50 MG CAPS 1 CAP PO Q HS DOXEPIN HCL 50 MG CAPS 4781585 DOXEPIN HCL Inactive CHANTIX 1 MG TABS [...] tablet 3x daily KLONOPIN 1 MG TABS 702778 CLONAZEPAM Inactive FENOFIBRATE MICRONIZED 43 MG CAPS 1 CAP PO DAILY FENOFIBRATE MICRONIZED 43 MG CAPS 924638 FENOFIBRATE MICRONIZED Inactive CHANTIX STARTING MONTH SANG 0.5 MG X 11 & 1 MG X 42 TABS 0.5mg daily for 3 days, then 0.5mg BID for 4 days, then 1mg BID CHANTIX STARTING MONTH SANG 0.5 MG X 11 & 1 MG X 42 TABS VARENICLINE TARTRATE Inactive OXYCONTIN 10 MG [id number] take 1 tab po BID for back pain OXYCONTIN 10 MG [id number] OXYCODONE HCL Inactive AMBIEN 10 MG TABS 1/2 - 1 TAB PO Q HS PRN AMBIEN 10 MG TABS 763749 ZOLPIDEM TARTRATE Inactive PRISTIQ 100 MG [id number] 1 TAB PO DAILY PRISTIQ 100 MG [id number] DESVENLAFAXINE SUCCINATE Inactive ALPRAZOLAM 1 MG TABS 1 tablet twice daily as needed ALPRAZOLAM 1 MG TABS 394520 ALPRAZOLAM Inactive CHANTIX 1 MG TABS 1 twice a day for sc=moking cessation CHANTIX 1 MG TABS VARENICLINE TARTRATE Inactive PREDNISONE 20 MG TAB 2 tabs daily for 3 days, 1 tab daily for 3 days, 1/2 tab daily for 2 days PREDNISONE 20 MG TAB 274655 PREDNISONE Inactive FLAGYL 500 MG TAB 1 tablet by mouth two times daily FLAGYL 500 MG TAB 896773 METRONIDAZOLE Inactive PERCOCET 10-325 MG TABS take 1 tab po qday in addition to the prior percocet script for a total dose of 3 pills a day. PERCOCET 10-325 MG TABS 5603134 OXYCODONE-ACETAMINOPHEN Inactive NICOTINE 14 MG/24HR PT24 1 patch daily - on in AM, off at HS - for smoking cessation NICOTINE 14 MG/24HR PT24 448435 NICOTINE Inactive Immunizations Vaccine Administration Date Value Standard Description Seasonal influenza vaccine, injectable, containing preservative, for > 3 years old (Afluria, FluLaval, Fluzone, Fluvirin, Fluarix, Agriflu(>=18 yo)) Fluzone (>3 yrs.) [[id number]] Influenza, seasonal, injectable Vital Signs Date Name [...] Panel - Chemistry sodium, serum 137 mmol/L 152-770 6974/12/03 potassium, serum 3.8 mmol/L 3.5-5.2 chloride, serum [...] 0.30 mg/dL 0.00-1.00 cholesterol, serum 140 mg/dL 342-079 0871/12/03 triglyceride, serum, fasting 212 mg/dL 30-200 HDL cholesterol, serum 27 mg/dL 32-96 LDL cholesterol, serum 71 mg/dL 0-130 sodium, serum 142 mmol/L 163-412 6878/03/04 potassium, serum 4.6 mmol/L 3.5-5.2 chloride, serum [...] 0.50 mg/dL 0.00-1.00 cholesterol, serum 155 mg/dL 407-173 3295/03/04 triglyceride, serum, fasting 177 mg/dL 30-200 HDL [...] 0.85 ng/dL 0.76-1.46 cholesterol, serum 180 mg/dL 230-775 2617/09/22 triglyceride, serum, fasting 192 mg/dL 30-200 HDL cholesterol, serum 36 mg/dL 32-96 LDL cholesterol, serum 106 mg/dL 0-130 Office Visit: FOLLOW UP - Chemistry cholesterol, target level 200 mg/dL LDL target level 130 mg/dL HDL cholesterol, serum, target level 40 mg/dL triglyceride, target level 150 mg/dL Encounters Code Encounter Date Provider Facility CPT-08298 Level 4 Est. Patient 08:49:16 CDT Darin Willis MD [facility] CPT-44453 Level 4 Est. Patient 13:11:49 CDT Darin Willis MD [facility] CPT-72422 Level 4 Est. Patient 15:10:08 CDT Darin Willis MD [facility] CPT-26968 Level 4 Est. Patient 15:16:28 CDT Darin Willis MD [facility] CPT-93020 Level 3 Est. Patient 13:37:16 SENIOR MANAGING DIRECTOR Darin Willis MD [facility] CPT-26896 Level 3 Est. Patient 12:16:32 SENIOR MANAGING DIRECTOR Darin Willis MD [facility] CPT-40969 Level 4 Est. Patient 13:19:57 SENIOR MANAGING DIRECTOR Darin Willis MD [facility] CPT-22718 Level 4 Est. Patient 11:56:49 SENIOR MANAGING DIRECTOR Darin Willis MD [facility] CPT-76061 Level 4 Est. Patient 13:16:44 CDT Darin Willis MD [facility] CPT-07779 Level 4 Est. Patient 14:41:11 CDT Darin Willis MD [facility] CPT-13959 Level 3 Est. Patient 17:53:28 CDT Darin Willis MD [facility] CPT-61082 Level 3 Est. Patient 10:15:54 CDT Darin Willis MD [facility] CPT-91470 Level 4 Est. Patient 20:46:40 SENIOR MANAGING DIRECTOR Darin Willis MD [facility] CPT-48499 Level 4 Est. Patient 21:17:49 SENIOR MANAGING DIRECTOR Darin Willis MD [facility] CPT-67739 Level 3 Est. Patient 10:46:40 SENIOR MANAGING DIRECTOR Jesus Adams MD [facility] CPT-81154 Level 3 Est. Patient 18:04:06 SENIOR MANAGING DIRECTOR Darin Willis MD [facility] CPT-97915 Level 3 Est. Patient 11:36:33 SENIOR MANAGING DIRECTOR Darin Willis MD [facility] CPT-48420 Level 3 Est. Patient 13:16:12 CDT Leigh Garcia MD PhD [facility] CPT-30826 Level 3 Est. Patient 11:35:02 CDT Darin Willis MD [facility] CPT-92396 Level 3 Est. Patient 11:41:50 CDT Darin Willis MD [facility] CPT-09243 Level 3 Est. Patient 16:36:45 CDT Darin Willis MD [facility] CPT-84309 Level 2 New Patient 18:30:11 CDT Darin Willis MD [facility] Procedures Code Procedure Name Date Entry Date Standard Description CPT-83636 Venipuncture Draw Fee 10:33:53 SENIOR MANAGING DIRECTOR CPT-39733 Knee 3V 10:22:12 SENIOR MANAGING DIRECTOR CPT-03401 Venipuncture Draw Fee 11:29:50 SENIOR MANAGING DIRECTOR CPT-34665 Administration single or combination vaccine inc oral 15:53:22 CDT CPT-28996 Influenza split virus > age 3 15:53:22 CDT CPT-86022 Abx/Therapy Injection 18:30:11 CDT CPT-J1885 Toradol 60 mg (Ketorolac) 12:21:26 CDT CPT-83381 LS spine comp w obliq 11:37:16 CDT
--- OUTSIDE RECORDS SUMMARY | 2018-08-21 22:18 | XMS REPORT | Clinical Summary ---
Author Author Admin, CAROLINE Organization [facility] Address Unknown Phone Unavailable Allergies, Adverse [...] Obesity, unspecified HYPERLIPIDEMIA 272.4 Active Kat Sparks [facility] Other and unspecified hyperlipidemia KNEE PAIN, LEFT, [...] a day for sc=moking cessation VARENICLINE TARTRATE [id number] No Longer Active Darin Willis MD Active KLONOPIN 0.5 MG TABS 1 TAB PO TID PRN CLONAZEPAM 40745955900 Active Darin Willis MD Active PAXIL 20 MG TABS 1 TAB PO DAILY PAROXETINE HCL 31224344343 Active Darin Willis MD Active ALPRAZOLAM 1 MG TABS 1 tablet twice daily as needed ALPRAZOLAM 87167929134 No Longer Active Darin Willis MD Active PRISTIQ 100 MG [id number] 1 TAB PO DAILY DESVENLAFAXINE SUCCINATE 02430818910 No Longer Active Darin Willis MD Active OXYCONTIN 20 MG T12A take 1 tab po BID for chronic pain. OXYCODONE HCL 33242883045 Active Darin Willis MD Active PERCOCET 10-325 MG TABS 1 tablet TID prn back pain OXYCODONE-ACETAMINOPHEN 59996414075 Active Darin Willis MD Active RISPERDAL 1 MG TABS take 1 tab in am and 1/2 tab at bedtime RISPERIDONE 27783746318 Active Darin Willis MD Active AMBIEN 10 MG TABS 1/2 - 1 TAB PO Q HS PRN ZOLPIDEM TARTRATE 49313467912 No Longer Active Darin Willis MD Active OXYCONTIN 10 MG [id number] take 1 tab po BID for back pain OXYCODONE HCL No Longer Active Darin Willis MD Active OXYCONTIN 15 MG T12A take 1 tab po BID for chronic pain OXYCODONE HCL 58302076699 Active Darin Willis MD Active CHANTIX STARTING MONTH SANG 0.5 MG X 11 & 1 MG X 42 TABS 0.5mg daily for 3 days, then 0.5mg BID for 4 days, then 1mg BID VARENICLINE TARTRATE 54204586917 No Longer Active Darin Willis MD Active FENOFIBRATE MICRONIZED 43 MG CAPS 1 CAP PO DAILY FENOFIBRATE MICRONIZED 33737946902 No Longer Active Anjana Oh Active FENOFIBRATE MICRONIZED 67 MG CAPS 1 TAB PO DAILY FENOFIBRATE MICRONIZED 05579690761 Active Darin Willis MD Active NICOTINE 14 MG/24HR PT24 1 patch daily - on in AM, off at HS - for smoking cessation NICOTINE 61846740042 No Longer Active Darin Willis MD Active KLONOPIN 1 MG TABS Take 1 tablet 3x daily CLONAZEPAM 07648084524 No Longer Active Darin Willis MD Active CHANTIX STARTING MONTH SANG 0.5 MG X 11 & 1 MG X 42 TABS VARENICLINE TARTRATE 36155990228 No Longer Active Darin Willis MD Active TOPAMAX 50 MG TABS take 1 tab po qday TOPIRAMATE 78621404185 Active Darin Willis MD Active LASIX 20 MG TAB 1 tablet by mouth daily prn for swelling FUROSEMIDE 97203853577 Active Darin Willis MD Active MULTIVITAMINS TABS 1 pill by mouth daily MULTIPLE VITAMIN 79925983439 No Longer Active Darin Willis MD Active CHANTIX 1 MG TABS 1 twice a day VARENICLINE TARTRATE 78326227603 No Longer Active Darin Willis MD Active DOXEPIN HCL 50 MG CAPS 1 CAP PO Q HS DOXEPIN HCL 24374030141 No Longer Active Darin Willis MD Active CYMBALTA 60 MG CPEP Take 1 capsule 1 x daily DULOXETINE HCL 23075234916 No Longer Active Darin Willis MD Active BUSPIRONE HCL 10 MG TABS 1 TAB PO TID BUSPIRONE HCL 38865432071 Active Darin Willis MD Active CYMBALTA 30 MG CPEP 1 cap by mouth daily with 60mg DULOXETINE HCL 40886117493 No Longer Active Darin Willis MD Active PERCOCET 10-325 MG TABS take 1 tab po qday in addition to the prior percocet script for a total dose of 3 pills a day. OXYCODONE-ACETAMINOPHEN 55801008070 No Longer Active Darin Willis MD Active PHENTERMINE HCL 37.5 MG CAPS 1 tab by mouth daily 30 minutes before breakfast PHENTERMINE HCL 39951453839 No Longer Active Darin Willis MD Active DIETHYLPROPION HCL CR 75 MG [id number] 1 qAM, 30 minutes before or 2 hours after breakfast, for weight loss DIETHYLPROPION HCL 09698416104 Active Darin Willis MD Active FISH OIL 1000 MG CPDR 1 po tid OMEGA-3 FATTY ACIDS 10259151397 Active Darin Willis MD Active MOBIC 15 MG TABS 1 tablet by mouth daily MELOXICAM 52382867225 No Longer Active Darin Willis MD Active DICLOFENAC SODIUM 50 MG TBEC 1 po TID PRN Knee pain DICLOFENAC SODIUM 77385988081 No Longer Active Darin Willis MD Active SIMVASTATIN 40 MG TABS 1 TAB PO Q HS SIMVASTATIN 60995857693 Active Darin Willis MD Active SIMVASTATIN 20 MG TABS 1 tab daily at bedtime SIMVASTATIN 14642766027 No Longer Active Anjana Oh Active OXYCODONE-ACETAMINOPHEN 7.5-325 MG TABS take 1 tab po BID prn back pain OXYCODONE-ACETAMINOPHEN 24440423836 No Longer Active Darin Willis MD Active SEROQUEL 300 MG TABS 1 TAB PO Q HS QUETIAPINE FUMARATE 49825791794 No Longer Active Darin Willis MD Active CHANTIX STARTING MONTH SANG 0.5 MG X 11 & 1 MG X 42 TABS 0.5mg daily for 3 days, then 0.5mg BID for 4 days, then 1mg BID VARENICLINE TARTRATE 92613442337 No Longer Active Darin Willis MD Active HYDROCODONE-ACETAMINOPHEN 7.5-500 MG TABS take 1 tab po q 6 hours prn pain. Start taking medication sparingly. HYDROCODONE-ACETAMINOPHEN 33599605921 No Longer Active Darin Willis MD Active WELLBUTRIN XL 300 MG [id number]-APO 1 po qd BUPROPION HCL 92210356518 No Longer Active Darin Willis MD Active TOPAMAX 100 MG TABS 1 tab po daily TOPIRAMATE 51177130480 No Longer Active Jesus Adams MD Active PROZAC 20 MG CAPS 1 PO DAILY FLUOXETINE HCL 87630642240 No Longer Active Jesus Adams MD Active PROZAC 40 MG CAPS 1 cap by mouth qd FLUOXETINE HCL 75113672053 No Longer Active Darin Willis MD Active FLAGYL 500 MG TAB 1 tablet by mouth two times daily METRONIDAZOLE 61565230553 No Longer Active Leigh Garcia MD PhD Active SEROQUEL 100 MG TABS 1 tab po hs QUETIAPINE FUMARATE 86013436833 No Longer Active Leigh Garcia MD PhD Active HYDROCODONE-ACETAMINOPHEN 5-325 MG TABS 1-2 po q 6hr PRN Pain HYDROCODONE-ACETAMINOPHEN 36130368719 No Longer Active Leigh Garcia MD PhD Active HYDROCODONE-ACETAMINOPHEN 7.5-325 MG TABS 1-2 tab po four times a day as needed for pain HYDROCODONE-ACETAMINOPHEN 28096794503 No Longer Active Leigh Garcia MD PhD Active PROMETHAZINE HCL 12.5 MG TABS take 1 tab po q 6 hours prn nausea PROMETHAZINE HCL 97058473239 Active Darin Willis MD Active ZYRTEC ALLERGY 10 MG CAPS 1 po qday for allergies CETIRIZINE HCL 19444614950 Active Darin Willis MD Active PREDNISONE 20 MG TAB 2 tabs daily for 3 days, 1 tab daily for 3 days, 1/2 tab daily for 2 days PREDNISONE 11827078348 No Longer Active Darin Willis MD Active HYDROCODONE-ACETAMINOPHEN 7.5-325 MG TABS 1-2 tab po four times a day as needed for pain HYDROCODONE-ACETAMINOPHEN 7.5-325 MG TABS 273495 HYDROCODONE-ACETAMINOPHEN Inactive HYDROCODONE-ACETAMINOPHEN 5-325 MG TABS 1-2 po q 6hr PRN Pain HYDROCODONE- ACETAMINOPHEN 5-325 MG TABS 170254 HYDROCODONE-ACETAMINOPHEN Inactive SEROQUEL 100 MG TABS 1 tab po hs SEROQUEL 100 MG TABS 701840 QUETIAPINE FUMARATE Inactive PROZAC 40 MG CAPS 1 cap by mouth qd PROZAC 40 MG CAPS 663543 FLUOXETINE HCL Inactive PROZAC 20 MG CAPS 1 PO DAILY PROZAC 20 MG CAPS 664290 FLUOXETINE HCL Inactive TOPAMAX 100 MG TABS 1 tab po daily TOPAMAX 100 MG TABS 615536 TOPIRAMATE Inactive WELLBUTRIN XL 300 MG [id number] 1 po qd WELLBUTRIN XL 300 MG [id number] BUPROPION HCL Inactive HYDROCODONE-ACETAMINOPHEN 7.5-500 MG TABS [...] PO Q HS SEROQUEL 300 MG TABS 219062 QUETIAPINE FUMARATE Inactive OXYCODONE-ACETAMINOPHEN 7.5-325 MG TABS take 1 tab po BID prn back pain OXYCODONE-ACETAMINOPHEN 7.5-325 MG TABS 4383245 OXYCODONE-ACETAMINOPHEN Inactive SIMVASTATIN 20 MG TABS 1 tab daily at bedtime SIMVASTATIN 20 MG TABS 585765 SIMVASTATIN Inactive DICLOFENAC SODIUM 50 MG TBEC 1 po TID PRN Knee pain DICLOFENAC SODIUM 50 MG TBEC 269480 DICLOFENAC SODIUM Inactive MOBIC 15 MG TABS 1 tablet by mouth daily MOBIC 15 MG TABS 132745 MELOXICAM Inactive PHENTERMINE HCL 37.5 MG CAPS 1 tab by mouth daily 30 minutes before breakfast PHENTERMINE HCL 37.5 MG CAPS 410451 PHENTERMINE HCL Inactive CYMBALTA 30 MG CPEP 1 cap by mouth daily with 60mg CYMBALTA 30 MG CPEP 298181 DULOXETINE HCL Inactive CYMBALTA 60 MG CPEP Take 1 capsule 1 x daily CYMBALTA 60 MG CPEP 588719 DULOXETINE HCL Inactive DOXEPIN HCL 50 MG CAPS 1 CAP PO Q HS DOXEPIN HCL 50 MG CAPS 9706081 DOXEPIN HCL Inactive CHANTIX 1 MG TABS [...] tablet 3x daily KLONOPIN 1 MG TABS 498959 CLONAZEPAM Inactive FENOFIBRATE MICRONIZED 43 MG CAPS 1 CAP PO DAILY FENOFIBRATE MICRONIZED 43 MG CAPS 206718 FENOFIBRATE MICRONIZED Inactive CHANTIX STARTING MONTH SANG 0.5 MG X 11 & 1 MG X 42 TABS 0.5mg daily for 3 days, then 0.5mg BID for 4 days, then 1mg BID CHANTIX STARTING MONTH SANG 0.5 MG X 11 & 1 MG X 42 TABS VARENICLINE TARTRATE Inactive OXYCONTIN 10 MG [id number] take 1 tab po BID for back pain OXYCONTIN 10 MG [id number] OXYCODONE HCL Inactive AMBIEN 10 MG TABS 1/2 - 1 TAB PO Q HS PRN AMBIEN 10 MG TABS 844014 ZOLPIDEM TARTRATE Inactive PRISTIQ 100 MG [id number] 1 TAB PO DAILY PRISTIQ 100 MG [id number]-TIS DESVENLAFAXINE SUCCINATE Inactive ALPRAZOLAM 1 MG TABS 1 tablet twice daily as needed ALPRAZOLAM 1 MG TABS 087940 ALPRAZOLAM Inactive CHANTIX 1 MG TABS 1 twice a day for sc=moking cessation CHANTIX 1 MG TABS VARENICLINE TARTRATE Inactive PREDNISONE 20 MG TAB 2 tabs daily for 3 days, 1 tab daily for 3 days, 1/2 tab daily for 2 days PREDNISONE 20 MG TAB 955440 PREDNISONE Inactive FLAGYL 500 MG TAB 1 tablet by mouth two times daily FLAGYL 500 MG TAB 106215 METRONIDAZOLE Inactive PERCOCET 10-325 MG TABS take 1 tab po qday in addition to the prior percocet script for a total dose of 3 pills a day. PERCOCET 10-325 MG TABS 1867085 OXYCODONE-ACETAMINOPHEN Inactive NICOTINE 14 MG/24HR PT24 1 patch daily - on in AM, off at HS - for smoking cessation NICOTINE 14 MG/24HR PT24 233413 NICOTINE Inactive Immunizations Vaccine Administration Date Value Standard Description Seasonal influenza vaccine, injectable, containing preservative, for > 3 years old (Afluria, FluLaval, Fluzone, Fluvirin, Fluarix, Agriflu(>=18 yo)) Fluzone (>3 yrs.) [[id number]] Influenza, seasonal, injectable Vital Signs Date Name [...] Panel - Chemistry sodium, serum 137 mmol/L 786-452 8604/12/03 potassium, serum 3.8 mmol/L 3.5-5.2 chloride, serum [...] 0.30 mg/dL 0.00-1.00 cholesterol, serum 140 mg/dL 692-047 8807/12/03 triglyceride, serum, fasting 212 mg/dL 30-200 HDL cholesterol, serum 27 mg/dL 32-96 LDL cholesterol, serum 71 mg/dL 0-130 sodium, serum 142 mmol/L 946-136 9938/03/04 potassium, serum 4.6 mmol/L 3.5-5.2 chloride, serum [...] 0.50 mg/dL 0.00-1.00 cholesterol, serum 155 mg/dL 674-493 0186/03/04 triglyceride, serum, fasting 177 mg/dL 30-200 HDL [...] 0.85 ng/dL 0.76-1.46 cholesterol, serum 180 mg/dL 146-877 2544/09/22 triglyceride, serum, fasting 192 mg/dL 30-200 HDL cholesterol, serum 36 mg/dL 32-96 LDL cholesterol, serum 106 mg/dL 0-130 Office Visit: FOLLOW UP - Chemistry cholesterol, target level 200 mg/dL LDL target level 130 mg/dL HDL cholesterol, serum, target level 40 mg/dL triglyceride, target level 150 mg/dL Encounters Code Encounter Date Provider Facility CPT-81622 Level 4 Est. Patient 22:18:18 CDT Darin Willis MD [facility] CPT-63436 Level 4 Est. Patient 08:49:16 CDT Darin Willis MD [facility] CPT-20833 Level 4 Est. Patient 13:11:49 CDT Darin Willis MD [facility] CPT-57478 Level 4 Est. Patient 15:10:08 CDT Darin Willis MD [facility] CPT-42707 Level 4 Est. Patient 15:16:28 CDT Darin Willis MD [facility] CPT-66558 Level 3 Est. Patient 13:37:16 GAME AUTHOR Darin Willis MD [facility] CPT-55932 Level 3 Est. Patient 12:16:32 GAME AUTHOR Darin Willis MD [facility] CPT-47750 Level 4 Est. Patient 13:19:57 GAME AUTHOR Darin Willis MD [facility] CPT-36184 Level 4 Est. Patient 11:56:49 GAME AUTHOR Darin Willis MD [facility] CPT-85575 Level 4 Est. Patient 13:16:44 CDT Darin Willis MD [facility] CPT-73618 Level 4 Est. Patient 14:41:11 CDT Darin Willis MD [facility] CPT-25856 Level 3 Est. Patient 17:53:28 CDT Darin Willis MD [facility] CPT-04396 Level 3 Est. Patient 10:15:54 CDT Darin Willis MD [facility] CPT-79495 Level 4 Est. Patient 20:46:40 GAME AUTHOR Darin Willis MD [facility] CPT-60750 Level 4 Est. Patient 21:17:49 GAME AUTHOR Darin Willis MD [facility] CPT-65588 Level 3 Est. Patient 10:46:40 GAME AUTHOR Jesus Adams MD [facility] CPT-90786 Level 3 Est. Patient 18:04:06 GAME AUTHOR Darin Willis MD [facility] CPT-53886 Level 3 Est. Patient 11:36:33 GAME AUTHOR Darin Willis MD [facility] CPT-60201 Level 3 Est. Patient 13:16:12 CDT Leigh Garcia MD PhD [facility] CPT-38764 Level 3 Est. Patient 11:35:02 CDT Darin Willis MD [facility] CPT-36678 Level 3 Est. Patient 11:41:50 CDT Darin Willis MD [facility] CPT-97181 Level 3 Est. Patient 16:36:45 CDT Darin Willis MD [facility] CPT-40706 Level 2 New Patient 18:30:11 CDT Darin Willis MD [facility] Procedures Code Procedure Name Date Entry Date Standard Description CPT-39990 Venipuncture Draw Fee 10:33:53 GAME AUTHOR CPT-23035 Knee 3V 10:22:12 GAME AUTHOR CPT-50307 Venipuncture Draw Fee 11:29:50 GAME AUTHOR CPT-97704 Administration single or combination vaccine inc oral 15:53:22 CDT CPT-27478 Influenza split virus > age 3 15:53:22 CDT CPT-11420 Abx/Therapy Injection 18:30:11 CDT CPT-J1885 Toradol 60 mg (Ketorolac) 12:21:26 CDT CPT-57641 LS spine comp w obliq 11:37:16 CDT
--- OUTSIDE RECORDS SUMMARY | 2018-08-21 22:21 | XMS REPORT | Clinical Summary ---
Author Author Admin, CAROLINE Organization [facility] Address Unknown Phone Unavailable Allergies, Adverse Reactions, [...] Obesity, unspecified HYPERLIPIDEMIA 272.4 Active Kat Sparks [facility] Other and unspecified hyperlipidemia KNEE PAIN, [...] po BID for chronic pain. OXYCODONE HCL 99543928082 Active Darin Willis MD Active PERCOCET 10-325 MG TABS 1 tablet TID prn back pain OXYCODONE-ACETAMINOPHEN 93020547130 Active Darin Willis MD Active RISPERDAL 1 MG TABS take 1 tab in am and 1/2 tab at bedtime RISPERIDONE 10570915309 Active Darin Willis MD Active AMBIEN 10 MG TABS 1/2 - 1 TAB PO Q HS PRN ZOLPIDEM TARTRATE 31119556917 No Longer Active Darin Willis MD Active OXYCONTIN 10 MG [id number] take 1 tab po BID for back pain OXYCODONE HCL No Longer Active Darin Willis MD Active OXYCONTIN 15 MG T12A take 1 tab po BID for chronic pain OXYCODONE HCL 98006710211 Active Darin Willis MD Active CHANTIX STARTING MONTH SANG 0.5 MG X 11 & 1 MG X 42 TABS 0.5mg daily for 3 days, then 0.5mg BID for 4 days, then 1mg BID VARENICLINE TARTRATE 86265297146 No Longer Active Darin Willis MD Active CHANTIX 1 MG TABS 1 twice a day for sc=moking cessation VARENICLINE TARTRATE 13456055728 Active Syed Small DO Active FENOFIBRATE MICRONIZED 43 MG CAPS 1 CAP PO DAILY FENOFIBRATE MICRONIZED 20330402741 No Longer Active Anjana Oh Active FENOFIBRATE MICRONIZED 67 MG CAPS 1 TAB PO DAILY FENOFIBRATE MICRONIZED 01649167157 Active Darin Willis MD Active NICOTINE 14 MG/24HR PT24 1 patch daily - on in AM, off at HS - for smoking cessation NICOTINE 51389131919 No Longer Active Darin Willis MD Active ALPRAZOLAM 1 MG TABS 1 tablet twice daily as needed ALPRAZOLAM 65049640216 Active Darin Willis MD Active KLONOPIN 1 MG TABS Take 1 tablet 3x daily CLONAZEPAM 77116344145 No Longer Active Darin Willis MD Active CHANTIX STARTING MONTH SANG 0.5 MG X 11 & 1 MG X 42 TABS VARENICLINE TARTRATE 24903442833 No Longer Active Darin Willis MD Active TOPAMAX 50 MG TABS take 1 tab po qday TOPIRAMATE 55746001456 Active Darin Willis MD Active LASIX 20 MG TAB 1 tablet by mouth daily prn for swelling FUROSEMIDE 33711791021 Active Syed Small DO Active MULTIVITAMINS TABS 1 pill by mouth daily MULTIPLE VITAMIN 27248245560 No Longer Active Darin Willis MD Active CHANTIX 1 MG TABS 1 twice a day VARENICLINE TARTRATE 39775799884 No Longer Active Darin Willis MD Active DOXEPIN HCL 50 MG CAPS 1 CAP PO Q HS DOXEPIN HCL 67465646715 No Longer Active Darin Willis MD Active CYMBALTA 60 MG CPEP Take 1 capsule 1 x daily DULOXETINE HCL 59822970408 No Longer Active Darin Willis MD Active BUSPIRONE HCL 10 MG TABS 1 TAB PO TID BUSPIRONE HCL 13224481100 Active Darin Willis MD Active PRISTIQ 100 MG [id number] 1 TAB PO DAILY DESVENLAFAXINE SUCCINATE 97026272717 Active Darin Willis MD Active CYMBALTA 30 MG CPEP 1 cap by mouth daily with 60mg DULOXETINE HCL 30372403866 No Longer Active Darin Willis MD Active PERCOCET 10-325 MG TABS take 1 tab po qday in addition to the prior percocet script for a total dose of 3 pills a day. OXYCODONE-ACETAMINOPHEN 73547488193 No Longer Active Darin Willsi MD Active PHENTERMINE HCL 37.5 MG CAPS 1 tab by mouth daily 30 minutes before breakfast PHENTERMINE HCL 36982442235 No Longer Active Darin Willis MD Active DIETHYLPROPION HCL CR 75 MG [id number] 1 qAM, 30 minutes before or 2 hours after breakfast, for weight loss DIETHYLPROPION HCL 62535308646 Active Darin Willis MD Active FISH OIL 1000 MG CPDR 1 po tid OMEGA-3 FATTY ACIDS 70980957787 Active Darin Willis MD Active MOBIC 15 MG TABS 1 tablet by mouth daily MELOXICAM 97527405970 No Longer Active Darin Willis MD Active DICLOFENAC SODIUM 50 MG TBEC 1 po TID PRN Knee pain DICLOFENAC SODIUM 72783667631 No Longer Active Darin Willis MD Active SIMVASTATIN 40 MG TABS 1 TAB PO Q HS SIMVASTATIN 23771960202 Active Darin Willis MD Active SIMVASTATIN 20 MG TABS 1 tab daily at bedtime SIMVASTATIN 32212251889 No Longer Active Anjana Oh Active OXYCODONE-ACETAMINOPHEN 7.5-325 MG TABS take 1 tab po BID prn back pain OXYCODONE-ACETAMINOPHEN 38389500187 No Longer Active Darin Willis MD Active SEROQUEL 300 MG TABS 1 TAB PO Q HS QUETIAPINE FUMARATE 17479354380 No Longer Active Darin Willis MD Active CHANTIX STARTING MONTH SANG 0.5 MG X 11 & 1 MG X 42 TABS 0.5mg daily for 3 days, then 0.5mg BID for 4 days, then 1mg BID VARENICLINE TARTRATE 04302955286 No Longer Active Darin Willis MD Active HYDROCODONE-ACETAMINOPHEN 7.5-500 MG TABS take 1 tab po q 6 hours prn pain. Start taking medication sparingly. HYDROCODONE-ACETAMINOPHEN 50520474084 No Longer Active Darin Willis MD Active WELLBUTRIN XL 300 MG [id number] 1 po qd BUPROPION HCL 21355047635 No Longer Active Darin Willis MD Active TOPAMAX 100 MG TABS 1 tab po daily TOPIRAMATE 60498395541 No Longer Active Jesus Adams MD Active PROZAC 20 MG CAPS 1 PO DAILY FLUOXETINE HCL 47556668280 No Longer Active Jesus Adams MD Active PROZAC 40 MG CAPS 1 cap by mouth qd FLUOXETINE HCL 96445905954 No Longer Active Darin Willis MD Active FLAGYL 500 MG TAB 1 tablet by mouth two times daily METRONIDAZOLE 68372689341 No Longer Active Leigh Garcia MD PhD Active SEROQUEL 100 MG TABS 1 tab po hs QUETIAPINE FUMARATE 19312599495 No Longer Active Leigh Garcia MD PhD Active HYDROCODONE-ACETAMINOPHEN 5-325 MG TABS 1-2 po q 6hr PRN Pain HYDROCODONE-ACETAMINOPHEN 94448146502 No Longer Active Leigh Garcia MD PhD Active HYDROCODONE-ACETAMINOPHEN 7.5-325 MG TABS 1-2 tab po four times a day as needed for pain HYDROCODONE-ACETAMINOPHEN 14420199818 No Longer Active Leigh Garcia MD PhD Active PROMETHAZINE HCL 12.5 MG TABS take 1 tab po q 6 hours prn nausea PROMETHAZINE HCL 90123822259 Active Darin Willis MD Active ZYRTEC ALLERGY 10 MG CAPS 1 po qday for allergies CETIRIZINE HCL 00154377650 Active Darin Willis MD Active PREDNISONE 20 MG TAB 2 tabs daily for 3 days, 1 tab daily for 3 days, 1/2 tab daily for 2 days PREDNISONE 88667683327 No Longer Active Darin Willis MD Active HYDROCODONE-ACETAMINOPHEN 7.5-325 MG TABS 1-2 tab po four times a day as needed for pain HYDROCODONE-ACETAMINOPHEN 7.5-325 MG TABS 546443 HYDROCODONE-ACETAMINOPHEN Inactive HYDROCODONE-ACETAMINOPHEN 5-325 MG TABS 1-2 po q 6hr PRN Pain HYDROCODONE- ACETAMINOPHEN 5-325 MG TABS 616969 HYDROCODONE-ACETAMINOPHEN Inactive SEROQUEL 100 MG TABS 1 tab po hs SEROQUEL 100 MG TABS 269889 QUETIAPINE FUMARATE Inactive PROZAC 40 MG CAPS 1 cap by mouth qd PROZAC 40 MG CAPS 232718 FLUOXETINE HCL Inactive PROZAC 20 MG CAPS 1 PO DAILY PROZAC 20 MG CAPS 337756 FLUOXETINE HCL Inactive TOPAMAX 100 MG TABS 1 tab po daily TOPAMAX 100 MG TABS 635067 TOPIRAMATE Inactive WELLBUTRIN XL 300 MG [id number] 1 po qd WELLBUTRIN XL 300 MG [id number] BUPROPION HCL Inactive HYDROCODONE-ACETAMINOPHEN 7.5-500 MG TABS [...] PO Q HS SEROQUEL 300 MG TABS 385753 QUETIAPINE FUMARATE Inactive OXYCODONE-ACETAMINOPHEN 7.5-325 MG TABS take 1 tab po BID prn back pain OXYCODONE-ACETAMINOPHEN 7.5-325 MG TABS 8674001 OXYCODONE-ACETAMINOPHEN Inactive SIMVASTATIN 20 MG TABS 1 tab daily at bedtime SIMVASTATIN 20 MG TABS 572723 SIMVASTATIN Inactive DICLOFENAC SODIUM 50 MG TBEC 1 po TID PRN Knee pain DICLOFENAC SODIUM 50 MG TBEC 761157 DICLOFENAC SODIUM Inactive MOBIC 15 MG TABS 1 tablet by mouth daily MOBIC 15 MG TABS 385828 MELOXICAM Inactive PHENTERMINE HCL 37.5 MG CAPS 1 tab by mouth daily 30 minutes before breakfast PHENTERMINE HCL 37.5 MG CAPS 822195 PHENTERMINE HCL Inactive CYMBALTA 30 MG CPEP 1 cap by mouth daily with 60mg CYMBALTA 30 MG CPEP 574176 DULOXETINE HCL Inactive CYMBALTA 60 MG CPEP Take 1 capsule 1 x daily CYMBALTA 60 MG CPEP 087549 DULOXETINE HCL Inactive DOXEPIN HCL 50 MG CAPS 1 CAP PO Q HS DOXEPIN HCL 50 MG CAPS 7249691 DOXEPIN HCL Inactive CHANTIX 1 MG TABS [...] tablet 3x daily KLONOPIN 1 MG TABS 444123 CLONAZEPAM Inactive FENOFIBRATE MICRONIZED 43 MG CAPS 1 CAP PO DAILY FENOFIBRATE MICRONIZED 43 MG CAPS 556647 FENOFIBRATE MICRONIZED Inactive CHANTIX STARTING MONTH SANG 0.5 MG X 11 & 1 MG X 42 TABS 0.5mg daily for 3 days, then 0.5mg BID for 4 days, then 1mg BID CHANTIX STARTING MONTH SANG 0.5 MG X 11 & 1 MG X 42 TABS VARENICLINE TARTRATE Inactive OXYCONTIN 10 MG [id number] take 1 tab po BID for back pain OXYCONTIN 10 MG [id number] OXYCODONE HCL Inactive AMBIEN 10 MG TABS 1/2 - 1 TAB PO Q HS PRN AMBIEN 10 MG TABS 090722 ZOLPIDEM TARTRATE Inactive PREDNISONE 20 MG TAB 2 tabs daily for 3 days, 1 tab daily for 3 days, 1/2 tab daily for 2 days PREDNISONE 20 MG TAB 259005 PREDNISONE Inactive FLAGYL 500 MG TAB 1 tablet by mouth two times daily FLAGYL 500 MG TAB 164812 METRONIDAZOLE Inactive PERCOCET 10-325 MG TABS take 1 tab po qday in addition to the prior percocet script for a total dose of 3 pills a day. PERCOCET 10-325 MG TABS 1166194 OXYCODONE-ACETAMINOPHEN Inactive NICOTINE 14 MG/24HR PT24 1 patch daily - on in AM, off at HS - for smoking cessation NICOTINE 14 MG/24HR PT24 882558 NICOTINE Inactive Immunizations Vaccine Administration Date Value Standard Description Seasonal influenza vaccine, injectable, containing preservative, for > 3 years old (Afluria, FluLaval, Fluzone, Fluvirin, Fluarix, Agriflu(>=18 yo)) Fluzone (>3 yrs.) [UPO200] Influenza, seasonal, injectable Vital Signs Date Name [...] Panel - Chemistry sodium, serum 137 mmol/L 669-172 9960/12/03 potassium, serum 3.8 mmol/L 3.5-5.2 chloride, serum [...] 0.30 mg/dL 0.00-1.00 cholesterol, serum 140 mg/dL 862-745 7493/12/03 triglyceride, serum, fasting 212 mg/dL 30-200 HDL cholesterol, serum 27 mg/dL 32-96 LDL cholesterol, serum 71 mg/dL 0-130 sodium, serum 142 mmol/L 082-055 4751/03/04 potassium, serum 4.6 mmol/L 3.5-5.2 chloride, serum [...] 0.50 mg/dL 0.00-1.00 cholesterol, serum 155 mg/dL 556-676 3531/03/04 triglyceride, serum, fasting 177 mg/dL 30-200 HDL cholesterol, serum 26 mg/dL 32-96 LDL cholesterol, serum 94 mg/dL 0-130 Lab Report: Lipid Panel, Comp. Metabolic Panel, CBC, Thyroid Stimulating ... - Chemistry thyroid stimulating hormone, serum 1950 u[iU]/mL Units converted. See lab report for original value. cholesterol, serum 122 mg/dL 190-160 4849/09/10 triglyceride, serum, fasting 209 mg/dL 30-200 HDL cholesterol, serum 26 mg/dL 32-96 LDL cholesterol, serum 54 mg/dL 0-130 sodium, serum 138 mmol/L 097-641 8523/09/10 potassium, serum 4.8 mmol/L 3.5-5.2 chloride, serum [...] mg/dL Encounters Code Encounter Date Provider Facility CPT-11329 Level 4 Est. Patient 08:49:16 CDT Darin Willis MD [facility] CPT-93607 Level 4 Est. Patient 13:11:49 CDT Darin Willis MD [facility] CPT-14707 Level 4 Est. Patient 15:10:08 CDT Darin Willis MD [facility] CPT-42892 Level 4 Est. Patient 15:16:28 CDT Darin Willis MD [facility] CPT-38018 Level 3 Est. 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 Patient 13:16:44 CDT Darin Willis MD [facility]-94417 Level 4 Est. Patient 14:41:11 CDT Darin Willis MD [facility]-22981 Level 3 Est. Patient 17:53:28 CDT Darin Willis MD [facility]-38827 Level 3 Est. Patient 10:15:54 CDT Darin Willis MD [facility]-96159 Level 4 Est. 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 Patient 13:16:12 CDT Leigh Garcia MD PhD [facility]-56063 Level 3 Est. Patient 11:35:02 CDT Darin Willis MD [facility] CPT-27456 Level 3 Est. Patient 11:41:50 CDT Darin Willis MD [facility] CPT-41476 Level 3 Est. 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
--- OUTSIDE RECORDS SUMMARY | 2018-08-21 22:23 | XMS REPORT | Clinical Summary ---
Author Author Admin, CAROL[facility] Address Unknown Phone Unavailable Allergies, Adverse [...] HYPERLIPIDEMIA 272.4 Active Kat Sparks [facility] Other and unspecified hyperlipidemia KNEE PAIN, LEFT, [...] a day for sc=moking cessation VARENICLINE TARTRATE [id number] No Longer Active Darin Willis MD Active KLONOPIN 0.5 MG TABS 1 TAB PO TID PRN CLONAZEPAM 76119702978 Active Darin Willis MD Active PAXIL 20 MG TABS 1 TAB PO DAILY PAROXETINE HCL 88711232234 Active Darin Willis MD Active ALPRAZOLAM 1 MG TABS 1 tablet twice daily as needed ALPRAZOLAM 37255620639 No Longer Active Darin Willis MD Active PRISTIQ 100 MG [id number] 1 TAB PO DAILY DESVENLAFAXINE SUCCINATE 35855571017 No Longer Active Darin Willis MD Active OXYCONTIN 20 MG T12A take 1 tab po BID for chronic pain. OXYCODONE HCL 93072319521 Active Darin Willis MD Active PERCOCET 10-325 MG TABS 1 tablet TID prn back pain OXYCODONE-ACETAMINOPHEN 95130445489 Active Darin Willis MD Active RISPERDAL 1 MG TABS take 1 tab in am and 1/2 tab at bedtime RISPERIDONE 87894271427 Active Darin Willis MD Active AMBIEN 10 MG TABS 1/2 - 1 TAB PO Q HS PRN ZOLPIDEM TARTRATE 73138405047 No Longer Active Darin Willis MD Active OXYCONTIN 10 MG [id number] take 1 tab po BID for back pain OXYCODONE HCL No Longer Active Darin Willis MD Active OXYCONTIN 15 MG T12A take 1 tab po BID for chronic pain OXYCODONE HCL 06771019253 Active Darin Willis MD Active CHANTIX STARTING MONTH SANG 0.5 MG X 11 & 1 MG X 42 TABS 0.5mg daily for 3 days, then 0.5mg BID for 4 days, then 1mg BID VARENICLINE TARTRATE 95509133490 No Longer Active Darin Willis MD Active FENOFIBRATE MICRONIZED 43 MG CAPS 1 CAP PO DAILY FENOFIBRATE MICRONIZED 39431834434 No Longer Active Anjana Oh Active FENOFIBRATE MICRONIZED 67 MG CAPS 1 TAB PO DAILY FENOFIBRATE MICRONIZED 75487048433 Active Darin Willis MD Active NICOTINE 14 MG/24HR PT24 1 patch daily - on in AM, off at HS - for smoking cessation NICOTINE 47607891214 No Longer Active Darin Willis MD Active KLONOPIN 1 MG TABS Take 1 tablet 3x daily CLONAZEPAM 71612457102 No Longer Active Darin Willis MD Active CHANTIX STARTING MONTH SANG 0.5 MG X 11 & 1 MG X 42 TABS VARENICLINE TARTRATE 01054209050 No Longer Active Darin Willis MD Active TOPAMAX 50 MG TABS take 1 tab po qday TOPIRAMATE 23405519816 Active Darin Willis MD Active LASIX 20 MG TAB 1 tablet by mouth daily prn for swelling FUROSEMIDE 93892189654 Active Darin Willis MD Active MULTIVITAMINS TABS 1 pill by mouth daily MULTIPLE VITAMIN 33752464197 No Longer Active Darin Willis MD Active CHANTIX 1 MG TABS 1 twice a day VARENICLINE TARTRATE 50357169215 No Longer Active Darin Willis MD Active DOXEPIN HCL 50 MG CAPS 1 CAP PO Q HS DOXEPIN HCL 86848392412 No Longer Active Darin Willis MD Active CYMBALTA 60 MG CPEP Take 1 capsule 1 x daily DULOXETINE HCL 51391083322 No Longer Active Darin Willis MD Active BUSPIRONE HCL 10 MG TABS 1 TAB PO TID BUSPIRONE HCL 63512157766 Active Darin Willis MD Active CYMBALTA 30 MG CPEP 1 cap by mouth daily with 60mg DULOXETINE HCL 49176653009 No Longer Active Darin Willis MD Active PERCOCET 10-325 MG TABS take 1 tab po qday in addition to the prior percocet script for a total dose of 3 pills a day. OXYCODONE-ACETAMINOPHEN 55671048129 No Longer Active Darin Willis MD Active PHENTERMINE HCL 37.5 MG CAPS 1 tab by mouth daily 30 minutes before breakfast PHENTERMINE HCL 36184797454 No Longer Active Darin Willis MD Active DIETHYLPROPION HCL CR 75 MG [id number] 1 qAM, 30 minutes before or 2 hours after breakfast, for weight loss DIETHYLPROPION HCL 52301661565 Active Darin Willis MD Active FISH OIL 1000 MG CPDR 1 po tid OMEGA-3 FATTY ACIDS 04748260314 Active Darin Willis MD Active MOBIC 15 MG TABS 1 tablet by mouth daily MELOXICAM 34636245482 No Longer Active Darin Willis MD Active DICLOFENAC SODIUM 50 MG TBEC 1 po TID PRN Knee pain DICLOFENAC SODIUM 49029762883 No Longer Active Darin Willis MD Active SIMVASTATIN 40 MG TABS 1 TAB PO Q HS SIMVASTATIN 71131861282 Active Darin Willis MD Active SIMVASTATIN 20 MG TABS 1 tab daily at bedtime SIMVASTATIN 17905980657 No Longer Active Anjana Oh Active OXYCODONE-ACETAMINOPHEN 7.5-325 MG TABS take 1 tab po BID prn back pain OXYCODONE-ACETAMINOPHEN 94769751010 No Longer Active Darin Willis MD Active SEROQUEL 300 MG TABS 1 TAB PO Q HS QUETIAPINE FUMARATE 72561765983 No Longer Active Darin Willis MD Active CHANTIX STARTING MONTH SANG 0.5 MG X 11 & 1 MG X 42 TABS 0.5mg daily for 3 days, then 0.5mg BID for 4 days, then 1mg BID VARENICLINE TARTRATE 55716691777 No Longer Active Darin Willis MD Active HYDROCODONE-ACETAMINOPHEN 7.5-500 MG TABS take 1 tab po q 6 hours prn pain. Start taking medication sparingly. HYDROCODONE-ACETAMINOPHEN 80469825520 No Longer Active Darin Willis MD Active WELLBUTRIN XL 300 MG [id number] 1 po qd BUPROPION HCL 96142544029 No Longer Active Darin Willis MD Active TOPAMAX 100 MG TABS 1 tab po daily TOPIRAMATE 18854976929 No Longer Active Jesus Adams MD Active PROZAC 20 MG CAPS 1 PO DAILY FLUOXETINE HCL 43987488871 No Longer Active Jesus Adams MD Active PROZAC 40 MG CAPS 1 cap by mouth qd FLUOXETINE HCL 93956510954 No Longer Active Darin Willis MD Active FLAGYL 500 MG TAB 1 tablet by mouth two times daily METRONIDAZOLE 94492980635 No Longer Active Leigh Garcia MD PhD Active SEROQUEL 100 MG TABS 1 tab po hs QUETIAPINE FUMARATE 59313030357 No Longer Active Leigh Garcia MD PhD Active HYDROCODONE-ACETAMINOPHEN 5-325 MG TABS 1-2 po q 6hr PRN Pain HYDROCODONE-ACETAMINOPHEN 03527356960 No Longer Active Leigh Garcia MD PhD Active HYDROCODONE-ACETAMINOPHEN 7.5-325 MG TABS 1-2 tab po four times a day as needed for pain HYDROCODONE-ACETAMINOPHEN 20238934522 No Longer Active Leigh Garcia MD PhD Active PROMETHAZINE HCL 12.5 MG TABS take 1 tab po q 6 hours prn nausea PROMETHAZINE HCL 04183312183 Active Darin Willis MD Active ZYRTEC ALLERGY 10 MG CAPS 1 po qday for allergies CETIRIZINE HCL 58741209413 Active Darin Willis MD Active PREDNISONE 20 MG TAB 2 tabs daily for 3 days, 1 tab daily for 3 days, 1/2 tab daily for 2 days PREDNISONE 57878097977 No Longer Active Darin Willis MD Active HYDROCODONE-ACETAMINOPHEN 7.5-325 MG TABS 1-2 tab po four times a day as needed for pain HYDROCODONE-ACETAMINOPHEN 7.5-325 MG TABS 193572 HYDROCODONE-ACETAMINOPHEN Inactive HYDROCODONE-ACETAMINOPHEN 5-325 MG TABS 1-2 po q 6hr PRN Pain HYDROCODONE- ACETAMINOPHEN 5-325 MG TABS 633329 HYDROCODONE-ACETAMINOPHEN Inactive SEROQUEL 100 MG TABS 1 tab po hs SEROQUEL 100 MG TABS 206608 QUETIAPINE FUMARATE Inactive PROZAC 40 MG CAPS 1 cap by mouth qd PROZAC 40 MG CAPS 914979 FLUOXETINE HCL Inactive PROZAC 20 MG CAPS 1 PO DAILY PROZAC 20 MG CAPS 455482 FLUOXETINE HCL Inactive TOPAMAX 100 MG TABS 1 tab po daily TOPAMAX 100 MG TABS 770952 TOPIRAMATE Inactive WELLBUTRIN XL 300 MG [id number] 1 po qd WELLBUTRIN XL 300 MG [id number] BUPROPION HCL Inactive HYDROCODONE-ACETAMINOPHEN 7.5-500 MG TABS [...] PO Q HS SEROQUEL 300 MG TABS 402748 QUETIAPINE FUMARATE Inactive OXYCODONE-ACETAMINOPHEN 7.5-325 MG TABS take 1 tab po BID prn back pain OXYCODONE-ACETAMINOPHEN 7.5-325 MG TABS 8841686 OXYCODONE-ACETAMINOPHEN Inactive SIMVASTATIN 20 MG TABS 1 tab daily at bedtime SIMVASTATIN 20 MG TABS 920293 SIMVASTATIN Inactive DICLOFENAC SODIUM 50 MG TBEC 1 po TID PRN Knee pain DICLOFENAC SODIUM 50 MG TBEC 482307 DICLOFENAC SODIUM Inactive MOBIC 15 MG TABS 1 tablet by mouth daily MOBIC 15 MG TABS 667015 MELOXICAM Inactive PHENTERMINE HCL 37.5 MG CAPS 1 tab by mouth daily 30 minutes before breakfast PHENTERMINE HCL 37.5 MG CAPS 764234 PHENTERMINE HCL Inactive CYMBALTA 30 MG CPEP 1 cap by mouth daily with 60mg CYMBALTA 30 MG CPEP 243516 DULOXETINE HCL Inactive CYMBALTA 60 MG CPEP Take 1 capsule 1 x daily CYMBALTA 60 MG CPEP 221480 DULOXETINE HCL Inactive DOXEPIN HCL 50 MG CAPS 1 CAP PO Q HS DOXEPIN HCL 50 MG CAPS 3888142 DOXEPIN HCL Inactive CHANTIX 1 MG TABS [...] tablet 3x daily KLONOPIN 1 MG TABS 768634 CLONAZEPAM Inactive FENOFIBRATE MICRONIZED 43 MG CAPS 1 CAP PO DAILY FENOFIBRATE MICRONIZED 43 MG CAPS 205744 FENOFIBRATE MICRONIZED Inactive CHANTIX STARTING MONTH SANG 0.5 MG X 11 & 1 MG X 42 TABS 0.5mg daily for 3 days, then 0.5mg BID for 4 days, then 1mg BID CHANTIX STARTING MONTH SANG 0.5 MG X 11 & 1 MG X 42 TABS VARENICLINE TARTRATE Inactive OXYCONTIN 10 MG [id number] take 1 tab po BID for back pain OXYCONTIN 10 MG [id number] OXYCODONE HCL Inactive AMBIEN 10 MG TABS 1/2 - 1 TAB PO Q HS PRN AMBIEN 10 MG TABS 000601 ZOLPIDEM TARTRATE Inactive PRISTIQ 100 MG [id number] 1 TAB PO DAILY PRISTIQ 100 MG [id number] DESVENLAFAXINE SUCCINATE Inactive ALPRAZOLAM 1 MG TABS 1 tablet twice daily as needed ALPRAZOLAM 1 MG TABS 352479 ALPRAZOLAM Inactive CHANTIX 1 MG TABS 1 twice a day for sc=moking cessation CHANTIX 1 MG TABS VARENICLINE TARTRATE Inactive PREDNISONE 20 MG TAB 2 tabs daily for 3 days, 1 tab daily for 3 days, 1/2 tab daily for 2 days PREDNISONE 20 MG TAB 761838 PREDNISONE Inactive FLAGYL 500 MG TAB 1 tablet by mouth two times daily FLAGYL 500 MG TAB 207229 METRONIDAZOLE Inactive PERCOCET 10-325 MG TABS take 1 tab po qday in addition to the prior percocet script for a total dose of 3 pills a day. PERCOCET 10-325 MG TABS 7258427 OXYCODONE-ACETAMINOPHEN Inactive NICOTINE 14 MG/24HR PT24 1 patch daily - on in AM, off at HS - for smoking cessation NICOTINE 14 MG/24HR PT24 127823 NICOTINE Inactive Immunizations Vaccine Administration Date Value Standard Description Seasonal influenza vaccine, injectable, containing preservative, for > 3 years old (Afluria, FluLaval, Fluzone, Fluvirin, Fluarix, Agriflu(>=18 yo)) Fluzone (>3 yrs.) [[id number]] Influenza, seasonal, injectable Vital Signs Date Name Value Unit Range Description blood pressure, diastolic 86 mm[Hg] BP alvarenga blood pressure, systolic 120 mm[Hg] BP sys pulse rate E&M 92 /min Heart rate temperature E&M 97.6 [degF] Body temperature weight E&M 259 [lb_av] Weight Measured blood pressure, diastolic 88 mm[Hg] BP al[place] blood pressure, systolic 134 mm[Hg] BP sys pulse rate E&M 89 /min Heart rate temperature E&M 98.9 [degF] Body temperature weight E&M 235 [lb_av] Weight Measured weight E&M 236 [lb_av] Weight Measured blood pressure, diastolic 85 mm[Hg] BP al[place]ga blood pressure, systolic 134 mm[Hg] BP sys height E&M 68 [in_us] Bdy height pulse rate E&M 70 /min Heart rate temperature E&M 99.4 [degF] Body temperature weight E&M 238 [lb_av] Weight Measured blood pressure, diastolic 80 mm[Hg] BP al[place] blood pressure, systolic 117 mm[Hg] BP sys weight E&M 242 [lb_av] Weight Measured blood pressure, diastolic 85 mm[Hg] BP [place] blood pressure, systolic 124 mm[Hg] BP sys height E&M 68 [in_us] Bdy height pulse rate E&M 91 /min Heart rate temperature E&M 97.6 [degF] Body temperature weight E&M 243 [lb_av] Weight Measured blood pressure, diastolic 90 mm[Hg] BP al[place] blood pressure, systolic 131 mm[Hg] BP sys height E&M 68 [in_us] Bdy height pulse rate E&M 114 /min Heart rate temperature E&M 98.2 [degF] Body temperature weight E&M 248 [lb_av] Weight Measured blood pressure, diastolic 85 mm[Hg] BP [place] blood pressure, systolic 131 mm[Hg] BP sys height E&M 68 [in_us] Bdy height pulse rate E&M 89 /min Heart rate temperature E&M 98.8 [degF] Body temperature weight E&M 255 [lb_av] Weight Measured blood pressure, diastolic 88 mm[Hg] BP [place] blood pressure, systolic 142 mm[Hg] BP sys height E&M 68 [in_us] Bdy height pulse rate E&M 101 /min Heart rate temperature E&M 97.7 [degF] Body temperature weight E&M 256.50 [lb_av] Weight Measured blood pressure, diastolic 95 mm[Hg] BP al[place] blood pressure, systolic 148 mm[Hg] BP sys height E&M 68 [in_us] Bdy height pulse rate E&M 106 /min Heart rate temperature E&M 98.2 [degF] Body temperature weight E&M 267 [lb_av] Weight Measured Diagnostic Results Date Name Value Unit Range Description Lab Report: Comp. Metabolic Panel, Lipid Panel - Chemistry sodium, serum 137 mmol/L [phone]/12/03 potassium, serum 3.8 mmol/L 3.5-5.2 chloride, serum [...] 0.30 mg/dL 0.00-1.00 cholesterol, serum 140 mg/dL 959-212 6016/12/03 triglyceride, serum, fasting 212 mg/dL 30-200 HDL cholesterol, serum 27 mg/dL 32-96 LDL cholesterol, serum 71 mg/dL 0-130 sodium, serum 142 mmol/L 776-430 3767/03/04 potassium, serum 4.6 mmol/L 3.5-5.2 chloride, serum [...] 0.50 mg/dL 0.00-1.00 cholesterol, serum 155 mg/dL 261-799 0764/03/04 triglyceride, serum, fasting 177 mg/dL 30-200 HDL [...] 0.85 ng/dL 0.76-1.46 cholesterol, serum 180 mg/dL 728-957 5632/09/22 triglyceride, serum, fasting 192 mg/dL 30-200 HDL [...] mg/dL Encounters Code Encounter Date Provider Facility CPT-67998 Level 4 Est. Patient 22:18:18 CDT Darin [facility] CPT-63514 Level 4 Est. Patient 08:49:16 CDT Darin [facility] CPT-12636 Level 4 Est. Patient 13:11:49 CDT Darin [facility] MD [facility] CPT-96474 Level 4 Est. Patient 15:10:08 CDT Darin [facility] CPT-08680 Level 4 Est. Patient 15:16:28 CDT Darin [facility] MD [facility] CPT-26803 Level 3 Est. Patient 13:37:16 [employer] Darin [facility] MD [facility] CPT-86766 Level 3 Est. Patient 12:16:32 [employer] Darin [facility] CPT-75298 Level 4 Est. Patient 13:19:57 [employer] Darin [facility] MD [facility] CPT-13530 Level 4 Est. Patient 11:56:49 [employer] Darin [facility] CPT-20034 Level 4 Est. Patient 13:16:44 CDT Darin [facility] MD [facility] CPT-56669 Level 4 Est. Patient 14:41:11 CDT Darin iWllis MD [facility] CPT-40994 Level 3 Est. Patient 17:53:28 CDT Darin [facility] CPT-98328 Level 3 Est. Patient 10:15:54 CDT Darin [facility] MD [facility] CPT-03527 Level 4 Est. Patient 20:46:40 [employer] Darin [facility] MD [facility] CPT-82794 Level 4 Est. Patient 21:17:49 [employer] Darin [facility] MD [facility] CPT-73132 Level 3 Est. Patient 10:46:40 [employer] Jesus Adams [facility] CPT-40178 Level 3 Est. Patient 18:04:06 [employer] Darin [facility] CPT-16810 Level 3 Est. Patient 11:36:33 [employer] Darin [facility] CPT-07411 Level 3 Est. Patient 13:16:12 CDT Leigh Garcia MD [facility] CPT-43134 Level 3 Est. Patient 11:35:02 CDT Darin [facility] MD [facility] CPT-06429 Level 3 Est. Patient 11:41:50 CDT Darin [facility] MD [facility] CPT-27205 Level 3 Est. Patient 16:36:45 CDT Darin [facility] MD [facility] CPT-16406 Level 2 New Patient 18:30:11 CDT Darin [facility] Procedures Code Procedure Name Date Entry Date Standard Description CPT-27911 Venipuncture Draw Fee 10:33:53 [employer] CPT-06208 Knee 3V 10:22:12 [employer] CPT-50650 Venipuncture Draw Fee 11:29:50 [employer] CPT-25486 Administration single or combination vaccine inc oral 15:53:22 CDT CPT-13318 Influenza split virus > age 3 15:53:22 CDT CPT-91081 Abx/Therapy Injection 18:30:11 CDT CPT-J1885 Toradol 60 mg (Ketorolac) 12:21:26 CDT CPT-47084 LS spine comp w obliq 11:37:16 CDT
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
[2018-08-21 22:38] VITALS: BP 144/73
== END 2018-08-21 22:37 | disposition home or self-care (01) ==
LOC: EDUNIT# 21:49 → ER 21:51
DX: S81.011A Laceration without foreign body, right knee, initial encounter (principal); F41.9 Anxiety disorder, unspecified; F32.9 Major depressive disorder, single episode, unspecified; M51.37 Other intervertebral disc degeneration, lumbosacral region; F17.200 Nicotine dependence, unspecified, uncomplicated; Z88.5 Allergy status to narcotic agent; Z90.710 Acquired absence of both cervix and uterus; W25.XXXA Contact with sharp glass, initial encounter
CPT/HCPCS: 12001; 90471; 90715